=== PATIENT | male | born 1975 | race Caucasian/White ===

== ENCOUNTER 2018-09-07 19:57 | Emergency (ER) | payer OTHER, MEDICAID, SELFPAY ==
[2018-09-07 20:01] VITALS: BP 159/89; PULSE 111; RESP 21; TEMP 37.3; O2SAT 95
--- NOTE | 2018-09-07 20:27 | PC.NURSE ---
Patient in room with mother at bedside. Sitter in use. Pt here for pain control, but he is level 2 due to suicide risk assessment. provider notified.
--- NOTE | 2018-09-07 20:41 | PC.NURSE ---
Patient placed next to nursing station for continuous observation. Patient's family feels comfortable staying with patient and will initiate staff one on one if family leaves. Provider aware.
[2018-09-07 21:19] VITALS: BP 153/91; PULSE 91; RESP 22; TEMP 37.1; O2SAT 93
[2018-09-07] MEDS: OXYCODONE/APAP 5/325 PREPACK 1 BOTTLE MISC (21:57)
--- NOTE | 2018-09-08 04:13 | ED_ITS ---
HPI - Recheck/Abnormal Lab/Rx General Chief Complaint: Recheck/Abnormal Lab/Rx Stated Complaint: pain issues Time Seen by Provider: 09/07/18 20:10 Source: patient and family Mode of arrival: ambulatory Limitations: no limitations History of Present Illness HPI narrative: 43-year-old male smoker with extensive known opioid abuse history presents with a chief complaint of left shoulder pain. the patient just had ar throscopic surgery on his left shoulder and was discharged from an outside facility yesterday. The patient had recently been prescribed 120 oxycodone which he is out of and upon discharge was given another small prescription. When he went to the local pharmacy to have it filled they did not based on the fact that he had recently had a large prescription filled. He contacted his doctor's and was told the only option he has presents to the emergency department if he has ongoing pain. He denies any injury. He has had no fever or chills. He denies any numbness, tingling or weakness. MD complaint: medication refill request Initial visit (ago): hour(s) Initial visit for: other Returns today for: request for prescription Symptoms since prior visit: worsening pain Context: ran out of medication Related Data Home Medications Medication Instructions Recorded Confirmed benztropine 2 mg PO DAILY 09/07/18 09/07/18 buspirone 15 mg PO BID 09/07/18 09/07/18 clonazepam 2 mg PO DAILY 09/07/18 09/07/18 diazepam 5 mg PO QID 09/07/18 09/07/18 diltiazem HCl [Cartia XT] 120 mg PO DAILY 09/07/18 09/07/18 hydrochlorothiazide 25 mg PO DAILY 09/07/18 09/07/18 lansoprazole 30 mg PO DAILY 09/07/18 09/07/18 losartan 25 mg PO DAILY 09/07/18 09/07/18 mirtazapine 15 mg PO DAILY 09/07/18 09/07/18 pantoprazole 40 mg PO BID 09/07/18 09/07/18 prazosin 5 mg PO BID 09/07/18 09/07/18 prednisone 10 mg PO DAILY 09/07/18 09/07/18 risperidone 4 mg PO DAILY 09/07/18 09/07/18 simvastatin 20 mg PO QPM 04/03/19 04/03/19 Previous Rx's Medication Instructions Recorded gabapentin [Neurontin] 300 mg PO QID #8 cap 11/17/16 Allergies Allergy/AdvReac Type Severity Reaction Status Date / Time hydromorphone [HYDROMORPHONE] Allergy Mild severe Verified 09/07/18 20:11 itching WITH PILL FORM morphine Allergy Mild skin Verified 09/07/18 20:11 crawl/itchy Penicillins Allergy Mild hives Verified 09/07/18 20:11 Review of Systems Constitutional Denies chills, Denies fever(s), Denies lethargy and Denies weakness Eyes Denies change in vision, Denies eye discharge, Denies irritation and Denies loss of vision ENT Ears, Nose, Mouth, and Throat: Denies change in voice, Denies neck pain and Denies sore throat Cardiovascular Denies chest pain, Denies irregular heart rhythm, Denies lightheadedness, Denies palpitations, Denies dyspnea, Denies dyspnea on exertion and Denies orthopnea Respiratory Denies cough, Denies dyspnea, Denies dyspnea on exertion and Denies wheezing Gastrointestinal Gastrointestinal: Denies abdominal pain, Denies change in bowel habits, Denies diarrhea, Denies nausea and Denies vomiting Genitourinary Denies hematuria, Denies flank pain, Denies urinary incontinence and Denies urinary urgency Musculoskeletal Reports limited range of motion and Denies neck pain Integumentary/Breasts Denies pruritus, Denies erythema, Denies rash and Denies wounds Neurologic Denies confusion, Denies loss of vision and Denies weakness Psychiatric Denies anxiety, Denies confusion, Denies depression, Denies homicidal ideation and Denies suicidal ideation Endocrine Denies palpitations Hematologic/Lymphatic Denies easy bruising Allergic/Immunologic Denies wheezing PFSH Social History Smoking Status: Current every day smoker Social History Smoking Status: Current every day smoker Exam Narrative Exam Narrative: GEN: 43-year-old male, appears stated age, obviously uncomfortable AOx3 and in mild distress EYES: Pupils are equal, round, and reactive to light and accommodation. Extraoccular muscles are intact bilaterally. There is no subconjunctival hemorrhage or exudate. CHEST: Lungs are clear to auscultation bilaterally and free of wheezes, rales, or rhonchi. Heart rate is regular rhythm, there are no murmurs, clicks, rubs, or gallops. There is no chest wall tenderness. ABD: Abdomen is soft and nontender. There is no guarding or rebound. Bowel sounds are normal in all 4 quadrants. There is no mass or organomegaly. EXT: Left upper extremity in sling. Full painless ROM of all extremities with no loss of sensation or strength. SKIN: Warm, pink, and dry. No erythema or rash Initial Vital Signs Initial Vital Signs: Vital Signs Temperature 99.1 F 09/07/18 20:01 Pulse Rate 111 H 09/07/18 20:01 Respiratory Rate 21 09/07/18 20:01 Blood Pressure 159/89 H 09/07/18 20:01 Pulse Oximetry 95 09/07/18 20:01 Course Orders Ordered: Discontinued Medications Oxycodone/Acetaminophen (Endocet 5/325 Prepack) 1 bottle MISC SEEINSTR ONE Stop: 09/07/18 21:46 Last Admin: 09/07/18 21:57 Dose: 1 bottle Vital Signs - 8 hr 09/07/18 21:19 Temperature 98.7 F Pulse Rate 91 H Respiratory Rate 22 Blood Pressure [Right Arm] 153/91 H Pulse Oximetry 93 MDM - Recheck/Abnormal Lab/Rx MDM Narrative Medical decision making narrative: I had extensive discussion with the patient regarding pain medications and our ability to refill them. I told him I could not refill his medications but would be happy to give a small prepack to get him through the night. The patient states that he wants to be done with opioids and intends to see his primary care provider tomorrow to get help with a Suboxone or methadone program Discharge Plan Departure Patient Disposition: Home Clinical Impression: Acute postoperative pain of extremity Discharge Date/Time: 09/07/18 22:03 Interventions: ED Discharge Assessment Last Done: 09/07/18 22:01 Instructions: DI for Shoulder Pain Activity Restrictions/Additional Instructions: *You have been diagnosed with [ post operative pain, opioid dependence ] *What to do: *Take medications as directed *Follow up with your primary care provider in 2-3 days, call for an appointment. Let them know you were seen in the Emergency Department and that we ask that you be seen in follow up *Return to ER if you should have any new, worsening or concerning symptoms Prescriptions: No Action gabapentin [Neurontin] 300 MG capsule 300 mg PO QID Qty: 8 RF: 0 prednisone 10 mg Tablet 10 mg PO DAILY RF: 0 risperidone 4 mg Tablet 4 mg PO DAILY RF: 0 pantoprazole 20 mg Tablet,Delayed Release (Dr/Ec) 40 mg PO BID RF: 0 prazosin 5 mg Capsule 5 mg PO BID RF: 0 simvastatin 20 mg Tablet 20 mg PO QPM RF: 0 lansoprazole 30 mg Capsule,Delayed Release(Dr/Ec) 30 mg PO DAILY RF: 0 clonazepam 2 mg Tablet 2 mg PO DAILY RF: 0 losartan 25 mg Tablet 25 mg PO DAILY RF: 0 benztropine 2 mg Tablet 2 mg PO DAILY RF: 0 diltiazem HCl [Cartia XT] 120 mg Capsule,Extended Release 24hr 120 mg PO DAILY RF: 0 hydrochlorothiazide 25 mg Tablet 25 mg PO DAILY RF: 0 mirtazapine 15 mg Tablet 15 mg PO DAILY RF: 0 diazepam 5 mg Tablet 5 mg PO QID RF: 0 buspirone 15 mg Tablet 15 mg PO BID RF: 0 Referrals: Sherri Lowe MD [Primary Care Provider] -
== END 2018-09-07 22:03 | disposition home or self-care (01) ==
PROVIDERS: Emergency Provider Emergency Medicine; Family Provider Family Medicine; PCP Family Medicine
DX: G89.18 Other acute postprocedural pain (principal)
CPT/HCPCS: 99282; 99283

== ENCOUNTER 2018-12-17 19:54 | Emergency (ER) | payer OTHER, MEDICAID, SELFPAY ==
[2018-12-17 20:02] VITALS: BP 158/94; PULSE 103; RESP 22; TEMP 36.9; O2SAT 96; BMI 32.8
--- NOTE | 2018-12-17 20:06 | ED_ITS ---
HPI - Male Genitourinary General Chief complaint: Urogenital-Male Stated complaint: states left kidney stone Time Seen by Provider: 12/17/18 20:05 Source: patient Mode of arrival: ambulatory History of Present Illness HPI Narrative: Patient is a 43-year-old male presenting with left flank pain says constant ongoing for the last 2 weeks. He denies any gross blood in his urine he says it is not radiating into his groin. He has never had a history of kidney stones. He is allergic to most pain medications except Tylenol. He has had vomiting numerous times unable to take his PTSD medication, both benzodiazepines. He states he has had seizures about 6 of them over the past few days he had 1 yesterday. He has history of seizures which is controlled with benzodiazepines. He says that he has been in a dark place. He has no specific plan of suicide no actual suicidal thoughts but states he does not trust himself at home. He gets quite anxious in groups of people and is worried that he might ?strong arm someone.He is requesting that he be placed at [place] for stabilization. Related Data Home Medications Medication Instructions Recorded Confirmed benztropine 2 mg PO DAILY 09/07/18 09/07/18 buspirone 15 mg PO BID 09/07/18 09/07/18 clonazepam 2 mg PO DAILY 09/07/18 09/07/18 diazepam 5 mg PO QID 09/07/18 09/07/18 diltiazem HCl [Cartia XT] 120 mg PO DAILY 09/07/18 09/07/18 hydrochlorothiazide 25 mg PO DAILY 09/07/18 09/07/18 lansoprazole 30 mg PO DAILY 09/07/18 09/07/18 losartan 25 mg PO DAILY 09/07/18 09/07/18 mirtazapine 15 mg PO DAILY 09/07/18 09/07/18 pantoprazole 40 mg PO BID 09/07/18 09/07/18 prazosin 5 mg PO BID 09/07/18 09/07/18 prednisone 10 mg PO DAILY 09/07/18 09/07/18 risperidone 4 mg PO DAILY 09/07/18 09/07/18 simvastatin 20 mg PO QPM 09/07/18 09/07/18 Previous Rx's Medication Instructions Recorded gabapentin [Neurontin] 300 mg PO QID #8 cap 11/17/16 Allergies Allergy/AdvReac Type Severity Reaction Status Date / Time hydromorphone [HYDROMORPHONE] Allergy Mild severe Verified 09/07/18 20:11 itching WITH PILL FORM morphine Allergy Mild skin Verified 09/07/18 20:11 crawl/itchy Penicillins Allergy Mild hives Verified 09/07/18 20:11 ketorolac [From Toradol] Allergy Verified 12/17/18 20:07 Review of Systems Review of Systems ROS Unobtainable: All systems reviewed & are unremarkable except as noted in HPI and below Constitutional Denies chills, Denies fever(s), Denies lethargy and Denies weakness Eyes Denies change in vision, Denies eye discharge, Denies irritation and Denies loss of vision ENT Ears, Nose, Mouth, and Throat: Denies change in voice, Denies neck pain and Denies sore throat Cardiovascular Denies chest pain, Denies irregular heart rhythm, Denies lightheadedness, Denies palpitations, Denies dyspnea, Denies dyspnea on exertion and Denies orthopnea Respiratory Denies cough, Denies dyspnea, Denies dyspnea on exertion and Denies wheezing Gastrointestinal Gastrointestinal: Reports as per HPI, Reports nausea and Reports vomiting Genitourinary Reports as per HPI and Reports flank pain Musculoskeletal Denies neck pain Integumentary/Breasts Denies pruritus, Denies erythema, Denies rash and Denies wounds Neurologic Denies loss of vision and Denies weakness Endocrine Denies palpitations Allergic/Immunologic Denies wheezing [facility] Medical History PTSD (post-traumatic stress disorder) (Acute) Seizure (Acute) Social History Smoking Status: Current every day smoker Social History Smoking Status: Current every day smoker Exam Initial Vital Signs Initial Vital Signs: Vital Signs Temperature 98.4 F 12/17/18 20:02 Pulse Rate 103 H 12/17/18 20:02 Respiratory Rate 22 12/17/18 20:02 Blood Pressure 158/94 H 12/17/18 20:02 Pulse Oximetry 96 12/17/18 20:02 GENERAL: Well-appearing, well-nourished and in no acute distress. Good eye contact HEENT: Head atraumatic,EOMI, pupils reactive, face symmetric, moist mucous membranes CARDIOVASCULAR: Regular rate and rhythm without murmurs, rubs or gallops. RESPIRATORY: Breath sounds equal bilaterally, no wheezes rales or rhonchi. ABDOMEN: Soft, nontender. Normoactive bowel sounds all 4 quadrants. No guarding or rebound. : All left flank pain tender to touch EXTREMITIES: Normal range of motion, no clubbing or edema. Neurovascularly inta ct NEUROLOGICAL: Alert and oriented x4.Normal gait and speech. Cranial nerves II through XII grossly intact. SKIN: Warm, dry, no laceration, no petechiae, no rashes or lesions. Course Orders Ordered: Discontinued Medications Sodium Chloride (Normal Saline 0.9%) 1,000 mls @ 1,000 mls/hr IV CONT [place] Last Infusion: 12/17/18 22:02 Dose: 0 mls/hr Admin: 12/17/18 20:20 Dose: 1,000 mls/hr Lorazepam (Ativan) 1 mg PO NOW ONE Stop: 12/17/18 20:18 Last Admin: 12/17/18 20:37 Dose: 1 mg Lorazepam (Ativan) 1 mg IV NOW ONE Stop: 12/18/18 01:17 Last Admin: 12/18/18 01:24 Dose: 1 mg Ondansetron HCl (Zofran) 4 mg IV NOW ONE Stop: 12/17/18 20:18 Last Admin: 12/17/18 20:20 Dose: 4 mg Ondansetron HCl (Zofran Odt) 4 mg SL NOW ONE Stop: 12/18/18 04:44 Last Admin: 12/18/18 04:48 Dose: 4 mg Ondansetron HCl (Zofran Odt) 4 mg SL NOW ONE Stop: 12/18/18 04:46 Ondansetron HCl (Zofran Odt Prepack) 1 bottle MISC SEEINSTR ONE Stop: 12/18/18 05:04 Last Admin: 12/18/18 05:17 Dose: 1 bottle Oxycodone/Acetaminophen (Percocet 5/325) 2 tab PO NOW ONE Stop: 12/17/18 22:37 Last Admin: 12/17/18 22:52 Dose: 2 tab Oxycodone/Acetaminophen (Percocet 5/325) 1 tab PO NOW ONE Stop: 12/18/18 04:44 Last Admin: 12/18/18 04:53 Dose: 1 tab Oxycodone/Acetaminophen (Endocet 5/325 Prepack) 1 bottle MISC SEEINSTR ONE Stop: 12/18/18 05:04 Last Admin: 12/18/18 05:17 Dose: 1 bottle Vital Signs - 8 hr 12/17/18 23:35 12/18/18 01:27 12/18/18 04:23 Pulse Rate 52 L 56 L 51 L Respiratory Rate 12 14 Blood Pressure [Left Arm] 115/56 L 146/89 H 116/70 Pulse Oximetry 93 97 MDM - Male Genitourinary Lab Data Attestation: I reviewed the patient's lab results. Result diagrams: 12/17/18 20:15 12/17/18 20:15 Lab Results 12/17/18 12/17/18 12/17/18 Range/Units 20:15 20:15 20:15 WBC 7.1 (4.5-11.0) X10^3/uL RBC 4.12 L (4.5-5.9) X10^6/uL Hgb 13.8 (13.5-17.5) g/dL Hct 39.5 L (41-53) % MCV 95.9 (80-100) fL MCH 33.5 (26-34) PG MCHC 35.0 (30-36) % RDW 13.3 (11.6-14.8) % Plt Count 199 (150-400) X10^3/uL Neut % (Auto) 74.7 (50-75) % Lymph % (Auto) 20.1 L (25-40) % [place] % (Auto) 4.0 (3-14) % Eos % (Auto) 0.6 L (2-4) % Baso % (Auto) 0.6 (0-2) % Neut # (Auto) 5300 (1227-1829) /uL Lymph # (Auto) 1400 (2183-5452) /uL [place] # (Auto) 300 (0-900) /uL Eos # (Auto) 0 (0-450) /uL Baso # (Auto) 0 (0-100) /uL Sodium 143 (137-145) mmol/L Potassium 3.2 L (3.4-5.1) mmol/L Chloride 108 H (98-107) mmol/L Carbon Dioxide 25 (22-32) mmol/L BUN 5 L (9-20) mg/dL Creatinine 0.90 (0.66-1.25) mg/dL Estimated GFR > 60.0 (>60) mL/min BUN/Creatinine Ratio 5.6 L (6-22) Glucose 123 H (70-100) mg/dL Calcium 9.8 (8.4-10.2) mg/dL Total Bilirubin 0.6 (0.2-1.3) mg/dL AST 15 L (17-59) IU/L ALT 28 (21-72) IU/L Alkaline Phosphatase 90 (38-126) U/L Total Protein 7.0 (6.3-8.2) g/dL Albumin 4.4 (3.5-5.0) g/dL Globulin 2.6 (1.7-4.1) g/dL Albumin/Globulin Ratio 1.7 (1.0-2.8) Lipase 65 (23-300) U/L TSH 0.70 (0.47-4.68) uIU/mL Urine Opiates Screen (Negative) Ur Oxycodone Screen (Negative) Urine Methadone Screen (Negative) Ur Barbiturates Screen (Negative) U Tricyclic Antidepress (Negative) Ur Phencyclidine Scrn (Negative) Ur Amphetamines Screen (Negative) U Methamphetamines Scrn (Negative) Ur MDMA Scrn (Ecstasy) (Negative) U Benzodiazepines Scrn (Negative) Urine Cocaine Screen (Negative) U Marijuana (THC) Screen (Negative) Ethyl Alcohol mg/dL 12/17/18 12/17/18 Range/Units 20:15 21:30 WBC (4.5-11.0) X10^3/uL RBC (4.5-5.9) X10^6/uL Hgb (13.5-17.5) g/dL Hct (41-53) % MCV (80-100) fL MCH (26-34) PG MCHC (30-36) % RDW (11.6-14.8) % Plt Count (150-400) X10^3/uL Neut % (Auto) (50-75) % Lymph % (Auto) (25-40) % [place] % (Auto) (3-14) % Eos % (Auto) (2-4) % Baso % (Auto) (0-2) % Neut # (Auto) (2322-5700) /uL Lymph # (Auto) (8163-7940) /uL [place] # (Auto) (0-900) /uL Eos # (Auto) (0-450) /uL Baso # (Auto) (0-100) /uL Sodium (137-145) mmol/L Potassium (3.4-5.1) mmol/L Chloride (98-107) mmol/L Carbon Dioxide (22-32) mmol/L BUN (9-20) mg/dL Creatinine (0.66-1.25) mg/dL Estimated GFR (>60) mL/min BUN/Creatinine Ratio (6-22) Glucose (70-100) mg/dL Calcium (8.4-10.2) mg/dL Total Bilirubin (0.2-1.3) mg/dL AST (17-59) IU/L ALT (21-72) IU/L Alkaline Phosphatase (38-126) U/L Total Protein (6.3-8.2) g/dL Albumin (3.5-5.0) g/dL Globulin (1.7-4.1) g/dL Albumin/Globulin Ratio (1.0-2.8) Lipase (23-300) U/L TSH (0.47-4.68) uIU/mL Urine Opiates Screen Negative (Negative) Ur Oxycodone Screen Positive H (Negative) Urine Methadone Screen Negative (Negative) Ur Barbiturates Screen Negative (Negative) U Tricyclic Antidepress Negative (Negative) Ur Phencyclidine Scrn Negative (Negative) Ur Amphetamines Screen Negative (Negative) U Methamphetamines Scrn Negative (Negative) Ur MDMA Scrn (Ecstasy) Negative (Negative) U Benzodiazepines Scrn Negative (Negative) Urine Cocaine Screen Negative (Negative) U Marijuana (THC) Screen Negative (Negative) Ethyl Alcohol < 10 mg/dL Urine Dip Bedside Urine Glucose Negative Bedside Urine Bilirubin - Negative Bedside Urine Ketone - Negative Urine Specific Williams 1.015 Bedside Urine Occult Blood - Negative Bedside Urine pH 7 Bedside Urine Protein - Negative Bedside Urine Urobilinogen - Negative Bedside Urine Nitrite - Negative Bedside Urine Leukocytes - Negative Esterase Imaging Data CT scan - abdomen: Radiologist's impression: PROCEDURE: CT KIDNEY URETER BLADDER (KUB) INDICATIONS: left flank pain x 2 weeks TECHNIQUE: Noncontrast 5 mm thick sections acquired from the diaphragms to the symphysis. 5 mm thick coronal and sagittal reformats were then performed. For radiation dose reduction, the following was used: automated exposure control, adjustment of mA and/or kV according to patient size. COMPARISON: Outside Film, CT, CT ABDOMEN PELVIS WITH CONTRAST, 12/05/2018, 19:55. FINDINGS: Image quality: Excellent. Lung bases: There is mild scarring and atelectasis in the lung bases. Heart size is normal. Urinary system: There is a small nonobstructing left renal stone are demonstrated measuring approximately 3 mm. No hydronephrosis. There is mild nonspecific chronic stranding redemonstrated bilaterally. Left renal cyst seen on the prior contrast enhanced CT is less discrete on the current study. Both ureters appear non- dilated throughout their expected courses. Bladder wall thickness is normal; no calcified bladder stones. Other solid organs: Liver is normal in size. Gallbladder appears within normal limits without calcified gallstones. Pancreas is normal in contours. Spleen is normal in size. No adrenal nodules. Peritoneum and bowel: Unenhanced bowel loops demonstrate normal wall thickness and caliber. The appendix is normal in appearance. There is colonic diverticulosis without acute diverticulitis. No free fluid or air. Nodes and vessels: No retroperitoneal or mesenteric adenopathy by size criteria. Aorta and inferior vena cava are normal in caliber. Abdominal wall: No ventral hernias. Pelvis: No free pelvic fluid. No inguinal hernias or adenopathy. Bones: No suspicious bony lesions. No vertebral body compression fractures. IMPRESSION: 1. Small nonobstructing left renal stone redemonstrated. No evidence of obstructive uropathy. 2. Colonic diverticulosis without acute diverticulitis. 3. Mild nonspecific perinephric stranding redemonstrated bilaterally. No perinephric fluid collections. Recommend correlation with urinalysis for possible urinary tract infection. Dictated by: Alfonso Esquivel M.D. on 12/17/2018 at 20:41 MDM Narrative Medical decision making narrative: Patient is not actually had any vomiting in the ED. His pain seems to be controlled. He does not have a moving kidney stone at this time. Urine is negative. Unfortunately no beds available. Patient states he still does not feel quite right going home but can't give me a specific plan. We have made arrangements for [facility] to call him Wednesday afternoon and for him to have follow-up on Wednesday. At this time patient will sleep in the ED and be safely discharged in the morning. Patient really does not be any sort of involuntary criteria. He is agreeable to outpatient follow-up. He still has some intermittent left-sided pain. He is given a prepack only for of narcotics for pain. Discharge Plan Departure Patient Disposition: Home Clinical Impression: Kidney stone on left side, PTSD (post-traumatic stress disorder) Discharge Date/Time: 12/18/18 05:15 Interventions: ED Discharge Assessment Last Done: 12/18/18 05:15 Instructions: DI for Kidney Stones Activity Restrictions/Additional Instructions: *You have been diagnosed with kidney stone and PTSD *What to do: Your kidney stone is not actually moving at this time but it can move at any time in might be causing you your pain. If you are feeling suicidal or having suicidal thoughts: Call: Suicide Hotline: Visit: www.[employer] Text: 724470 *Continue to take medications as directed Zofran 4 mg every 6-8 hours if needed for nausea vomiting Percocet 1 tablet every 6 hours only if needed for severe pain *Follow up with your primary care provider in 2-3 days [facility] will call you this afternoon today to check on you, at which point they will schedule an appointment for you to be seen tomorrow. *Return to ER if you should have worsening pain suicidal thoughts or any new, worsening or concerning symptoms CONTROLLED SUBSTANCE DISCHARGE (Narcotoic/benzodiazepine/Flexeril/Phenergan) 1. You have been prescribed narcotic medications, it does have acetaminophen/Tylenol/paracetamol in it so do not take extra Tylenol or Tylenol containing products 2. Please understand that we cannot provide further refills of narcotics, benzodiazepines or controlled substances through the ED and her pain management will need to be through your provider. 3. While on these medications you cannot drive or operate heavy machinery. 4. You cannot sign legal documents or perform any duties such as this. 5. As long as you're taking opiate pain medications he should also be taking a stool softener such as Colace, Dulcolax, MiraLAX or prune juice, to help avoid constipation. Prescriptions: No Action gabapentin [Neurontin] 300 MG capsule 300 mg PO QID Qty: 8 RF: 0 prednisone 10 mg Tablet 10 mg PO DAILY RF: 0 risperidone 4 mg Tablet 4 mg PO DAILY RF: 0 pantoprazole 20 mg Tablet,Delayed Release (Dr/Ec) 40 mg PO BID RF: 0 prazosin 5 mg Capsule 5 mg PO BID RF: 0 simvastatin 20 mg Tablet 20 mg PO QPM RF: 0 lansoprazole 30 mg Capsule,Delayed Release(Dr/Ec) 30 mg PO DAILY RF: 0 clonazepam 2 mg Tablet 2 mg PO DAILY RF: 0 losartan 25 mg Tablet 25 mg PO DAILY RF: 0 benztropine 2 mg Tablet 2 mg PO DAILY RF: 0 diltiazem HCl [Cartia XT] 120 mg Capsule,Extended Release 24hr 120 mg PO DAILY RF: 0 hydrochlorothiazide 25 mg Tablet 25 mg PO DAILY RF: 0 mirtazapine 15 mg Tablet 15 mg PO DAILY RF: 0 diazepam 5 mg Tablet 5 mg PO QID RF: 0 buspirone 15 mg Tablet 15 mg PO BID RF: 0 Referrals: [facility] [Outside] Sherri Lowe MD [Primary Care Provider] -
--- NOTE | 2018-12-17 20:12 | DI.CT.S_ITS ---
PROCEDURE: CT KIDNEY URETER BLADDER (KUB) INDICATIONS: left flank pain x 2 weeks TECHNIQUE: Noncontrast 5 mm thick sections acquired from the diaphragms to the symphysis. 5 mm thick coronal and sagittal reformats were then performed. For radiation dose reduction, the following was used: automated exposure control, adjustment of mA and/or kV according to patient size. COMPARISON: Outside Film, CT, CT ABDOMEN PELVIS WITH CONTRAST, 12/05/2018, 19:55. FINDINGS: Image quality: Excellent. Lung bases: There is mild scarring and atelectasis in the lung bases. Heart size is normal. Urinary system: There is a small nonobstructing left renal stone are demonstrated measuring approximately 3 mm. No hydronephrosis. There is mild nonspecific chronic stranding redemonstrated bilaterally. Left renal cyst seen on the prior contrast enhanced CT is less discrete on the current study. Both ureters appear non-dilated throughout their expected courses. Bladder wall thickness is normal; no calcified bladder stones. Other solid organs: Liver is normal in size. Gallbladder appears within normal limits without calcified gallstones. Pancreas is normal in contours. Spleen is normal in size. No adrenal nodules. Peritoneum and bowel: Unenhanced bowel loops demonstrate normal wall thickness and caliber. The appendix is normal in appearance. There is colonic diverticulosis without acute diverticulitis. No free fluid or air. Nodes and vessels: No retroperitoneal or mesenteric adenopathy by size criteria. Aorta and inferior vena cava are normal in caliber. Abdominal wall: No ventral hernias. Pelvis: No free pelvic fluid. No inguinal hernias or adenopathy. Bones: No suspicious bony lesions. No vertebral body compression fractures. IMPRESSION: 1. Small nonobstructing left renal stone redemonstrated. No evidence of obstructive uropathy. 2. Colonic diverticulosis without acute diverticulitis. 3. Mild nonspecific perinephric stranding redemonstrated bilaterally. No perinephric fluid collections. Recommend correlation with urinalysis for possible urinary tract infection. Dictated by: Alfonso Esquivel M.D. on 12/17/2018 at 20:41 Approved by: Alfonso Esquivel M.D. on 12/17/2018 at 20:49
[2018-12-17] MEDS: SODIUM CHLORIDE 0.9% 1,000 ML 1000 ML IV (20:20)
[2018-12-17] MEDS: ONDANSETRON 4 MG/2 ML INJ IV (20:20)
[2018-12-17 20:21] LABS: Add Manual Diff / Slide Review NO; Basophils Absolute Auto 0 /uL (0-100); Basophils Percent Auto 0.6 % (0-2); Eosinophils Absolute Auto 0 /uL (0-450); Eosinophils Percent Auto 0.6 % (2-4); Hematocrit 39.5 % (41-53); Hemoglobin 13.8 g/dL (13.5-17.5); Lymphocytes Absolute Auto 1400 /uL (1100-4500); Lymphocytes Percent Auto 20.1 % (25-40); Mean Corpuscular Hemoglobin 33.5 PG (26-34); Mean Corpuscular Volume 95.9 fL (80-100); Monocytes Absolute Auto 300 /uL (0-900); Neutrophils Absolute Auto 5300 /uL (1500-7000); Neutrophils Percent Auto 74.7 % (50-75); Platelet Count 199 X10^3/uL (150-400); Red Blood Cell Count 4.12 X10^6/uL (4.5-5.9); Red Cell Distribution Width 13.3 % (11.6-14.8); White Blood Cell Count 7.1 X10^3/uL (4.5-11.0)
[2018-12-17 20:33] LABS: Alanine Aminotransferase 28 IU/L (21-72); Albumin 4.4 g/dL (3.5-5.0); Albumin Globulin Ratio 1.7 (1.0-2.8); Alkaline Phosphatase 90 U/L (38-126); Aspartate Aminotransferase 15 IU/L (17-59); BUN Creatinine Ratio 5.6 (6-22); Bilirubin Total 0.6 mg/dL (0.2-1.3); Blood Urea Nitrogen 5 mg/dL (9-20); Calcium 9.8 mg/dL (8.4-10.2); Carbon Dioxide 25 mmol/L (22-32); Chloride 108 mmol/L (98-107); Estimated Glomerular Filt Rate > 60.0 mL/min (>60); Globulin 2.6 g/dL (1.7-4.1); Glucose 123 mg/dL (70-100); HEMOLYSIS < 15 (0-50); Lipase 65 U/L (23-300); Potassium 3.2 mmol/L (3.4-5.1); Sodium 143 mmol/L (137-145)
[2018-12-17] MEDS: LORazepam 0.5 MG TABLET 1 MG PO (20:37)
--- NOTE | 2018-12-17 20:42 | PC.NURSE ---
pt reorts feeling less nousous. Pt took PO ativan and drank full glass of water.
[2018-12-17 21:34] VITALS: BP 155/93; PULSE 55; RESP 15; TEMP 36.8; O2SAT 97
[2018-12-17 22:00] VITALS: BP 155/92; PULSE 63; O2SAT 98
--- NOTE | 2018-12-17 22:19 | PC.NURSE ---
Pt remains comfortable in stretcher, denies needs at this time.
[2018-12-17 22:47] LABS: Ethanol (ETOH) < 10 mg/dL
[2018-12-17] MEDS: OXYCODONE/ACETAMINOPHEN 5/325 TABLET 2 TAB PO (22:52)
[2018-12-17 22:55] LABS: Urine Amphetamines Negative (Negative); Urine Barbiturates Negative (Negative); Urine Benzodiazepines Negative (Negative); Urine Cocaine Negative (Negative); Urine MDMA Negative (Negative); Urine Methadone Negative (Negative); Urine Methamphetamines Negative (Negative); Urine Morphine/Opi cutoff 2000 Negative (Negative); Urine Oxycodone Positive (Negative); Urine Phencyclidine Negative (Negative); Urine Tetrahydrocannabinol Negative (Negative); Urine Tricyclic Antidepressant Negative (Negative)
[2018-12-17 23:35] VITALS: BP 115/56; PULSE 52; RESP 12; O2SAT 93
--- NOTE | 2018-12-18 00:28 | PC.NURSE ---
Attempted to call [facility] (can't take him due to the acuity already on their floor) also called [facility] and crisis center;none of which are able to take him at this time for a voluntary bed
--- NOTE | 2018-12-18 00:43 | PC.NURSE ---
Crisis center will call pt at approx 0930 in the AM to set up a next day appointment with pt. Pt agreeable to plan. Pt will stay here in ED until approx 0700 or until he feels more safe to go radha
[2018-12-18] MEDS: LORazepam 2 MG/ML INJ 1 MG IV (01:24)
[2018-12-18 01:27] VITALS: BP 146/89; PULSE 56; RESP 14; O2SAT 97
[2018-12-18 04:23] VITALS: BP 116/70; PULSE 51
[2018-12-18] MEDS: ONDANSETRON 4 MG ODT SL (04:48)
[2018-12-18] MEDS: OXYCODONE/ACETAMINOPHEN 5/325 TABLET 1 TAB PO (04:53)
[2018-12-18] MEDS: OXYCODONE/APAP 5/325 PREPACK 1 BOTTLE MISC (05:17)
[2018-12-18] MEDS: ONDANSETRON 4 MG ODT PREPACK 1 BOTTLE MISC (05:17)
--- NOTE | 2018-12-19 19:43 | CM.SWNOTE ---
ED REFINERY OPERATOR [employer]ISBREAKING Note: Bed search [employer] called [facility] to get names of places with available beds. As of 3 PM today, the only places with beds were [facility], [facility], and [facility] ( [place]) REFIN[employer] OPERATOR [employer]BREAKING called all 3. Only [facility] and [facility] had beds. Info was faxed to those and awaiting a response. [facility]: [phone] [facility] [phone] REFINERY OPERATOR VISBREAKING called before leaving for the evening. Both hospitals were still considering this patient and will call once determination is made.
== END 2018-12-18 05:15 | disposition home or self-care (01) ==
PROVIDERS: Emergency Provider Emergency Medicine; PCP Family Medicine
DX: N20.0 Calculus of kidney (principal); F43.10 Post-traumatic stress disorder, unspecified
CPT/HCPCS: 36591; 74176; 80053; 80305; 80320; 81003; 83690; 84443; 85025; 96361; 96374; 96375; 99283; 99284; J2060; J2405

== ENCOUNTER 2018-12-19 11:27 | Emergency (ER) | payer OTHER, MEDICAID, SELFPAY ==
[2018-12-19] VITALS (8 sets, daily range): BP systolic 118–148; BP diastolic 62–92; PULSE 50–72; RESP 15–20; TEMP 36.9; O2SAT 94–99
--- NOTE | 2018-12-19 11:45 | ED.MALEGU ---
HPI - Male Genitourinary <Neftali Rowland DO - Last Filed: 12/20/18 06:54> General Chief complaint: Urogenital-Male Stated complaint: Kidney stones, nausea Time Seen by Provider: 12/19/18 11:39 Source: patient Mode of arrival: ambulatory Limitations: no limitations History of Present Illness HPI Narrative: Patient is a 43-year-old male with reported history of PTSD. Was seen here in the emergency department approximately 24 hours ago for abdominal pain was diagnosed with a left-sided kidney stone however no signs of ureteral stones or blockages were found on the CT scan. Review of that note ultrasound was that the patient was having some psychiatric issues at that time. Patient was not suicidal. There was a plan in place for [facility] to contact the patient on Wednesday for follow-up. The patient states that this did happen. There is no further follow-up scheduled. He states that since he left the department he has not left his room. He states that he continues to have left-sided pain. Denies SI. Denies specific HI however states that he does not like crowds and has got in trouble in the past for pushing his way through a crowd trying to leave. Patient states that he feels like he needs admitted to the hospital for psychiatric evaluation. Related Data Home Medications Medication Instructions Recorded Confirmed hydrochlorothiazide 25 mg PO DAILY 09/07/18 12/19/18 losartan 25 mg PO DAILY 09/07/18 12/19/18 mirtazapine 15 mg PO BEDTIME 09/07/18 12/19/18 pantoprazole 20 mg PO DAILY 09/07/18 12/19/18 prazosin 5 mg PO BEDTIME 09/07/18 12/19/18 prednisone 20 mg PO DAILY 09/07/18 12/19/18 simvastatin 20 mg PO QPM 09/07/18 12/19/18 alprazolam 1 mg PO Q12H 12/19/18 12/19/18 buspirone 30 mg PO BID 12/19/18 12/19/18 clonazepam 1 mg PO Q8H 12/19/18 12/19/18 diclofenac sodium 75 mg PO BID 12/19/18 12/19/18 diltiazem HCl [DILT-XR] 180 mg PO DAILY 12/19/18 12/19/18 epinephrine 0.3 ml IM PRN PRN 12/19/18 12/19/18 insulin glargine [Lantus U-100 15 unit SUBCUT DAILY 12/19/18 12/19/18 Insulin] insulin lispro [Humalog U-100 1 dose SUBCUT DIRECTED 12/19/18 12/19/18 Insulin] oxycodone-acetaminophen 1 tab PO Q4-6H PRN 12/19/18 12/19/18 Allergies Allergy/AdvReac Type Severity Reaction Status Date / Time hydromorphone [HYDROMORPHONE] Allergy Mild severe Verified 09/07/18 20:11 itching WITH PILL FORM morphine Allergy Mild skin Verified 09/07/18 20:11 crawl/itchy Penicillins Allergy Mild hives Verified 09/07/18 20:11 ketorolac [From Toradol] Allergy Verified 12/17/18 20:07 Review of Systems <Neftali Rowland DO - Last Filed: 12/20/18 06:54> Constitutional Denies fatigue, Denies fever(s) and Denies headache(s) ENT Ears, Nose, Mouth, and Throat: Denies headache(s) and Denies disequilibrium Cardiovascular Denies chest pain and Denies dyspnea Respiratory Denies dyspnea Gastrointestinal Gastrointestinal: Denies change in bowel habits Comments: Left-sided flank pain Genitourinary Reports flank pain Integumentary/Breasts Denies rash Neurologic Denies behavioral changes, Denies headache(s), Denies memory loss and Denies disequilibrium Psychiatric Reports anxiety, Denies behavioral changes, Reports depression and Denies memory loss Endocrine Denies fatigue Hematologic/Lymphatic Denies easy bleeding and Denies easy bruising Allergic/Immunologic Denies urticaria PFSH <Neftali Rowland DO - Last Filed: 12/20/18 06:54> Medical History PTSD (post-traumatic stress disorder) (Acute) Seizure (Acute) Social History Smoking Status: Current every day smoker Exam <Neftali Rowland DO - Last Filed: 12/20/18 06:54> Initial Vital Signs Initial Vital Signs: Vital Signs Temperature 98.4 F 12/19/18 11:30 Pulse Rate 72 12/19/18 11:30 Respiratory Rate 15 12/19/18 11:30 Blood Pressure 147/88 H 12/19/18 11:30 Pulse Oximetry 99 12/19/18 11:30 Const General: cooperative, comfortable, well developed, well groomed and No acute distress Orientation: alert, awake and oriented x3 HENMT Head: normal to inspection and normocephalic Resp Effort & Inspection: normal respiratory effort Auscultation: clear to auscultation bilaterally Cardio Rate: regular rate Rhythm: regular rhythm Pulses: radial pulses present GI Inspection: non-distended Palpation: soft, No firm and No tender General: No CVA tenderness Skin Lesions: no lesions Rashes: no rashes Neuro General: alert, awake and oriented x3 Cognition: normal cognition Speech: speech normal Extrem General: normal to inspection and capillary refill normal Psych Appearance: grossly normal and well kempt Speech and Movement: not agitated, speech clear and slowed movement Mood: dysthymic mood Affect: sad Attitude: cooperative Thought Content: no homicidality and suicidality <Christina Chapin DO - Last Filed: 12/19/18 23:23> Initial Vital Signs Initial Vital Signs: Vital Signs Temperature 98.4 F 12/19/18 11:30 Pulse Rate 72 12/19/18 11:30 Respiratory Rate 15 12/19/18 11:30 Blood Pressure 147/88 H 12/19/18 11:30 Pulse Oximetry 99 12/19/18 11:30 Scores <Neftali Rowland DO - Last Filed: 12/20/18 06:54> GCS [place] coma scale eye opening: Spontaneous [place] coma scale verbal response: Orientated [place] coma scale motor response: Obey commands [place] coma scale total score: 15 Course <DO Gardenia Palmer Last Filed: 12/20/18 06:54> Orders Ordered: Discontinued Medications Lidocaine HCl 8.4 ml/ Sodium (Chloride) 58.4 mls @ 350.4 mls/hr IV NOW ONE Stop: 12/19/18 19:45 Ibuprofen (Advil) 800 mg PO NOW ONE Stop: 12/19/18 11:46 Last Admin: 12/19/18 12:18 Dose: 800 mg Ibuprofen (Advil) 800 mg PO NOW ONE Stop: 12/19/18 18:36 Last Admin: 12/19/18 18:59 Dose: 800 mg Lorazepam (Ativan) 1 mg PO NOW ONE Stop: 12/19/18 11:48 Last Admin: 12/19/18 12:20 Dose: 1 mg Oxycodone/Acetaminophen (Percocet 5/325) 2 tab PO NOW ONE Stop: 12/19/18 13:06 Last Admin: 12/19/18 13:14 Dose: 2 tab Vital Signs - 8 hr 12/19/18 15:40 12/19/18 16:50 12/19/18 20:14 Pulse Rate 66 65 51 L Respiratory Rate 16 16 20 Blood Pressure [Left Arm] 125/76 125/88 148/88 H Pulse Oximetry 98 97 97 12/19/18 21:00 12/19/18 21:37 12/19/18 22:00 Pulse Rate 53 L 54 L 50 L Respiratory Rate 17 16 Blood Pressure [Left Arm] 126/80 126/80 118/62 Pulse Oximetry 94 97 97 <Christina Chapin DO - Last Filed: 12/19/18 23:23> Orders Ordered: Discontinued Medications Lidocaine HCl 8.4 ml/ Sodium (Chloride) 58.4 mls @ 350.4 mls/hr IV NOW ONE Stop: 12/19/18 19:45 Ibuprofen (Advil) 800 mg PO NOW ONE Stop: 12/19/18 11:46 Last Admin: 12/19/18 12:18 Dose: 800 mg Ibuprofen (Advil) 800 mg PO NOW ONE Stop: 12/19/18 18:36 Last Admin: 12/19/18 18:59 Dose: 800 mg Lorazepam (Ativan) 1 mg PO NOW ONE Stop: 12/19/18 11:48 Last Admin: 12/19/18 12:20 Dose: 1 mg Oxycodone/Acetaminophen (Percocet 5/325) 2 tab PO NOW ONE Stop: 12/19/18 13:06 Last Admin: 12/19/18 13:14 Dose: 2 tab Vital Signs - 8 hr 12/19/18 15:40 12/19/18 16:50 12/19/18 20:14 Pulse Rate 66 65 51 L Respiratory Rate 16 16 20 Blood Pressure [Left Arm] 125/76 125/88 148/88 H Pulse Oximetry 98 97 97 12/19/18 21:00 12/19/18 21:37 12/19/18 22:00 Pulse Rate 53 L 54 L 50 L Respiratory Rate 17 16 Blood Pressure [Left Arm] 126/80 126/80 118/62 Pulse Oximetry 94 97 97 MDM - Male Genitourinary <Neftali RowlandDO - Last Filed: 12/20/18 06:54> Medical Records Attestation: I reviewed the patient's medical records. Lab Data Attestation: I reviewed the patient's lab results. Result diagrams: 12/19/18 12:34 12/19/18 12:34 Lab Results 12/19/18 12/19/18 12/19/18 Range/Units 12:21 12:34 12:34 WBC 8.4 (4.5-11.0) X10^3/uL RBC 4.07 L (4.5-5.9) X10^6/uL Hgb 13.7 (13.5-17.5) g/dL Hct 39.2 L (41-53) % MCV 96.3 (80-100) fL MCH 33.7 (26-34) PG MCHC 35.0 (30-36) % RDW 13.4 (11.6-14.8) % Plt Count 188 (150-400) X10^3/uL Neut % (Auto) 75.4 H (50-75) % Lymph % (Auto) 18.4 L (25-40) % [place] % (Auto) 4.4 (3-14) % Eos % (Auto) 1.0 L (2-4) % Baso % (Auto) 0.8 (0-2) % Neut # (Auto) 6300 (0181-6970) /uL Lymph # (Auto) 1500 (1057-9896) /uL [place] # (Auto) 400 (0-900) /uL Eos # (Auto) 100 (0-450) /uL Baso # (Auto) 100 (0-100) /uL Sodium 141 (137-145) mmol/L Potassium 3.7 (3.4-5.1) mmol/L Chloride 107 (98-107) mmol/L Carbon Dioxide 24 (22-32) mmol/L BUN 7 L (9-20) mg/dL Creatinine 0.90 (0.66-1.25) mg/dL Estimated GFR > 60.0 (>60) mL/min BUN/Creatinine Ratio 7.8 (6-22) Glucose 96 (70-100) mg/dL Calcium 9.4 (8.4-10.2) mg/dL Total Bilirubin 0.5 (0.2-1.3) mg/dL AST 12 L (17-59) IU/L ALT 22 (21-72) IU/L Alkaline Phosphatase 86 (38-126) U/L Total Protein 6.6 (6.3-8.2) g/dL Albumin 4.2 (3.5-5.0) g/dL Globulin 2.4 (1.7-4.1) g/dL Albumin/Globulin Ratio 1.8 (1.0-2.8) Lipase 384 H D (23-300) U/L TSH (0.47-4.68) uIU/mL Salicylates < 1.0 (<20) mg/dL Urine Opiates Screen Negative (Negative) Ur Oxycodone Screen Positive H (Negative) Urine Methadone Screen Negative (Negative) Acetaminophen < 10 L (10-30) ug/mL Ur Barbiturates Screen Negative (Negative) U Tricyclic Antidepress Negative (Negative) Ur Phencyclidine Scrn Negative (Negative) Ur Amphetamines Screen Negative (Negative) U Methamphetamines Scrn Negative (Negative) Ur MDMA Scrn (Ecstasy) Negative (Negative) U Benzodiazepines Scrn Negative (Negative) Urine Cocaine Screen Negative (Negative) U Marijuana (THC) Screen Negative (Negative) Ethyl Alcohol < 10 mg/dL 12/19/18 Range/Units 12:34 WBC (4.5-11.0) X10^3/uL RBC (4.5-5.9) X10^6/uL Hgb (13.5-17.5) g/dL Hct (41-53) % MCV (80-100) fL MCH (26-34) PG MCHC (30-36) % RDW (11.6-14.8) % Plt Count (150-400) X10^3/uL Neut % (Auto) (50-75) % Lymph % (Auto) (25-40) % [place] % (Auto) (3-14) % Eos % (Auto) (2-4) % Baso % (Auto) (0-2) % Neut # (Auto) (6868-2101) /uL Lymph # (Auto) (3949-1262) /uL [place] # (Auto) (0-900) /uL Eos # (Auto) (0-450) /uL Baso # (Auto) (0-100) /uL Sodium (137-145) mmol/L Potassium (3.4-5.1) mmol/L Chloride (98-107) mmol/L Carbon Dioxide (22-32) mmol/L BUN (9-20) mg/dL Creatinine (0.66-1.25) mg/dL Estimated GFR (>60) mL/min BUN/Creatinine Ratio (6-22) Glucose (70-100) mg/dL Calcium (8.4-10.2) mg/dL Total Bilirubin (0.2-1.3) mg/dL AST (17-59) IU/L ALT (21-72) IU/L Alkaline Phosphatase (38-126) U/L Total Protein (6.3-8.2) g/dL Albumin (3.5-5.0) g/dL Globulin (1.7-4.1) g/dL Albumin/Globulin Ratio (1.0-2.8) Lipase (23-300) U/L TSH 1.51 D (0.47-4.68) uIU/mL Salicylates (<20) mg/dL Urine Opiates Screen (Negative) Ur Oxycodone Screen (Negative) Urine Methadone Screen (Negative) Acetaminophen (10-30) ug/mL Ur Barbiturates Screen (Negative) U Tricyclic Antidepress (Negative) Ur Phencyclidine Scrn (Negative) Ur Amphetamines Screen (Negative) U Methamphetamines Scrn (Negative) Ur MDMA Scrn (Ecstasy) (Negative) U Benzodiazepines Scrn (Negative) Urine Cocaine Screen (Negative) U Marijuana (THC) Screen (Negative) Ethyl Alcohol mg/dL [facility] Narrative Medical decision making narrative: Patient's labs today are unremarkable. He is medically cleared. The kidney stone that was found on the CT scan yesterday is unlikely the cause of his left-sided flank pain. There is no other emergent condition found on the workup yesterday. Patient stated that he felt like he needed admitted to the hospital for his PTSD. Denied any suicidality. Denies any specific homicidal ideations however states that he could potentially hurt someone if he was in a situation where there was quite a bit of people around. Review of his prior ER visit shows that he has received multiple doses of pain medication over the past couple days. He was given 1 dose of pain medication here in the emergency department and then informed that no further opioids would be prescribed. He was evaluated by social work. He is medically cleared. Care turned over to Dr. Chapin for further evaluation and treatment. <Christina Chapin, DO - Last Filed: 12/19/18 23:23> Lab Data Lab Results 12/19/18 12/19/18 12/19/18 Range/Units 12:21 12:34 12:34 WBC 8.4 (4.5-11.0) X10^3/uL RBC 4.07 L (4.5-5.9) X10^6/uL Hgb 13.7 (13.5-17.5) g/dL Hct 39.2 L (41-53) % MCV 96.3 (80-100) fL MCH 33.7 (26-34) PG MCHC 35.0 (30-36) % RDW 13.4 (11.6-14.8) % Plt Count 188 (150-400) X10^3/uL Neut % (Auto) 75.4 H (50-75) % Lymph % (Auto) 18.4 L (25-40) % [place] % (Auto) 4.4 (3-14) % Eos % (Auto) 1.0 L (2-4) % Baso % (Auto) 0.8 (0-2) % Neut # (Auto) 6300 (3643-7114) /uL Lymph # (Auto) 1500 (9009-8181) /uL [place] # (Auto) 400 (0-900) /uL Eos # (Auto) 100 (0-450) /uL Baso # (Auto) 100 (0-100) /uL Sodium 141 (137-145) mmol/L Potassium 3.7 (3.4-5.1) mmol/L Chloride 107 (98-107) mmol/L Carbon Dioxide 24 (22-32) mmol/L BUN 7 L (9-20) mg/dL Creatinine 0.90 (0.66-1.25) mg/dL Estimated GFR > 60.0 (>60) mL/min BUN/Creatinine Ratio 7.8 (6-22) Glucose 96 (70-100) mg/dL Calcium 9.4 (8.4-10.2) mg/dL Total Bilirubin 0.5 (0.2-1.3) mg/dL AST 12 L (17-59) IU/L ALT 22 (21-72) IU/L Alkaline Phosphatase 86 (38-126) U/L Total Protein 6.6 (6.3-8.2) g/dL Albumin 4.2 (3.5-5.0) g/dL Globulin 2.4 (1.7-4.1) g/dL Albumin/Globulin Ratio 1.8 (1.0-2.8) Lipase 384 H D (23-300) U/L TSH (0.47-4.68) uIU/mL Salicylates < 1.0 (<20) mg/dL Urine Opiates Screen Negative (Negative) Ur Oxycodone Screen Positive H (Negative) Urine Methadone Screen Negative (Negative) Acetaminophen < 10 L (10-30) ug/mL Ur Barbiturates Screen Negative (Negative) U Tricyclic Antidepress Negative (Negative) Ur Phencyclidine Scrn Negative (Negative) Ur Amphetamines Screen Negative (Negative) U Methamphetamines Scrn Negative (Negative) Ur MDMA Scrn (Ecstasy) Negative (Negative) U Benzodiazepines Scrn Negative (Negative) Urine Cocaine Screen Negative (Negative) U Marijuana (THC) Screen Negative (Negative) Ethyl Alcohol < 10 mg/dL 12/19/18 Range/Units 12:34 WBC (4.5-11.0) X10^3/uL RBC (4.5-5.9) X10^6/uL Hgb (13.5-17.5) g/dL Hct (41-53) % MCV (80-100) fL MCH (26-34) PG MCHC (30-36) % RDW (11.6-14.8) % Plt Count (150-400) X10^3/uL Neut % (Auto) (50-75) % Lymph % (Auto) (25-40) % [place] % (Auto) (3-14) % Eos % (Auto) (2-4) % Baso % (Auto) (0-2) % Neut # (Auto) (1148-1889) /uL Lymph # (Auto) (3424-8705) /uL [place] # (Auto) (0-900) /uL Eos # (Auto) (0-450) /uL Baso # (Auto) (0-100) /uL Sodium (137-145) mmol/L Potassium (3.4-5.1) mmol/L Chloride (98-107) mmol/L Carbon Dioxide (22-32) mmol/L BUN (9-20) mg/dL Creatinine (0.66-1.25) mg/dL Estimated GFR (>60) mL/min BUN/Creatinine Ratio (6-22) Glucose (70-100) mg/dL Calcium (8.4-10.2) mg/dL Total Bilirubin (0.2-1.3) mg/dL AST (17-59) IU/L ALT (21-72) IU/L Alkaline Phosphatase (38-126) U/L Total Protein (6.3-8.2) g/dL Albumin (3.5-5.0) g/dL Globulin (1.7-4.1) g/dL Albumin/Globulin Ratio (1.0-2.8) Lipase (23-300) U/L TSH 1.51 D (0.47-4.68) uIU/mL Salicylates (<20) mg/dL Urine Opiates Screen (Negative) Ur Oxycodone Screen (Negative) Urine Methadone Screen (Negative) Acetaminophen (10-30) ug/mL Ur Barbiturates Screen (Negative) U Tricyclic Antidepress (Negative) Ur Phencyclidine Scrn (Negative) Ur Amphetamines Screen (Negative) U Methamphetamines Scrn (Negative) Ur MDMA Scrn (Ecstasy) (Negative) U Benzodiazepines Scrn (Negative) Urine Cocaine Screen (Negative) U Marijuana (THC) Screen (Negative) Ethyl Alcohol mg/dL MDM Narrative Medical decision making narrative: I received sign-out from [facility] shift provider. I have done independent evaluation. Unfortunately multiple hospitals have been called he does not meet inpatient criteria area. He has been cooperative and calm in the emergency department. I have called and spoken with his mother. We have called [facility] again. They state that they tried calling but he refused help. They will call again tomorrow. He denies SI and HI. I called and spoke with his mother and told her no hospitaliztion, and that patient would be discharged. She also states that [facility] did not call. Discharge Plan Departure Patient Disposition: Home Clinical Impression: PTSD (post-traumatic stress disorder) Discharge Date/Time: 12/19/18 22:50 Interventions: ED Discharge Assessment Last Done: 12/19/18 22:49 Instructions: Post-traumatic Stress Disorder Activity Restrictions/Additional Instructions: *You have been diagnosed with PTSD *What to do: [facility] will call you again tomorrow to help schedule an appointment. If you do not like [facility] like strongly recommend getting a different psychiatrist If you are feeling suicidal or having suicidal thoughts: Call: Suicide Hotline: Visit: www.[employer] Text: 422274 *Continue to take medications as directed *Follow up with your primary care provider in 2-3 days *Return to ER if you should have suicidal thoughts, thoughts of harming others, or any new, worsening or concerning symptoms Prescriptions: No Action Lantus U-100 Insulin 100 unit/mL solution 15 unit subcut DAILY RF: 0 alprazolam 1 mg tablet 1 mg PO Q12H RF: 0 clonazepam 1 mg tablet 1 mg PO Q8H RF: 0 oxycodone-acetaminophen 10-325 mg tablet 1 tab PO Q4-6H PRN (Reason: pain) RF: 0 buspirone 30 mg tablet 30 mg PO BID RF: 0 diclofenac sodium 75 mg tablet,delayed release (DR/EC) 75 mg PO BID RF: 0 insulin lispro [Humalog U-100 Insulin] 100 unit/mL solution 1 dose subcut DIRECTED RF: 0 epinephrine 0.3 mg/0.3 mL auto-injector 0.3 ml IM PRN PRN (Reason: bee sting) RF: 0 diltiazem HCl [DILT-XR] 180 mg capsule,ext.rel 24h degradable 180 mg PO DAILY RF: 0 prednisone 10 mg Tablet 20 mg PO DAILY RF: 0 pantoprazole 20 mg Tablet,Delayed Release (Dr/Ec) 20 mg PO DAILY RF: 0 prazosin 5 mg Capsule 5 mg PO BEDTIME RF: 0 simvastatin 20 mg Tablet 20 mg PO QPM RF: 0 losartan 25 mg Tablet 25 mg PO DAILY RF: 0 hydrochlorothiazide 25 mg Tablet 25 mg PO DAILY RF: 0 mirtazapine 15 mg Tablet 15 mg PO BEDTIME RF: 0 Referrals: Darci Hoang MD [Physician] - Sherri Lowe MD [Primary Care Provider] - Anel Ontiveros DO [Physician] -
[2018-12-19] MEDS: IBUPROFEN 400 MG TABLET 800 MG PO ×2 (12:18→18:59)
[2018-12-19] MEDS: LORazepam 1 MG TABLET PO (12:20)
[2018-12-19 12:45] LABS: Add Manual Diff / Slide Review NO; Basophils Absolute Auto 100 /uL (0-100); Basophils Percent Auto 0.8 % (0-2); Eosinophils Absolute Auto 100 /uL (0-450); Hematocrit 39.2 % (41-53); Hemoglobin 13.7 g/dL (13.5-17.5); Lymphocytes Absolute Auto 1500 /uL (1100-4500); Lymphocytes Percent Auto 18.4 % (25-40); Mean Corpuscular Hemoglobin 33.7 PG (26-34); Mean Corpuscular Volume 96.3 fL (80-100); Monocytes Absolute Auto 400 /uL (0-900); Monocytes Percent Auto 4.4 % (3-14); Neutrophils Absolute Auto 6300 /uL (1500-7000); Neutrophils Percent Auto 75.4 % (50-75); Platelet Count 188 X10^3/uL (150-400); Red Blood Cell Count 4.07 X10^6/uL (4.5-5.9); Red Cell Distribution Width 13.4 % (11.6-14.8); White Blood Cell Count 8.4 X10^3/uL (4.5-11.0)
[2018-12-19 12:45] LABS: Urine Tetrahydrocannabinol Negative (Negative)
[2018-12-19 12:46] LABS: Urine Amphetamines Negative (Negative); Urine Barbiturates Negative (Negative); Urine Benzodiazepines Negative (Negative); Urine Cocaine Negative (Negative); Urine MDMA Negative (Negative); Urine Methadone Negative (Negative); Urine Methamphetamines Negative (Negative); Urine Morphine/Opi cutoff 2000 Negative (Negative); Urine Oxycodone Positive (Negative); Urine Phencyclidine Negative (Negative); Urine Tricyclic Antidepressant Negative (Negative)
[2018-12-19 13:01] LABS: Acetaminophen < 10 ug/mL (10-30); Alanine Aminotransferase 22 IU/L (21-72); Albumin 4.2 g/dL (3.5-5.0); Albumin Globulin Ratio 1.8 (1.0-2.8); Alkaline Phosphatase 86 U/L (38-126); Aspartate Aminotransferase 12 IU/L (17-59); BUN Creatinine Ratio 7.8 (6-22); Bilirubin Total 0.5 mg/dL (0.2-1.3); Blood Urea Nitrogen 7 mg/dL (9-20); Calcium 9.4 mg/dL (8.4-10.2); Carbon Dioxide 24 mmol/L (22-32); Chloride 107 mmol/L (98-107); Estimated Glomerular Filt Rate > 60.0 mL/min (>60); Ethanol (ETOH) < 10 mg/dL; Globulin 2.4 g/dL (1.7-4.1); Glucose 96 mg/dL (70-100); HEMOLYSIS < 15 (0-50); Lipase 384 U/L (23-300); Potassium 3.7 mmol/L (3.4-5.1); Salicylate < 1.0 mg/dL (<20); Sodium 141 mmol/L (137-145); Total Protein 6.6 g/dL (6.3-8.2)
--- NOTE | 2018-12-19 13:05 | PC.NURSE ---
1305 pt requesting pain medication notified
[2018-12-19] MEDS: OXYCODONE/ACETAMINOPHEN 5/325 TABLET 2 TAB PO (13:14)
--- NOTE | 2018-12-19 13:28 | PC.NURSE ---
Sounds like pt is here with continued kidney stone pain but also because he has some psych issues he wants to be transferred for. pt alert, oriented and ambulated in to the ED. Has been asking for pain control since his arrival.
[2018-12-19 14:07] LABS: Thyroid Stimulating Hormone 1.51 uIU/mL (0.47-4.68)
--- NOTE | 2018-12-19 18:17 | PC.NURSE ---
Dr. Rowland aware pt is asking for more medication. Care management, Cherie, has already spoken to patient and just updated Dr. Rowland. Cherie is now talking to his mother to get a more complete picture.
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
--- NOTE | 2018-12-19 20:15 | PC.NURSE ---
attempted IV x 1, cabrera blood, unable to flush, d/c'd, pt declines IV access at this time
--- NOTE | 2018-12-19 20:28 | PC.NURSE ---
answered call light for patient, pt stated im not gonna let you put another IV in me, can you give me medications from my home med list. Pt asked which medications and he states something for pain I take percocet at home. Explained to patient that we have exhausted all medication options for pain relief except the lidocaine drip. He stated I don't want that. Pt then stated I will just stay here and sleep until I go to another hospital. Informed patient that he may use his call light if he has any needs. Pt agreed to use call light.
--- NOTE | 2018-12-19 20:52 | PC.NURSE ---
[facility]. Michelle saab our inpatient psychiatrist says he does not meet inpatient criteria for admission. [facility] inpatient psyciatrist is Dr Rakan Hernadez. Michelle reccomends encouraging pt to participate in out patient services. [facility] denies accepting patient.
--- NOTE | 2018-12-19 20:59 | PC.NURSE ---
recieved call from [facility] mental health. Maria A churchill in patient provider says he does not meet inpatient criteria Located within [facility] refuses admission.
== END 2018-12-19 22:50 | disposition home or self-care (01) ==
PROVIDERS: Emergency Medicine; Emergency Provider Emergency Medicine; PCP Family Medicine
DX: F43.10 Post-traumatic stress disorder, unspecified (principal)
CPT/HCPCS: 36415; 80053; 80305; 80320; 80329; 83690; 84443; 85025; 99283; 99284; G0480

== ENCOUNTER 2020-03-20 18:15 | Emergency (ER) | payer OTHER, MEDICAID, SELFPAY ==
[2020-03-20 18:20] VITALS: BP 156/89; PULSE 90; RESP 22; TEMP 36.2; O2SAT 98
--- NOTE | 2020-03-20 18:26 | ED.BACK ---
HPI - Back Pain/Injury General Chief Complaint: Back Pain/Injury Stated Complaint: upper back and neck pain, left arm numb Time Seen by Provider: 03/20/20 18:19 Source: patient Mode of arrival: Ambulatory Limitations: no limitations History of Present Illness HPI Narrative: 44-year-old male with multiple mental health issues here for evaluation of left upper back/neck discomfort and also radiation down to his left hand. 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 He does not remember any specific injury that caused his pain today. Has been doing Tylenol and ibuprofen at home without any improvement. Related Data Home Medications Medication Instructions Recorded Confirmed hydrochlorothiazide 25 mg PO DAILY 09/07/18 12/19/18 losartan 25 mg PO DAILY 09/07/18 12/19/18 mirtazapine 15 mg PO BEDTIME 09/07/18 12/19/18 pantoprazole 20 mg PO DAILY 09/07/18 12/19/18 prazosin 5 mg PO BEDTIME 09/07/18 12/19/18 prednisone 20 mg PO DAILY 09/07/18 12/19/18 simvastatin 20 mg PO QPM 09/07/18 12/19/18 alprazolam 1 mg PO Q12H 12/19/18 12/19/18 buspirone 30 mg PO BID 12/19/18 12/19/18 clonazepam 1 mg PO Q8H 12/19/18 12/19/18 diclofenac sodium 75 mg PO BID 12/19/18 12/19/18 diltiazem HCl [DILT-XR] 180 mg PO DAILY 12/19/18 12/19/18 epinephrine 0.3 ml IM PRN PRN 12/19/18 12/19/18 insulin glargine [Lantus U-100 15 unit SUBCUT DAILY 12/19/18 12/19/18 Insulin] insulin lispro [Humalog U-100 1 dose SUBCUT DIRECTED 12/19/18 12/19/18 Insulin] oxycodone-acetaminophen 1 tab PO Q4-6H PRN 12/19/18 12/19/18 Previous Rx's Medication Instructions Recorded lidocaine 1 patch TOP DAILY #15 each 03/20/20 tramadol [Ultram] 50 mg PO Q6H PRN #7 tab 03/20/20 Allergies Allergy/AdvReac Type Severity Reaction Status Date / Time hydromorphone [HYDROMORPHONE] Allergy Mild severe Verified 09/07/18 20:11 itching WITH PILL FORM morphine Allergy Mild skin Verified 09/07/18 20:11 crawl/itchy Penicillins Allergy Mild hives Verified 09/07/18 20:11 ketorolac [From Toradol] Allergy Verified 12/17/18 20:07 Review of Systems Constitutional Constitutional: Denies headache(s) ENT Ears, Nose, Mouth, and Throat: Denies headache(s) and Reports neck pain Cardiovascular Cardiovascular: Denies chest pain and Denies dyspnea Respiratory Respiratory: Denies dyspnea Musculoskeletal Musculoskeletal: Reports back pain (Upper back), Reports neck pain and Reports tingling (Left hand) Integumentary/Breasts Skin/Breast: Denies lesions and Denies rash Neurologic Neurologic: Denies behavioral changes, Denies headache(s) and Reports tingling (Left hand) Psychiatric Psychiatric: Denies behavioral changes Hematologic/Lymphatic Hematologic/Lymphatic: Denies easy bleeding and Denies easy bruising Patient History Medical History PTSD (post-traumatic stress disorder) (Acute) Seizure (Acute) Social History Smoking Status: Current every day smoker Smoking Status: Current every day smoker alcohol intake frequency: holidays/special occasions only Substance Use Type: marijuana Exam Initial Vital Signs Initial Vital Signs: Vital Signs Temperature 97.2 F L 03/20/20 18:20 Pulse Rate 90 03/20/20 18:20 Respiratory Rate 22 03/20/20 18:20 Blood Pressure 156/89 H 03/20/20 18:20 Pulse Oximetry 98 03/20/20 18:20 Const General: cooperative, comfortable and well developed Limitations: mental status not altered HENSC Head: normal to inspection and normocephalic Neck Other: Left-sided posterior neck pain Resp Effort & Inspection: normal respiratory effort Back/Spine/Pelvis Thoracic/Lumbar Spine: paraspinal tenderness (Left-sided paraspinal thoracic area) and No thoracic spinal tenderness Skin Lesions: no lesions Rashes: no rashes Extrem General: normal to inspection and capillary refill normal Psych Appearance: grossly normal and well kempt Course Orders Ordered: Discontinued Medications Lidocaine HCl (Xylocaine 1% (Pf)) 2 ml INJ NOW ONE Stop: 03/20/20 18:26 Last Admin: 03/20/20 18:28 Dose: 2 ml Documented by: FRANCISCO Vital Signs Vital signs: Vital Signs - 8 hr 03/20/20 18:20 Temperature 97.2 F L Pulse Rate 90 Respiratory Rate 22 Blood Pressure 156/89 H Pulse Oximetry 98 MDM - Back Pain/Injury MDM Narrative Medical decision making narrative: Patient was able to pinpoint a relatively local area of maximum tenderness in the midthoracic left-sided paraspinal region. A trigger point injection was done with 2 mL of 2% lidocaine. I suspect this is musculoskeletal in etiology. I suspect that his tingling in his hand this related to his muscle spasm his back. Will send home with symptom treatment. We did discuss conservative treatments as well. He was given return precautions. He expressed understanding and agreement. Discharge Plan Departure Patient Disposition: Home Clinical Impression: Muscle spasm of back Discharge Date/Time: 03/20/20 18:52 Instructions: DI for Back Spasm Activity Restrictions/Additional Instructions: Recommend that you continue all of your medications as directed. Also recommend that use heat and ice and massage. Stay as active as possible. Contact your primary provider for follow-up. Return to the emergency department for any new or worsening symptoms Prescriptions: New lidocaine 5 % adhesive patch,medicated 1 patch TOP DAILY Qty: 15 RF: 0 tramadol [Ultram] 50 mg tablet 50 mg PO Q6H PRN (Reason: pain) Qty: 7 RF: 0 No Action Lantus U-100 Insulin 100 unit/mL solution 15 unit subcut DAILY RF: 0 alprazolam 1 mg tablet 1 mg PO Q12H RF: 0 clonazepam 1 mg tablet 1 mg PO Q8H RF: 0 oxycodone-acetaminophen 10-325 mg tablet 1 tab PO Q4-6H PRN (Reason: pain) RF: 0 buspirone 30 mg tablet 30 mg PO BID RF: 0 diclofenac sodium 75 mg tablet,delayed release (DR/EC) 75 mg PO BID RF: 0 insulin lispro [Humalog U-100 Insulin] 100 unit/mL solution 1 dose subcut DIRECTED RF: 0 epinephrine 0.3 mg/0.3 mL auto-injector 0.3 ml IM PRN PRN (Reason: bee sting) RF: 0 diltiazem HCl [DILT-XR] 180 mg capsule,ext.rel 24h degradable 180 mg PO DAILY RF: 0 prednisone 10 mg Tablet 20 mg PO DAILY RF: 0 pantoprazole 20 mg Tablet,Delayed Release (Dr/Ec) 20 mg PO DAILY RF: 0 prazosin 5 mg Capsule 5 mg PO BEDTIME RF: 0 simvastatin 20 mg Tablet 20 mg PO QPM RF: 0 losartan 25 mg Tablet 25 mg PO DAILY RF: 0 hydrochlorothiazide 25 mg Tablet 25 mg PO DAILY RF: 0 mirtazapine 15 mg Tablet 15 mg PO BEDTIME RF: 0 Referrals: Sherri Lowe MD [Primary Care Provider] -
[2020-03-20] MEDS: LIDOCAINE 1% (PF) 2 ML INJ (18:28)
== END 2020-03-20 18:52 | disposition home or self-care (01) ==
PROVIDERS: Emergency Provider Emergency Medicine; PCP Family Medicine
DX: M62.830 Muscle spasm of back (principal)
CPT/HCPCS: 99282; 99283

== ENCOUNTER 2020-11-16 21:13 | Emergency (ER) | payer OTHER, MEDICAID, SELFPAY ==
[2020-11-16 21:15] VITALS: BP 136/81; PULSE 84; RESP 15; TEMP 37; O2SAT 96; BMI 26.2
[2020-11-16 22:04] LABS: Add Manual Diff / Slide Review NO; Basophils Absolute Auto 0 /uL (0-100); Basophils Percent Auto 0.9 % (0-2); Eosinophils Absolute Auto 100 /uL (0-450); Hematocrit 32.3 % (41-53); Hemoglobin 11.4 g/dL (13.5-17.5); Lymphocytes Absolute Auto 1600 /uL (1100-4500); Lymphocytes Percent Auto 32.5 % (25-40); Mean Corpuscular HGB Conc 35.3 % (30-36); Mean Corpuscular Hemoglobin 34.6 PG (26-34); Mean Corpuscular Volume 98.1 fL (80-100); Monocytes Absolute Auto 300 /uL (0-900); Monocytes Percent Auto 5.7 % (3-14); Neutrophils Absolute Auto 2800 /uL (1500-7000); Neutrophils Percent Auto 57.9 % (50-75); Platelet Count 185 X10^3/uL (150-400); Red Blood Cell Count 3.29 X10^6/uL (4.5-5.9); Red Cell Distribution Width 14.2 % (11.6-14.8); White Blood Cell Count 4.8 X10^3/uL (4.5-11.0)
[2020-11-16 22:13] LABS: Acetaminophen < 10 ug/mL (10-30)
[2020-11-16 22:15] LABS: Alanine Aminotransferase 17 IU/L (<50); Albumin 3.7 g/dL (3.5-5.0); Albumin Globulin Ratio 1.7 (1.0-2.8); Alkaline Phosphatase 81 U/L (38-126); Aspartate Aminotransferase 20 IU/L (17-59); BUN Creatinine Ratio 18.9 (6-22); Bilirubin Total 0.2 mg/dL (0.2-1.3); Blood Urea Nitrogen 10 mg/dL (9-20); Carbon Dioxide 27 mmol/L (22-32); Chloride 98 mmol/L (98-107); Estimated Glomerular Filt Rate > 60.0 mL/min (>60); Ethanol (ETOH) < 10 mg/dL; Globulin 2.2 g/dL (1.7-4.1); Glucose 109 mg/dL (70-100); HEMOLYSIS < 15 (0-50); Potassium 3.2 mmol/L (3.4-5.1); Salicylate < 1.0 mg/dL (<20); Sodium 129 mmol/L (137-145); Total Protein 5.9 g/dL (6.3-8.2)
[2020-11-16 22:33] LABS: UR Morphine/Opiate cutoff 300 Negative (Negative); Ur Creatinine Normal (Normal); Ur Specific Gravity Normal (Normal); Urine Amphetamines Negative (Negative); Urine Barbiturates Positive (Negative); Urine Benzodiazepines Negative (Negative); Urine Cocaine Negative (Negative); Urine MDMA Negative (Negative); Urine Methadone Negative (Negative); Urine Methamphetamines Negative (Negative); Urine Oxycodone Negative (Negative); Urine Phencyclidine Negative (Negative); Urine Tetrahydrocannabinol Negative (Negative); Urine Tricyclic Antidepressant Negative (Negative); Urine pH Normal (Normal)
[2020-11-16 22:42] LABS: COVID19 -Nasal RAPID Negative (Negative)
--- NOTE | 2020-11-16 22:44 | PC.NURSE ---
Pt came with multiple belongings and a suitcase. Belongings were bagged and suitcase and bags locked in cabinet.
--- NOTE | 2020-11-16 23:24 | ED_ITS ---
HPI - Psych <Neftali Rowland, DO - Last Filed: 11/18/20 05:37> General Chief Complaint: Psychiatric Symptoms Stated Complaint: Gen pain from head to toes Time Seen by Provider: 11/16/20 21:35 Source: patient Mode of arrival: EMS Limitations: no limitations History of Present Illness HPI Narrative: Patient is a 45-year-old male who is brought in by EMS initially with chief complaint of generalized pain from his head to his toes. He contacted EMS because he stated that he just cannot take the pain any longer. His life is recently been complicated by the of his mother back on 10/21. Per prior notes she of lung cancer and this was not completely unexpected but since that time he has had episodes of depression and anxiety and worsening of his chronic pain. He was last seen at [facility] on 11/01/2020 and spent a period of time intubated in the ICU after drinking. He was brought to the emergency department and was reported be encephalopathic and mumbling. His tox screen at the time was positive for barbiturates and benzodiazepines and cannabinoids. Per prior notes he was apneic and so was intubated to protect his airway and spent the next couple days intubated. After a successful extubation he was transition to a swing bed so that he could be evaluated by Physical Rehab. He was subsequently discharged home. He does have a prescription for Suboxone. He does have a reported history of ?a few ?visits to an inpatient mental health treatment. He has been treated in the past by [facility] but is not currently under the psychiatrist treatment. Does have a history of anxiety depression and PTSD. When the patient presented today I am unsure as to whether not he has been taking his Suboxone. He states he is feeling very anxious and has pain all over without any specific complaint. In route to the emergency department he did express some indication of suicidal ideation to the EMS crew him when he arrived here he also endorsed suicidal ideation. He states this is stemming from his depression from the loss of his mother and also his chronic pain and anxiety. Patient does have a plan and he stated that he would go to his garage and get a rope and ?string myself up ?. Patient told nursing staff that he did not feel safe at home. Upon my evaluation he stated that he had had pain all over. Again expressed the desire to kill himself because of this. He asks for anxiety medicine and also pain medication. Related Data Home Medications Medication Instructions Recorded Confirmed hydrochlorothiazide 25 mg PO DAILY 09/07/18 11/17/20 losartan 25 mg PO DAILY 09/07/18 11/17/20 oxycodone-acetaminophen 1 tab PO Q4-6H PRN 12/19/18 11/17/20 clonazepam 1 mg PO QID 11/17/20 11/17/20 diltiazem HCl [DILT-XR] 180 mg PO DAILY 11/17/20 11/17/20 meloxicam 15 mg PO TID 11/17/20 11/17/20 metformin 500 mg PO DAILY 11/17/20 11/17/20 omeprazole 20 mg PO DAILY 11/17/20 11/17/20 phenytoin sodium extended 300 mg PO BEDTIME 11/17/20 11/17/20 pregabalin 100 mg PO TID 11/17/20 11/17/20 trazodone 100 mg PO BEDTIME 11/17/20 11/17/20 Allergies Allergy/AdvReac Type Severity Reaction Status Date / Time hydromorphone [HYDROMORPHONE] Allergy Mild severe Verified 11/16/20 21:19 itching WITH PILL FORM morphine Allergy Mild skin Verified 11/16/20 21:19 crawl/itchy Penicillins Allergy Mild hives Verified 11/16/20 21:19 ketorolac [From Toradol] Allergy Verified 11/16/20 21:19 Review of Systems <Neftali Rowland DO - Last Filed: 11/18/20 05:37> Constitutional Constitutional: Reports system reviewed and no additional complaints, except as documented Comments: Generalized body pain Cardiovascular Cardiovascular: Reports system reviewed and no additional complaints, except as documented Respiratory Respiratory: Reports system reviewed and no additional complaints, except as documented Gastrointestinal Gastrointestinal: Reports system reviewed and no additional complaints, except as documented Musculoskeletal Comments: ?pain all over ? Integumentary/Breasts Skin/Breast: Reports system reviewed and no additional complaints, except as doc umented Neurologic Neurologic: Reports system reviewed and no additional complaints, except as documented Psychiatric Psychiatric: Reports anxiety, Reports depression and Reports suicidal ideation Hematologic/Lymphatic On Anticoagulants: No Allergic/Immunologic Allergic/Immunologic: Reports system reviewed and no additional complaints, except as documented Patient History <DO Gardenia Palmer Last Filed: 11/18/20 05:37> Medical History Alcohol abuse Anxiety Chronic pain syndrome Depression Kidney stone on left side PTSD (post-traumatic stress disorder) Seizure Social History Smoking Status: Current every day smoker Smoking Status: Current every day smoker alcohol intake frequency: holidays/special occasions only Substance Use Type: marijuana Exam <DO Gardenia Palmer Last Filed: 11/18/20 05:37> Initial Vital Signs Initial Vital Signs: Vital Signs Temperature 98.6 F 11/16/20 21:15 Pulse Rate 84 11/16/20 21:15 Respiratory Rate 15 11/16/20 21:15 Blood Pressure 136/81 11/16/20 21:15 Pulse Oximetry 96 11/16/20 21:15 Const General: cooperative and comfortable Limitations: mental status not altered HENMT Head: normal to inspection and normocephalic Resp Effort & Inspection: normal respiratory effort Auscultation: clear to auscultation bilaterally Cardio Rate: regular rate Rhythm: regular rhythm GI Inspection: normal to inspection Skin Lesions: no lesions Rashes: no rashes Neuro General: patient alert, patient awake and patient oriented x3 Cognition: normal cognition Speech: speech normal Extrem General: normal to inspection Psych Appearance: grossly normal and well kempt Speech and Movement: agitated and restless Mood: anxious mood Attitude: cooperative Thought Content: suicidality <Gil Valderrama DO - Last Filed: 11/18/20 14:46> Initial Vital Signs Initial Vital Signs: Vital Signs Temperature 98.6 F 11/16/20 21:15 Pulse Rate 84 11/16/20 21:15 Respiratory Rate 15 11/16/20 21:15 Blood Pressure 136/81 11/16/20 21:15 Pulse Oximetry 96 11/16/20 21:15 Course <DO Gardenia Palmer Last Filed: 11/18/20 05:37> Orders Ordered: Baclofen (Baclofen 10 Mg Tablet) 20 mg PO TID [facility] Admin: 11/18/20 08:18 Dose: 20 mg Documented by: [email or web address] Admin: 11/17/20 22:05 Dose: 20 mg Documented by: Admin: 11/17/20 15:23 Dose: 20 mg Documented by: Admin: 11/17/20 11:56 Dose: 20 mg Documented by: ROSALEE Buprenorphine/Naloxone (Buprenorphine/Naloxone 8mg/2mg 1 Tab) 1 tab SL DAILY [facility] Last Admin: 11/18/20 11:18 Dose: 1 tab Documented by: EAIDRIS Clonazepam (Clonazepam 0.5 Mg Tablet) 1 mg PO Q6H [facility] Last Admin: 11/18/20 09:46 Dose: 1 mg Documented by: Admin: 11/18/20 03:58 Dose: 1 mg Documented by: Admin: 11/17/20 22:04 Dose: 1 mg Documented by: Admin: 11/17/20 15:36 Dose: 1 mg Documented by: ROSALEE Meloxicam (Meloxicam 7.5 Mg Tablet) 15 mg PO 0800 [facility] Last Admin: 11/18/20 08:21 Dose: 15 mg Documented by: Admin: 11/17/20 11:57 Dose: 15 mg Documented by: ROSALEE Metformin HCl (Metformin Hcl 500 Mg Tablet) 500 mg PO 0800 [facility] Last Admin: 11/18/20 08:17 Dose: 500 mg Documented by: Admin: 11/17/20 11:57 Dose: 500 mg Documented by: ROSALEE Phenytoin Sodium (Phenytoin Er 100 Mg Capsule) 300 mg PO DAILY [facility] Last Admin: 11/18/20 09:46 Dose: 300 mg Documented by: JULITA Pregabalin (Pregabalin 25 Mg Capsule) 100 mg PO TID [facility] Last Admin: 11/18/20 08:15 Dose: 100 mg Documented by: Admin: 11/17/20 22:04 Dose: 100 mg Documented by: TYLER Discontinued Medications Clonazepam (Clonazepam 0.5 Mg Tablet) 1 mg PO BID [facility] Last Admin: 11/17/20 11:59 Dose: 1 mg Documented by: ROSALEE Diltiazem HCl (Diltiazem Cd 180 Mg Cap) 180 mg PO NOW ONE Stop: 11/17/20 08:28 Last Admin: 11/17/20 09:00 Dose: 180 mg Documented by: ROSALEE Diltiazem HCl (Diltiazem Cd 180 Mg Cap) 180 mg PO NOW ONE Stop: 11/18/20 07:14 Last Admin: 11/18/20 08:16 Dose: 180 mg Documented by: JULITA Famotidine (Famotidine 20 Mg Tablet) 20 mg PO BID [facility] Last Admin: 11/17/20 09:00 Dose: 20 mg Documented by: ROSALEE Hydrochlorothiazide (Hydrochlorothiazide 25 Mg Tablet) 25 mg PO NOW ONE Stop: 11/17/20 07:24 Last Admin: 11/17/20 07:45 Dose: 25 mg Documented by: ROBINSON Levetiracetam (Levetiracetam 250 Mg Tablet) 1,500 mg PO NOW ONE Stop: 11/17/20 07:24 Last Admin: 11/17/20 09:00 Dose: Not Given Documented by: ROSALEE Lorazepam (Lorazepam 0.5 Mg Tablet) 1 mg PO NOW ONE Stop: 11/16/20 23:25 Last Admin: 11/16/20 23:39 Dose: 1 mg Documented by: TYLER Lorazepam (Lorazepam 0.5 Mg Tablet) 1 mg PO NOW ONE Stop: 11/17/20 02:59 Last Admin: 11/17/20 03:02 Dose: 1 mg Documented by: TYLER Lorazepam (Lorazepam 0.5 Mg Tablet) 1 mg PO NOW ONE Stop: 11/18/20 02:17 Last Admin: 11/18/20 02:24 Dose: 1 mg Documented by: TYLER Losartan Potassium (Losartan 25 Mg Tablet) 25 mg PO NOW ONE Stop: 11/17/20 11:33 Last Admin: 11/17/20 11:59 Dose: 25 mg Documented by: ROSALEE Losartan Potassium (Losartan 25 Mg Tablet) 25 mg PO NOW [place] Stop: 11/18/20 07:16 Meloxicam (Meloxicam 7.5 Mg Tablet) 25 mg PO 0800 [facility] Nicotine (Nicotine 21 Mg Patch) 21 mg TOP NOW ONE Stop: 11/17/20 00:23 Last Admin: 11/17/20 00:43 Dose: 21 mg Documented by: PAPA Nicotine (Nicotine 21 Mg Patch) 21 mg TOP NOW ONE Stop: 11/18/20 01:31 Last Admin: 11/18/20 02:24 Dose: 21 mg Documented by: TYLER Nicotine (Nicotine 21 Mg Patch) 21 mg TOP NOW ONE Stop: 11/18/20 07:14 Last Admin: 11/18/20 08:22 Dose: 21 mg Documented by: JULITA Phenytoin Sodium (Phenytoin Er 100 Mg Capsule) 300 mg PO NOW ONE Stop: 11/17/20 08:28 Last Admin: 11/17/20 09:00 Dose: 300 mg Documented by: ROSALEE Potassium Chloride (Potassium Chloride 20 Meq/15 Ml Udc) 40 meq PO NOW ONE Stop: 11/17/20 07:34 Last Admin: 11/17/20 07:44 Dose: 40 meq Documented by: ROBINSON Potassium Chloride (Potassium Chloride 20 Meq Tab) 40 meq PO NOW ONE Stop: 11/17/20 07:34 Last Admin: 11/17/20 07:44 Dose: 40 meq Documented by: ROBINSON Pregabalin (Pregabalin 50 Mg Capsule) 100 mg PO TID [facility] Last Admin: 11/17/20 15:23 Dose: 100 mg Documented by: Admin: 11/17/20 11:55 Dose: 100 mg Documented by: ROSALEE Vital Signs Vital signs: Vital Signs - 8 hr 11/18/20 13:09 Temperature 98.3 F Pulse Rate 81 Respiratory Rate 16 Blood Pressure 115/72 Pulse Oximetry 95 <Gil Valderrama DO - Last Filed: 11/18/20 14:46> Orders Ordered: Baclofen (Baclofen 10 Mg Tablet) 20 mg PO TID [facility] Last Admin: 11/18/20 08:18 Dose: 20 mg Documented by: Admin: 11/17/20 22:05 Dose: 20 mg Documented by: Admin: 11/17/20 15:23 Dose: 20 mg Documented by: Admin: 11/17/20 11:56 Dose: 20 mg Documented by: ROSALEE Buprenorphine/Naloxone (Buprenorphine/Naloxone 8mg/2mg 1 Tab) 1 tab SL DAILY [facility] Last Admin: 11/18/20 11:18 Dose: 1 tab Documented by: HENNA Clonazepam (Clonazepam 0.5 Mg Tablet) 1 mg PO Q6H [facility] Last Admin: 11/18/20 09:46 Dose: 1 mg Documented by: Admin: 11/18/20 03:58 Dose: 1 mg Documented by: Admin: 11/17/20 22:04 Dose: 1 mg Documented by: Admin: 11/17/20 15:36 Dose: 1 mg Documented by: ROSALEE Meloxicam (Meloxicam 7.5 Mg Tablet) 15 mg PO 0800 [facility] Last Admin: 11/18/20 08:21 Dose: 15 mg Documented by: Admin: 11/17/20 11:57 Dose: 15 mg Documented by: ROSALEE Metformin HCl (Metformin Hcl 500 Mg Tablet) 500 mg PO 0800 [facility] Last Admin: 11/18/20 08:17 Dose: 500 mg Documented by: Admin: 11/17/20 11:57 Dose: 500 mg Documented by: ROSALEE Phenytoin Sodium (Phenytoin Er 100 Mg Capsule) 300 mg PO DAILY [facility] Last Admin: 11/18/20 09:46 Dose: 300 mg Documented by: JULITA Pregabalin (Pregabalin 25 Mg Capsule) 100 mg PO TID [facility] Last Admin: 11/18/20 08:15 Dose: 100 mg Documented by: Admin: 11/17/20 22:04 Dose: 100 mg Documented by: TYLER Discontinued Medications Clonazepam (Clonazepam 0.5 Mg Tablet) 1 mg PO BID [facility] Last Admin: 11/17/20 11:59 Dose: 1 mg Documented by: ROSALEE Diltiazem HCl (Diltiazem Cd 180 Mg Cap) 180 mg PO NOW ONE Stop: 11/17/20 08:28 Last Admin: 11/17/20 09:00 Dose: 180 mg Documented by: ROSALEE Diltiazem HCl (Diltiazem Cd 180 Mg Cap) 180 mg PO NOW ONE Stop: 11/18/20 07:14 Last Admin: 11/18/20 08:16 Dose: 180 mg Documented by: JULITA Famotidine (Famotidine 20 Mg Tablet) 20 mg PO BID [facility] Last Admin: 11/17/20 09:00 Dose: 20 mg Documented by: ROSALEE Hydrochlorothiazide (Hydrochlorothiazide 25 Mg Tablet) 25 mg PO NOW ONE Stop: 11/17/20 07:24 Last Admin: 11/17/20 07:45 Dose: 25 mg Documented by: ROBINSON Levetiracetam (Levetiracetam 250 Mg Tablet) 1,500 mg PO NOW ONE Stop: 11/17/20 07:24 Last Admin: 11/17/20 09:00 Dose: Not Given Documented by: ROSALEE Lorazepam (Lorazepam 0.5 Mg Tablet) 1 mg PO NOW ONE Stop: 11/16/20 23:25 Last Admin: 11/16/20 23:39 Dose: 1 mg Documented by: TYLER Lorazepam (Lorazepam 0.5 Mg Tablet) 1 mg PO NOW ONE Stop: 11/17/20 02:59 Last Admin: 11/17/20 03:02 Dose: 1 mg Documented by: TYLER Lorazepam (Lorazepam 0.5 Mg Tablet) 1 mg PO NOW ONE Stop: 11/18/20 02:17 Last Admin: 11/18/20 02:24 Dose: 1 mg Documented by: TYLER Losartan Potassium (Losartan 25 Mg Tablet) 25 mg PO NOW ONE Stop: 11/17/20 11:33 Last Admin: 11/17/20 11:59 Dose: 25 mg Documented by: ROSALEE Losartan Potassium (Losartan 25 Mg Tablet) 25 mg PO NOW [place] Stop: 11/18/20 07:16 Meloxicam (Meloxicam 7.5 Mg Tablet) 25 mg PO 0800 [facility] Nicotine (Nicotine 21 Mg Patch) 21 mg TOP NOW ONE Stop: 11/17/20 00:23 Last Admin: 11/17/20 00:43 Dose: 21 mg Documented by: PAPA Nicotine (Nicotine 21 Mg Patch) 21 mg TOP NOW ONE Stop: 11/18/20 01:31 Last Admin: 11/18/20 02:24 Dose: 21 mg Documented by: TYLER Nicotine (Nicotine 21 Mg Patch) 21 mg TOP NOW ONE Stop: 11/18/20 07:14 Last Admin: 11/18/20 08:22 Dose: 21 mg Documented by: CTR.JSHAFF Phenytoin Sodium (Phenytoin Er 100 Mg Capsule) 300 mg PO NOW ONE Stop: 11/17/20 08:28 Last Admin: 11/17/20 09:00 Dose: 300 mg Documented by: ROSALEE Potassium Chloride (Potassium Chloride 20 Meq/15 Ml Udc) 40 meq PO NOW ONE Stop: 11/17/20 07:34 Last Admin: 11/17/20 07:44 Dose: 40 meq Documented by: BTONER Potassium Chloride (Potassium Chloride 20 Meq Tab) 40 meq PO NOW ONE Stop: 11/17/20 07:34 Last Admin: 11/17/20 07:44 Dose: 40 meq Documented by: ROBINSON Pregabalin (Pregabalin 50 Mg Capsule) 100 mg PO TID [place] Last Admin: 11/17/20 15:23 Dose: 100 mg Documented by: Admin: 11/17/20 11:55 Dose: 100 mg Documented by: ROSALEE Vital Signs Vital signs: Vital Signs - 8 hr 11/18/20 13:09 Temperature 98.3 F Pulse Rate 81 Respiratory Rate 16 Blood Pressure 115/72 Pulse Oximetry 95 MDM - Psych <Neftali Rowland DO - Last Filed: 11/18/20 05:37> Medical Records Attestation: I reviewed the patient's medical records. Lab Data Attestation: I reviewed the patient's lab results. Result diagrams: 11/16/20 21:51 11/16/20 21:51 Labs: Lab Results 11/16/20 11/16/20 11/16/20 Range/Units 21:51 21:51 21:51 WBC 4.8 (4.5-11.0) X10^3/uL RBC 3.29 L (4.5-5.9) X10^6/uL Hgb 11.4 L (13.5-17.5) g/dL Hct 32.3 L (41-53) % MCV 98.1 (80-100) fL MCH 34.6 H (26-34) PG MCHC 35.3 (30-36) % RDW 14.2 (11.6-14.8) % Plt Count 185 (150-400) X10^3/uL Neut % (Auto) 57.9 (50-75) % Lymph % (Auto) 32.5 (25-40) % Starr % (Auto) 5.7 (3-14) % Eos % (Auto) 3.0 (2-4) % Baso % (Auto) 0.9 (0-2) % Neut # (Auto) 2800 (7757-5661) /uL Lymph # (Auto) 1600 (0900-8121) /uL Starr # (Auto) 300 (0-900) /uL Eos # (Auto) 100 (0-450) /uL Baso # (Auto) 0 (0-100) /uL Sodium 129 L (137-145) mmol/L Potassium 3.2 L (3.4-5.1) mmol/L Chloride 98 (98-107) mmol/L Carbon Dioxide 27 (22-32) mmol/L BUN 10 (9-20) mg/dL Creatinine 0.53 L (0.66-1.25) mg/dL Estimated GFR > 60.0 (>60) mL/min BUN/Creatinine Ratio 18.9 (6-22) Glucose 109 H (70-100) mg/dL Calcium 9.0 (8.4-10.2) mg/dL Magnesium (1.6-2.3) mg/dL Total Bilirubin 0.2 (0.2-1.3) mg/dL AST 20 (17-59) IU/L ALT 17 (<50) IU/L Alkaline Phosphatase 81 (38-126) U/L Total Creatine Kinase (55-170) U/L Total Protein 5.9 L (6.3-8.2) g/dL Albumin 3.7 (3.5-5.0) g/dL Globulin 2.2 (1.7-4.1) g/dL Albumin/Globulin Ratio 1.7 (1.0-2.8) TSH (0.47-4.68) uIU/mL Salicylates < 1.0 (<20) mg/dL U Opiates 300ng/mL cut (Negative) Ur Oxycodone Screen (Negative) Urine Methadone Screen (Negative) Acetaminophen < 10 L (10-30) ug/mL Ur Barbiturates Screen (Negative) U Tricyclic Antidepress (Negative) Ur Phencyclidine Scrn (Negative) Ur Amphetamines Screen (Negative) U Methamphetamines Scrn (Negative) Ur MDMA Scrn (Ecstasy) (Negative) U Benzodiazepines Scrn (Negative) Urine Cocaine Screen (Negative) U Marijuana (THC) Screen (Negative) Ethyl Alcohol < 10 ( - 10) mg/dL SARS-CoV-2 (PCR) (Negative) 11/16/20 11/16/20 11/16/20 Range/Units 21:51 22:25 22:26 WBC (4.5-11.0) X10^3/uL RBC (4.5-5.9) X10^6/uL Hgb (13.5-17.5) g/dL Hct (41-53) % MCV (80-100) fL MCH (26-34) PG MCHC (30-36) % RDW (11.6-14.8) % Plt Count (150-400) X10^3/uL Neut % (Auto) (50-75) % Lymph % (Auto) (25-40) % Starr % (Auto) (3-14) % Eos % (Auto) (2-4) % Baso % (Auto) (0-2) % Neut # (Auto) (4717-7268) /uL Lymph # (Auto) (9806-3689) /uL Starr # (Auto) (0-900) /uL Eos # (Auto) (0-450) /uL Baso # (Auto) (0-100) /uL Sodium (137-145) mmol/L Potassium (3.4-5.1) mmol/L Chloride (98-107) mmol/L Carbon Dioxide (22-32) mmol/L BUN (9-20) mg/dL Creatinine (0.66-1.25) mg/dL Estimated GFR (>60) mL/min BUN/Creatinine Ratio (6-22) Glucose (70-100) mg/dL Calcium (8.4-10.2) mg/dL Magnesium (1.6-2.3) mg/dL Total Bilirubin (0.2-1.3) mg/dL AST (17-59) IU/L ALT (<50) IU/L Alkaline Phosphatase (38-126) U/L Total Creatine Kinase (55-170) U/L Total Protein (6.3-8.2) g/dL Albumin (3.5-5.0) g/dL Globulin (1.7-4.1) g/dL Albumin/Globulin Ratio (1.0-2.8) TSH 1.50 (0.47-4.68) uIU/mL Salicylates (<20) mg/dL U Opiates 300ng/mL cut Negative (Negative) Ur Oxycodone Screen Negative (Negative) Urine Methadone Screen Negative (Negative) Acetaminophen (10-30) ug/mL Ur Barbiturates Screen Positive H (Negative) U Tricyclic Antidepress Negative (Negative) Ur Phencyclidine Scrn Negative (Negative) Ur Amphetamines Screen Negative (Negative) U Methamphetamines Scrn Negative (Negative) Ur MDMA Scrn (Ecstasy) Negative (Negative) U Benzodiazepines Scrn Negative (Negative) Urine Cocaine Screen Negative (Negative) U Marijuana (THC) Screen Negative (Negative) Ethyl Alcohol ( - 10) mg/dL SARS-CoV-2 (PCR) Negative (Negative) 11/17/20 Range/Units 07:05 WBC (4.5-11.0) X10^3/uL RBC (4.5-5.9) X10^6/uL Hgb (13.5-17.5) g/dL Hct (41-53) % MCV (80-100) fL MCH (26-34) PG MCHC (30-36) % RDW (11.6-14.8) % Plt Count (150-400) X10^3/uL Neut % (Auto) (50-75) % Lymph % (Auto) (25-40) % Starr % (Auto) (3-14) % Eos % (Auto) (2-4) % Baso % (Auto) (0-2) % Neut # (Auto) (4632-1129) /uL Lymph # (Auto) (0818-9584) /uL Starr # (Auto) (0-900) /uL Eos # (Auto) (0-450) /uL Baso # (Auto) (0-100) /uL Sodium (137-145) mmol/L Potassium (3.4-5.1) mmol/L Chloride (98-107) mmol/L Carbon Dioxide (22-32) mmol/L BUN (9-20) mg/dL Creatinine (0.66-1.25) mg/dL Estimated GFR (>60) mL/min BUN/Creatinine Ratio (6-22) Glucose (70-100) mg/dL Calcium (8.4-10.2) mg/dL Magnesium 1.8 (1.6-2.3) mg/dL Total Bilirubin (0.2-1.3) mg/dL AST (17-59) IU/L ALT (<50) IU/L Alkaline Phosphatase (38-126) U/L Total Creatine Kinase 69 (55-170) U/L Total Protein (6.3-8.2) g/dL Albumin (3.5-5.0) g/dL Globulin (1.7-4.1) g/dL Albumin/Globulin Ratio (1.0-2.8) TSH (0.47-4.68) uIU/mL Salicylates (<20) mg/dL U Opiates 300ng/mL cut (Negative) Ur Oxycodone Screen (Negative) Urine Methadone Screen (Negative) Acetaminophen (10-30) ug/mL Ur Barbiturates Screen (Negative) U Tricyclic Antidepress (Negative) Ur Phencyclidine Scrn (Negative) Ur Amphetamines Screen (Negative) U Methamphetamines Scrn (Negative) Ur MDMA Scrn (Ecstasy) (Negative) U Benzodiazepines Scrn (Negative) Urine Cocaine Screen (Negative) U Marijuana (THC) Screen (Negative) Ethyl Alcohol ( - 10) mg/dL SARS-CoV-2 (PCR) (Negative) Point of Care Testing Glucose POC 154 MDM Narrative Medical decision making narrative: I was able to review discharge summary from patient's stay it would be [facility] from 11/01/20-11/08/20. Upon my initial evaluation patient asked for anxiety medicine and also pain medication. He states ?that will take care very thing ?I did inform him that unfortunately I would not be prescribing him any opioid pain medication. I informed him that we could do Tylenol/ibuprofen. He states that he is allergic to Toradol so he cannot take ibuprofen. He also states that Tylenol does not work for him. I informed him that we do not treat chronic pain in the emergency department. I did offer him Ativan to help calm him down. He accepted this. He stated that he wanted to leave because we are not going to treat his pain. I told him that unfortunately because he had expressed desire to kill himself that he would need to be evaluated prior to our discharge. He became somewhat upset about this. At 1 point he did use his walker and try to leave the department. He was directed by staff back to his room. A restraint order was than placed. Patient is medically cleared. pt seen by DCR and he is not voluntary. Will attempt to find placement. Care turned over to day provider change shift. Dr rowland overnight 11/17-11/18: Reviewed the patient's 24 hour progress. There were no issues overnight. He was given 1 dose of Ativan. Care turned over to day provider to continue with social work and disposition. <Gilmaria luz Valderrama, DO - Last Filed: 11/18/20 14:46> Lab Data Labs: Lab Results 11/16/20 11/16/20 11/16/20 Range/Units 21:51 21:51 21:51 WBC 4.8 (4.5-11.0) X10^3/uL RBC 3.29 L (4.5-5.9) X10^6/uL Hgb 11.4 L (13.5-17.5) g/dL Hct 32.3 L (41-53) % MCV 98.1 (80-100) fL MCH 34.6 H (26-34) PG MCHC 35.3 (30-36) % RDW 14.2 (11.6-14.8) % Plt Count 185 (150-400) X10^3/uL Neut % (Auto) 57.9 (50-75) % Lymph % (Auto) 32.5 (25-40) % Starr % (Auto) 5.7 (3-14) % Eos % (Auto) 3.0 (2-4) % Baso % (Auto) 0.9 (0-2) % Neut # (Auto) 2800 (0092-3375) /uL Lymph # (Auto) 1600 (9897-9048) /uL Starr # (Auto) 300 (0-900) /uL Eos # (Auto) 100 (0-450) /uL Baso # (Auto) 0 (0-100) /uL Sodium 129 L (137-145) mmol/L Potassium 3.2 L (3.4-5.1) mmol/L Chloride 98 (98-107) mmol/L Carbon Dioxide 27 (22-32) mmol/L BUN 10 (9-20) mg/dL Creatinine 0.53 L (0.66-1.25) mg/dL Estimated GFR > 60.0 (>60) mL/min BUN/Creatinine Ratio 18.9 (6-22) Glucose 109 H (70-100) mg/dL Calcium 9.0 (8.4-10.2) mg/dL Magnesium (1.6-2.3) mg/dL Total Bilirubin 0.2 (0.2-1.3) mg/dL AST 20 (17-59) IU/L ALT 17 (<50) IU/L Alkaline Phosphatase 81 (38-126) U/L Total Creatine Kinase (55-170) U/L Total Protein 5.9 L (6.3-8.2) g/dL Albumin 3.7 (3.5-5.0) g/dL Globulin 2.2 (1.7-4.1) g/dL Albumin/Globulin Ratio 1.7 (1.0-2.8) TSH (0.47-4.68) uIU/mL Salicylates < 1.0 (<20) mg/dL U Opiates 300ng/mL cut (Negative) Ur Oxycodone Screen (Negative) Urine Methadone Screen (Negative) Acetaminophen < 10 L (10-30) ug/mL Ur Barbiturates Screen (Negative) U Tricyclic Antidepress (Negative) Ur Phencyclidine Scrn (Negative) Ur Amphetamines Screen (Negative) U Methamphetamines Scrn (Negative) Ur MDMA Scrn (Ecstasy) (Negative) U Benzodiazepines Scrn (Negative) Urine Cocaine Screen (Negative) U Marijuana (THC) Screen (Negative) Ethyl Alcohol < 10 ( - 10) mg/dL SARS-CoV-2 (PCR) (Negative) 11/16/20 11/16/20 11/16/20 Range/Units 21:51 22:25 22:26 WBC (4.5-11.0) X10^3/uL RBC (4.5-5.9) X10^6/uL Hgb (13.5-17.5) g/dL Hct (41-53) % MCV (80-100) fL MCH (26-34) PG MCHC (30-36) % RDW (11.6-14.8) % Plt Count (150-400) X10^3/uL Neut % (Auto) (50-75) % Lymph % (Auto) (25-40) % Starr % (Auto) (3-14) % Eos % (Auto) (2-4) % Baso % (Auto) (0-2) % Neut # (Auto) (2331-4603) /uL Lymph # (Auto) (6486-0865) /uL Starr # (Auto) (0-900) /uL Eos # (Auto) (0-450) /uL Baso # (Auto) (0-100) /uL Sodium (137-145) mmol/L Potassium (3.4-5.1) mmol/L Chloride (98-107) mmol/L Carbon Dioxide (22-32) mmol/L BUN (9-20) mg/dL Creatinine (0.66-1.25) mg/dL Estimated GFR (>60) mL/min BUN/Creatinine Ratio (6-22) Glucose (70-100) mg/dL Calcium (8.4-10.2) mg/dL Magnesium (1.6-2.3) mg/dL Total Bilirubin (0.2-1.3) mg/dL AST (17-59) IU/L ALT (<50) IU/L Alkaline Phosphatase (38-126) U/L Total Creatine Kinase (55-170) U/L Total Protein (6.3-8.2) g/dL Albumin (3.5-5.0) g/dL Globulin (1.7-4.1) g/dL Albumin/Globulin Ratio (1.0-2.8) TSH 1.50 (0.47-4.68) uIU/mL Salicylates (<20) mg/dL U Opiates 300ng/mL cut Negative (Negative) Ur Oxycodone Screen Negative (Negative) Urine Methadone Screen Negative (Negative) Acetaminophen (10-30) ug/mL Ur Barbiturates Screen Positive H (Negative) U Tricyclic Antidepress Negative (Negative) Ur Phencyclidine Scrn Negative (Negative) Ur Amphetamines Screen Negative (Negative) U Methamphetamines Scrn Negative (Negative) Ur MDMA Scrn (Ecstasy) Negative (Negative) U Benzodiazepines Scrn Negative (Negative) Urine Cocaine Screen Negative (Negative) U Marijuana (THC) Screen Negative (Negative) Ethyl Alcohol ( - 10) mg/dL SARS-CoV-2 (PCR) Negative (Negative) 11/17/20 Range/Units 07:05 WBC (4.5-11.0) X10^3/uL RBC (4.5-5.9) X10^6/uL Hgb (13.5-17.5) g/dL Hct (41-53) % MCV (80-100) fL MCH (26-34) PG MCHC (30-36) % RDW (11.6-14.8) % Plt Count (150-400) X10^3/uL Neut % (Auto) (50-75) % Lymph % (Auto) (25-40) % Starr % (Auto) (3-14) % Eos % (Auto) (2-4) % Baso % (Auto) (0-2) % Neut # (Auto) (4388-2015) /uL Lymph # (Auto) (3405-8375) /uL Starr # (Auto) (0-900) /uL Eos # (Auto) (0-450) /uL Baso # (Auto) (0-100) /uL Sodium (137-145) mmol/L Potassium (3.4-5.1) mmol/L Chloride (98-107) mmol/L Carbon Dioxide (22-32) mmol/L BUN (9-20) mg/dL Creatinine (0.66-1.25) mg/dL Estimated GFR (>60) mL/min BUN/Creatinine Ratio (6-22) Glucose (70-100) mg/dL Calcium (8.4-10.2) mg/dL Magnesium 1.8 (1.6-2.3) mg/dL Total Bilirubin (0.2-1.3) mg/dL AST (17-59) IU/L ALT (<50) IU/L Alkaline Phosphatase (38-126) U/L Total Creatine Kinase 69 (55-170) U/L Total Protein (6.3-8.2) g/dL Albumin (3.5-5.0) g/dL Globulin (1.7-4.1) g/dL Albumin/Globulin Ratio (1.0-2.8) TSH (0.47-4.68) uIU/mL Salicylates (<20) mg/dL U Opiates 300ng/mL cut (Negative) Ur Oxycodone Screen (Negative) Urine Methadone Screen (Negative) Acetaminophen (10-30) ug/mL Ur Barbiturates Screen (Negative) U Tricyclic Antidepress (Negative) Ur Phencyclidine Scrn (Negative) Ur Amphetamines Screen (Negative) U Methamphetamines Scrn (Negative) Ur MDMA Scrn (Ecstasy) (Negative) U Benzodiazepines Scrn (Negative) Urine Cocaine Screen (Negative) U Marijuana (THC) Screen (Negative) Ethyl Alcohol ( - 10) mg/dL SARS-CoV-2 (PCR) (Negative) Point of Care Testing Glucose POC 154 Restraint Qgnb-vr-Snti <Neftali Rowland, DO - Last Filed: 11/18/20 05:37> Restraint Gbmc-cn-Msja Evaluation Iluo-gu-Bofn #1: Date: 11/17/20 Time: 00:06 Patient Appearance: Disheveled Level of Consciousness: Alert, Awake and Restless Speech Pattern: Clear Mood Description: Angry, Anxious and Depressed Ability to Follow Directions: Good Hallucination Type: None Respirations: Normal respiratory rate Cardiac: Regular Rate Circulation: Moves all extremities Behavior necessitating restraint: Agitated and Suicidal Restraint risks explained to patient: Yes (I did inform him because of his statements of suicidal ideation with a plan) Restraint risks explained to family: No Restraint Needs: Continue Restraints Discharge Plan Departure Patient Disposition: Xfer Psychiatric Hosp Clinical Impression: Suicidal ideation, Chronic pain Referrals: Sherri Lowe MD [Primary Care Provider] -
[2020-11-16] MEDS: LORazepam 0.5 MG TABLET 1 MG PO (23:39)
[2020-11-17] MEDS: NICOTINE 21 MG PATCH TOP (00:43)
[2020-11-17] MEDS: LORazepam 0.5 MG TABLET 1 MG PO (03:02)
--- NOTE | 2020-11-17 04:44 | PC.NURSE ---
Had called dcr to evaluate pt. Pt had meeting with pt over zoom. DCR deemed pt to be voluntary. He states he sent his packet to [facility] for screening. States [facility] will start screening about 0700 in the morning.
--- NOTE | 2020-11-17 06:21 | PC.NURSE ---
Called [facility] to ensure facility had patient's record. Talked with Lenora. states would have some one in at 0700 to be able to review record and should have an answer of acceptance about 0900.
[2020-11-17 06:46] VITALS: BP 129/75; PULSE 70; RESP 16; TEMP 36.6; O2SAT 93
[2020-11-17 07:14] LABS: Creatine Kinase 69 U/L (55-170); Magnesium 1.8 mg/dL (1.6-2.3)
[2020-11-17] MEDS: POTASSIUM CHLORIDE 20 MEQ/15 ML UDC 40 MEQ PO (07:44)
[2020-11-17] MEDS: POTASSIUM CHLORIDE 20 MEQ TAB 40 MEQ PO (07:44)
[2020-11-17] MEDS: hydroCHLOROthiazide 25 MG TABLET PO (07:45)
--- NOTE | 2020-11-17 07:46 | PC.NURSE ---
Nurse gave meds at 0746. Offered water to drink, as well.
--- NOTE | 2020-11-17 08:26 | PC.NURSE ---
Pt declined his breakfast tray. Drinking coffee.
[2020-11-17 08:59] VITALS: BP 125/88; PULSE 65; O2SAT 99
[2020-11-17] MEDS: FAMOTIDINE 20 MG TABLET PO (09:00)
[2020-11-17] MEDS: PHENYTOIN ER 100 MG CAPSULE 300 MG PO (09:00)
[2020-11-17] MEDS: dilTIAZem CD 180 MG CAP PO (09:00)
--- NOTE | 2020-11-17 09:58 | PC.NURSE ---
late entry while giving patient his morning medications he explained he had requested to review his meds and he hasn't been given some that he wants. also that he has recently changed kedexter to colten, reported that to dr. webster and orders rec'd.
--- NOTE | 2020-11-17 10:37 | PC.NURSE ---
Assisted patient with elimination and he asked if he was to get all of his morning meds. I went to the nurse and expressed patient's concerns. She then went in and spoke with the patient about his medications.
[2020-11-17] MEDS: PREGABALIN 50 MG CAPSULE 100 MG PO ×2 (11:55→15:23)
[2020-11-17] MEDS: BACLOFEN 10 MG TABLET 20 MG PO ×3 (11:56→22:05)
[2020-11-17] MEDS: METFORMIN HCL 500 MG TABLET PO (11:57)
[2020-11-17] MEDS: MELOXICAM 7.5 MG TABLET 15 MG PO (11:57)
[2020-11-17 11:59] VITALS: BP 141/90; PULSE 62
[2020-11-17] MEDS: clonazePAM 0.5 MG TABLET 1 MG PO ×3 (11:59→22:04)
[2020-11-17] MEDS: LOSARTAN 25 MG TABLET PO (11:59)
[2020-11-17 12:01] VITALS: BP 141/75; PULSE 62; RESP 17; O2SAT 99
--- NOTE | 2020-11-17 12:42 | PC.NURSE ---
Nell with DIRECTOR OF PEDIATRIC REHABILITATION in speaking with pt. Will attempt to find placement
--- NOTE | 2020-11-17 13:16 | PC.NURSE ---
Pt Declined lunch or any other snacks and fluids
--- NOTE | 2020-11-17 15:10 | PC.NURSE ---
Patient motioned me into his room and said that he would like to talk for a moment. He told me that he was feeling upset about what the MUSEUM ATTENDANT lady told him. I listened to him say that he felt like he was never going to get to go home. I sat down in the chair next to him and told him that I understand it may feel that way but the goal is to find him a treatment facility that will help him cope with life's hardships then get him safely home. Patient said that by the time he is being sent home, it would be gone because his brother and sister would be selling his house and everything in it. He proceeded to tell me about his family members- sister is very evil, brother takes advantage of him (patient) and knows it, his nieces are a product of their raising and do drugs yet he loves everyone and tries to take care of them. 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 He feels that his family has abandoned him but will follow him around the hospitals that he visits to keep tabs on why he is in the hospital. I told the patient that it sounds like he is doing his best to take care of everyone else in his life, it was good to come to our ER because here he is protected and it is his turn to be cared for. Patient was grateful for the encouragement. He asked for some medicine that he states he turned down earlier. I reported it to the nurse that patient would like that medicine.
--- NOTE | 2020-11-17 15:15 | CM.SWNOTE ---
Discharge Planning/Care Management ED Psychiatric Symptoms Assessment Start: 11/16/20 21:26 Freq: Status: Active Protocol: Document 11/16/20 22:22 NORAH (Rec: 11/16/20 22:44 ML [id number]) Psychiatric Symptoms Assessment Symptoms/Complaint Suicidal Ideation History Of Same Yes Context Recent Alcohol Abuse,Recent Drug Abuse,Significant Life Stressor Improves With Nothing Worsens With Nothing Associated Psychiatric Symptoms Auditory Hallucinations, Depression,Visual Hallucinations Associated Symptoms Denies Other Symptoms If Self Harm Admits Thoughts of Self Harm, Has Plans Details of Plan Pt states I have a bit of rope and states he was going to find a limb to stretch myself out. Is hearing voices and seeing people who arent there. Recent of mother and states his family hates him. Level of Consciousness Alert,Appropriate,Awake Patient Orientation Name,Age,Birthday,Month,Date, Year,Day of Week,Place, Situation Patient Behavior/Mood Cooperative,Flat Ability to Follow Directions Excellent Patient Cognition Impaired Yes Affect Description Calm Patient Appearance Well Groomed Hallucination Type Auditory Thought Process: Normal Depressive Symptoms Loss of Energy,Loss of Interest in Activities, Sleeping More Than Usual, Recurrent Thoughts of or Suicide,Unhappiness Feelings of Hopelessness Yes Suicidal Ideation Constant Suicide Plan Clear,Specific,Feasible Homicidal Ideation None Nausea/Vomiting None Document 11/17/20 00:30 KG (Rec: 11/17/20 01:41 KG [id number]) Psychiatric Symptoms Assessment Symptoms/Complaint Suicidal Ideation Duration Getting Worse History Of Same Yes Context Recent Alcohol Abuse,Recent Drug Abuse,Significant Life Stressor Improves With Nothing Worsens With Nothing Associated Psychiatric Symptoms Auditory Hallucinations, Depression,Racing Thoughts, Suicidal Ideation,Visual Hallucinations Associated Symptoms Denies Other Symptoms If Self Harm Admits Thoughts of Self Harm, Has Plans Level of Consciousness Inappropriate,Restless Patient Orientation Name,Age,Birthday,Month,Date, Year,Day of Week,Place, Situation Patient Behavior/Mood Anxious,Impulsive,Labile, Uncooperative,Wandering Ability to Follow Directions Excellent Patient Cognition Impaired No Affect Description Angry,Anxious,Depressed, Hostile,Labile Patient Appearance Well Groomed Hallucination Type Auditory,Visual Thought Process: Normal Depressive Symptoms Loss of Energy,Loss of Interest in Activities, Recurrent Thoughts of or Suicide,Unhappiness Feelings of Hopelessness Yes Suicidal Ideation Constant Suicide Plan Clear,Specific,Feasible,High Lethality Homicidal Ideation None Nausea/Vomiting None Document 11/17/20 02:30 KG (Rec: 11/17/20 03:03 KG [id number]) Psychiatric Symptoms Assessment Patient Behavior/Mood Asleep Document 11/17/20 04:30 KG (Rec: 11/17/20 04:30 KG [id number]) Psychiatric Symptoms Assessment Patient Behavior/Mood Asleep Document 11/17/20 06:30 KG (Rec: 11/17/20 06:54 KG [id number]) Psychiatric Symptoms Assessment Patient Behavior/Mood Asleep Document 11/17/20 08:00 BJT (Rec: 11/17/20 09:58 BJT [id number]) Psychiatric Symptoms Assessment Symptoms/Complaint Suicidal Ideation Onset over a week History Of Same Yes Context Significant Life Stressor Improves With Nothing Associated Psychiatric Symptoms Suicidal Ideation Details of Plan pt has history of OD with ETOH within last few weeks, pt expressed thoughts of wanting to Hang himself. Level of Consciousness Alert,Awake Patient Orientation Name,Age,Birthday,Month,Date, Year,Day of Week,Place, Situation Patient Behavior/Mood Cooperative Ability to Follow Directions Excellent Patient Cognition Impaired No Affect Description Depressed Patient Appearance Well Groomed Hallucination Type None Delusion Description Not Present Feelings of Hopelessness Yes Suicidal Ideation Frequent Suicide Plan High Lethality Homicidal Ideation None Nausea/Vomiting None Document 11/17/20 10:06 KB (Rec: 11/17/20 10:14 KB [id number]) Psychiatric Symptoms Assessment Symptoms/Complaint Suicidal Ideation Duration Constant History Of Same Yes Context Significant Life Stressor Improves With Nothing Associated Psychiatric Symptoms Suicidal Ideation If Self Harm Admits Thoughts of Self Harm, Has Plans Details of Plan pt has history of OD with ETOH within last few weeks, pt expressed thoughts of wanting to Hang himself. Level of Consciousness Alert Patient Orientation Name,Age,Year,Day of Week, Place,Situation Patient Behavior/Mood Impulsive,Talkative Ability to Follow Directions Good Patient Cognition Impaired No Affect Description Labile Depressive Symptoms Hopelessness,Recurrent Thoughts of or Suicide, Unhappiness Major Depressive Episode Yes Feelings of Hopelessness Yes Suicidal Ideation Frequent Suicide Plan Feasible,High Lethality Homicidal Ideation None Nausea/Vomiting None Document 11/17/20 12:02 KB (Rec: 11/17/20 12:03 KB [id number]) Psychiatric Symptoms Assessment Symptoms/Complaint Suicidal Ideation Duration Constant History Of Same Yes Context Significant Life Stressor Associated Psychiatric Symptoms Suicidal Ideation Associated Symptoms Denies Other Symptoms If Self Harm Admits Thoughts of Self Harm, Has Plans Details of Plan pt has history of OD with ETOH within last few weeks, pt expressed thoughts of wanting to Hang himself. Level of Consciousness Alert,Appropriate Patient Orientation Name,Age,Year,Day of Week, Place Ability to Follow Directions Excellent Patient Cognition Impaired No Affect Description Labile Depressive Symptoms Feelings of Worthlessness, Increased Irritability, Unhappiness Major Depressive Episode Yes Feelings of Hopelessness Yes Suicidal Ideation Frequent Suicide Plan No Plan,Specific Homicidal Ideation None Nausea/Vomiting None CHEMICAL TREATMENT OPERATOR - Geophysics Professor Assessment Start: 11/17/20 13:43 Freq: Status: Active Protocol: Document 11/17/20 13:43 KJS (Rec: 11/17/20 14:30 KJS [id number]) CHEMICAL TREATMENT OPERATOR/Geophysics Professor Assessment Start date 11/17/20 Presenting Problem Patient is a 45yr old male brought in to ED via EMS. Chief complaint was pain from head to toe with suicidal ideation. Precipitating Event(s) Patient reports that he has nobody since his Mother recently on 10-21-20. Patient with history of chronic pain syndrome. Patient recently at [facility] after ingesting medication and alcohol. Patient Strengths [facility]. Current Behavioral Health Provider(s) No mental health provider Include Facility, Provider, Ph. # listed however, does see Dr. Lowe at [facility] in [facility] for medical care. No recent mental health care and or visits identified. Patient does report he has gone to [facility] in the past. Psych. Hx Mental Health and Chemical Chemical dependency and Mental Dependency health issues present but appear to be untreated at this time. Psychiatric Hospitalizations (date(s)/ Unclear at this time. location) Psychosocial information & Support Patient denies any current Systems support. Legal Matters - Outstanding Issues Unknown Orientation (Person/Place/Time) Patient appears alert and oriented at time of CHEMICAL TREATMENT OPERATOR visit. Patient cooperative with flat affect. Stated Mood Patient reports low energy, pain, and continues to feel suicidal. Affect (Congruent with Mood?) Flat and overwhelmed secondary to loss of mother? Thought Content - Specify/Describe Patient reports that he has Obsessions, Delusions, Hallucinations PTSD and on occasion hears and sees things? Obessive behavior includes patient's expressed need for pain relief . Thought Processes (Sirrqbm-Nbfuqxvj-Erxe Current thought process is Kxgrkpqa-Oixxpzga-Wnpgxzaejj- detailed in that if he were to Twfoubhaihgfba-Kitpgzl-Cmaukgokwzvw- d/c home he will attempt Thought Blocking) suicide. Patient with very vague answers. Unclear on whether or not it's due to loss of Mother or possible drug seeking behavior? Speech (Cuttuy-Uzep-Shseozo-Rapid-Soft- Slow and very soft spoken. Loud-Pressured) Motor (Tkhsjc-Phziwjtuw-Iwuu-Other) Anticipate slow did not evaluate a lot of movement during interview. Insight (Zyco-Pnsx-Vbnh/Limited) Poor Judgement (Tpwj-Xxxt-Lupv/Limited) Poor Impulse Control (Adequate-Impaired) Impaired Memory (Zsfmlkmop-Iagosd-Diltlh, Intact Impaired-Intact) Concentration (Intact-Impaired) Intact Attention (Intact-Impaired) Intact Behavior (Appropriate-Inappropriate) Appropriate Suicidal Ideation (Plan) Yes: Reports that he continues to want to hang himself in garage. Homicidal Ideation (Plan) No Intervention Recieved referral and call from ED staff re: inpatient psychiatric placement. CHEMICAL TREATMENT OPERATOR reviewed records which indicate that [facility] was dispatched last night for potential non-voluntary placement. Interview occured by [facility]/ [facility] which indicates that patient is a voluntary placement. CHEMICAL TREATMENT OPERATOR met with patient this afternoon and confirmed with patient that yes he is willing to go to inpatient psychiatric placement for continued suicidal ideation. CHEMICAL TREATMENT OPERATOR placed calls to the following facilities: [facility], [facility], [place], [facility], [facility], [facility], [facility], , and [facility]. All facilites report no available voluntary bed. [facility] are reviewing for potential bed tomorrow 11-18-20 . Also [place] given number to ED and will call if they get some availibilty this evening. Otherwise all other facilities report that we need to call back on 11-18-20. ED staff and Dr. Valderrama updated. Unable to safety plan with patient today because he reports that if he goes home I will kill myself. Therefore, safety planning inappropriate today. Suggest that pateint be evaluated again tomorrow for 1 ) Inpatient pyschiatric placment 2) Safety plan at home 3) Pyschiatric evaluation if patient remains suicidal.
--- NOTE | 2020-11-17 15:15 | CM.SWNOTE ---
Addendum entered by Nell Adkins 11/17/20 15:31: CHECK CLERK note continued: Addendum See Below KJS Original Note: CHECK CLERK - Roundsman Assessment CHECK CLERK - Roundsman Assessment Start: 11/17/20 13:43 Freq: Status: Active Protocol: Document 11/17/20 13:43 [email or web address] (Rec: 11/17/20 14:30 NEREIDA [id number]) CHECK CLERK/Roundsman Assessment Time Spent with Patient Start date 11/17/20 Mental Health Screening Include Onset, Duration, Intensity Presenting Problem Patient is a 45yr old male brought in to ED via EMS. Chief complaint was pain from head to toe with suicidal ideation. Precipitating Event(s) Patient reports that he has nobody since his Mother recently on 10-21-20. Patient with history of chronic pain syndrome. Patient recently at [facility] after ingesting medication and alcohol. Patient Strengths Patient aware and agreeable to inpateint voluntary pyschiatric placement if bed can be found. Current Behavioral Health Provider(s) No mental health provider Include Facility, Provider, Ph. # listed however, does see Dr. Lowe at [facility] in [facility] for medical care. No recent mental health care and or visits identified. Patient does report he has gone to [facility] in the past. Psych. Hx Mental Health and Chemical Chemical dependency and Mental Dependency health issues present but appear to be untreated at this time. Psychiatric Hospitalizations (date(s)/ Unclear at this time. location) Psychosocial information & Support Patient denies any current Systems support. Legal Concerns Legal Matters - Outstanding Issues Unknown Mental Status Orientation (Person/Place/Time) Patient appears alert and oriented at time of CHECK CLERK visit. Patient cooperative with flat affect. Stated Mood Patient reports low energy, pain, and continues to feel suicidal. Affect (Congruent with Mood?) Flat and overwhelmed secondary to loss of mother? Thought Content - Specify/Describe Patient reports that he has Obsessions, Delusions, Hallucinations PTSD and on occasion hears and sees things? Obessive behavior includes patient's expressed need for pain relief . Thought Processes (Ljlrjne-Zothllih-Zwei Current thought process is Ueiqtdjf-Rlnznrln-Wojzqlloux- detailed in that if he were to Sbbexkdsiidujs-Jabnsre-Fpffkudkpiec- d/c home he will attempt Thought Blocking) suicide. Patient with very vague answers. Unclear on whether or not it's due to loss of Mother or possible drug seeking behavior? Speech (Etwycd-Tmpn-Qegcqqg-Rapid-Soft- Slow and very soft spoken. Loud-Pressured) Motor (Tbabwo-Npsczzfsf-Pkkl-Other) Anticipate slow did not evaluate a lot of movement during interview. Insight (Xhcj-Vjne-Dvnw/Limited) Poor Judgement (Ovmh-Bbdf-Sblw/Limited) Poor Impulse Control (Adequate-Impaired) Impaired Memory (Ljrszynxv-Zytner-Elzpxa, Intact Impaired-Intact) Concentration (Intact-Impaired) Intact Attention (Intact-Impaired) Intact Behavior (Appropriate-Inappropriate) Appropriate Risk Assessment Suicidal Ideation (Plan) Yes: Reports that he continues to want to hang himself in garage. Homicidal Ideation (Plan) No Intervention Intervention Recieved referral and call from ED staff re: inpatient psychiatric placement. CHECK CLERK reviewed records which indicate that [facility] was dispatched last night for potential non-voluntary placement. Interview occured by [facility]/ [facility] which indicates that patient is a voluntary placement. CHECK CLERK met with patient this afternoon and confirmed with patient that yes he is willing to go to inpatient psychiatric placement for continued suicidal ideation. CHECK CLERK placed calls to the following facilities: [facility], [facility], [place], [facility], [place], [facility], [place], [facility], , and [facility]. All facilites report no available voluntary bed. [facility] are reviewing for potential bed tomorrow 11-18-20 . Also [place] given number to ED and will call if they get some availibilty this evening. Otherwise all other facilities report that we need to call back on 11-18-20. ED staff and Dr. Valderrama updated. Unable to safety plan with patient today because he reports that if he goes home I will kill myself. Therefore, safety planning inappropriate today. Suggest that pateint be evaluated again tomorrow for 1 ) Inpatient pyschiatric placment 2) Safety plan at home 3) Pyschiatric evaluation if patient remains suicidal. Additional Information: Met again with patient this afternoon re: plan. Patient made aware that no inpatient voluntary psychiatric placement has been found. Patient reports that he continues to have SI. Patient clarified with CHECK CLERK that his PCP currently is Buddy Negron ph# [phone]. Patient also reports that he does not like her that much. Patient also reports that he does get some care giving hours in his residence through [facility]. Patient reports that he received about 2hrs per week? Patient's CM at home and community is Christina Joseph? unsure of number but retrieved [place] office number for [facility] which is # [phone]. Patient appears to be providing more information related to his outside supports and history. Patient made aware that safety planning will be next step if no inpatient beds found. CHECK CLERK unclear on whether or not patient's current SI is related to both grieving and drug seeking behavior? Patient appears to know more about community resources than he initially led on to. Patient mentioned he would be interested in [facility] placement? Notified patient that he will need to be mentally cleared prior to making senior care residential plans. P: Pending. NEREIDA
--- NOTE | 2020-11-17 16:00 | PC.NURSE ---
Patient asked for a hot face cloth to wash his face and wipe his head and arms.
--- NOTE | 2020-11-17 17:50 | PC.NURSE ---
pt eating meal, fsbs 80 will cont to monitor, fsbs checks ordered as achs
[2020-11-17 20:00] VITALS: BP 106/52; PULSE 72; RESP 16; TEMP 36.7; O2SAT 94
[2020-11-17] MEDS: PREGABALIN 25 MG CAPSULE 100 MG PO (22:04)
--- NOTE | 2020-11-18 00:10 | PC.NURSE ---
Addendum entered by Tyron Reed CNA 11/18/20 05:38: pt remains calm and please, went on walk with fww and washed face. Addendum entered by Tyron Reed CNA 11/18/20 01:47: Walked around ED again at this time. Pt requesting another cup of coffee and medication to help him calm down so he can sleep, recommending Ativan or Trazadone. Informed RN of request. Addendum entered by Tyron Reed CNA 11/18/20 00:38: Walked around ED x2 w/ pt using his personal FWW. 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 Pt continues to have difficulty sleeping and finding a comfortable position. Addendum entered by Tyron Reed CNA 11/18/20 00:14: falling asleep for a few minutes before awaking to reposition self* Original Note: pt requested sandwich, offered egg salad sandwich which he consumed quickly before falling asleep.
[2020-11-18] MEDS: LORazepam 0.5 MG TABLET 1 MG PO (02:24)
[2020-11-18] MEDS: NICOTINE 21 MG PATCH TOP ×2 (02:24→08:22)
[2020-11-18] MEDS: clonazePAM 0.5 MG TABLET 1 MG PO ×4 (03:58→22:07)
[2020-11-18] MEDS: PREGABALIN 25 MG CAPSULE 100 MG PO ×2 (08:15→16:41)
[2020-11-18] MEDS: dilTIAZem CD 180 MG CAP PO (08:16)
[2020-11-18] MEDS: METFORMIN HCL 500 MG TABLET PO (08:17)
[2020-11-18] MEDS: BACLOFEN 10 MG TABLET 20 MG PO ×3 (08:18→21:07)
[2020-11-18] MEDS: MELOXICAM 7.5 MG TABLET 15 MG PO (08:21)
[2020-11-18] MEDS: PHENYTOIN ER 100 MG CAPSULE 300 MG PO (09:46)
[2020-11-18] MEDS: BUPRENORPHINE/NALOXONE 8MG/2MG 1 TAB SL (11:18)
--- NOTE | 2020-11-18 12:44 | CM.SWNOTE ---
Addendum entered by Roz Nino 11/18/20 16:15: [facility] (Ph. #[phone]) calls and reports that they are full and will have pending acceptance for late tonight or tomorrow morning for patient. Yulisa Ziegler (Ph. # [phone]) calls and reports they are full today and may be able to accept admission tomorrow morning. PHYSICAL TESTING SUPERVISOR to review the above with ED provider Dr. Jean Baptiste. CAMDEN Soriano Addendum entered by Roz Nino 11/18/20 15:01: PHYSICAL TESTING SUPERVISOR leaves message with [facility] for inquiring with intake regarding inpatient voluntary beds, PHYSICAL TESTING SUPERVISOR requests return call. PHYSICAL TESTING SUPERVISOR calls [facility] intake, it is reported they have no beds available. PHYSICAL TESTING SUPERVISOR calls [facility] intake, it is reported they have no beds available. PHYSICAL TESTING SUPERVISOR leaves message with [facility] for inquiring with intake regarding inpatient voluntary beds, PHYSICAL TESTING SUPERVISOR requests return call. CAMDEN Soriano Addendum entered by Roz Nino 11/18/20 14:41: PHYSICAL TESTING SUPERVISOR receives call from [facility], it is reported that the provider declined patient due to course voluntary and due to his need for pain management and anxiety medication. Plan: continue to seek voluntary inpatient bed for patient. CAMDEN Courtney Addendum entered by Roz Nino 11/18/20 13:21: [facility] reviews clinicals and reports they cannot accept patient due to the use of his walker. Patients states he needs his walker for balance. PHYSICAL TESTING SUPERVISOR calls [facility] intake, is is reported that there are no beds available PHYSICAL TESTING SUPERVISOR calls [facility] intake, is is reported that there are no beds available PHYSICAL TESTING SUPERVISOR calls [facility] intake, PHYSICAL TESTING SUPERVISOR screens with charge nurse and it is reported that they will review clinicals. Plan: PHYSICAL TESTING SUPERVISOR to seek voluntary inpatient bed for patient. CAMDEN Soriano Original Note: PHYSICAL TESTING SUPERVISOR Note PHYSICAL TESTING SUPERVISOR meets with patient in room. Patient endorses continued SI stating it's gonna happen, being here is keeping me from harming myself. Patient endorses issues with family, recent of his mother and poor relationship with his sister. Patient states he does not want anyone to know he is here in regards to friends and family. Patient states he met with a DCR and DCR deemed him involuntary. PHYSICAL TESTING SUPERVISOR reviews with ED provider and RNs and it is reported that patient is voluntary. PHYSICAL TESTING SUPERVISOR reviews DCR assessment and patient is deemed voluntary. PHYSICAL TESTING SUPERVISOR calls [facility], it is reported that patient is not accepted due to his use of his walker. PHYSICAL TESTING SUPERVISOR calls [facility], it is reported that there are open beds, PHYSICAL TESTING SUPERVISOR faxes clinicals for review. PHYSICAL TESTING SUPERVISOR reviews the above with ED provider Dr. Jean Baptiste and she indicates agreement and understanding. PHYSICAL TESTING SUPERVISOR reviews the above with patient and patient states that he voluntary wants inpatient behavioral health inpatient bed. Patient reports previous inpatient hospitalizations at [place] and [facility] and reports concerns that he continues to receive his current prescribed medications. PHYSICAL TESTING SUPERVISOR calls [facility], it is reported that there are no current open beds but there may be availability this evening. PHYSICAL TESTING SUPERVISOR calls [facility] and it is reported that there are no beds available. PHYSICAL TESTING SUPERVISOR calls [facility] it is reported that there are no beds available. PHYSICAL TESTING SUPERVISOR calls [facility], it is reported that there are beds available and charge nurse is to return call to PHYSICAL TESTING SUPERVISOR. Plan: PHYSICAL TESTING SUPERVISOR to seek voluntary inpatient bed for patient. CAMDEN Soriano
[2020-11-18 13:09] VITALS: BP 115/72; PULSE 81; RESP 16; TEMP 36.8; O2SAT 95
--- NOTE | 2020-11-18 17:00 | PC.NURSE ---
Patient was brought dinner, which he refused. I put it off to the side and let him know that I had it in case he changed his mind. The director of social services stopped by and informed patient that he would be spending another night in the E.R. and that his facility placement would most likely be tomorrow. Patient seemed OK with this news.
--- NOTE | 2020-11-18 17:36 | PC.NURSE ---
Patient is getting increasingly agitated. I asked if he was in pain, which he confirmed, stating his pain level was about a 9 and I am about ready to start cryin. I informed the RN of this and she went into the room to update the patient.
--- NOTE | 2020-11-18 17:45 | CM.SWNOTE ---
DAY CARE AIDE Note DAY CARE AIDE meets with patient and provides information about pending acceptance at [facility] for tomorrow. Patient indicates agreement and understanding and is agreeable to plan and wanting to proceed with voluntary inpatient treatment. DAY CARE AIDE also discusses plan b of safety planning, patient states he does not want to return home alone, he reports he hears voices and sees hallucinations. Patient states he feels unsafe at home and wants to continue seeking treatment and find an [facility] to live in. Patient requests suboxone, he reports he is prescribed suboxone from Dr. Kaya Hendrickson at [facility] and usually sees her every two to three weeks for 3 strips of suboxone a day. DAY CARE AIDE calls [facility] (Ph. # [phone]). It is reported that [facility] is needed for coordination of care consent regarding patient's prescription of suboxone. Patient signs MINA and states he will do anything he can to get his Suboxone. DAY CARE AIDE faxes MINA to [facility] ( ) to request records. Plan: continue to seek voluntary inpatient bed, pending accepatance at [facility] for tomorrow 11/19/20 CAMDEN Soriano
--- NOTE | 2020-11-18 18:13 | PC.NURSE ---
Multiple unsuccessful attempts to contact [facility] pharmacy to confirm pt's suboxone prescription, will continue to try and obtain
[2020-11-18] MEDS: ONDANSETRON 4 MG ODT PO (18:59)
[2020-11-18 19:00] VITALS: BP 113/83; PULSE 78; RESP 16; TEMP 36.8; O2SAT 94
--- NOTE | 2020-11-18 22:17 | PC.NURSE ---
Lyrica requested from patient care nursing assistant. No lyrica available in hospital. Dr. Rowland aware, VORB ok to skip dose
[2020-11-18] MEDS: BISACODYL 5 MG TABLET 10 MG PO (22:26)
[2020-11-19] MEDS: METFORMIN HCL 500 MG TABLET PO (07:40)
[2020-11-19] MEDS: MELOXICAM 7.5 MG TABLET 15 MG PO (07:41)
--- NOTE | 2020-11-19 07:50 | PC.NURSE ---
pt talking to self and someone which isn't there. Hx of auditory / visual hallucination. 1:1 Lonny loyd, didn't observe this behavior yesterday 11/18/2020. Patient seems agitated about not receiving more suboxone.
[2020-11-19 07:53] VITALS: BP 128/85; PULSE 72; RESP 18; TEMP 36.7; O2SAT 100
[2020-11-19] MEDS: BACLOFEN 10 MG TABLET 20 MG PO (08:15)
[2020-11-19] MEDS: clonazePAM 0.5 MG TABLET 1 MG PO (08:15)
[2020-11-19] MEDS: PHENYTOIN ER 100 MG CAPSULE 300 MG PO (08:16)
[2020-11-19] MEDS: BUPRENORPHINE/NALOXONE 8MG/2MG 1 TAB SL (08:16)
[2020-11-19] MEDS: PREGABALIN 25 MG CAPSULE 100 MG PO (08:16)
[2020-11-19] MEDS: NICOTINE 21 MG PATCH TOP (09:27)
--- NOTE | 2020-11-19 10:16 | PC.NURSE ---
spoke with fernando guevara with [facility]. pt also spoke with director of event sales via portable phone. pt is accepted voluntary admission with provider Lucio FAJARDO [facility] [place] [address] [address] number for nurse to nurse report at [facility] [phone]
--- NOTE | 2020-11-19 10:43 | PC.NURSE ---
report called to [facility] spoke to kaitlynn rn # [phone]
--- NOTE | 2020-11-19 10:51 | PC.NURSE ---
Pt wanted to shave and wash face. sitter checked with nurse if pt allowed to use personal electric gray, nurse approved. 1:1 stayed with pt while pt shaved to ensure safe use of electric gray.
[2020-11-19 11:13] VITALS: BP 131/82; PULSE 82; RESP 16; O2SAT 97
== END 2020-11-19 11:21 ==
PROVIDERS: Emergency Medicine; Emergency Provider Emergency Medicine; PCP Family Medicine
DX: R45.851 Suicidal ideations (principal); F32.9 Major depressive disorder, single episode, unspecified; G89.29 Other chronic pain; Z20.822 Contact with and (suspected) exposure to COVID-19
CPT/HCPCS: 36415; 80053; 80305; 80320; 80329; 82550; 82962; 83735; 84443; 85025; 87635; 93005; 93010; 99285; C9803; A9270; G0480

== ENCOUNTER 2022-06-28 18:14 | Emergency (ER) | payer OTHER, MEDICAID, SELFPAY ==
[2022-06-28] VITALS (14 sets, daily range): BP systolic 114–122; BP diastolic 75–89; PULSE 75–96; RESP 15–23; TEMP 36.3; O2SAT 95–100; BMI 27.0
[2022-06-28 18:35] LABS: Add Manual Diff / Slide Review NO; Basophils Absolute Auto 100 /uL (0-100); Basophils Percent Auto 0.8 % (0-2); Eosinophils Absolute Auto 200 /uL (0-450); Eosinophils Percent Auto 3.2 % (2-4); Hematocrit 40.7 % (41-53); Hemoglobin 14.3 g/dL (13.5-17.5); Lymphocytes Absolute Auto 2100 /uL (1100-4500); Lymphocytes Percent Auto 32.6 % (25-40); Mean Corpuscular HGB Conc 35.1 % (30-36); Mean Corpuscular Hemoglobin 34.3 PG (26-34); Mean Corpuscular Volume 97.6 fL (80-100); Monocytes Absolute Auto 300 /uL (0-900); Monocytes Percent Auto 4.5 % (3-14); Neutrophils Absolute Auto 3800 /uL (1500-7000); Neutrophils Percent Auto 58.9 % (50-75); Platelet Count 216 X10^3/uL (150-400); Red Blood Cell Count 4.17 X10^6/uL (4.5-5.9); Red Cell Distribution Width 12.9 % (11.6-14.8); White Blood Cell Count 6.5 X10^3/uL (4.5-11.0)
[2022-06-28 18:42] LABS: Alanine Aminotransferase 21 IU/L (<50); Albumin 4.1 g/dL (3.5-5.0); Albumin Globulin Ratio 1.4 (1.0-2.8); Alkaline Phosphatase 110 U/L (38-126); Aspartate Aminotransferase 20 IU/L (17-59); BUN Creatinine Ratio 15.8 (6-22); Bilirubin Total 0.4 mg/dL (0.2-1.3); Blood Urea Nitrogen 16 mg/dL (9-20); Calcium 9.1 mg/dL (8.4-10.2); Carbon Dioxide 29 mmol/L (22-32); Chloride 101 mmol/L (98-107); Estimated Glomerular Filt Rate > 60 mL/min (>60); Ethanol (ETOH) < 10 mg/dL; Globulin 2.9 g/dL (1.7-4.1); Glucose 107 mg/dL (70-100); HEMOLYSIS 18 (0-50); Potassium 3.9 mmol/L (3.4-5.1); Sodium 137 mmol/L (137-145)
[2022-06-28 18:43] LABS: Acetaminophen < 10 ug/mL (10-30); Lipase 588 U/L (23-300); Salicylate < 1.0 mg/dL (<20)
[2022-06-28 18:50] LABS: COVID19 -Nasal RAPID Negative (Negative)
--- NOTE | 2022-06-28 19:08 | ED.NEUROSD ---
HPI - Neuro Symptoms/Deficit <Neftali Rowland, DO - Last Filed: 07/02/22 18:11> General Chief Complaint: Neuro Symptoms/Deficit Stated Complaint: possible seizure Time Seen by Provider: 06/28/22 18:26 Source: patient and EMS Mode of arrival: EMS Limitations: no limitations History of Present Illness HPI Narrative: Patient is a 46-year-old male. Has a history of anxiety and depression and also a TBI. Has chronic cervical issues as well. Is scheduled to see a neurosurgeon at the end of this month to discuss potential surgical intervention of his problems. He also has history of seizures. He does see a neurologist. He is on Dilantin and Klonopin for his seizures. He takes his Dilantin 2 times a day and his Klonopin 3 times a day. He states he has been taking his medications as directed. He still has breakthrough seizures. His neurologist knows about this and they have been working to adjust his medications. He states he feels like he had a seizure this afternoon. He states that he woke up in bed feeling sore and somewhat confused. He states this is consistent with his prior seizures. It was unwitnessed. He contacted the nurse advice line on his insurance card who contacted EMS. He also has a history of drug abuse. He states that he did snort methamphetamine this morning. He has been sober for many years but had a relapse this morning. He denied any alcohol. He states that he is also feeling very anxious and depressed. Is having suicidal ideations. Does have a plan about taking pills and also hanging himself. He feels unsafe at home. He has tried to hurt himself in the past. He has been admitted to a mental health facility in the past. He does not see a mental health provider on a regular basis. He also states he does not have a primary doctor. He has had an escalation in his anxiety and depression and suicidal ideation recently secondary to his concern about what potentially going to happen with seeing the neurosurgeon in his cervical spine and potential surgery. On Anticoagulants: No Related Data Home Medications Medication Instructions Recorded Confirmed hydrochlorothiazide 25 mg tablet 25 mg PO DAILY 09/07/18 11/17/20 losartan 25 mg tablet 25 mg PO DAILY 09/07/18 11/17/20 oxycodone-acetaminophen 10 mg-325 1 tab PO Q4-6H PRN pain 12/19/18 11/17/20 mg tablet clonazepam 1 mg tablet 1 mg PO QID 11/17/20 06/29/22 diltiazem HCl 180 mg 180 mg PO DAILY 11/17/20 11/17/20 capsule,extended release 24 hr, controlled (DILT-XR) meloxicam 15 mg tablet 15 mg PO TID 11/17/20 11/17/20 metformin 500 mg tablet 500 mg PO DAILY 11/17/20 11/17/20 omeprazole 20 mg capsule,delayed 20 mg PO DAILY 11/17/20 11/17/20 release phenytoin sodium extended 100 mg 300 mg PO BEDTIME 11/17/20 06/29/22 capsule pregabalin 100 mg capsule 100 mg PO TID 11/17/20 11/17/20 trazodone 100 mg tablet 100 mg PO BEDTIME 11/17/20 11/17/20 benztropine 2 mg tablet 2 mg PO BID 06/29/22 06/29/22 clonidine HCl 0.1 mg tablet 0.1 mg PO PRN PRN TID 06/29/22 06/29/22 haloperidol 5 mg tablet 5 mg PO PRN PRN not known 06/29/22 06/29/22 hydrocodone 5 mg-acetaminophen 325 1 tab PO Q4-6H PRN pain 06/29/22 06/29/22 mg tablet methocarbamol 500 mg tablet 500 mg PO QID 06/29/22 06/29/22 quetiapine 150 mg tablet 150 mg PO DAILY 06/29/22 06/29/22 ziprasidone HCl 60 mg capsule 60 mg PO BID 06/29/22 06/29/22 (Geodon) Previous Rx's Medication Instructions Recorded benztropine 2 mg tablet 2 mg PO BID #30 tabs 06/30/22 clonazepam 1 mg tablet 1 mg PO QID PRN anxiety #28 tabs 06/30/22 clonidine HCl 0.1 mg tablet 0.1 mg PO TID PRN anxiety #27 tabs 06/30/22 hydrocodone 5 mg-acetaminophen 325 1 tab PO Q4-6H PRN pain #20 tabs 06/30/22 mg tablet methocarbamol 500 mg tablet 500 mg PO QID PRN pain (scale 06/30/22 score 4-6) #28 tabs phenytoin sodium extended 300 mg 300 mg PO BEDTIME #30 caps 06/30/22 capsule quetiapine 150 mg tablet 150 mg PO DAILY #30 tabs 06/30/22 ziprasidone HCl 60 mg capsule 60 mg PO BID #30 caps 06/30/22 Allergies Allergy/AdvReac Type Severity Reaction Status Date / Time hydromorphone [HYDROMORPHONE] Allergy Mild severe Verified 11/16/20 21:19 itching WITH PILL FORM morphine Allergy Mild skin Verified 11/16/20 21:19 crawl/itchy Penicillins Allergy Mild hives Verified 11/16/20 21:19 ketorolac [From Toradol] Allergy Verified 11/16/20 21:19 Review of Systems <Neftali Rowland DO - Last Filed: 07/02/22 18:11> Review of Systems ROS Unobtainable: All systems reviewed & are unremarkable except as noted in HPI and below Hematologic/Lymphatic On Anticoagulants: No Patient History <Neftali Rowland DO - Last Filed: 07/02/22 18:11> Medical History Alcohol abuse Anxiety Chronic pain syndrome Depression Kidney stone on left side PTSD (post-traumatic stress disorder) Seizure Social History Smoking Status: Current every day smoker Smoking Status: Current every day smoker alcohol intake frequency: holidays/special occasions only Substance Use Type: marijuana Exam <DO Gardenia Palmer Last Filed: 07/02/22 18:11> Initial Vital Signs Initial Vital Signs: Vital Signs Pulse Rate 96 H 06/28/22 18:16 Pulse Oximetry 99 06/28/22 18:16 Const General: cooperative, No acute distress and No ill appearing [facility] Head: normal to inspection and normocephalic Face and sinus: normal facial exam Mouth: moist mucous membranes Resp Effort & Inspection: normal respiratory effort Auscultation: clear to auscultation bilaterally Cardio Rate: regular rate Rhythm: regular rhythm GI Inspection: non-distended Palpation: soft and No firm Skin General: no rashes or lesions noted Neuro General: patient alert, patient awake, patient oriented x3 and moves all extremities Cognition: normal cognition Speech: speech normal Extrem General: normal to inspection and capillary refill normal Psych Appearance: grossly normal and well kempt Mental Status: mental status grossly normal Speech and Movement: speech and movement normal Mood: No angry Affect: sad Attitude: cooperative <Christina Chapin DO - Last Filed: 07/02/22 01:59> Initial Vital Signs Initial Vital Signs: Vital Signs Pulse Rate 96 H 06/28/22 18:16 Pulse Oximetry 99 06/28/22 18:16 <Sheri Bernard MD - Last Filed: 06/30/22 18:07> Initial Vital Signs Initial Vital Signs: Vital Signs Pulse Rate 96 H 06/28/22 18:16 Pulse Oximetry 99 06/28/22 18:16 <Dylan Vasquez MD - Last Filed: 06/30/22 18:59> Initial Vital Signs Initial Vital Signs: Vital Signs Pulse Rate 96 H 06/28/22 18:16 Pulse Oximetry 99 06/28/22 18:16 Scores <Neftali Rowland DO - Last Filed: 07/02/22 18:11> [facility] [place] coma scale eye opening: Spontaneous [place] coma scale verbal response: Orientated [place] coma scale motor response: Obey commands [place] coma scale total score: 15 <Christina Chapin DO - Last Filed: 07/02/22 01:59> G[facility] [place] coma scale total score: 15 <Sheri Bernard MD - Last Filed: 06/30/22 18:07> [facility] [place] coma scale total score: 15 <Dylan Vasquez MD - Last Filed: 06/30/22 18:59> GCS [place] coma scale total score: 15 Course <Neftali Rowland DO - Last Filed: 07/02/22 18:11> Orders Ordered: Discontinued Medications Hydrocodone Bitart/Acetaminophen (Hydrocodone/Acet 5/325 Tablet) 1 tab PO NOW ONE Stop: 06/28/22 19:10 Last Admin: 06/28/22 19:30 Dose: 1 tab Documented By: HO Hydrocodone Bitart/Acetaminophen (Hydrocodone/Acet 5/325 Tablet) 1 tab PO NOW ONE Stop: 06/29/22 08:15 Last Admin: 06/29/22 08:22 Dose: 1 tab Documented By: RACHEAL Hydrocodone Bitart/Acetaminophen (Hydrocodone/Acet 5/325 Tablet) 1 tab PO NOW ONE Stop: 06/29/22 14:43 Last Admin: 06/29/22 14:58 Dose: Not Given Documented By: CHIARA Hydrocodone Bitart/Acetaminophen (Hydrocodone/Acet 5/325 Tablet) 1 tab PO Q6H [facility] Last Admin: 06/30/22 14:35 Dose: 1 tab Documented By: Admin: 06/30/22 09:23 Dose: 1 tab Documented By: Admin: 06/30/22 02:44 Dose: 1 tab Documented By: Admin: 06/29/22 21:50 Dose: 1 tab Documented By: Admin: 06/29/22 14:58 Dose: 1 tab Documented By: CHIARA Clonazepam (Clonazepam 0.5 Mg Tablet) 1 mg PO NOW ONE Stop: 06/28/22 21:01 Last Admin: 06/28/22 22:06 Dose: 1 mg Documented By: HO Clonazepam (Clonazepam 0.5 Mg Tablet) 1 mg PO TID [facility] Last Admin: 06/30/22 14:35 Dose: 1 mg Documented By: Admin: 06/30/22 09:22 Dose: 1 mg Documented By: Admin: 06/29/22 22:05 Dose: 1 mg Documented By: Admin: 06/29/22 14:59 Dose: 1 mg Documented By: Admin: 06/29/22 08:06 Dose: 1 mg Documented By: RACHEAL Haloperidol (Haloperidol 5 Mg Tablet) 10 mg PO NOW ONE Stop: 06/30/22 04:56 Last Admin: 06/30/22 08:24 Dose: Not Given Documented By: JOLEEN Haloperidol (Haloperidol 5 Mg Tablet) 10 mg PO BID [facility] Last Admin: 06/30/22 09:22 Dose: 10 mg Documented By: JOLEEN Nicotine (Nicotine 21 Mg Patch) 21 mg TOP NOW ONE Stop: 06/29/22 18:55 Last Admin: 06/29/22 19:20 Dose: 21 mg Documented By: CHIARA Olanzapine (Olanzapine Odt 10 Mg Tab) 10 mg PO NOW ONE Stop: 06/29/22 08:30 Last Admin: 06/29/22 08:44 Dose: 10 mg Documented By: RACHEAL Ondansetron HCl (Ondansetron 4 Mg/2 Ml Inj) 4 mg IV NOW ONE Stop: 06/29/22 22:12 Last Admin: 06/29/22 22:13 Dose: 4 mg Documented By: CHIARA Ondansetron HCl (Ondansetron 4 Mg/2 Ml Inj) 4 mg IV PRN PRN PRN Reason: Nausea And Vomiting Last Admin: 06/30/22 14:36 Dose: 4 mg Documented By: Admin: 06/30/22 09:03 Dose: 4 mg Documented By: JOLEEN Phenytoin (Phenytoin 50 Mg Chew Tab) 300 mg PO BEDTIME [facility] Last Admin: 06/28/22 22:10 Dose: Not Given Documented By: HO Phenytoin Sodium (Phenytoin Er 100 Mg Capsule) 300 mg PO NOW ONE Stop: 06/28/22 22:08 Last Admin: 06/28/22 22:14 Dose: 300 mg Documented By: HO Phenytoin Sodium (Phenytoin Er 100 Mg Capsule) 300 mg PO BID [facility] Last Admin: 06/29/22 08:06 Dose: Not Given Documented By: RACHEAL Phenytoin Sodium (Phenytoin Er 100 Mg Capsule) 300 mg PO BEDTIME [facility] Last Admin: 06/29/22 22:06 Dose: 300 mg Documented By: CHIARA Vital Signs Vital signs: Vital Signs - 8 hr 06/30/22 11:04 06/30/22 14:44 Temperature 97.1 F L Pulse Rate 81 91 H Respiratory Rate 16 Blood Pressure 117/71 Pulse Oximetry 94 94 Oxygen Delivery Method Room Air Room Air <Christina Chapin, DO - Last Filed: 07/02/22 01:59> Orders Ordered: Discontinued Medications Hydrocodone Bitart/Acetaminophen (Hydrocodone/Acet 5/325 Tablet) 1 tab PO NOW ONE Stop: 06/28/22 19:10 Last Admin: 06/28/22 19:30 Dose: 1 tab Documented By: HO Hydrocodone Bitart/Acetaminophen (Hydrocodone/Acet 5/325 Tablet) 1 tab PO NOW ONE Stop: 06/29/22 08:15 Last Admin: 06/29/22 08:22 Dose: 1 tab Documented By: RACHEAL Hydrocodone Bitart/Acetaminophen (Hydrocodone/Acet 5/325 Tablet) 1 tab PO NOW ONE Stop: 06/29/22 14:43 Last Admin: 06/29/22 14:58 Dose: Not Given Documented By: CHIARA Hydrocodone Bitart/Acetaminophen (Hydrocodone/Acet 5/325 Tablet) 1 tab PO Q6H [facility] Last Admin: 06/30/22 14:35 Dose: 1 tab Documented By: Admin: 06/30/22 09:23 Dose: 1 tab Documented By: Admin: 06/30/22 02:44 Dose: 1 tab Documented By: Admin: 06/29/22 21:50 Dose: 1 tab Documented By: Admin: 06/29/22 14:58 Dose: 1 tab Documented By: CHIARA Clonazepam (Clonazepam 0.5 Mg Tablet) 1 mg PO NOW ONE Stop: 06/28/22 21:01 Last Admin: 06/28/22 22:06 Dose: 1 mg Documented By: HO Clonazepam (Clonazepam 0.5 Mg Tablet) 1 mg PO TID [facility] Last Admin: 06/30/22 14:35 Dose: 1 mg Documented By: Admin: 06/30/22 09:22 Dose: 1 mg Documented By: Admin: 06/29/22 22:05 Dose: 1 mg Documented By: Admin: 06/29/22 14:59 Dose: 1 mg Documented By: Admin: 06/29/22 08:06 Dose: 1 mg Documented By: RACHEAL Haloperidol (Haloperidol 5 Mg Tablet) 10 mg PO NOW ONE Stop: 06/30/22 04:56 Last Admin: 06/30/22 08:24 Dose: Not Given Documented By: JOLEEN Haloperidol (Haloperidol 5 Mg Tablet) 10 mg PO BID [facility] Last Admin: 06/30/22 09:22 Dose: 10 mg Documented By: JOLEEN Nicotine (Nicotine 21 Mg Patch) 21 mg TOP NOW ONE Stop: 06/29/22 18:55 Last Admin: 06/29/22 19:20 Dose: 21 mg Documented By: CHIARA Olanzapine (Olanzapine Odt 10 Mg Tab) 10 mg PO NOW ONE Stop: 06/29/22 08:30 Last Admin: 06/29/22 08:44 Dose: 10 mg Documented By: RACHEAL Ondansetron HCl (Ondansetron 4 Mg/2 Ml Inj) 4 mg IV NOW ONE Stop: 06/29/22 22:12 Last Admin: 06/29/22 22:13 Dose: 4 mg Documented By: CHIARA Ondansetron HCl (Ondansetron 4 Mg/2 Ml Inj) 4 mg IV PRN PRN PRN Reason: Nausea And Vomiting Last Admin: 06/30/22 14:36 Dose: 4 mg Documented By: Admin: 06/30/22 09:03 Dose: 4 mg Documented By: JOLEEN Phenytoin (Phenytoin 50 Mg Chew Tab) 300 mg PO BEDTIME [facility] Last Admin: 06/28/22 22:10 Dose: Not Given Documented By: HO Phenytoin Sodium (Phenytoin Er 100 Mg Capsule) 300 mg PO NOW ONE Stop: 06/28/22 22:08 Last Admin: 06/28/22 22:14 Dose: 300 mg Documented By: HO Phenytoin Sodium (Phenytoin Er 100 Mg Capsule) 300 mg PO BID [facility] Last Admin: 06/29/22 08:06 Dose: Not Given Documented By: RACHEAL Phenytoin Sodium (Phenytoin Er 100 Mg Capsule) 300 mg PO BEDTIME [facility] Last Admin: 06/29/22 22:06 Dose: 300 mg Documented By: CHIARA Vital Signs Vital signs: Vital Signs - 8 hr 06/30/22 11:04 06/30/22 14:44 Temperature 97.1 F L Pulse Rate 81 91 H Respiratory Rate 16 Blood Pressure 117/71 Pulse Oximetry 94 94 Oxygen Delivery Method Room Air Room Air <Sheri Bernard MD - Last Filed: 06/30/22 18:07> Orders Ordered: Discontinued Medications Hydrocodone Bitart/Acetaminophen (Hydrocodone/Acet 5/325 Tablet) 1 tab PO NOW ONE Stop: 06/28/22 19:10 Last Admin: 06/28/22 19:30 Dose: 1 tab Documented By: HO Hydrocodone Bitart/Acetaminophen (Hydrocodone/Acet 5/325 Tablet) 1 tab PO NOW ONE Stop: 06/29/22 08:15 Last Admin: 06/29/22 08:22 Dose: 1 tab Documented By: RACHEAL Hydrocodone Bitart/Acetaminophen (Hydrocodone/Acet 5/325 Tablet) 1 tab PO NOW ONE Stop: 06/29/22 14:43 Last Admin: 06/29/22 14:58 Dose: Not Given Documented By: CHIARA Hydrocodone Bitart/Acetaminophen (Hydrocodone/Acet 5/325 Tablet) 1 tab PO Q6H [facility] Last Admin: 06/30/22 14:35 Dose: 1 tab Documented By: Admin: 06/30/22 09:23 Dose: 1 tab Documented By: Admin: 06/30/22 02:44 Dose: 1 tab Documented By: Admin: 06/29/22 21:50 Dose: 1 tab Documented By: Admin: 06/29/22 14:58 Dose: 1 tab Documented By: CHIARA Clonazepam (Clonazepam 0.5 Mg Tablet) 1 mg PO NOW ONE Stop: 06/28/22 21:01 Last Admin: 06/28/22 22:06 Dose: 1 mg Documented By: HO Clonazepam (Clonazepam 0.5 Mg Tablet) 1 mg PO TID [facility] Last Admin: 06/30/22 14:35 Dose: 1 mg Documented By: Admin: 06/30/22 09:22 Dose: 1 mg Documented By: Admin: 06/29/22 22:05 Dose: 1 mg Documented By: Admin: 06/29/22 14:59 Dose: 1 mg Documented By: Admin: 06/29/22 08:06 Dose: 1 mg Documented By: RACHEAL Haloperidol (Haloperidol 5 Mg Tablet) 10 mg PO NOW ONE Stop: 06/30/22 04:56 Last Admin: 06/30/22 08:24 Dose: Not Given Documented By: JOLEEN Haloperidol (Haloperidol 5 Mg Tablet) 10 mg PO BID [facility] Last Admin: 06/30/22 09:22 Dose: 10 mg Documented By: JOLEEN Nicotine (Nicotine 21 Mg Patch) 21 mg TOP NOW ONE Stop: 06/29/22 18:55 Last Admin: 06/29/22 19:20 Dose: 21 mg Documented By: CHIARA Olanzapine (Olanzapine Odt 10 Mg Tab) 10 mg PO NOW ONE Stop: 06/29/22 08:30 Last Admin: 06/29/22 08:44 Dose: 10 mg Documented By: RACHEAL Ondansetron HCl (Ondansetron 4 Mg/2 Ml Inj) 4 mg IV NOW ONE Stop: 06/29/22 22:12 Last Admin: 06/29/22 22:13 Dose: 4 mg Documented By: CHIARA Ondansetron HCl (Ondansetron 4 Mg/2 Ml Inj) 4 mg IV PRN PRN PRN Reason: Nausea And Vomiting Last Admin: 06/30/22 14:36 Dose: 4 mg Documented By: Admin: 06/30/22 09:03 Dose: 4 mg Documented By: JOLEEN Phenytoin (Phenytoin 50 Mg Chew Tab) 300 mg PO BEDTIME [facility] Last Admin: 06/28/22 22:10 Dose: Not Given Documented By: HO Phenytoin Sodium (Phenytoin Er 100 Mg Capsule) 300 mg PO NOW ONE Stop: 06/28/22 22:08 Last Admin: 06/28/22 22:14 Dose: 300 mg Documented By: HO Phenytoin Sodium (Phenytoin Er 100 Mg Capsule) 300 mg PO BID [facility] Last Admin: 06/29/22 08:06 Dose: Not Given Documented By: RACHEAL Phenytoin Sodium (Phenytoin Er 100 Mg Capsule) 300 mg PO BEDTIME [facility] Last Admin: 06/29/22 22:06 Dose: 300 mg Documented By: CHIARA Vital Signs Vital signs: Vital Signs - 8 hr 06/30/22 11:04 06/30/22 14:44 Temperature 97.1 F L Pulse Rate 81 91 H Respiratory Rate 16 Blood Pressure 117/71 Pulse Oximetry 94 94 Oxygen Delivery Method Room Air Room Air <Dylan Vasquez MD - Last Filed: 06/30/22 18:59> Course Course Narrative: June 30, 2022 at 7:00 a.m.. Sign out from Dr. Solorzano, patient awaiting for placement. Has been difficult for placement due to patient's history of seizures. Home medications have been ordered. Patient has been cooperative. Orders Ordered: Discontinued Medications Hydrocodone Bitart/Acetaminophen (Hydrocodone/Acet 5/325 Tablet) 1 tab PO NOW ONE Stop: 06/28/22 19:10 Last Admin: 06/28/22 19:30 Dose: 1 tab Documented By: HO Hydrocodone Bitart/Acetaminophen (Hydrocodone/Acet 5/325 Tablet) 1 tab PO NOW ONE Stop: 06/29/22 08:15 Last Admin: 06/29/22 08:22 Dose: 1 tab Documented By: RACHEAL Hydrocodone Bitart/Acetaminophen (Hydrocodone/Acet 5/325 Tablet) 1 tab PO NOW ONE Stop: 06/29/22 14:43 Last Admin: 06/29/22 14:58 Dose: Not Given Documented By: CHIARA Hydrocodone Bitart/Acetaminophen (Hydrocodone/Acet 5/325 Tablet) 1 tab PO Q6H [facility] Last Admin: 06/30/22 14:35 Dose: 1 tab Documented By: Admin: 06/30/22 09:23 Dose: 1 tab Documented By: Admin: 06/30/22 02:44 Dose: 1 tab Documented By: Admin: 06/29/22 21:50 Dose: 1 tab Documented By: Admin: 06/29/22 14:58 Dose: 1 tab Documented By: CHIARA Clonazepam (Clonazepam 0.5 Mg Tablet) 1 mg PO NOW ONE Stop: 06/28/22 21:01 Last Admin: 06/28/22 22:06 Dose: 1 mg Documented By: HO Clonazepam (Clonazepam 0.5 Mg Tablet) 1 mg PO TID [facility] Last Admin: 06/30/22 14:35 Dose: 1 mg Documented By: Admin: 06/30/22 09:22 Dose: 1 mg Documented By: Admin: 06/29/22 22:05 Dose: 1 mg Documented By: Admin: 06/29/22 14:59 Dose: 1 mg Documented By: Admin: 06/29/22 08:06 Dose: 1 mg Documented By: RACHEAL Haloperidol (Haloperidol 5 Mg Tablet) 10 mg PO NOW ONE Stop: 06/30/22 04:56 Last Admin: 06/30/22 08:24 Dose: Not Given Documented By: JOLEEN Haloperidol (Haloperidol 5 Mg Tablet) 10 mg PO BID [facility] Last Admin: 06/30/22 09:22 Dose: 10 mg Documented By: JOLEEN Nicotine (Nicotine 21 Mg Patch) 21 mg TOP NOW ONE Stop: 06/29/22 18:55 Last Admin: 06/29/22 19:20 Dose: 21 mg Documented By: CHIARA Olanzapine (Olanzapine Odt 10 Mg Tab) 10 mg PO NOW ONE Stop: 06/29/22 08:30 Last Admin: 06/29/22 08:44 Dose: 10 mg Documented By: RACHEAL Ondansetron HCl (Ondansetron 4 Mg/2 Ml Inj) 4 mg IV NOW ONE Stop: 06/29/22 22:12 Last Admin: 06/29/22 22:13 Dose: 4 mg Documented By: CHIARA Ondansetron HCl (Ondansetron 4 Mg/2 Ml Inj) 4 mg IV PRN PRN PRN Reason: Nausea And Vomiting Last Admin: 06/30/22 14:36 Dose: 4 mg Documented By: Admin: 06/30/22 09:03 Dose: 4 mg Documented By: JOLEEN Phenytoin (Phenytoin 50 Mg Chew Tab) 300 mg PO BEDTIME [facility] Last Admin: 06/28/22 22:10 Dose: Not Given Documented By: HO Phenytoin Sodium (Phenytoin Er 100 Mg Capsule) 300 mg PO NOW ONE Stop: 06/28/22 22:08 Last Admin: 06/28/22 22:14 Dose: 300 mg Documented By: HO Phenytoin Sodium (Phenytoin Er 100 Mg Capsule) 300 mg PO BID [facility] Last Admin: 06/29/22 08:06 Dose: Not Given Documented By: RACHEAL Phenytoin Sodium (Phenytoin Er 100 Mg Capsule) 300 mg PO BEDTIME [facility] Last Admin: 06/29/22 22:06 Dose: 300 mg Documented By: SB Vital Signs Vital signs: Vital Signs - 8 hr 06/30/22 11:04 06/30/22 14:44 Temperature 97.1 F L Pulse Rate 81 91 H Respiratory Rate 16 Blood Pressure 117/71 Pulse Oximetry 94 94 Oxygen Delivery Method Room Air Room Air MDM - Neuro Symptoms/Deficit <Neftali Rowland DO - Last Filed: 07/02/22 18:11> Differential Diagnosis Differential diagnosis: Likely other (Seizure, suicidal ideation, intoxication, overdose, anxiety, depression, and others) Condition is:: Well Controlled Chronic Condition is having:: Moderate exacerbation Condition is at treatment goal?: No Medical Records Attestation: I reviewed the patient's medical records. Lab Data Attestation: I reviewed the patient's lab results. 06/28/22 18:25 06/28/22 18:25 Labs: Lab Results 06/28/22 06/28/22 06/28/22 Range/Units 18:25 18:25 18:25 WBC 6.5 (4.5-11.0) X10^3/uL RBC 4.17 L (4.5-5.9) X10^6/uL Hgb 14.3 (13.5-17.5) g/dL Hct 40.7 L (41-53) % MCV 97.6 (80-100) fL MCH 34.3 H (26-34) PG MCHC 35.1 (30-36) % RDW 12.9 (11.6-14.8) % Plt Count 216 (150-400) X10^3/uL Neut % (Auto) 58.9 (50-75) % Lymph % (Auto) 32.6 (25-40) % Dyer % (Auto) 4.5 (3-14) % Eos % (Auto) 3.2 (2-4) % Baso % (Auto) 0.8 (0-2) % Neut # (Auto) 3800 (2910-3260) /uL Lymph # (Auto) 2100 (0929-0679) /uL Dyer # (Auto) 300 (0-900) /uL Eos # (Auto) 200 (0-450) /uL Baso # (Auto) 100 (0-100) /uL Sodium 137 (137-145) mmol/L Potassium 3.9 (3.4-5.1) mmol/L Chloride 101 (98-107) mmol/L Carbon Dioxide 29 (22-32) mmol/L BUN 16 (9-20) mg/dL Creatinine 1.01 (0.66-1.25) mg/dL Estimated GFR > 60 (>60) mL/min BUN/Creatinine Ratio 15.8 (6-22) Glucose 107 H (70-100) mg/dL Calcium 9.1 (8.4-10.2) mg/dL Total Bilirubin 0.4 (0.2-1.3) mg/dL AST 20 (17-59) IU/L ALT 21 (<50) IU/L Alkaline Phosphatase 110 (38-126) U/L Total Protein 7.0 (6.3-8.2) g/dL Albumin 4.1 (3.5-5.0) g/dL Globulin 2.9 (1.7-4.1) g/dL Albumin/Globulin Ratio 1.4 (1.0-2.8) Lipase 588 H (23-300) U/L TSH (0.47-4.68) uIU/mL Salicylates < 1.0 (<20) mg/dL U Opiates 300ng/mL cut (Negative) Ur Oxycodone Screen (Negative) Urine Methadone Screen (Negative) Acetaminophen < 10 (10-30) ug/mL Ur Barbiturates Screen (Negative) U Tricyclic Antidepress (Negative) Ur Phencyclidine Scrn (Negative) Ur Amphetamines Screen (Negative) U Methamphetamines Scrn (Negative) Ur MDMA Scrn (Ecstasy) (Negative) U Benzodiazepines Scrn (Negative) Urine Cocaine Screen (Negative) U Marijuana (THC) Screen (Negative) Ethyl Alcohol < 10 ( - 10) mg/dL SARS-CoV-2 (PCR) (Negative) 06/28/22 06/28/22 06/28/22 Range/Units 18:25 18:33 19:35 WBC (4.5-11.0) X10^3/uL RBC (4.5-5.9) X10^6/uL Hgb (13.5-17.5) g/dL Hct (41-53) % MCV (80-100) fL MCH (26-34) PG MCHC (30-36) % RDW (11.6-14.8) % Plt Count (150-400) X10^3/uL Neut % (Auto) (50-75) % Lymph % (Auto) (25-40) % Dyer % (Auto) (3-14) % Eos % (Auto) (2-4) % Baso % (Auto) (0-2) % Neut # (Auto) (7213-3859) /uL Lymph # (Auto) (5011-4005) /uL Dyer # (Auto) (0-900) /uL Eos # (Auto) (0-450) /uL Baso # (Auto) (0-100) /uL Sodium (137-145) mmol/L Potassium (3.4-5.1) mmol/L Chloride (98-107) mmol/L Carbon Dioxide (22-32) mmol/L BUN (9-20) mg/dL Creatinine (0.66-1.25) mg/dL Estimated GFR (>60) mL/min BUN/Creatinine Ratio (6-22) Glucose (70-100) mg/dL Calcium (8.4-10.2) mg/dL Total Bilirubin (0.2-1.3) mg/dL AST (17-59) IU/L ALT (<50) IU/L Alkaline Phosphatase (38-126) U/L Total Protein (6.3-8.2) g/dL Albumin (3.5-5.0) g/dL Globulin (1.7-4.1) g/dL Albumin/Globulin Ratio (1.0-2.8) Lipase (23-300) U/L TSH 1.38 (0.47-4.68) uIU/mL Salicylates (<20) mg/dL U Opiates 300ng/mL cut Negative (Negative) Ur Oxycodone Screen Negative (Negative) Urine Methadone Screen Negative (Negative) Acetaminophen (10-30) ug/mL Ur Barbiturates Screen Positive H (Negative) U Tricyclic Antidepress Negative (Negative) Ur Phencyclidine Scrn Negative (Negative) Ur Amphetamines Screen Positive H (Negative) U Methamphetamines Scrn Positive H (Negative) Ur MDMA Scrn (Ecstasy) Negative (Negative) U Benzodiazepines Scrn Negative (Negative) Urine Cocaine Screen Negative (Negative) U Marijuana (THC) Screen Negative (Negative) Ethyl Alcohol ( - 10) mg/dL SARS-CoV-2 (PCR) Negative (Negative) ECG Data Attestation: I personally reviewed and interpreted this ECG as follows: Interpretation: Sinus rhythm Ventricular rate 90 Normal axis Normal QRS Normal QTC No ST T wave changes MDM Narrative Medical decision making narrative: Patient was alert oriented x3. No signs of trauma. His ?seizure? activity earlier today was not witnessed. He potentially could have a seizure but it could not on 100% confirm this. Patient is suicidal. He is also depressed. He is seeking assistance to speak with a social service director. He states he feels unsafe at home. Patient is medically cleared. He does have methamphetamine in his urine but did admit to snorting methamphetamine this morning. He was given his evening dose of Dilantin and Klonopin. Will keep patient in the emergency department overnight with plans on evaluation by social work tomorrow. Care turned over to day provider change of shift until disposition can be made. <Christina Chapin, DO - Last Filed: 07/02/22 01:59> Lab Data Labs: Lab Results 06/28/22 06/28/22 06/28/22 Range/Units 18:25 18:25 18:25 WBC 6.5 (4.5-11.0) X10^3/uL RBC 4.17 L (4.5-5.9) X10^6/uL Hgb 14.3 (13.5-17.5) g/dL Hct 40.7 L (41-53) % MCV 97.6 (80-100) fL MCH 34.3 H (26-34) PG MCHC 35.1 (30-36) % RDW 12.9 (11.6-14.8) % Plt Count 216 (150-400) X10^3/uL Neut % (Auto) 58.9 (50-75) % Lymph % (Auto) 32.6 (25-40) % Dyer % (Auto) 4.5 (3-14) % Eos % (Auto) 3.2 (2-4) % Baso % (Auto) 0.8 (0-2) % Neut # (Auto) 3800 (1078-0439) /uL Lymph # (Auto) 2100 (6974-9719) /uL Dyer # (Auto) 300 (0-900) /uL Eos # (Auto) 200 (0-450) /uL Baso # (Auto) 100 (0-100) /uL Sodium 137 (137-145) mmol/L Potassium 3.9 (3.4-5.1) mmol/L Chloride 101 (98-107) mmol/L Carbon Dioxide 29 (22-32) mmol/L BUN 16 (9-20) mg/dL Creatinine 1.01 (0.66-1.25) mg/dL Estimated GFR > 60 (>60) mL/min BUN/Creatinine Ratio 15.8 (6-22) Glucose 107 H (70-100) mg/dL Calcium 9.1 (8.4-10.2) mg/dL Total Bilirubin 0.4 (0.2-1.3) mg/dL AST 20 (17-59) IU/L ALT 21 (<50) IU/L Alkaline Phosphatase 110 (38-126) U/L Total Protein 7.0 (6.3-8.2) g/dL Albumin 4.1 (3.5-5.0) g/dL Globulin 2.9 (1.7-4.1) g/dL Albumin/Globulin Ratio 1.4 (1.0-2.8) Lipase 588 H (23-300) U/L TSH (0.47-4.68) uIU/mL Salicylates < 1.0 (<20) mg/dL U Opiates 300ng/mL cut (Negative) Ur Oxycodone Screen (Negative) Urine Methadone Screen (Negative) Acetaminophen < 10 (10-30) ug/mL Ur Barbiturates Screen (Negative) U Tricyclic Antidepress (Negative) Ur Phencyclidine Scrn (Negative) Ur Amphetamines Screen (Negative) U Methamphetamines Scrn (Negative) Ur MDMA Scrn (Ecstasy) (Negative) U Benzodiazepines Scrn (Negative) Urine Cocaine Screen (Negative) U Marijuana (THC) Screen (Negative) Ethyl Alcohol < 10 ( - 10) mg/dL SARS-CoV-2 (PCR) (Negative) 06/28/22 06/28/22 06/28/22 Range/Units 18:25 18:33 19:35 WBC (4.5-11.0) X10^3/uL RBC (4.5-5.9) X10^6/uL Hgb (13.5-17.5) g/dL Hct (41-53) % MCV (80-100) fL MCH (26-34) PG MCHC (30-36) % RDW (11.6-14.8) % Plt Count (150-400) X10^3/uL Neut % (Auto) (50-75) % Lymph % (Auto) (25-40) % Dyer % (Auto) (3-14) % Eos % (Auto) (2-4) % Baso % (Auto) (0-2) % Neut # (Auto) (8220-6857) /uL Lymph # (Auto) (6752-2588) /uL Dyer # (Auto) (0-900) /uL Eos # (Auto) (0-450) /uL Baso # (Auto) (0-100) /uL Sodium (137-145) mmol/L Potassium (3.4-5.1) mmol/L Chloride (98-107) mmol/L Carbon Dioxide (22-32) mmol/L BUN (9-20) mg/dL Creatinine (0.66-1.25) mg/dL Estimated GFR (>60) mL/min BUN/Creatinine Ratio (6-22) Glucose (70-100) mg/dL Calcium (8.4-10.2) mg/dL Total Bilirubin (0.2-1.3) mg/dL AST (17-59) IU/L ALT (<50) IU/L Alkaline Phosphatase (38-126) U/L Total Protein (6.3-8.2) g/dL Albumin (3.5-5.0) g/dL Globulin (1.7-4.1) g/dL Albumin/Globulin Ratio (1.0-2.8) Lipase (23-300) U/L TSH 1.38 (0.47-4.68) uIU/mL Salicylates (<20) mg/dL U Opiates 300ng/mL cut Negative (Negative) Ur Oxycodone Screen Negative (Negative) Urine Methadone Screen Negative (Negative) Acetaminophen (10-30) ug/mL Ur Barbiturates Screen Positive H (Negative) U Tricyclic Antidepress Negative (Negative) Ur Phencyclidine Scrn Negative (Negative) Ur Amphetamines Screen Positive H (Negative) U Methamphetamines Scrn Positive H (Negative) Ur MDMA Scrn (Ecstasy) Negative (Negative) U Benzodiazepines Scrn Negative (Negative) Urine Cocaine Screen Negative (Negative) U Marijuana (THC) Screen Negative (Negative) Ethyl Alcohol ( - 10) mg/dL SARS-CoV-2 (PCR) Negative (Negative) MDM Narrative Medical decision making narrative: Patient was alert oriented x3. No signs of trauma. His ?seizure? activity earlier today was not witnessed. He potentially could have a seizure but it could not on 100% confirm this. Patient is suicidal. He is also depressed. He is seeking assistance to speak with a social service director. He states he feels unsafe at home. Patient is medically cleared. He does have methamphetamine in his urine but did admit to snorting methamphetamine this morning. He was given his evening dose of Dilantin and Klonopin. Will keep patient in the emergency department overnight with plans on evaluation by social work tomorrow. Care turned over to day provider change of shift until disposition can be made. 06/29/2022 Tavares Patient 46-year-old male seen and evaluated by myself this morning. He supposedly has a seizure history that seizures or uncontrolled. He does drink alcohol but is alcohol level was negative. He did receive his Dilantin last night and Klonopin. No seizure activity for over 12 hours. He reports that he is also paranoid schizophrenic and is hearing voices this morning. He still has thoughts of suicide reports that he does not feel safe at home even though he lives by himself. He says that the voices are not telling him to harm himself but they are generally [place]. He would like placement. He also would like something for the voices. He states he gets Geodon and Haldol in the morning I offered him a small dose of Zyprexa which he is happy to take. Waiting for social work consult. Social work evaluated patient awaiting placement appears promising.. Patient signed out to Dr. Solorzano for further management. <Sheri Bernrad MD - Last Filed: 06/30/22 18:07> Lab Data Labs: Lab Results 01/22/23 01/22/23 01/22/23 Range/Units 18:25 18:25 18:25 WBC 6.5 (4.5-11.0) X10^3/uL RBC 4.17 L (4.5-5.9) X10^6/uL Hgb 14.3 (13.5-17.5) g/dL Hct 40.7 L (41-53) % MCV 97.6 (80-100) fL MCH 34.3 H (26-34) PG MCHC 35.1 (30-36) % RDW 12.9 (11.6-14.8) % Plt Count 216 (150-400) X10^3/uL Neut % (Auto) 58.9 (50-75) % Lymph % (Auto) 32.6 (25-40) % Dyer % (Auto) 4.5 (3-14) % Eos % (Auto) 3.2 (2-4) % Baso % (Auto) 0.8 (0-2) % Neut # (Auto) 3800 (1894-9274) /uL Lymph # (Auto) 2100 (7496-8854) /uL Dyer # (Auto) 300 (0-900) /uL Eos # (Auto) 200 (0-450) /uL Baso # (Auto) 100 (0-100) /uL Sodium 137 (137-145) mmol/L Potassium 3.9 (3.4-5.1) mmol/L Chloride 101 (98-107) mmol/L Carbon Dioxide 29 (22-32) mmol/L BUN 16 (9-20) mg/dL Creatinine 1.01 (0.66-1.25) mg/dL Estimated GFR > 60 (>60) mL/min BUN/Creatinine Ratio 15.8 (6-22) Glucose 107 H (70-100) mg/dL Calcium 9.1 (8.4-10.2) mg/dL Total Bilirubin 0.4 (0.2-1.3) mg/dL AST 20 (17-59) IU/L ALT 21 (<50) IU/L Alkaline Phosphatase 110 (38-126) U/L Total Protein 7.0 (6.3-8.2) g/dL Albumin 4.1 (3.5-5.0) g/dL Globulin 2.9 (1.7-4.1) g/dL Albumin/Globulin Ratio 1.4 (1.0-2.8) Lipase 588 H (23-300) U/L TSH (0.47-4.68) uIU/mL Salicylates < 1.0 (<20) mg/dL U Opiates 300ng/mL cut (Negative) Ur Oxycodone Screen (Negative) Urine Methadone Screen (Negative) Acetaminophen < 10 (10-30) ug/mL Ur Barbiturates Screen (Negative) U Tricyclic Antidepress (Negative) Ur Phencyclidine Scrn (Negative) Ur Amphetamines Screen (Negative) U Methamphetamines Scrn (Negative) Ur MDMA Scrn (Ecstasy) (Negative) U Benzodiazepines Scrn (Negative) Urine Cocaine Screen (Negative) U Marijuana (THC) Screen (Negative) Ethyl Alcohol < 10 ( - 10) mg/dL SARS-CoV-2 (PCR) (Negative) 06/28/22 06/28/22 06/28/22 Range/Units 18:25 18:33 19:35 WBC (4.5-11.0) X10^3/uL RBC (4.5-5.9) X10^6/uL Hgb (13.5-17.5) g/dL Hct (41-53) % MCV (80-100) fL MCH (26-34) PG MCHC (30-36) % RDW (11.6-14.8) % Plt Count (150-400) X10^3/uL Neut % (Auto) (50-75) % Lymph % (Auto) (25-40) % Dyer % (Auto) (3-14) % Eos % (Auto) (2-4) % Baso % (Auto) (0-2) % Neut # (Auto) (7455-6491) /uL Lymph # (Auto) (7020-7290) /uL Dyer # (Auto) (0-900) /uL Eos # (Auto) (0-450) /uL Baso # (Auto) (0-100) /uL Sodium (137-145) mmol/L Potassium (3.4-5.1) mmol/L Chloride (98-107) mmol/L Carbon Dioxide (22-32) mmol/L BUN (9-20) mg/dL Creatinine (0.66-1.25) mg/dL Estimated GFR (>60) mL/min BUN/Creatinine Ratio (6-22) Glucose (70-100) mg/dL Calcium (8.4-10.2) mg/dL Total Bilirubin (0.2-1.3) mg/dL AST (17-59) IU/L ALT (<50) IU/L Alkaline Phosphatase (38-126) U/L Total Protein (6.3-8.2) g/dL Albumin (3.5-5.0) g/dL Globulin (1.7-4.1) g/dL Albumin/Globulin Ratio (1.0-2.8) Lipase (23-300) U/L TSH 1.38 (0.47-4.68) uIU/mL Salicylates (<20) mg/dL U Opiates 300ng/mL cut Negative (Negative) Ur Oxycodone Screen Negative (Negative) Urine Methadone Screen Negative (Negative) Acetaminophen (10-30) ug/mL Ur Barbiturates Screen Positive H (Negative) U Tricyclic Antidepress Negative (Negative) Ur Phencyclidine Scrn Negative (Negative) Ur Amphetamines Screen Positive H (Negative) U Methamphetamines Scrn Positive H (Negative) Ur MDMA Scrn (Ecstasy) Negative (Negative) U Benzodiazepines Scrn Negative (Negative) Urine Cocaine Screen Negative (Negative) U Marijuana (THC) Screen Negative (Negative) Ethyl Alcohol ( - 10) mg/dL SARS-CoV-2 (PCR) Negative (Negative) MDM Narrative Medical decision making narrative: Patient was alert oriented x3. No signs of trauma. His ?seizure? activity earlier today was not witnessed. He potentially could have a seizure but it could not on 100% confirm this. Patient is suicidal. He is also depressed. He is seeking assistance to speak with a social service director. He states he feels unsafe at home. Patient is medically cleared. He does have methamphetamine in his urine but did admit to snorting methamphetamine this morning. He was given his evening dose of Dilantin and Klonopin. Will keep patient in the emergency department overnight with plans on evaluation by social work tomorrow. Care turned over to day provider change of shift until disposition can be made. 06/29/2022 Tavares Patient 46-year-old male seen and evaluated by myself this morning. He supposedly has a seizure history that seizures or uncontrolled. He does drink alcohol but is alcohol level was negative. He did receive his Dilantin last night and Klonopin. No seizure activity for over 12 hours. He reports that he is also paranoid schizophrenic and is hearing voices this morning. He still has thoughts of suicide reports that he does not feel safe at home even though he lives by himself. He says that the voices are not telling him to harm himself but they are generally [place]. He would like placement. He also would like something for the voices. He states he gets Geodon and Haldol in the morning I offered him a small dose of Zyprexa which he is happy to take. Waiting for social work consult. Social work evaluated patient awaiting placement appears promising.. Patient signed out to Dr. Bernard for further management. 06/30 Joana Quite evening. Routine meds have all been ordered Plan is for voluntary admit for continued psychiatric care for his paranoid schizophrenia with acute exacerbation in current auditory hallucinations as well as worsening depression with anxiety with suicidal ideation INVESTIGATION CLERK notes indicated [facility], [place] [facility] and [facility] have declined volunary placement due to seizure concerns Facilities that are full today buy may have capacity tomorrow include: [facility], Facilities that are just full: Patrick Padron has not yet returned calls <Dylan Vasquez MD - Last Filed: 06/30/22 18:59> Lab Data Labs: Lab Results 06/28/22 06/28/22 06/28/22 Range/Units 18:25 18:25 18:25 WBC 6.5 (4.5-11.0) X10^3/uL RBC 4.17 L (4.5-5.9) X10^6/uL Hgb 14.3 (13.5-17.5) g/dL Hct 40.7 L (41-53) % MCV 97.6 (80-100) fL MCH 34.3 H (26-34) PG MCHC 35.1 (30-36) % RDW 12.9 (11.6-14.8) % Plt Count 216 (150-400) X10^3/uL Neut % (Auto) 58.9 (50-75) % Lymph % (Auto) 32.6 (25-40) % Dyer % (Auto) 4.5 (3-14) % Eos % (Auto) 3.2 (2-4) % Baso % (Auto) 0.8 (0-2) % Neut # (Auto) 3800 (7822-0601) /uL Lymph # (Auto) 2100 (3029-1376) /uL Dyer # (Auto) 300 (0-900) /uL Eos # (Auto) 200 (0-450) /uL Baso # (Auto) 100 (0-100) /uL Sodium 137 (137-145) mmol/L Potassium 3.9 (3.4-5.1) mmol/L Chloride 101 (98-107) mmol/L Carbon Dioxide 29 (22-32) mmol/L BUN 16 (9-20) mg/dL Creatinine 1.01 (0.66-1.25) mg/dL Estimated GFR > 60 (>60) mL/min BUN/Creatinine Ratio 15.8 (6-22) Glucose 107 H (70-100) mg/dL Calcium 9.1 (8.4-10.2) mg/dL Total Bilirubin 0.4 (0.2-1.3) mg/dL AST 20 (17-59) IU/L ALT 21 (<50) IU/L Alkaline Phosphatase 110 (38-126) U/L Total Protein 7.0 (6.3-8.2) g/dL Albumin 4.1 (3.5-5.0) g/dL Globulin 2.9 (1.7-4.1) g/dL Albumin/Globulin Ratio 1.4 (1.0-2.8) Lipase 588 H (23-300) U/L TSH (0.47-4.68) uIU/mL Salicylates < 1.0 (<20) mg/dL U Opiates 300ng/mL cut (Negative) Ur Oxycodone Screen (Negative) Urine Methadone Screen (Negative) Acetaminophen < 10 (10-30) ug/mL Ur Barbiturates Screen (Negative) U Tricyclic Antidepress (Negative) Ur Phencyclidine Scrn (Negative) Ur Amphetamines Screen (Negative) U Methamphetamines Scrn (Negative) Ur MDMA Scrn (Ecstasy) (Negative) U Benzodiazepines Scrn (Negative) Urine Cocaine Screen (Negative) U Marijuana (THC) Screen (Negative) Ethyl Alcohol < 10 ( - 10) mg/dL SARS-CoV-2 (PCR) (Negative) 06/28/22 06/28/22 06/28/22 Range/Units 18:25 18:33 19:35 WBC (4.5-11.0) X10^3/uL RBC (4.5-5.9) X10^6/uL Hgb (13.5-17.5) g/dL Hct (41-53) % MCV (80-100) fL MCH (26-34) PG MCHC (30-36) % RDW (11.6-14.8) % Plt Count (150-400) X10^3/uL Neut % (Auto) (50-75) % Lymph % (Auto) (25-40) % Dyer % (Auto) (3-14) % Eos % (Auto) (2-4) % Baso % (Auto) (0-2) % Neut # (Auto) (8720-2838) /uL Lymph # (Auto) (7309-8780) /uL Dyer # (Auto) (0-900) /uL Eos # (Auto) (0-450) /uL Baso # (Auto) (0-100) /uL Sodium (137-145) mmol/L Potassium (3.4-5.1) mmol/L Chloride (98-107) mmol/L Carbon Dioxide (22-32) mmol/L BUN (9-20) mg/dL Creatinine (0.66-1.25) mg/dL Estimated GFR (>60) mL/min BUN/Creatinine Ratio (6-22) Glucose (70-100) mg/dL Calcium (8.4-10.2) mg/dL Total Bilirubin (0.2-1.3) mg/dL AST (17-59) IU/L ALT (<50) IU/L Alkaline Phosphatase (38-126) U/L Total Protein (6.3-8.2) g/dL Albumin (3.5-5.0) g/dL Globulin (1.7-4.1) g/dL Albumin/Globulin Ratio (1.0-2.8) Lipase (23-300) U/L TSH 1.38 (0.47-4.68) uIU/mL Salicylates (<20) mg/dL U Opiates 300ng/mL cut Negative (Negative) Ur Oxycodone Screen Negative (Negative) Urine Methadone Screen Negative (Negative) Acetaminophen (10-30) ug/mL Ur Barbiturates Screen Positive H (Negative) U Tricyclic Antidepress Negative (Negative) Ur Phencyclidine Scrn Negative (Negative) Ur Amphetamines Screen Positive H (Negative) U Methamphetamines Scrn Positive H (Negative) Ur MDMA Scrn (Ecstasy) Negative (Negative) U Benzodiazepines Scrn Negative (Negative) Urine Cocaine Screen Negative (Negative) U Marijuana (THC) Screen Negative (Negative) Ethyl Alcohol ( - 10) mg/dL SARS-CoV-2 (PCR) Negative (Negative) MDM Narrative Medical decision making narrative: Patient was alert oriented x3. No signs of trauma. His ?seizure? activity earlier today was not witnessed. He potentially could have a seizure but it could not on 100% confirm this. Patient is suicidal. He is also depressed. He is seeking assistance to speak with a social service director. He states he feels unsafe at home. Patient is medically cleared. He does have methamphetamine in his urine but did admit to snorting methamphetamine this morning. He was given his evening dose of Dilantin and Klonopin. Will keep patient in the emergency department overnight with plans on evaluation by social work tomorrow. Care turned over to day provider change of shift until disposition can be made. 06/29/2022 Tavares Patient 46-year-old male seen and evaluated by myself this morning. He supposedly has a seizure history that seizures or uncontrolled. He does drink alcohol but is alcohol level was negative. He did receive his Dilantin last night and Klonopin. No seizure activity for over 12 hours. He reports that he is also paranoid schizophrenic and is hearing voices this morning. He still has thoughts of suicide reports that he does not feel safe at home even though he lives by himself. He says that the voices are not telling him to harm himself but they are generally [place]. He would like placement. He also would like something for the voices. He states he gets Geodon and Haldol in the morning I offered him a small dose of Zyprexa which he is happy to take. Waiting for social work consult. Social work evaluated patient awaiting placement appears promising.. Patient signed out to Dr. Bernard for further management. 06/30 Joana Quite evening. Routine meds have all been ordered Plan is for voluntary admit for continued psychiatric care for his paranoid schizophrenia with acute exacerbation in current auditory hallucinations as well as worsening depression with anxiety with suicidal ideation INVESTIGATION CLERK notes indicated [facility], [place] [facility] and [facility] have declined volunary placement due to seizure concerns Facilities that are full today buy may have capacity tomorrow include: [facility], [facility] just [facility] not yet returned calls June 30, 2022 at 2:15 p.m.. Spoke with social work, Roz, she did find placement for patient, going to walk [facility]. Patient agrees for plan and transfer. Papers prescriptions written now for patient's home meds to send with patient to the facility. Appropriate for transfer for further behavioral health services. Patient is voluntary. Prescriptions provided for him. He agrees for transfer. Discharge Plan Departure Patient Disposition: Xfer Psychiatric Hosp Clinical Impression: Chronic paranoid schizophrenia, Suicidal ideation, Methamphetamine use, Anxiety and depression, Auditory hallucination Prescriptions: New benztropine 2 mg tablet 2 mg PO BID Qty: 30 0RF clonazepam 1 mg tablet 1 mg PO QID PRN (Reason: anxiety) Qty: 28 0RF clonidine HCl 0.1 mg tablet 0.1 mg PO TID PRN (Reason: anxiety) Qty: 27 0RF hydrocodone-acetaminophen 5-325 mg tablet 1 tab PO Q4-6H PRN (Reason: pain) Qty: 20 0RF methocarbamol 500 mg tablet 500 mg PO QID PRN (Reason: pain (scale score 4-6)) Qty: 28 0RF phenytoin sodium extended 300 mg capsule 300 mg PO BEDTIME Qty: 30 0RF quetiapine 150 mg tablet 150 mg PO DAILY Qty: 30 0RF ziprasidone HCl 60 mg capsule 60 mg PO BID Qty: 30 0RF Rx Instructions: give with food (meal/snack) No Action oxycodone-acetaminophen 10-325 mg tablet 1 tab PO Q4-6H PRN (Reason: pain) Label Comments: take 1 tablet by mouth every 6 hours if needed for pain metformin 500 mg tablet 500 mg PO DAILY Label Comments: TAKE 1 TABLET BY MOUTH ONCE DAILY FOR DIABETES phenytoin sodium extended 100 mg capsule 300 mg PO BEDTIME diltiazem HCl [DILT-XR] 180 mg capsule,ext.rel 24h degradable 180 mg PO DAILY meloxicam 15 mg tablet 15 mg PO TID clonazepam 1 mg tablet 1 mg PO QID trazodone 100 mg Tablet 100 mg PO BEDTIME omeprazole 20 mg capsule,delayed release(DR/EC) 20 mg PO DAILY Label Comments: TAKE 1 CAPSULE BY MOUTH ONCE DAILY FOR INDIGESTION pregabalin 100 mg capsule 100 mg PO TID haloperidol 5 mg Tablet 5 mg PO PRN MDD BID PRN (Reason: not known) benztropine 2 mg Tablet 2 mg PO BID ziprasidone HCl [Geodon] 60 mg Capsule 60 mg PO BID Rx Instructions: give with food (meal/snack) methocarbamol [Robaxin] 500 mg Tablet 500 mg PO QID hydrocodone-acetaminophen [[place]] 5-325 mg Tablet 1 tab PO Q4-6H PRN (Reason: pain) quetiapine 150 mg Tablet 150 mg PO DAILY clonidine HCl 0.1 mg Tablet 0.1 mg PO PRN PRN (Reason: TID) losartan 25 mg Tablet 25 mg PO DAILY hydrochlorothiazide 25 mg Tablet 25 mg PO DAILY Referrals: Sherri Lowe MD [Primary Care Provider] -
[2022-06-28 19:25] LABS: Thyroid Stimulating Hormone 1.38 uIU/mL (0.47-4.68)
[2022-06-28] MEDS: HYDROCODONE/ACET 5/325 TABLET 1 TAB PO (19:30)
--- NOTE | 2022-06-28 19:40 | PC.NURSE ---
in room with PT
[2022-06-28 20:08] LABS: UR Morphine/Opiate cutoff 300 Negative (Negative); Ur Creatinine Normal (Normal); Ur Specific Gravity Normal (Normal); Urine Amphetamines Positive (Negative); Urine Barbiturates Positive (Negative); Urine Benzodiazepines Negative (Negative); Urine Cocaine Negative (Negative); Urine MDMA Negative (Negative); Urine Methadone Negative (Negative); Urine Methamphetamines Positive (Negative); Urine Oxycodone Negative (Negative); Urine Phencyclidine Negative (Negative); Urine Tetrahydrocannabinol Negative (Negative); Urine Tricyclic Antidepressant Negative (Negative); Urine pH Normal (Normal)
[2022-06-28] MEDS: clonazePAM 0.5 MG TABLET 1 MG PO (22:06)
[2022-06-28] MEDS: PHENYTOIN ER 100 MG CAPSULE 300 MG PO (22:14)
[2022-06-29] VITALS (30 sets, daily range): BP systolic 102–113; BP diastolic 56–75; PULSE 72–97; RESP 10–22; TEMP 36.3–36.4; O2SAT 88–98
--- NOTE | 2022-06-29 07:41 | PC.NURSE ---
Patient resting in bed, updated patient that we are moving him to another room. He was moved into room 13 and made comfortable in bed. Patient requests morning medications now as he usually takes them at 0700. RN was made aware. Patient also states he is having neck pain that radiates to his left arm and rates it an 8/10. Patient states this is normal for him and he has an appointment to see a neuro surgeon to consult at the end of this month. He states Larned helps relieve his neck pain.
[2022-06-29] MEDS: clonazePAM 0.5 MG TABLET 1 MG PO ×3 (08:06→22:05)
[2022-06-29] MEDS: HYDROCODONE/ACET 5/325 TABLET 1 TAB PO ×3 (08:22→21:50)
[2022-06-29] MEDS: OLANZapine ODT 10 MG TAB PO (08:44)
--- NOTE | 2022-06-29 08:49 | PC.NURSE ---
Had to go in and talk to patient reminding him to take deep breaths. O2 increased from 90% to 95% room air
--- NOTE | 2022-06-29 10:14 | PC.NURSE ---
patient states he is a big coffee drinker, Patient is calm and cooperative now on his 4th cup of coffee.
--- NOTE | 2022-06-29 12:10 | PC.NURSE ---
0800: Patient informed me that he only takes dilantin ER once per day at night, Dr. Chapin informed and order changed. 0815: Patient requests 1 vicodin to treat neck pain. He states this is his normal dose. Dr. Chapin aware and medication ordered. 0825: Patient requests zyprexa to treat auditory hallucinations, Dr. Chapin aware and medication ordered.
--- NOTE | 2022-06-29 13:11 | CM.SWNOTE ---
AUTOMOTIVE WORKER Assessment AUTOMOTIVE WORKER - Pattern Hanger Assessment AUTOMOTIVE WORKER/Pattern Hanger Assessment Time Spent with Patient Start date 06/29/22 Visit Start Time 12:05 End date 06/29/22 Visit End Time 12:20 Total time Care Management spent on 20 minutes patient visit-in minutes Mental Health Screening Include Onset, Duration, Intensity Presenting Problem Patient presents to ED via EMS due to concern for SI, depression, and patient states I didn't feel good. Patient endorses SI with plan, and patient endorses he doesn't feel safe at home. Patient denies any current supports. Precipitating Event(s) Patient endorses he has upcoming consult appt for neurosurgery that he is stressed out about. Patient endorses neighbors and neighbors' friends have been disrespectful to him and have stressed him out as well. Patient endorses hopelessness and states I'd rather not be here. In triage patient reports I do not feel safe at home, it was reported that patient recently d/c'd from [facility] detox. Patient Strengths Patient called 911 seeking help, patient is voluntary for tx and patient has KRISTY clinical case manager and caregiver. Current Behavioral Health Provider(s) No current provider. Include Facility, Provider, Ph. # Psych. Hx Mental Health and Chemical Patient has hx of Dependency Schizoaffective Disorder, TBI, Anxiety and Depression. Patient has hx of SI and suicide attempt. 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 Patient denies any other substances. Family Hx of Behavioral Abuse Per EMR, patient's mother in 2020. Psychiatric Hospitalizations (date(s)/ Patient was voluntary in November location) 2020 and went to [facility] Psychosocial information & Support Patient is 46 y/o male who Systems resides alone in [place], patient denies any supports at all. Patient later states he has a KRISTY onsite case manager and provides consent for AUTOMOTIVE WORKER to call. Patient's clinical case manager is Miguel Garcia (Ph. # [phone]), it is reported that patient has a caregiver as well. School/Work unemployed Legal Concerns Legal Matters - Outstanding Issues None Mental Status Orientation (Person/Place/Time) A/Ox4 Stated Mood really tired Affect (Congruent with Mood?) euthymic, flat, congruent with mood, stable Thought Content - Specify/Describe Patient endorses auditory Obsessions, Delusions, Hallucinations hallucinations they say hateful stuff. Patient endorses auditory hallucinations almost daily. Patient endorses visual hallucinations and states he sees people. Patient endorses a lot of paranoia as well. Thought Processes (Nmjtuxj-Lnmqfyhs-Gyue coherent Mcoxkyet-Rfrzsxbv-Cbywmvsuel- Tomhwzpgugsuxy-Cgqsxcd-Xzkazbqkkaje- Thought Blocking) Speech (Gzwutj-Uoqw-Lbmnwrc-Rapid-Soft- slow/soft Loud-Pressured) Motor (Bofoex-Xurpnfnlb-Qpvx-Other) normal Insight (Zvrl-Snut-Dfvc/Limited) fair Judgement (Qtbi-Wnre-Qslk/Limited) fair Impulse Control (Adequate-Impaired) adequate Memory (Vvfwhkmeg-Ktwbzk-Frxrjo, intact, not formally assessed Impaired-Intact) Concentration (Intact-Impaired) intact Attention (Intact-Impaired) intact Behavior (Appropriate-Inappropriate) appropriat Additional Comment Patient presents as calm, communicative and cooperative Risk Assessment Suicidal Ideation (Plan) Yes Homicidal Ideation (Plan) No Comment Patient denies HI. Patient endorses SI with plans to overdose on pills, patient endorses current SI with current plan. Patient has hx of suicide overdose about 1.5 years ago. In H&P ED report, patient endorsed plan to hang self. Patient denied other plans to AUTOMOTIVE WORKER. Intervention Intervention AUTOMOTIVE WORKER enters room to meet with patient. Patient endorses increase in depression and SI last night and endorses he called 911 seeking help. Patient endorses he relapsed on Meth yesterday morning as well. Patient endorses frustration for relapsing due to his long period of previous sobriety. In triage, patient reports he recently d/c'd from [facility] detox. Patient presents with hopelessness and endorses concern for being unsafe at home as he lives alone and continues to make statements I'd rather not be here I don't want to wake up and continues to endorse current SI plan to overdose on pills. Patient endorses he is voluntary and seeking inpatient hospitalization. It is the opinion of this AUTOMOTIVE WORKER that patient is appropriate for and will benefit from voluntary inpatient hospitalization for crisis stabilization, safety and medication management. AUTOMOTIVE WORKER reviews the above with ED provider Dr. Chapin who indicates agreement and understanding. Plan RA Plan AUTOMOTIVE WORKER to seek voluntary inpatient bed for patient upon medical clearance. CARLIN SorianoSW
--- NOTE | 2022-06-29 14:15 | PC.NURSE ---
eyes closed. respirations are even and non labored.
[2022-06-29] MEDS: NICOTINE 21 MG PATCH TOP (19:20)
--- NOTE | 2022-06-29 19:28 | CM.SWNOTE ---
Addendum entered by Roz Nino 06/29/22 20:22: FISH FARM MANAGER Note FISH FARM MANAGER receives VM from [facility], it is reported that patient is declined due to concern for breakthrough seizures. JENNYFER Soriano Original Note: FISH FARM MANAGER Note FISH FARM MANAGER calls [facility] for bed census. FISH FARM MANAGER calls [facility], it is reported that they are full but to call back later in the day if placement is still needed. FISH FARM MANAGER calls back at 1933, it is reported that they are full for today and there may be discharges tomorrow. FISH FARM MANAGER calls [facility], it is reported that they are full and to call back tomorrow if placement is still needed. FISH FARM MANAGER calls [facility], it is reported that they have beds, FISH FARM MANAGER faxes clinicals for review. [facility] reports that they cannot accept patient due to concern for seizure activity. FISH FARM MANAGER calls [facility], it is reported that they are full. FISH FARM MANAGER calls [facility] and leaves requesting retun call. FISH FARM MANAGER calls [facility], it is reported they have beds and can review patient. FISH FARM MANAGER faxes clinicals for review, provider declines patient due to concern for breakthrough seizures and no neurologist on site. FISH FARM MANAGER calls [facility], it is reported they have beds and can review patient, FISH FARM MANAGER faxes clinicals for review. FISH FARM MANAGER calls and asks for update at 1930, it is reported they continue to review patient. FISH FARM MANAGER calls [facility], it is reported that they are full. Plan: continue to seek voluntary inpatient bed for patient, f/u with [facility] this evening. FISH FARM MANAGER to request ED team to call [facility] and [facility] tomorrow morning. JENNYFER Soriano
[2022-06-29] MEDS: PHENYTOIN ER 100 MG CAPSULE 300 MG PO (22:06)
[2022-06-29] MEDS: ONDANSETRON 4 MG/2 ML INJ IV (22:13)
--- NOTE | 2022-06-29 22:14 | PC.NURSE ---
2207: Pt sits up and begins to report nausea. Provider aware and new verbal order for 4 mg of Zofran stated.
[2022-06-30] MEDS: HYDROCODONE/ACET 5/325 TABLET 1 TAB PO ×3 (02:44→14:35)
--- NOTE | 2022-06-30 02:46 | PC.NURSE ---
nurse antonella gave pt his hydrocodone
[2022-06-30 04:09] VITALS: BP 131/69; PULSE 72; RESP 18; O2SAT 100
--- NOTE | 2022-06-30 04:59 | PC.NURSE ---
He asked me to ask the doctor to order his haldol,he said he usually takes it with his AM meds and that he takes it BID.
--- NOTE | 2022-06-30 07:35 | PC.NURSE ---
I ambulated with the patient around the department to allow him to stretch his legs. Patient used the bathroom, put on deodorant, denies brushing his dentures. Patient calm and cooperative.
[2022-06-30 07:39] VITALS: BP 105/74; PULSE 89; RESP 18; O2SAT 100
--- NOTE | 2022-06-30 07:53 | PC.NURSE ---
I called [facility], they state they might have a bed available soon and state that the patient's history of seizures should not be a huge barrier to placement at their facility. I provided them with the ED's phone number to which the [facility] staff member states he will call back to see about screening the patient.
--- NOTE | 2022-06-30 08:05 | PC.NURSE ---
I talked to Elvira at [facility] who states they are full. I was transferred to [facility] [place] and talked to Mikey. She states they may have availability and asks us to fax over his records to [phone] and they would have a clinician call us back. Faxing his records now.
[2022-06-30] MEDS: ONDANSETRON 4 MG/2 ML INJ IV ×2 (09:03→14:36)
--- NOTE | 2022-06-30 09:05 | PC.NURSE ---
Pt nauseated and heeving into emesis bag. PRN order for zofran obtained and given. Morning meds held until pt can tolerate. Noted QTc 448
--- NOTE | 2022-06-30 09:06 | PC.NURSE ---
patient states he has never been in bed so much of his life. He is sitting at the bedside and occasionally stands to stretch.
--- NOTE | 2022-06-30 09:13 | PC.NURSE ---
0900: Spoke with therese and pt is pending chart review with [facility] for placement
[2022-06-30] MEDS: haloperidoL 5 MG TABLET 10 MG PO (09:22)
[2022-06-30] MEDS: clonazePAM 0.5 MG TABLET 1 MG PO ×2 (09:22→14:35)
--- NOTE | 2022-06-30 10:42 | PC.NURSE ---
Transfer update: [facility], [facility], [facility], and [facility] declined pt for seizure history. Waiting on [facility] to call back after there noon bed meeting per Mookie, Nursing fermenting cellars supervisor.
[2022-06-30 11:04] VITALS: PULSE 81; RESP 16; O2SAT 94
--- NOTE | 2022-06-30 12:30 | PC.NURSE ---
I called [facility] to follow up on pending bed placement. I am told that it is now unlikely there will be a bed available today and am told that they have our phone # and will call us if anything changes.
[2022-06-30 14:44] VITALS: BP 117/71; PULSE 91; TEMP 36.2; O2SAT 94
--- NOTE | 2022-06-30 14:51 | CM.SWNOTE ---
WEATHERSTRIP MACHINE OPERATOR Note Per EMR, patient was declined by [facility] due to concern for seizures and [facility] does not have beds today. WEATHERSTRIP MACHINE OPERATOR calls [facility], it is reported that patient is not welcome back at their facility and suggests calling [facility]. WEATHERSTRIP MACHINE OPERATOR calls [facility] and sets up intake screen call for patient, intake later states that patient does not qualify due to two days of detoxing in ED. WEATHERSTRIP MACHINE OPERATOR calls [facility] through [facility], WEATHERSTRIP MACHINE OPERATOR reviews patient and faxes clinicals. It is reported by MAHOGANY Garcia that patient is accepted, facility requests paper scripts for patient's home medication, ED provider signs paper scripts. Plan: Patient to transfer to [facility] via BLS this afternoon via EMS. CARLIN SorianoSW
== END 2022-06-30 15:15 ==
PROVIDERS: Emergency Medicine; Emergency Provider Emergency Medicine; PCP Family Medicine
DX: F20.0 Paranoid schizophrenia (principal); R45.851 Suicidal ideations; F15.90 Other stimulant use, unspecified, uncomplicated; F41.9 Anxiety disorder, unspecified; F32.A Depression, unspecified; Z20.822 Contact with and (suspected) exposure to COVID-19
CPT/HCPCS: 80053; 80305; 80320; 80329; 83690; 84443; 85025; 87635; 93005; 96374; 96375; 99284; 99285; C9803; G0480; J2405

== ENCOUNTER 2022-07-15 11:59 | Emergency (ER) | payer OTHER, MEDICAID, SELFPAY ==
[2022-07-15 12:03] VITALS: BP 120/91; PULSE 91; RESP 14; TEMP 36.2; O2SAT 99
[2022-07-15 12:32] LABS: COVID19 -Nasal RAPID Negative (Negative)
[2022-07-15 12:34] LABS: Add Manual Diff / Slide Review NO; Basophils Absolute Auto 100 /uL (0-100); Basophils Percent Auto 1.2 % (0-2); Eosinophils Absolute Auto 300 /uL (0-450); Eosinophils Percent Auto 4.6 % (2-4); Hematocrit 40.7 % (41-53); Hemoglobin 13.9 g/dL (13.5-17.5); Lymphocytes Absolute Auto 1700 /uL (1100-4500); Lymphocytes Percent Auto 31.2 % (25-40); Mean Corpuscular HGB Conc 34.2 % (30-36); Mean Corpuscular Hemoglobin 33.3 PG (26-34); Mean Corpuscular Volume 97.6 fL (80-100); Monocytes Absolute Auto 300 /uL (0-900); Monocytes Percent Auto 5.5 % (3-14); Neutrophils Absolute Auto 3200 /uL (1500-7000); Neutrophils Percent Auto 57.5 % (50-75); Platelet Count 252 X10^3/uL (150-400); Red Blood Cell Count 4.17 X10^6/uL (4.5-5.9); Red Cell Distribution Width 12.6 % (11.6-14.8); White Blood Cell Count 5.6 X10^3/uL (4.5-11.0)
[2022-07-15 12:47] LABS: Acetaminophen < 10 ug/mL (10-30); Alanine Aminotransferase 19 IU/L (<50); Albumin 4.2 g/dL (3.5-5.0); Albumin Globulin Ratio 1.6 (1.0-2.8); Alkaline Phosphatase 120 U/L (38-126); Aspartate Aminotransferase 18 IU/L (17-59); Bilirubin Total 0.4 mg/dL (0.2-1.3); Blood Urea Nitrogen 15 mg/dL (9-20); Calcium 9.2 mg/dL (8.4-10.2); Carbon Dioxide 28 mmol/L (22-32); Chloride 100 mmol/L (98-107); Estimated Glomerular Filt Rate > 60 mL/min (>60); Ethanol (ETOH) < 10 mg/dL; Globulin 2.6 g/dL (1.7-4.1); Glucose 97 mg/dL (70-100); HEMOLYSIS < 15 (0-50); Potassium 4.3 mmol/L (3.4-5.1); Salicylate < 1.0 mg/dL (<20); Sodium 137 mmol/L (137-145); Total Protein 6.8 g/dL (6.3-8.2)
[2022-07-15 13:03] LABS: Free T4, Direct Thyroxine 1.14 ng/dL (0.78-2.19)
[2022-07-15 13:17] LABS: Thyroid Stimulating Hormone 1.53 uIU/mL (0.47-4.68)
[2022-07-15 14:18] LABS: Ur Creatinine Normal (Normal); Ur Specific Gravity Normal (Normal); Urine pH Normal (Normal)
[2022-07-15 14:19] LABS: UR Morphine/Opiate cutoff 300 Negative (Negative); Urine Amphetamines Positive (Negative); Urine Barbiturates Negative (Negative); Urine Benzodiazepines Positive (Negative); Urine Cocaine Negative (Negative); Urine MDMA Negative (Negative); Urine Methadone Negative (Negative); Urine Methamphetamines Positive (Negative); Urine Oxycodone Negative (Negative); Urine Phencyclidine Negative (Negative); Urine Tetrahydrocannabinol Negative (Negative); Urine Tricyclic Antidepressant Negative (Negative)
--- NOTE | 2022-07-15 15:41 | CM.SWNOTE ---
MANAGEMENT AIDE Assessment MANAGEMENT AIDE - Boiler Room Operator Assessment MANAGEMENT AIDE/Boiler Room Operator Assessment Time Spent with Patient Start date 07/15/22 Visit Start Time 14:45 End date 07/15/22 Visit End Time 14:55 Total time Care Management spent on 10 minutes patient visit-in minutes Mental Health Screening Include Onset, Duration, Intensity Presenting Problem Patient presents to ED via EMS due to concern for hallucinations, feeling unsafe at home and reporting SI with plan to overdose on medication. It was reported that patient called his previous [facility] Provider Jerome Mayes reporting his SI with plan and frustration with feeling unsafe in his living situation. Jerome proceeded to call 911 which led to patient 's EMS presentation to ED. Kami Servin [facility] (Ph. # [phone]) who is a co-responder with [facility] met with patient with LE and endorses concerns of patient's SI with plan as well. Precipitating Event(s) Patient reports seeing and hearing neighbors knocking on his windows, rattling things which has impacted patient's ability to sleep for the last 7 days. Per EMS, patient has been experiencing hallucinations, seeing shadows and hearing voices. Patient reports he used meth recently as well. Patient Strengths Patient is connected with [facility] services and housing authority. Patient is seeking voluntary inpatient hospitalization Current Behavioral Health Provider(s) No current providers. Patient Include Facility, Provider, Ph. # sees Neurologist Dr. Braden Hazel and per [facility] records patient has upcoming appt on 08/13/22 Psych. Hx Mental Health and Chemical Patient has hx of Depression, Dependency Substance use, SI and hx of suicide attempts. Per [facility] records patient has hx of Cluster B Personality Traits. Per EMR, patient has hx of TBI. Patient endorses recent Methamphetamine use. Patient is positive for Methamphetamine, Amphetamines and Benzodiazepines. Family Hx of Behavioral Abuse Patient's mother in 2020 Psychiatric Hospitalizations (date(s)/ Patient has hx of several location) voluntary hospitalizations. Most recently at [facility] on . Psychosocial information & Support Patient is 46 y/o male who Systems resides in [place]. Patient denies any supports. Patient has KRISTY [facility] family service caseworker Miguel Garcia (Ph. # [phone]) School/Work disabled Legal Concerns Legal Matters - Outstanding Issues None reported Mental Status Orientation (Person/Place/Time) A/Ox3 Stated Mood tired Affect (Congruent with Mood?) flat, congruent with mood Thought Content - Specify/Describe EMS reports patient's 7 day hx Obsessions, Delusions, Hallucinations of seeing people trying to get into his home, rattling windows and hearing voices. Patient denies current AH or VH. Patient endorses he feels unsafe at home does not want to return if his neighbors are there as he believes his neighbors are rattling on his windows and keeping him up at night. Thought Processes (Vrodiwq-Ccjljeoo-Ziha goal directed Vmekbcew-Ozejqywa-Mnnnlyyahh- Icrenbklfmiofn-Qhhleze-Gvedooegzpnq- Thought Blocking) Speech (Jbcmkl-Uuya-Wpvjreb-Rapid-Soft- soft/mumbled Loud-Pressured) Motor (Frmazo-Fiivphejx-Qxxf-Other) normal/slow, patient endorses he is tired and patient is laying down Insight (Pgbq-Bram-Lnvi/Limited) fair/limited Judgement (Ddqf-Ggqv-Ucyu/Limited) fair/limited Impulse Control (Adequate-Impaired) adequate during assessment Memory (Qzilzctcd-Oievee-Qprbfj, intact, not formally assessed Impaired-Intact) Concentration (Intact-Impaired) intact Attention (Intact-Impaired) intact Behavior (Appropriate-Inappropriate) appropriate Additional Comment patient presents as calm, communicative and cooperative Risk Assessment Suicidal Ideation (Plan) Yes Homicidal Ideation (Plan) No Comment Patient denies HI but states thoughts of harming his neighbors, no plan reported. Patient denies current SI. Patient endorses plan earlier today to overdose on medication go to sleep and not wake up. Patient denies current plan because he feels safe in ED. Patient has hx of overdose 1.5 years ago. EMS reports they were informed that patient had plan to jump out of car and had thoughts of hurting people with knives previously. Patient does not report this and it is not confirmed when patient had these thoughts. Intervention Intervention MANAGEMENT AIDE enters room to meet with patient. Patient endorses that he presents to ED due to his SI with plan to overdose on medication. Patient endorses he did not feel safe at home and reports that his neighbors are knocking and rattling his windows and keeping him awake over the last 7 days. Patient endorses he has not been able to sleep. Per [facility] records, Patient was d/c'd from voluntary stay at [facility] on 07/03/22, patient wanted to d/c because he reported he had an appt on 07/06/22 with caregiver. Patient denies current caregivers at home. Patient endorses he is seeking voluntary hospitalization and does not feel safe returning home. It is the opinion of this MANAGEMENT AIDE that patient would benefit from voluntary inpatient hospitalization for safety, medication management and crisis stabilization. MANAGEMENT AIDE reveiws the above with ED provider Dr. Cash who indicates agreement and understanding. Plan RA Plan MANAGEMENT AIDE to seek voluntary inpatient hospitalization for patient upon medical clearance . MANAGEMENT AIDE to f/u with patient's outpatient providers. JENNYFER Soriano
--- NOTE | 2022-07-15 16:09 | ED_ITS ---
HPI - Psych General Chief Complaint: Psychiatric Symptoms Stated Complaint: hallucinations, schizophrenia Time Seen by Provider: 07/15/22 12:06 Source: patient Mode of arrival: Ambulatory History of Present Illness HPI Narrative: 46-year-old male presenting with worsening delusions and hallucinations in the setting of known schizophrenia on multiple medications. Patient reports that over the last week he is had multiple hallucinations with people knocking at his windows and attempting to get into his home. Patient did report suicidal ideation in the setting of initial development of these hallucinations, however, patient reports that these feelings have improved. Patient reports good compliance with his medications. Also reports that he takes pain medications as directed. Patient denies active SI or HI currently. Related Data Home Medications Medication Instructions Recorded Confirmed phenytoin sodium extended 100 mg 300 mg PO BEDTIME 11/17/20 07/15/22 capsule benztropine 2 mg tablet 2 mg PO BID 06/29/22 07/15/22 haloperidol 5 mg tablet 5 mg PO BID 06/29/22 07/15/22 hydrocodone 5 mg-acetaminophen 325 1 tab PO Q4-6H PRN pain 06/29/22 07/15/22 mg tablet methocarbamol 500 mg tablet 500 mg PO BID PRN Spasms 06/29/22 07/15/22 ziprasidone HCl 60 mg capsule 60 mg PO BID 06/29/22 07/15/22 (Rylie) Previous Rx's Medication Instructions Recorded clonazepam 1 mg tablet 1 mg PO QID PRN anxiety #28 tabs 06/30/22 clonidine HCl 0.1 mg tablet 0.1 mg PO TID PRN anxiety #27 tabs 06/30/22 quetiapine 150 mg tablet 150 mg PO DAILY #30 tabs 06/30/22 Allergies Allergy/AdvReac Type Severity Reaction Status Date / Time hydromorphone [HYDROMORPHONE] Allergy Mild severe Verified 07/15/22 12:12 itching WITH PILL FORM morphine Allergy Mild skin Verified 07/15/22 12:12 crawl/itchy Penicillins Allergy Mild hives Verified 07/15/22 12:12 ketorolac [From Toradol] Allergy Verified 07/15/22 12:12 Patient History Medical History Alcohol abuse Anxiety Chronic pain syndrome Depression Kidney stone on left side PTSD (post-traumatic stress disorder) Seizure Social History Smoking Status: Current every day smoker Smoking Status: Current every day smoker alcohol intake frequency: holidays/special occasions only Substance Use Type: marijuana and methamphetamine Exam Narrative Exam Narrative: Vitals reviewed. Nursing note reviewed Constitutional: interactive HENT: Moist mucous membranes EYES: No scleral icterus NECK: no masses CV: Well perfused peripherally, no cyanosis present PULM: Unlabored respirations, symmetric chest rise ABD: Non-distended MS: No gross deformities, no asymmetric edema noted SKIN: Warm and dry. PSYCH: Appropriate affect, passive SI, patient reports persistent delusions and hallucinations NEURO: Follows simple commands, moves extremities, interactive with exam Initial Vital Signs Initial Vital Signs: Vital Signs Temperature 97.1 F L 07/15/22 12:03 Pulse Rate 91 H 07/15/22 12:03 Respiratory Rate 14 07/15/22 12:03 Blood Pressure 120/91 H 07/15/22 12:03 Pulse Oximetry 99 07/15/22 12:03 Oxygen Delivery Method 07/15/22 12:03 Course Orders Ordered: Discontinued Medications Methocarbamol (Methocarbamol 500 Mg Tablet) 500 mg PO NOW ONE Stop: 07/15/22 17:28 Last Admin: 07/15/22 17:36 Dose: 500 mg Documented By: REGINA Olanzapine (Olanzapine Odt 10 Mg Tab) 10 mg PO NOW ONE Stop: 07/15/22 17:57 Last Admin: 07/15/22 18:16 Dose: 10 mg Documented By: REGINA Oxycodone/Acetaminophen (Oxycodone/Acetaminophen 5/325 Tablet) 1 tab PO NOW ONE Stop: 07/15/22 17:27 Last Admin: 07/15/22 17:35 Dose: 1 tab Documented By: REGINA Phenytoin Sodium (Phenytoin Er 100 Mg Capsule) 300 mg PO NOW ONE Stop: 07/15/22 18:06 Last Admin: 07/15/22 18:16 Dose: 300 mg Documented By: REGINA Vital Signs Vital signs: Vital Signs - 8 hr 07/15/22 12:03 Temperature 97.1 F L Pulse Rate 91 H Respiratory Rate 14 Blood Pressure 120/91 H Pulse Oximetry 99 Oxygen Delivery Method Room Air MDM - Psych Lab Data 07/15/22 12:25 07/15/22 12:25 Labs: Lab Results 07/15/22 07/15/22 07/15/22 Range/Units 12:14 12:25 12:25 WBC 5.6 (4.5-11.0) X10^3/uL RBC 4.17 L (4.5-5.9) X10^6/uL Hgb 13.9 (13.5-17.5) g/dL Hct 40.7 L (41-53) % MCV 97.6 (80-100) fL MCH 33.3 (26-34) PG MCHC 34.2 (30-36) % RDW 12.6 (11.6-14.8) % Plt Count 252 (150-400) X10^3/uL Neut % (Auto) 57.5 (50-75) % Lymph % (Auto) 31.2 (25-40) % Payette % (Auto) 5.5 (3-14) % Eos % (Auto) 4.6 H (2-4) % Baso % (Auto) 1.2 (0-2) % Neut # (Auto) 3200 (2278-0022) /uL Lymph # (Auto) 1700 (3372-0094) /uL [place]ette # (Auto) 300 (0-900) /uL Eos # (Auto) 300 (0-450) /uL Baso # (Auto) 100 (0-100) /uL Sodium 137 (137-145) mmol/L Potassium 4.3 (3.4-5.1) mmol/L Chloride 100 (98-107) mmol/L Carbon Dioxide 28 (22-32) mmol/L BUN 15 (9-20) mg/dL Creatinine 1.00 (0.66-1.25) mg/dL Estimated GFR > 60 (>60) mL/min BUN/Creatinine Ratio 15.0 (6-22) Glucose 97 (70-100) mg/dL Calcium 9.2 (8.4-10.2) mg/dL Total Bilirubin 0.4 (0.2-1.3) mg/dL AST 18 (17-59) IU/L ALT 19 (<50) IU/L Alkaline Phosphatase 120 (38-126) U/L Total Protein 6.8 (6.3-8.2) g/dL Albumin 4.2 (3.5-5.0) g/dL Globulin 2.6 (1.7-4.1) g/dL Albumin/Globulin Ratio 1.6 (1.0-2.8) TSH (0.47-4.68) uIU/mL Free T4 (0.78-2.19) ng/dL Salicylates < 1.0 (<20) mg/dL U Opiates 300ng/mL cut (Negative) Ur Oxycodone Screen (Negative) Urine Methadone Screen (Negative) Acetaminophen < 10 (10-30) ug/mL Ur Barbiturates Screen (Negative) Phenytoin (10-20) ug/mL U Tricyclic Antidepress (Negative) Ur Phencyclidine Scrn (Negative) Ur Amphetamines Screen (Negative) U Methamphetamines Scrn (Negative) Ur MDMA Scrn (Ecstasy) (Negative) U Benzodiazepines Scrn (Negative) Urine Cocaine Screen (Negative) U Marijuana (THC) Screen (Negative) Ethyl Alcohol < 10 ( - 10) mg/dL SARS-CoV-2 (PCR) Negative (Negative) 07/15/22 07/15/22 07/15/22 Range/Units 12:25 12:25 13:43 WBC (4.5-11.0) X10^3/uL RBC (4.5-5.9) X10^6/uL Hgb (13.5-17.5) g/dL Hct (41-53) % MCV (80-100) fL MCH (26-34) PG MCHC (30-36) % RDW (11.6-14.8) % Plt Count (150-400) X10^3/uL Neut % (Auto) (50-75) % Lymph % (Auto) (25-40) % Payette % (Auto) (3-14) % Eos % (Auto) (2-4) % Baso % (Auto) (0-2) % Neut # (Auto) (3991-2418) /uL Lymph # (Auto) (7397-7780) /uL Payette # (Auto) (0-900) /uL Eos # (Auto) (0-450) /uL Baso # (Auto) (0-100) /uL Sodium (137-145) mmol/L Potassium (3.4-5.1) mmol/L Chloride (98-107) mmol/L Carbon Dioxide (22-32) mmol/L BUN (9-20) mg/dL Creatinine (0.66-1.25) mg/dL Estimated GFR (>60) mL/min BUN/Creatinine Ratio (6-22) Glucose (70-100) mg/dL Calcium (8.4-10.2) mg/dL Total Bilirubin (0.2-1.3) mg/dL AST (17-59) IU/L ALT (<50) IU/L Alkaline Phosphatase (38-126) U/L Total Protein (6.3-8.2) g/dL Albumin (3.5-5.0) g/dL Globulin (1.7-4.1) g/dL Albumin/Globulin Ratio (1.0-2.8) TSH 1.53 (0.47-4.68) uIU/mL Free T4 1.14 (0.78-2.19) ng/dL Salicylates (<20) mg/dL U Opiates 300ng/mL cut Negative (Negative) Ur Oxycodone Screen Negative (Negative) Urine Methadone Screen Negative (Negative) Acetaminophen (10-30) ug/mL Ur Barbiturates Screen Negative (Negative) Phenytoin 13.0 (10-20) ug/mL U Tricyclic Antidepress Negative (Negative) Ur Phencyclidine Scrn Negative (Negative) Ur Amphetamines Screen Positive H (Negative) U Methamphetamines Scrn Positive H (Negative) Ur MDMA Scrn (Ecstasy) Negative (Negative) U Benzodiazepines Scrn Positive H (Negative) Urine Cocaine Screen Negative (Negative) U Marijuana (THC) Screen Negative (Negative) Ethyl Alcohol ( - 10) mg/dL SARS-CoV-2 (PCR) (Negative) Urine Dip Bedside Urine Glucose Negative Bedside Urine Bilirubin - Negative Bedside Urine Ketone - Negative Urine Specific Dix[place] 1.015 Bedside Urine Occult Blood - Negative Bedside Urine pH 6.0 Bedside Urine Protein - Negative Bedside Urine Urobilinogen - Negative Bedside Urine Nitrite - Negative Bedside Urine Leukocytes - Negative Esterase MDM Narrative Medical decision making narrative: 46-year-old male presenting with hallucinations in the setting of known schizophrenia. On presentation, vital signs notable for no significant abnormalities. Physical exam notable for reassuring cardiopulmonary exam, benign abdomen, psychiatric exam with fixed delusions and hallucinations. Initial concern for exacerbation of patient's underlying psychiatric condition including schizophrenia, medication effect, medication noncompliance, occult medical etiology to complain patient's symptoms. Screening labs obtained and reassuring as above. EKG with normal sinus rhythm, no significant arrhythmia or prolonged QTC. Patient appears medically clear for psychiatric evaluation. Plan for director of social media marketing evaluation and disposition with voluntary placement. Patient accepted at area psychiatric facility and subsequently transferred in stable condition. Discharge Plan Departure Patient Disposition: Xf Psychiatric Hosp Clinical Impression: Psychosis Prescriptions: No Action phenytoin sodium extended 100 mg capsule 300 mg PO BEDTIME haloperidol 5 mg Tablet 5 mg PO BID MDD BID benztropine 2 mg Tablet 2 mg PO BID ziprasidone HCl [Geodon] 60 mg Capsule 60 mg PO BID Rx Instructions: give with food (meal/snack) methocarbamol [Robaxin] 500 mg Tablet 500 mg PO BID PRN (Reason: Spasms) hydrocodone-acetaminophen [[place]ayuna] 5-325 mg Tablet 1 tab PO Q4-6H PRN (Reason: pain) clonazepam 1 mg tablet 1 mg PO QID PRN (Reason: anxiety) Qty: 28 0RF clonidine HCl 0.1 mg tablet 0.1 mg PO TID PRN (Reason: anxiety) Qty: 27 0RF quetiapine 150 mg tablet 150 mg PO DAILY Qty: 30 0RF Referrals: Sherri Lowe MD [Primary Care Provider] -
[2022-07-15 17:21] VITALS: BP 114/75; PULSE 81; RESP 16; O2SAT 97
[2022-07-15] MEDS: OXYCODONE/ACETAMINOPHEN 5/325 TABLET 1 TAB PO (17:35)
[2022-07-15] MEDS: methocarbamoL 500 MG TABLET PO (17:36)
--- NOTE | 2022-07-15 18:03 | CM.SWNOTE ---
SOCIAL PROBLEMS SPECIALIST Note SOCIAL PROBLEMS SPECIALIST calls patient's KRISTY factory manager (Ph. # [phone]) she reports that there is no current plans to change patient's housing but she will work with his care manager and housing authority to support patient with this. SOCIAL PROBLEMS SPECIALIST provides update about patient's presentation to ED and plans of transfer with patient consent. [facility], SOCIAL PROBLEMS SPECIALIST provides update about patient's transfer. SOCIAL PROBLEMS SPECIALIST [facility] reports that patient is accepted by Dr. Mares and patient can arrive this evening at 2100. [facility] [place] sets up transportation. SOCIAL PROBLEMS SPECIALIST reviews this patient who indicates agreement and understanding. Plan: Patient to transfer to [facility] via EMS this evening. JENNYFER Soriano
[2022-07-15] MEDS: PHENYTOIN ER 100 MG CAPSULE 300 MG PO (18:16)
[2022-07-15] MEDS: OLANZapine ODT 10 MG TAB PO (18:16)
== END 2022-07-15 18:47 ==
PROVIDERS: Emergency Provider Emergency Medicine; PCP Family Medicine
DX: F29 Unspecified psychosis not due to a substance or known physiological condition (principal); Z20.822 Contact with and (suspected) exposure to COVID-19
CPT/HCPCS: 36415; 80053; 80185; 80305; 80320; 80329; 81003; 84439; 84443; 85025; 87635; 93005; 93010; 99284; C9803; G0480

== ENCOUNTER 2022-07-27 19:34 | Emergency (ER) | payer OTHER, MEDICAID, SELFPAY ==
[2022-07-27 19:39] VITALS: BP 138/84; PULSE 88; RESP 20; TEMP 36.6; O2SAT 98; BMI 24.4
[2022-07-27 20:44] LABS: Acetaminophen < 10 ug/mL (10-30); Alanine Aminotransferase 23 IU/L (<50); Albumin 4.3 g/dL (3.5-5.0); Albumin Globulin Ratio 1.7 (1.0-2.8); Alkaline Phosphatase 110 U/L (38-126); Aspartate Aminotransferase 19 IU/L (17-59); BUN Creatinine Ratio 15.3 (6-22); Bilirubin Total 0.3 mg/dL (0.2-1.3); Blood Urea Nitrogen 18 mg/dL (9-20); Calcium 8.9 mg/dL (8.4-10.2); Carbon Dioxide 31 mmol/L (22-32); Chloride 96 mmol/L (98-107); Estimated Glomerular Filt Rate > 60 mL/min (>60); Ethanol (ETOH) < 10 mg/dL; Globulin 2.5 g/dL (1.7-4.1); Glucose 95 mg/dL (70-100); HEMOLYSIS < 15 (0-50); Potassium 4.2 mmol/L (3.4-5.1); Salicylate < 1.0 mg/dL (<20); Sodium 136 mmol/L (137-145); Total Protein 6.8 g/dL (6.3-8.2)
[2022-07-27 20:51] LABS: Add Manual Diff / Slide Review NO; Basophils Absolute Auto 0 /uL (0-100); Basophils Percent Auto 0.2 % (0-2); Eosinophils Absolute Auto 200 /uL (0-450); Eosinophils Percent Auto 4.3 % (2-4); Hematocrit 39.3 % (41-53); Hemoglobin 13.7 g/dL (13.5-17.5); Lymphocytes Absolute Auto 1900 /uL (1100-4500); Lymphocytes Percent Auto 34.1 % (25-40); Mean Corpuscular HGB Conc 34.8 % (30-36); Mean Corpuscular Hemoglobin 33.5 PG (26-34); Mean Corpuscular Volume 96.2 fL (80-100); Monocytes Absolute Auto 300 /uL (0-900); Neutrophils Absolute Auto 3200 /uL (1500-7000); Neutrophils Percent Auto 56.4 % (50-75); Platelet Count 235 X10^3/uL (150-400); Red Blood Cell Count 4.08 X10^6/uL (4.5-5.9); White Blood Cell Count 5.7 X10^3/uL (4.5-11.0)
--- NOTE | 2022-07-27 21:25 | ED.PSYCH ---
HPI - Psych <Dylan Vasquez MD - Last Filed: 07/31/22 06:58> General Chief Complaint: Psychiatric Symptoms Stated Complaint: Anxiety Time Seen by Provider: 07/27/22 21:19 Source: patient Mode of arrival: EMS History of Present Illness HPI Narrative: Patient here for exacerbation of auditory hallucinations. Patient has history of bipolar and schizophrenia. Patient seen here earlier this month and transferred to [facility] and stayed for 3 days, no new changes in his medications. Patient is on Geodon and clonazepam and Dilantin. Is on Haldol p.o. 5 mg twice a day as well. He states hearing voices has been worse. He hears voices outside his home and he has locked himself inside his home. He is fearful of the voices. Denies any SI or HI. No falls or injuries. No seizures. No recent illness. Related Data Home Medications Medication Instructions Recorded Confirmed phenytoin sodium extended 100 mg 300 mg PO BEDTIME 11/17/20 07/28/22 capsule benztropine 2 mg tablet 2 mg PO BID 06/29/22 07/28/22 haloperidol 5 mg tablet 5 mg PO BID 06/29/22 07/28/22 hydrocodone 5 mg-acetaminophen 325 1 tab PO Q4-6H PRN pain 06/29/22 07/28/22 mg tablet methocarbamol 500 mg tablet 500 mg PO BID PRN Spasms 06/29/22 07/28/22 ziprasidone HCl 60 mg capsule 60 mg PO BID 06/29/22 07/28/22 (Geodon) Previous Rx's Medication Instructions Recorded clonazepam 1 mg tablet 1 mg PO QID PRN anxiety #28 tabs 06/30/22 clonidine HCl 0.1 mg tablet 0.1 mg PO TID PRN anxiety #27 tabs 06/30/22 quetiapine 150 mg tablet 150 mg PO DAILY #30 tabs 06/30/22 Allergies Allergy/AdvReac Type Severity Reaction Status Date / Time hydromorphone [HYDROMORPHONE] Allergy Mild severe Verified 07/15/22 12:12 itching WITH PILL FORM morphine Allergy Mild skin Verified 07/15/22 12:12 crawl/itchy Penicillins Allergy Mild hives Verified 07/15/22 12:12 ketorolac [From Toradol] Allergy Verified 07/15/22 12:12 Review of Systems <Dylan Vasquez MD - Last Filed: 07/31/22 06:58> Review of Systems Narrative: GENERAL: negative chills, fatigue, malaise, fever, sweats. HEENT: negative sinus pain, ear pain, sore throat RESPIRATORY: negative dyspnea, cough CARDIOVASCULAR: negative chest pain, palpitations GASTROINTESTINAL: negative nausea, vomiting, abdominal pain : negative dysuria, frequency, hematuria MUSCULOSKELETAL: negative muscle or bony pain SKIN: negative rash, skin lesions NEUROLOGIC: negative weakness, numbness PSYCH: Positive auditory hallucinations positive anxiety negative SI negative HI ROS Unobtainable: All systems reviewed & are unremarkable except as noted in HPI and below Patient History <Dylan Vasquez MD - Last Filed: 07/31/22 06:58> Medical History Alcohol abuse Anxiety Chronic pain syndrome Depression Kidney stone on left side PTSD (post-traumatic stress disorder) Seizure Social History Smoking Status: Current every day smoker Smoking Status: Current every day smoker alcohol intake frequency: holidays/special occasions only Substance Use Type: marijuana and methamphetamine Exam <Dylan Vasquez MD - Last Filed: 07/31/22 06:58> Narrative Exam Narrative: GENERAL: in no distress, not toxic not dyspneic HEAD: Normocephalic. EYES: Pupils equal round ENT: Mucous membranes moist. NECK: Trachea midline. CARDIOVASCULAR: Regular rate and rhythm without murmurs RESPIRATORY: Clear to auscultation. Breath sounds equal bilaterally. No wheezes, rales, or rhonchi. GASTROINTESTINAL: Abdomen soft, non-tender EXTREMITIES: No gross deformities. BACK: No flank tenderness. NEURO: AOx4. SKIN: Warm and dry PSYCH: Slightly anxious, is cooperative, not combative is cooperative, positive auditory hallucinations negative visual hallucinations, negative SI negative HI Initial Vital Signs Initial Vital Signs: Vital Signs Temperature 98 F 07/27/22 19:39 Pulse Rate 88 07/27/22 19:39 Respiratory Rate 20 07/27/22 19:39 Blood Pressure 138/84 07/27/22 19:39 Pulse Oximetry 98 07/27/22 19:39 Oxygen Delivery Method 07/27/22 19:39 <Gil Valderrama DO - Last Filed: 07/29/22 07:22> Initial Vital Signs Initial Vital Signs: Vital Signs Temperature 98 F 07/27/22 19:39 Pulse Rate 88 07/27/22 19:39 Respiratory Rate 20 07/27/22 19:39 Blood Pressure 138/84 07/27/22 19:39 Pulse Oximetry 98 07/27/22 19:39 Oxygen Delivery Method 07/27/22 19:39 <Neftali Rowland DO - Last Filed: 07/29/22 02:31> Initial Vital Signs Initial Vital Signs: Vital Signs Temperature 98 F 07/27/22 19:39 Pulse Rate 88 07/27/22 19:39 Respiratory Rate 20 07/27/22 19:39 Blood Pressure 138/84 07/27/22 19:39 Pulse Oximetry 98 07/27/22 19:39 Oxygen Delivery Method 07/27/22 19:39 Course <Dylan Vasquez MD - Last Filed: 07/31/22 06:58> Course Course Narrative: July 28, 2022 at 7:00 a.m., Sign out Dr Valderrama, awaiting for social work evaluation. Patient has been cooperative all through the night. Patient is voluntary Orders Ordered: Discontinued Medications Hydrocodone Bitart/Acetaminophen (Hydrocodone/Acet 5/325 Tablet) 1 tab PO NOW ONE Stop: 07/28/22 11:00 Last Admin: 07/28/22 11:10 Dose: 1 tab Documented By: JOLEEN Hydrocodone Bitart/Acetaminophen (Hydrocodone/Acet 5/325 Tablet) 1 tab PO NOW ONE Stop: 07/28/22 18:12 Last Admin: 07/28/22 18:29 Dose: 1 tab Documented By: KENNEY Hydrocodone Bitart/Acetaminophen (Hydrocodone/Acet 5/325 Tablet) 1 tab PO NOW ONE Stop: 07/29/22 05:00 Last Admin: 07/29/22 05:03 Dose: 1 tab Documented By: ANAHI Benztropine Mesylate (Benztropine 1 Mg Tablet) 2 mg PO BID [place] Last Admin: 07/29/22 05:03 Dose: 2 mg Documented By: Admin: 07/28/22 22:27 Dose: 2 mg Documented By: Admin: 07/28/22 11:19 Dose: 2 mg Documented By: JOLEEN Clonazepam (Clonazepam 0.5 Mg Tablet) 1 mg PO NOW ONE Stop: 07/28/22 11:02 Last Admin: 07/28/22 11:10 Dose: 1 mg Documented By: JOLEEN Clonazepam (Clonazepam 0.5 Mg Tablet) 1 mg PO NOW ONE Stop: 07/29/22 05:09 Last Admin: 07/29/22 05:10 Dose: 1 mg Documented By: ANAHI Haloperidol (Haloperidol 5 Mg Tablet) 5 mg PO NOW ONE Stop: 07/28/22 11:00 Last Admin: 07/28/22 11:19 Dose: 5 mg Documented By: JOLEEN Methocarbamol (Methocarbamol 500 Mg Tablet) 500 mg PO NOW ONE Stop: 07/28/22 11:00 Last Admin: 07/28/22 11:10 Dose: 500 mg Documented By: JOLEEN Olanzapine (Olanzapine Odt 10 Mg Tab) 20 mg PO NOW ONE Stop: 07/28/22 15:53 Last Admin: 07/28/22 15:54 Dose: 20 mg Documented By: JOLEEN Phenytoin Sodium (Phenytoin Er 100 Mg Capsule) 300 mg PO DAILY [facility] Last Admin: 07/29/22 05:03 Dose: 300 mg Documented By: Admin: 07/28/22 11:20 Dose: 300 mg Documented By: JOLEEN Quetiapine Fumarate (Quetiapine 25 Mg Tablet) 150 mg PO NOW [facility] Stop: 07/31/22 08:59 Last Admin: 07/28/22 11:10 Dose: 150 mg Documented By: JOLEEN Quetiapine Fumarate (Quetiapine 100 Mg Tablet) 150 mg PO DAILY [facility] Stop: 07/31/22 08:59 Last Admin: 07/29/22 05:04 Dose: 150 mg Documented By: ANAHI Vital Signs Vital signs: Vital Signs - 8 hr 07/29/22 02:48 Pulse Rate 67 Respiratory Rate 18 Blood Pressure 120/62 Pulse Oximetry 98 Oxygen Delivery Method Room Air <Gil Valderrama DO - Last Filed: 07/29/22 07:22> Orders Ordered: Discontinued Medications Hydrocodone Bitart/Acetaminophen (Hydrocodone/Acet 5/325 Tablet) 1 tab PO NOW ONE Stop: 07/28/22 11:00 Last Admin: 07/28/22 11:10 Dose: 1 tab Documented By: JOLEEN Hydrocodone Bitart/Acetaminophen (Hydrocodone/Acet 5/325 Tablet) 1 tab PO NOW ONE Stop: 07/28/22 18:12 Last Admin: 07/28/22 18:29 Dose: 1 tab Documented By: RB Hydrocodone Bitart/Acetaminophen (Hydrocodone/Acet 5/325 Tablet) 1 tab PO NOW ONE Stop: 07/29/22 05:00 Last Admin: 07/29/22 05:03 Dose: 1 tab Documented By: ANAHI Benztropine Mesylate (Benztropine 1 Mg Tablet) 2 mg PO BID [facility] Last Admin: 07/29/22 05:03 Dose: 2 mg Documented By: Admin: 07/28/22 22:27 Dose: 2 mg Documented By: Admin: 07/28/22 11:19 Dose: 2 mg Documented By: JOLEEN Clonazepam (Clonazepam 0.5 Mg Tablet) 1 mg PO NOW ONE Stop: 07/28/22 11:02 Last Admin: 07/28/22 11:10 Dose: 1 mg Documented By: JOLEEN Clonazepam (Clonazepam 0.5 Mg Tablet) 1 mg PO NOW ONE Stop: 07/29/22 05:09 Last Admin: 07/29/22 05:10 Dose: 1 mg Documented By: ANAHI Haloperidol (Haloperidol 5 Mg Tablet) 5 mg PO NOW ONE Stop: 07/28/22 11:00 Last Admin: 07/28/22 11:19 Dose: 5 mg Documented By: JOLEEN Methocarbamol (Methocarbamol 500 Mg Tablet) 500 mg PO NOW ONE Stop: 07/28/22 11:00 Last Admin: 07/28/22 11:10 Dose: 500 mg Documented By: JOLEEN Olanzapine (Olanzapine Odt 10 Mg Tab) 20 mg PO NOW ONE Stop: 07/28/22 15:53 Last Admin: 07/28/22 15:54 Dose: 20 mg Documented By: JOLEEN Phenytoin Sodium (Phenytoin Er 100 Mg Capsule) 300 mg PO DAILY [facility] Last Admin: 07/29/22 05:03 Dose: 300 mg Documented By: Admin: 07/28/22 11:20 Dose: 300 mg Documented By: JOLEEN Quetiapine Fumarate (Quetiapine 25 Mg Tablet) 150 mg PO NOW [facility] Stop: 07/31/22 08:59 Last Admin: 07/28/22 11:10 Dose: 150 mg Documented By: JOLEEN Quetiapine Fumarate (Quetiapine 100 Mg Tablet) 150 mg PO DAILY [facility] Stop: 07/31/22 08:59 Last Admin: 07/29/22 05:04 Dose: 150 mg Documented By: ANAHI Vital Signs Vital signs: Vital Signs - 8 hr 07/29/22 02:48 Pulse Rate 67 Respiratory Rate 18 Blood Pressure 120/62 Pulse Oximetry 98 Oxygen Delivery Method Room Air <Neftali Rowland DO - Last Filed: 07/29/22 02:31> Orders Ordered: Discontinued Medications Hydrocodone Bitart/Acetaminophen (Hydrocodone/Acet 5/325 Tablet) 1 tab PO NOW ONE Stop: 07/28/22 11:00 Last Admin: 07/28/22 11:10 Dose: 1 tab Documented By: JOLEEN Hydrocodone Bitart/Acetaminophen (Hydrocodone/Acet 5/325 Tablet) 1 tab PO NOW ONE Stop: 07/28/22 18:12 Last Admin: 07/28/22 18:29 Dose: 1 tab Documented By: KENNEY Hydrocodone Bitart/Acetaminophen (Hydrocodone/Acet 5/325 Tablet) 1 tab PO NOW ONE Stop: 07/29/22 05:00 Last Admin: 07/29/22 05:03 Dose: 1 tab Documented By: ANAHI Benztropine Mesylate (Benztropine 1 Mg Tablet) 2 mg PO BID [facility] Last Admin: 07/29/22 05:03 Dose: 2 mg Documented By: Admin: 07/28/22 22:27 Dose: 2 mg Documented By: Admin: 07/28/22 11:19 Dose: 2 mg Documented By: JOLEEN Clonazepam (Clonazepam 0.5 Mg Tablet) 1 mg PO NOW ONE Stop: 07/28/22 11:02 Last Admin: 07/28/22 11:10 Dose: 1 mg Documented By: JOLEEN Clonazepam (Clonazepam 0.5 Mg Tablet) 1 mg PO NOW ONE Stop: 07/29/22 05:09 Last Admin: 07/29/22 05:10 Dose: 1 mg Documented By: ANAHI Haloperidol (Haloperidol 5 Mg Tablet) 5 mg PO NOW ONE Stop: 07/28/22 11:00 Last Admin: 07/28/22 11:19 Dose: 5 mg Documented By: JOLEEN Methocarbamol (Methocarbamol 500 Mg Tablet) 500 mg PO NOW ONE Stop: 07/28/22 11:00 Last Admin: 07/28/22 11:10 Dose: 500 mg Documented By: JOLEEN Olanzapine (Olanzapine Odt 10 Mg Tab) 20 mg PO NOW ONE Stop: 07/28/22 15:53 Last Admin: 07/28/22 15:54 Dose: 20 mg Documented By: JOLEEN Phenytoin Sodium (Phenytoin Er 100 Mg Capsule) 300 mg PO DAILY [facility] Last Admin: 07/29/22 05:03 Dose: 300 mg Documented By: Admin: 07/28/22 11:20 Dose: 300 mg Documented By: JOLEEN Quetiapine Fumarate (Quetiapine 25 Mg Tablet) 150 mg PO NOW [facility] Stop: 07/31/22 08:59 Last Admin: 07/28/22 11:10 Dose: 150 mg Documented By: JOLEEN Quetiapine Fumarate (Quetiapine 100 Mg Tablet) 150 mg PO DAILY [facility] Stop: 07/31/22 08:59 Last Admin: 07/29/22 05:04 Dose: 150 mg Documented By: ANAHI Vital Signs Vital signs: Vital Signs - 8 hr 07/29/22 02:48 Pulse Rate 67 Respiratory Rate 18 Blood Pressure 120/62 Pulse Oximetry 98 Oxygen Delivery Method Room Air MDM - Psych <Dylan Vasquez MD - Last Filed: 07/31/22 06:58> Lab Data 07/27/22 20:20 07/27/22 20:20 Labs: Lab Results 07/27/22 07/27/22 07/27/22 Range/Units 20:20 20:20 20:20 WBC 5.7 (4.5-11.0) X10^3/uL RBC 4.08 L (4.5-5.9) X10^6/uL Hgb 13.7 (13.5-17.5) g/dL Hct 39.3 L (41-53) % MCV 96.2 (80-100) fL MCH 33.5 (26-34) PG MCHC 34.8 (30-36) % RDW 13.0 (11.6-14.8) % Plt Count 235 (150-400) X10^3/uL Neut % (Auto) 56.4 (50-75) % Lymph % (Auto) 34.1 (25-40) % [place] % (Auto) 5.0 (3-14) % Eos % (Auto) 4.3 H (2-4) % Baso % (Auto) 0.2 (0-2) % Neut # (Auto) 3200 (6896-7325) /uL Lymph # (Auto) 1900 (9013-3730) /uL [place] # (Auto) 300 (0-900) /uL Eos # (Auto) 200 (0-450) /uL Baso # (Auto) 0 (0-100) /uL Sodium 136 L (137-145) mmol/L Potassium 4.2 (3.4-5.1) mmol/L Chloride 96 L (98-107) mmol/L Carbon Dioxide 31 (22-32) mmol/L BUN 18 (9-20) mg/dL Creatinine 1.18 (0.66-1.25) mg/dL Estimated GFR > 60 (>60) mL/min BUN/Creatinine Ratio 15.3 (6-22) Glucose 95 (70-100) mg/dL Calcium 8.9 (8.4-10.2) mg/dL Total Bilirubin 0.3 (0.2-1.3) mg/dL AST 19 (17-59) IU/L ALT 23 (<50) IU/L Alkaline Phosphatase 110 (38-126) U/L Total Protein 6.8 (6.3-8.2) g/dL Albumin 4.3 (3.5-5.0) g/dL Globulin 2.5 (1.7-4.1) g/dL Albumin/Globulin Ratio 1.7 (1.0-2.8) TSH 1.07 D (0.47-4.68) uIU/mL Free T4 1.01 (0.78-2.19) ng/dL Salicylates < 1.0 (<20) mg/dL U Opiates 300ng/mL cut (Negative) Ur Oxycodone Screen (Negative) Urine Methadone Screen (Negative) Acetaminophen < 10 (10-30) ug/mL Ur Barbiturates Screen (Negative) Phenytoin (10-20) ug/mL U Tricyclic Antidepress (Negative) Ur Phencyclidine Scrn (Negative) Ur Amphetamines Screen (Negative) U Methamphetamines Scrn (Negative) Ur MDMA Scrn (Ecstasy) (Negative) U Benzodiazepines Scrn (Negative) Urine Cocaine Screen (Negative) U Marijuana (THC) Screen (Negative) Ethyl Alcohol < 10 ( - 10) mg/dL SARS-CoV-2 (PCR) (Negative) 07/27/22 07/27/22 07/28/22 Range/Units 20:20 21:20 06:00 WBC (4.5-11.0) X10^3/uL RBC (4.5-5.9) X10^6/uL Hgb (13.5-17.5) g/dL Hct (41-53) % MCV (80-100) fL MCH (26-34) PG MCHC (30-36) % RDW (11.6-14.8) % Plt Count (150-400) X10^3/uL Neut % (Auto) (50-75) % Lymph % (Auto) (25-40) % [place] % (Auto) (3-14) % Eos % (Auto) (2-4) % Baso % (Auto) (0-2) % Neut # (Auto) (1269-0296) /uL Lymph # (Auto) (8540-5649) /uL [place] # (Auto) (0-900) /uL Eos # (Auto) (0-450) /uL Baso # (Auto) (0-100) /uL Sodium (137-145) mmol/L Potassium (3.4-5.1) mmol/L Chloride (98-107) mmol/L Carbon Dioxide (22-32) mmol/L BUN (9-20) mg/dL Creatinine (0.66-1.25) mg/dL Estimated GFR (>60) mL/min BUN/Creatinine Ratio (6-22) Glucose (70-100) mg/dL Calcium (8.4-10.2) mg/dL Total Bilirubin (0.2-1.3) mg/dL AST (17-59) IU/L ALT (<50) IU/L Alkaline Phosphatase (38-126) U/L Total Protein (6.3-8.2) g/dL Albumin (3.5-5.0) g/dL Globulin (1.7-4.1) g/dL Albumin/Globulin Ratio (1.0-2.8) TSH (0.47-4.68) uIU/mL Free T4 (0.78-2.19) ng/dL Salicylates (<20) mg/dL U Opiates 300ng/mL cut Negative (Negative) Ur Oxycodone Screen Negative (Negative) Urine Methadone Screen Negative (Negative) Acetaminophen (10-30) ug/mL Ur Barbiturates Screen Positive H (Negative) Phenytoin 9.9 L (10-20) ug/mL U Tricyclic Antidepress Negative (Negative) Ur Phencyclidine Scrn Negative (Negative) Ur Amphetamines Screen Positive H (Negative) U Methamphetamines Scrn Positive H (Negative) Ur MDMA Scrn (Ecstasy) Negative (Negative) U Benzodiazepines Scrn Negative (Negative) Urine Cocaine Screen Negative (Negative) U Marijuana (THC) Screen Negative (Negative) Ethyl Alcohol ( - 10) mg/dL SARS-CoV-2 (PCR) Negative (Negative) Urine Dip Bedside Urine Glucose Negative Bedside Urine Bilirubin - Negative Bedside Urine Ketone - Negative Urine Specific [place] 1.010 Bedside Urine Occult Blood - Negative Bedside Urine pH 6.5 Bedside Urine Protein - Negative Bedside Urine Urobilinogen - Negative Bedside Urine Nitrite - Negative Bedside Urine Leukocytes - Negative Esterase MDM Narrative Medical decision making narrative: Patient here for exacerbation of auditory hallucinations. Patient has history of bipolar and schizophrenia. Patient seen here earlier this month and transferred to [facility] and stayed for 3 days, no new changes in his medications. Patient is on Geodon and clonazepam and Dilantin. Is on Haldol p.o. 5 mg twice a day as well. He states hearing voices has been worse. He hears voices outside his home and he has locked himself inside his home. He is fearful of the voices. Denies any SI or HI. No falls or injuries. No seizures. No recent illness. After history and exam CBC CMP TSH drug screen alcohol social consult ordered, EKG [facility] CC: Auditory hallucinations Complicating co-morbidities: History of bipolar and schizophrenia and seizures Data collected from: Patient Medical records reviewed: ER visit here earlier this month and transferred Differential considered: Includes but not limited to bipolar/schizophrenia/paranoid schizophrenia/drug-induced psychosis Exam documented above, pertinent findings include: Auditory hallucinations Lab Test results independently reviewed as above. Pertinent findings: Hemoglobin 13 hematocrit 39, sodium 136 AST 19 ALT 23, Tylenol less than 10 aspirin less than 10, alcohol negative Drug screen positive barbiturates positive amphetamines positive methamphetamines, urinalysis normal TSH 1.07 Independently reviewed EKG as above normal sinus rhythm normal EKG rate 74 Consultations: Treatments: Re-evaluations: Discussion: Diagnosis: <Gil Valderrama DO - Last Filed: 07/29/22 07:22> Lab Data Labs: Lab Results 07/27/22 07/27/22 07/27/22 Range/Units 20:20 20:20 20:20 WBC 5.7 (4.5-11.0) X10^3/uL RBC 4.08 L (4.5-5.9) X10^6/uL Hgb 13.7 (13.5-17.5) g/dL Hct 39.3 L (41-53) % MCV 96.2 (80-100) fL MCH 33.5 (26-34) PG MCHC 34.8 (30-36) % RDW 13.0 (11.6-14.8) % Plt Count 235 (150-400) X10^3/uL Neut % (Auto) 56.4 (50-75) % Lymph % (Auto) 34.1 (25-40) % [place] % (Auto) 5.0 (3-14) % Eos % (Auto) 4.3 H (2-4) % Baso % (Auto) 0.2 (0-2) % Neut # (Auto) 3200 (2621-3719) /uL Lymph # (Auto) 1900 (9194-2194) /uL [place] # (Auto) 300 (0-900) /uL Eos # (Auto) 200 (0-450) /uL Baso # (Auto) 0 (0-100) /uL Sodium 136 L (137-145) mmol/L Potassium 4.2 (3.4-5.1) mmol/L Chloride 96 L (98-107) mmol/L Carbon Dioxide 31 (22-32) mmol/L BUN 18 (9-20) mg/dL Creatinine 1.18 (0.66-1.25) mg/dL Estimated GFR > 60 (>60) mL/min BUN/Creatinine Ratio 15.3 (6-22) Glucose 95 (70-100) mg/dL Calcium 8.9 (8.4-10.2) mg/dL Total Bilirubin 0.3 (0.2-1.3) mg/dL AST 19 (17-59) IU/L ALT 23 (<50) IU/L Alkaline Phosphatase 110 (38-126) U/L Total Protein 6.8 (6.3-8.2) g/dL Albumin 4.3 (3.5-5.0) g/dL Globulin 2.5 (1.7-4.1) g/dL Albumin/Globulin Ratio 1.7 (1.0-2.8) TSH 1.07 D (0.47-4.68) uIU/mL Free T4 1.01 (0.78-2.19) ng/dL Salicylates < 1.0 (<20) mg/dL U Opiates 300ng/mL cut (Negative) Ur Oxycodone Screen (Negative) Urine Methadone Screen (Negative) Acetaminophen < 10 (10-30) ug/mL Ur Barbiturates Screen (Negative) Phenytoin (10-20) ug/mL U Tricyclic Antidepress (Negative) Ur Phencyclidine Scrn (Negative) Ur Amphetamines Screen (Negative) U Methamphetamines Scrn (Negative) Ur MDMA Scrn (Ecstasy) (Negative) U Benzodiazepines Scrn (Negative) Urine Cocaine Screen (Negative) U Marijuana (THC) Screen (Negative) Ethyl Alcohol < 10 ( - 10) mg/dL SARS-CoV-2 (PCR) (Negative) 07/27/22 07/27/22 07/28/22 Range/Units 20:20 21:20 06:00 WBC (4.5-11.0) X10^3/uL RBC (4.5-5.9) X10^6/uL Hgb (13.5-17.5) g/dL Hct (41-53) % MCV (80-100) fL MCH (26-34) PG MCHC (30-36) % RDW (11.6-14.8) % Plt Count (150-400) X10^3/uL Neut % (Auto) (50-75) % Lymph % (Auto) (25-40) % [place] % (Auto) (3-14) % Eos % (Auto) (2-4) % Baso % (Auto) (0-2) % Neut # (Auto) (3864-4276) /uL Lymph # (Auto) (1964-8160) /uL [place] # (Auto) (0-900) /uL Eos # (Auto) (0-450) /uL Baso # (Auto) (0-100) /uL Sodium (137-145) mmol/L Potassium (3.4-5.1) mmol/L Chloride (98-107) mmol/L Carbon Dioxide (22-32) mmol/L BUN (9-20) mg/dL Creatinine (0.66-1.25) mg/dL Estimated GFR (>60) mL/min BUN/Creatinine Ratio (6-22) Glucose (70-100) mg/dL Calcium (8.4-10.2) mg/dL Total Bilirubin (0.2-1.3) mg/dL AST (17-59) IU/L ALT (<50) IU/L Alkaline Phosphatase (38-126) U/L Total Protein (6.3-8.2) g/dL Albumin (3.5-5.0) g/dL Globulin (1.7-4.1) g/dL Albumin/Globulin Ratio (1.0-2.8) TSH (0.47-4.68) uIU/mL Free T4 (0.78-2.19) ng/dL Salicylates (<20) mg/dL U Opiates 300ng/mL cut Negative (Negative) Ur Oxycodone Screen Negative (Negative) Urine Methadone Screen Negative (Negative) Acetaminophen (10-30) ug/mL Ur Barbiturates Screen Positive H (Negative) Phenytoin 9.9 L (10-20) ug/mL U Tricyclic Antidepress Negative (Negative) Ur Phencyclidine Scrn Negative (Negative) Ur Amphetamines Screen Positive H (Negative) U Methamphetamines Scrn Positive H (Negative) Ur MDMA Scrn (Ecstasy) Negative (Negative) U Benzodiazepines Scrn Negative (Negative) Urine Cocaine Screen Negative (Negative) U Marijuana (THC) Screen Negative (Negative) Ethyl Alcohol ( - 10) mg/dL SARS-CoV-2 (PCR) Negative (Negative) Urine Dip Bedside Urine Glucose Negative Bedside Urine Bilirubin - Negative Bedside Urine Ketone - Negative Urine Specific [place] 1.010 Bedside Urine Occult Blood - Negative Bedside Urine pH 6.5 Bedside Urine Protein - Negative Bedside Urine Urobilinogen - Negative Bedside Urine Nitrite - Negative Bedside Urine Leukocytes - Negative Esterase MDM Narrative Medical decision making narrative: Patient here for exacerbation of auditory hallucinations. Patient has history of bipolar and schizophrenia. Patient seen here earlier this month and transferred to [facility] and stayed for 3 days, no new changes in his medications. Patient is on Geodon and clonazepam and Dilantin. Is on Haldol p.o. 5 mg twice a day as well. He states hearing voices has been worse. He hears voices outside his home and he has locked himself inside his home. He is fearful of the voices. Denies any SI or HI. No falls or injuries. No seizures. No recent illness. After history and exam CBC CMP TSH drug screen alcohol social consult ordered, EKG CC: Auditory hallucinations Complicating co-morbidities: History of bipolar and schizophrenia and seizures Data collected from: Patient Medical records reviewed: ER visit here earlier this month and transferred Differential considered: Includes but not limited to bipolar/schizophrenia/paranoid schizophrenia/drug-induced psychosis Exam documented above, pertinent findings include: Auditory hallucinations Lab Test results independently reviewed as above. Pertinent findings: Hemoglobin 13 hematocrit 39, sodium 136 AST 19 ALT 23, Tylenol less than 10 aspirin less than 10, alcohol negative Drug screen positive barbiturates positive amphetamines positive methamphetamines, urinalysis normal TSH 1.07 Independently reviewed EKG as above normal sinus rhythm normal EKG rate 74 Dr rowland: Received turned over. Reviewed patient's history and physical exam. Patient is medically cleared. Patient has been accepted at [facility]. Patient is stable for transport. Transport has been arranged. <Neftali Rowland, DO - Last Filed: 07/29/22 02:31> Lab Data Labs: Lab Results 07/27/22 07/27/22 07/27/22 Range/Units 20:20 20:20 20:20 WBC 5.7 (4.5-11.0) X10^3/uL RBC 4.08 L (4.5-5.9) X10^6/uL Hgb 13.7 (13.5-17.5) g/dL Hct 39.3 L (41-53) % MCV 96.2 (80-100) fL MCH 33.5 (26-34) PG MCHC 34.8 (30-36) % RDW 13.0 (11.6-14.8) % Plt Count 235 (150-400) X10^3/uL Neut % (Auto) 56.4 (50-75) % Lymph % (Auto) 34.1 (25-40) % [place] % (Auto) 5.0 (3-14) % Eos % (Auto) 4.3 H (2-4) % Baso % (Auto) 0.2 (0-2) % Neut # (Auto) 3200 (5384-0429) /uL Lymph # (Auto) 1900 (4823-4662) /uL [place] # (Auto) 300 (0-900) /uL Eos # (Auto) 200 (0-450) /uL Baso # (Auto) 0 (0-100) /uL Sodium 136 L (137-145) mmol/L Potassium 4.2 (3.4-5.1) mmol/L Chloride 96 L (98-107) mmol/L Carbon Dioxide 31 (22-32) mmol/L BUN 18 (9-20) mg/dL Creatinine 1.18 (0.66-1.25) mg/dL Estimated GFR > 60 (>60) mL/min BUN/Creatinine Ratio 15.3 (6-22) Glucose 95 (70-100) mg/dL Calcium 8.9 (8.4-10.2) mg/dL Total Bilirubin 0.3 (0.2-1.3) mg/dL AST 19 (17-59) IU/L ALT 23 (<50) IU/L Alkaline Phosphatase 110 (38-126) U/L Total Protein 6.8 (6.3-8.2) g/dL Albumin 4.3 (3.5-5.0) g/dL Globulin 2.5 (1.7-4.1) g/dL Albumin/Globulin Ratio 1.7 (1.0-2.8) TSH 1.07 D (0.47-4.68) uIU/mL Free T4 1.01 (0.78-2.19) ng/dL Salicylates < 1.0 (<20) mg/dL U Opiates 300ng/mL cut (Negative) Ur Oxycodone Screen (Negative) Urine Methadone Screen (Negative) Acetaminophen < 10 (10-30) ug/mL Ur Barbiturates Screen (Negative) Phenytoin (10-20) ug/mL U Tricyclic Antidepress (Negative) Ur Phencyclidine Scrn (Negative) Ur Amphetamines Screen (Negative) U Methamphetamines Scrn (Negative) Ur MDMA Scrn (Ecstasy) (Negative) U Benzodiazepines Scrn (Negative) Urine Cocaine Screen (Negative) U Marijuana (THC) Screen (Negative) Ethyl Alcohol < 10 ( - 10) mg/dL SARS-CoV-2 (PCR) (Negative) 07/27/22 07/27/22 07/28/22 Range/Units 20:20 21:20 06:00 WBC (4.5-11.0) X10^3/uL RBC (4.5-5.9) X10^6/uL Hgb (13.5-17.5) g/dL Hct (41-53) % MCV (80-100) fL MCH (26-34) PG MCHC (30-36) % RDW (11.6-14.8) % Plt Count (150-400) X10^3/uL Neut % (Auto) (50-75) % Lymph % (Auto) (25-40) % [place] % (Auto) (3-14) % Eos % (Auto) (2-4) % Baso % (Auto) (0-2) % Neut # (Auto) (3836-3994) /uL Lymph # (Auto) (6075-9964) /uL [place] # (Auto) (0-900) /uL Eos # (Auto) (0-450) /uL Baso # (Auto) (0-100) /uL Sodium (137-145) mmol/L Potassium (3.4-5.1) mmol/L Chloride (98-107) mmol/L Carbon Dioxide (22-32) mmol/L BUN (9-20) mg/dL Creatinine (0.66-1.25) mg/dL Estimated GFR (>60) mL/min BUN/Creatinine Ratio (6-22) Glucose (70-100) mg/dL Calcium (8.4-10.2) mg/dL Total Bilirubin (0.2-1.3) mg/dL AST (17-59) IU/L ALT (<50) IU/L Alkaline Phosphatase (38-126) U/L Total Protein (6.3-8.2) g/dL Albumin (3.5-5.0) g/dL Globulin (1.7-4.1) g/dL Albumin/Globulin Ratio (1.0-2.8) TSH (0.47-4.68) uIU/mL Free T4 (0.78-2.19) ng/dL Salicylates (<20) mg/dL U Opiates 300ng/mL cut Negative (Negative) Ur Oxycodone Screen Negative (Negative) Urine Methadone Screen Negative (Negative) Acetaminophen (10-30) ug/mL Ur Barbiturates Screen Positive H (Negative) Phenytoin 9.9 L (10-20) ug/mL U Tricyclic Antidepress Negative (Negative) Ur Phencyclidine Scrn Negative (Negative) Ur Amphetamines Screen Positive H (Negative) U Methamphetamines Scrn Positive H (Negative) Ur MDMA Scrn (Ecstasy) Negative (Negative) U Benzodiazepines Scrn Negative (Negative) Urine Cocaine Screen Negative (Negative) U Marijuana (THC) Screen Negative (Negative) Ethyl Alcohol ( - 10) mg/dL SARS-CoV-2 (PCR) Negative (Negative) Urine Dip Bedside Urine Glucose Negative Bedside Urine Bilirubin - Negative Bedside Urine Ketone - Negative Urine Specific [place] 1.010 Bedside Urine Occult Blood - Negative Bedside Urine pH 6.5 Bedside Urine Protein - Negative Bedside Urine Urobilinogen - Negative Bedside Urine Nitrite - Negative Bedside Urine Leukocytes - Negative Esterase MDM Narrative Medical decision making narrative: Patient here for exacerbation of auditory hallucinations. Patient has history of bipolar and schizophrenia. Patient seen here earlier this month and transferred to [facility] and stayed for 3 days, no new changes in his medications. Patient is on Geodon and clonazepam and Dilantin. Is on Haldol p.o. 5 mg twice a day as well. He states hearing voices has been worse. He hears voices outside his home and he has locked himself inside his home. He is fearful of the voices. Denies any SI or HI. No falls or injuries. No seizures. No recent illness. After history and exam CBC CMP TSH drug screen alcohol social consult ordered, EKG [facility] CC: Auditory hallucinations Complicating co-morbidities: History of bipolar and schizophrenia and seizures Data collected from: Patient Medical records reviewed: ER visit here earlier this month and transferred Differential considered: Includes but not limited to bipolar/schizophrenia/paranoid schizophrenia/drug-induced psychosis Exam documented above, pertinent findings include: Auditory hallucinations Lab Test results independently reviewed as above. Pertinent findings: Hemoglobin 13 hematocrit 39, sodium 136 AST 19 ALT 23, Tylenol less than 10 aspirin less than 10, alcohol negative Drug screen positive barbiturates positive amphetamines positive methamphetamines, urinalysis normal TSH 1.07 Independently reviewed EKG as above normal sinus rhythm normal EKG rate 74 Consultations: Treatments: Re-evaluations: Discussion: Diagnosis: Dr rowland: Received turned over. Reviewed patient's history and physical exam. Patient is medically cleared. Patient has been accepted at [facility]. Patient is stable for transport. Transport has been arranged. <Gil Rodriguezan, - Last Filed: 07/29/22 07:22> Critical Care Time Critical Care Time: Yes Total Critical Care Time: 30 Attestation: The high probability of a clinically significant, sudden or life threatening deterioration of the [] system(s) required my full and direct attention, intervention and personal management. The aggregate critical care time was [30] minutes. This time is in addition to time spent performing reported procedures but includes the following: [x] Data Review and interpretation [x] Patient assessment and monitoring of vital signs [x] Documentation [x] Medication orders and management Discharge Plan Departure Patient Disposition: Xfer Psychiatric Hosp Clinical Impression: Chronic schizophrenia, Drug-induced psychotic disorder Prescriptions: No Action phenytoin sodium extended 100 mg capsule 300 mg PO BEDTIME haloperidol 5 mg Tablet 5 mg PO BID MDD BID benztropine 2 mg Tablet 2 mg PO BID ziprasidone HCl [Geodon] 60 mg Capsule 60 mg PO BID Rx Instructions: give with food (meal/snack) methocarbamol [Robaxin] 500 mg Tablet 500 mg PO BID PRN (Reason: Spasms) hydrocodone-acetaminophen [[place]] 5-325 mg Tablet 1 tab PO Q4-6H PRN (Reason: pain) clonazepam 1 mg tablet 1 mg PO QID PRN (Reason: anxiety) Qty: 28 0RF clonidine HCl 0.1 mg tablet 0.1 mg PO TID PRN (Reason: anxiety) Qty: 27 0RF quetiapine 150 mg tablet 150 mg PO DAILY Qty: 30 0RF Referrals: Sherri Lowe MD [Primary Care Provider] -
[2022-07-27 21:37] LABS: Thyroid Stimulating Hormone 1.07 uIU/mL (0.47-4.68)
[2022-07-27 22:00] LABS: Phenytoin / Dilantin 9.9 ug/mL (10-20)
[2022-07-27 22:14] LABS: Free T4, Direct Thyroxine 1.01 ng/dL (0.78-2.19)
[2022-07-27 22:22] LABS: Ur Creatinine Normal (Normal); Ur Specific Gravity Normal (Normal); Urine pH Normal (Normal)
[2022-07-27 22:23] LABS: UR Morphine/Opiate cutoff 300 Negative (Negative); Urine Amphetamines Positive (Negative); Urine Barbiturates Positive (Negative); Urine Benzodiazepines Negative (Negative); Urine Cocaine Negative (Negative); Urine MDMA Negative (Negative); Urine Methadone Negative (Negative); Urine Methamphetamines Positive (Negative); Urine Oxycodone Negative (Negative); Urine Phencyclidine Negative (Negative); Urine Tetrahydrocannabinol Negative (Negative); Urine Tricyclic Antidepressant Negative (Negative)
[2022-07-28 06:22] LABS: COVID19 -Nasal RAPID Negative (Negative)
[2022-07-28] MEDS: QUETIAPINE 25 MG TABLET 150 MG PO (11:10)
[2022-07-28] MEDS: methocarbamoL 500 MG TABLET PO (11:10)
[2022-07-28] MEDS: clonazePAM 0.5 MG TABLET 1 MG PO (11:10)
[2022-07-28] MEDS: HYDROCODONE/ACET 5/325 TABLET 1 TAB PO ×2 (11:10→18:29)
[2022-07-28] MEDS: BENZTROPINE 1 MG TABLET 2 MG PO ×2 (11:19→22:27)
[2022-07-28] MEDS: haloperidoL 5 MG TABLET PO (11:19)
[2022-07-28] MEDS: PHENYTOIN ER 100 MG CAPSULE 300 MG PO (11:20)
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
[2022-07-28 13:38] VITALS: BP 111/62; PULSE 99; O2SAT 97
[2022-07-28 14:24] VITALS: TEMP 36.6
[2022-07-28] MEDS: OLANZapine ODT 10 MG TAB 20 MG PO (15:54)
[2022-07-29 02:48] VITALS: BP 120/62; PULSE 67; RESP 18; O2SAT 98
[2022-07-29] MEDS: HYDROCODONE/ACET 5/325 TABLET 1 TAB PO (05:03)
[2022-07-29] MEDS: BENZTROPINE 1 MG TABLET 2 MG PO (05:03)
[2022-07-29] MEDS: PHENYTOIN ER 100 MG CAPSULE 300 MG PO (05:03)
[2022-07-29] MEDS: QUETIAPINE 100 MG TABLET 150 MG PO (05:04)
[2022-07-29] MEDS: clonazePAM 0.5 MG TABLET 1 MG PO (05:10)
== END 2022-07-29 06:30 ==
PROVIDERS: Emergency Medicine; Emergency Provider Emergency Medicine; PCP Family Medicine
DX: F20.9 Schizophrenia, unspecified (principal); F19.959 Other psychoactive substance use, unspecified with psychoactive substance-induced psychotic disorder, unspecified; R07.9 Chest pain, unspecified; Z20.822 Contact with and (suspected) exposure to COVID-19
CPT/HCPCS: 36415; 80053; 80185; 80305; 80320; 80329; 81003; 84439; 84443; 85025; 87635; 93005; 99284; 99285; C9803; G0480

== ENCOUNTER 2022-08-09 16:20 | Emergency (ER) | payer OTHER, MEDICAID, SELFPAY ==
[2022-08-09 17:15] VITALS: BP 147/82; PULSE 80; RESP 20; TEMP 36.5; O2SAT 98; BMI 25.7
[2022-08-09 21:41] LABS: COVID19 -Nasal RAPID Negative (Negative)
[2022-08-09 22:00] LABS: Add Manual Diff / Slide Review NO; Basophils Absolute Auto 0 /uL (0-100); Basophils Percent Auto 0.8 % (0-2); Eosinophils Absolute Auto 300 /uL (0-450); Eosinophils Percent Auto 6.5 % (2-4); Hematocrit 35.5 % (41-53); Hemoglobin 12.2 g/dL (13.5-17.5); Lymphocytes Absolute Auto 1300 /uL (1100-4500); Mean Corpuscular HGB Conc 34.5 % (30-36); Mean Corpuscular Hemoglobin 33.4 PG (26-34); Mean Corpuscular Volume 96.8 fL (80-100); Monocytes Absolute Auto 300 /uL (0-900); Monocytes Percent Auto 6.4 % (3-14); Neutrophils Absolute Auto 3300 /uL (1500-7000); Neutrophils Percent Auto 62.3 % (50-75); Platelet Count 199 X10^3/uL (150-400); Red Blood Cell Count 3.67 X10^6/uL (4.5-5.9); Red Cell Distribution Width 12.9 % (11.6-14.8); White Blood Cell Count 5.2 X10^3/uL (4.5-11.0)
[2022-08-09 22:14] LABS: Acetaminophen < 10 ug/mL (10-30); Alanine Aminotransferase 24 IU/L (<50); Albumin 4.1 g/dL (3.5-5.0); Albumin Globulin Ratio 1.8 (1.0-2.8); Alkaline Phosphatase 123 U/L (38-126); Aspartate Aminotransferase 21 IU/L (17-59); BUN Creatinine Ratio 14.6 (6-22); Bilirubin Total 0.3 mg/dL (0.2-1.3); Blood Urea Nitrogen 12 mg/dL (9-20); Calcium 8.4 mg/dL (8.4-10.2); Carbon Dioxide 28 mmol/L (22-32); Chloride 102 mmol/L (98-107); Estimated Glomerular Filt Rate > 60 mL/min (>60); Ethanol (ETOH) < 10 mg/dL; Globulin 2.3 g/dL (1.7-4.1); Glucose 92 mg/dL (70-100); HEMOLYSIS < 15 (0-50); Lipase 46 U/L (23-300); Potassium 3.7 mmol/L (3.4-5.1); Salicylate < 1.0 mg/dL (<20); Sodium 135 mmol/L (137-145); Total Protein 6.4 g/dL (6.3-8.2)
[2022-08-09 22:44] LABS: Thyroid Stimulating Hormone 1.06 uIU/mL (0.47-4.68)
[2022-08-09 23:00] VITALS: BP 142/93; PULSE 79; O2SAT 97
[2022-08-09 23:25] LABS: UR Morphine/Opiate cutoff 300 Negative (Negative); Ur Creatinine Normal (Normal); Ur Specific Gravity Normal (Normal); Urine Amphetamines Positive (Negative); Urine Barbiturates Positive (Negative); Urine Benzodiazepines Negative (Negative); Urine Cocaine Negative (Negative); Urine MDMA Positive (Negative); Urine Methadone Negative (Negative); Urine Methamphetamines Positive (Negative); Urine Oxycodone Negative (Negative); Urine Phencyclidine Negative (Negative); Urine Tetrahydrocannabinol Negative (Negative); Urine Tricyclic Antidepressant Negative (Negative); Urine pH Normal (Normal)
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
--- NOTE | 2022-08-09 23:27 | DI.RAD.S_ITS ---
PROCEDURE: XR HAND RT MIN 3V INDICATIONS: R 4th and 5th MC pain after punching an object TECHNIQUE: Three views of the right hand acquired. COMPARISON: None. FINDINGS: Bones: No fractures or dislocations. Carpal bones are normally aligned. No suspicious bony lesions. Soft tissues: No suspicious soft tissue calcifications. IMPRESSION: 1. No fracture or dislocation. Dictated by: Alfonso Esquivel M.D. on 08/10/2022 at 0:30 Approved by: Alfonso Esquivel M.D. on 08/10/2022 at 0:31
[2022-08-09] MEDS: OLANZapine 2.5 MG TABLET 5 MG PO (23:44)
[2022-08-09] MEDS: LIDOCAINE 2% INJ SDV 5ML 5 ML INJ (23:44)
--- NOTE | 2022-08-10 07:52 | PC.NURSE ---
Pt laying on stretcher with eyes closed, breathing even and unlabored. Repositioning self.
--- NOTE | 2022-08-10 08:35 | PC.NURSE ---
Pt placed phone with breakfast trash, RN attempted to return phone to pt, pt stated Throw it away, it has one of those tracker apps on it. Phone in off mode, pt sticker applied and placed in pt belongings drawer.
[2022-08-10] MEDS: clonazePAM 0.5 MG TABLET 1 MG PO ×2 (09:09→13:22)
[2022-08-10] MEDS: PHENYTOIN ER 100 MG CAPSULE 300 MG PO (09:10)
[2022-08-10] MEDS: OLANZapine ODT 10 MG TAB 5 MG PO (09:11)
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
[2022-08-10 10:58] VITALS: BP 130/99; PULSE 78; RESP 18; TEMP 37; O2SAT 99
[2022-08-10] MEDS: NICOTINE 21 MG PATCH TOP (13:24)
--- NOTE | 2022-08-10 13:26 | CM.SWNOTE ---
Addendum entered by Jay Munoz 08/10/22 16:13: Pt screened and accepted for admission to [facility]. to fax scripts to [facility]. MARIO to arrange medicaid taxi transport. Jay Munzo, MACHINE CHOCOLATE MOLDER, [facility] Original Note: MACHINE CHOCOLATE MOLDER Mental Health Assessment 08/10/22 MACHINE CHOCOLATE MOLDER - Field Return Repairer Assessment MACHINE CHOCOLATE MOLDER - Field Return Repairer Assessment Start: 08/10/22 12:54 Freq: Status: Active Protocol: Document 08/10/22 12:55 VR (Rec: 08/10/22 13:25 VR [id number]) MACHINE CHOCOLATE MOLDER/Field Return Repairer Assessment Time Spent with Patient Start date 08/10/22 Visit Start Time 12:10 End date 08/10/22 Visit End Time 12:30 Total time Care Management spent on 20 patient visit-in minutes Mental Health Screening Include Onset, Duration, Intensity Presenting Problem Pt is brought in by EMS from hot in [place] after requesting to come to [facility] rather than [facility] ED. Pt reports that he is hearing voices and [place] is trying to kill him. Pt with no SI or HI. Pt indicates that [place] and others threatening me with my life. torture for me. days and days. i can hear them now telling me they will find me and kill me. they follow me everywhere. egg my door and throw things at it all night so i cant sleep. Precipitating Event(s) Pt with minimal social supports. does report he is taking his medications as prescribed. Has not followed up with OP MH services i don't have wheels only my feet so i cant make it anywhere. Patient Strengths pt continues to seek out support services independently and ask for help. Current Behavioral Health Provider(s) Pt denies. Include Facility, Provider, Ph. # Psych. Hx Mental Health and Chemical pt with hx of Schizophrenia. Dependency Pt denies that he has OP MH providers and has not followed up with any OP MH services following multiple recent IP psychiatric admissions. Pt has a significant WYATT hx. he notes escape their torture by using drugs. he reports using methamphetamine regularly. his UTOX was also positive for ecstacy on this visit. BAL was negative. No current [facility] providers. Family Hx of Behavioral Abuse Unknown Psychiatric Hospitalizations (date(s)/ Pt with multiple recent IP location) admissions. He was seen in this ED by this news writer on 2/21 /23 and transferred for voluntary IP admission to [facility]. He was seen in this ED by DARIAN HOLLAND on 07/15/22 and transferred for voluntary IP admission to [facility] in [place]. He was seen in this ED 06/27/22-06/28/22 and ultimately transferred to [facility] crisis triage from which he was sent to [facility] for a higher level of care and admitted for voluntary IP admission to [facility]. Psychosocial information & Support Patient resides in [facility] in a hotel. Patient has [facility] pillowcase cleaner Miguel Garcia (Ph. # [phone]). no current caregiver. School/Work None Legal Concerns Legal Matters - Outstanding Issues Denies pending legal issues. no significant assaultive hx. no access to firearms. Mental Status Orientation (Person/Place/Time) A&Ox4. Stated Mood tired of it all. Affect (Congruent with Mood?) largely calm and cooperative, congruent. Thought Content - Specify/Describe Positive for delusions and AH. Obsessions, Delusions, Hallucinations Pt reports being stalked by unseen others. he states constant AH of others saying they're going to kill me. Thought Processes (Jlxlkkk-Wukkdixt-Spdw tangential and perseverative Gwoqqaqx-Zzmgnkmi-Kdlaxcsajc- on unseen others that he Wrzdpndbutizgz-Cfmlhmj-Glodzhspslax- reports are stalking him. Thought Blocking) Speech (Wachlx-Toev-Yifvrcb-Rapid-Soft- WNL Loud-Pressured) Motor (Nqahis-Qrgwyvwua-Eroi-Other) WNL Insight (Trbt-Jyie-Svos/Limited) Lacking Judgement (Sjqk-Ribi-Loyc/Limited) Fair Impulse Control (Adequate-Impaired) Fair Memory (Kpsgjwnnw-Vzursl-Gyyuzb, Fair Impaired-Intact) Concentration (Intact-Impaired) Easily distracted, but easily redirected. Attention (Intact-Impaired) impaired Behavior (Appropriate-Inappropriate) appropriate Risk Assessment Suicidal Ideation (Plan) No Homicidal Ideation (Plan) No Intervention Intervention DARIAN met with pt at bedside after he had been in the ED for over 19 hours. Pt is sitting on the floor in the corner of the room. He recalls this news writer from previous visit. pt calm, cooperative, and easily engaged in assessment. Pt focuses on concern of being stalked and threatened by unseen others. he does appear to be responding to internal stimuli . Pt presentation is consistent with recent previous ED visits. Pt denies all SI and HI. pt identifies goal of ED visit to be safe. he reports that last weekend he moved to other hotels but they still followed me. he acknowledges ongoing regular methamphetamine use. Does not believe, however, that his symptoms may be related, at least in part, to drug use. Pt reports he is taking medications as prescribed. Pt has three recent voluntary IP admissions for similar concerns in the past 6 weeks. he presents as paranoid and delusional, but there is no evidence that his mood or bx are impacting his ability to meet his basic needs of health and safety. Pt with no SI or HI. Pt is not at imminent risk of harm to himself or others and is not gravely disabled. Pt is not assessed to meet criteria for IP admission at this time. He is assessed to be a good candidate for less restrictive alternative of crisis triage placement. He is agreeable to all expectations of same and requests referral to [facility]. Plan RA Plan Discussed with ED MD Jean Baptiste who is in agreement with dispo as above. Plan to refer to [facility] in [place].
[2022-08-10] MEDS: HYDROCODONE/ACET 5/325 TABLET 1 TAB PO (15:11)
[2022-08-10 18:09] VITALS: BP 122/88; PULSE 98; RESP 18; O2SAT 99
== END 2022-08-10 18:10 | disposition home or self-care (01) ==
PROVIDERS: Emergency Medicine; Emergency Provider Emergency Medicine; PCP Family Medicine
DX: R44.0 Auditory hallucinations (principal); S69.91XA Unspecified injury of right wrist, hand and finger(s), initial encounter; W22.8XXA Striking against or struck by other objects, initial encounter
CPT/HCPCS: 36415; 73130; 80053; 80305; 80320; 80329; 83690; 84443; 85025; 87635; 99284; C9803; G0480

== ENCOUNTER 2022-10-27 17:54 | Emergency (ER) | payer OTHER, MEDICAID, SELFPAY ==
[2022-10-27 17:49] VITALS: BP 143/92; PULSE 84; RESP 16; TEMP 36.6; O2SAT 98; BMI 26.1
--- NOTE | 2022-10-27 19:35 | ED.PSYCH ---
HPI - Psych <Neftali Rowland DO - Last Filed: 10/28/22 23:34> General Chief Complaint: Psychiatric Symptoms Stated Complaint: Hallucinations Time Seen by Provider: 10/27/22 19:24 Source: patient Mode of arrival: EMS Limitations: no limitations History of Present Illness HPI Narrative: Patient is a 47-year-old male with a history of schizoaffective disorder who was brought into the emergency department for hallucinations. Patient was recently at a outside facility for hallucinations and suicidal ideation. He stated that they were able to set up placement for the patient at [facility] 0.4 tomorrow however he states that he left the other emergency department because they were not giving him any of his medications and were not listening to any of his concerns. Patient states he went home from that visit and once again started to hear and see things. He is not currently suicidal. He is here in the emergency department for continued treatment. He is not currently suicidal. Related Data Home Medications Medication Instructions Recorded Confirmed phenytoin sodium extended 100 mg 300 mg PO BEDTIME 11/17/20 10/27/22 capsule haloperidol 5 mg tablet 5 mg PO BID 06/29/22 10/27/22 methocarbamol 500 mg tablet 500 mg PO Q6HR 06/29/22 10/27/22 clonidine HCl 0.1 mg tablet 0.1 mg PO BID 10/27/22 10/27/22 quetiapine 150 mg tablet 150 mg PO BEDTIME 10/27/22 10/27/22 quetiapine 50 mg tablet 50 mg PO QAM 10/27/22 10/27/22 sertraline 50 mg tablet 50 mg PO QAM 10/27/22 10/27/22 trazodone 50 mg tablet 50 mg PO DAILY 10/27/22 10/27/22 Previous Rx's Medication Instructions Recorded clonazepam 1 mg tablet 1 mg PO TID #30 tabs 08/10/22 Allergies Allergy/AdvReac Type Severity Reaction Status Date / Time hydromorphone [HYDROMORPHONE] Allergy Mild severe Verified 07/15/22 12:12 itching WITH PILL FORM morphine Allergy Mild skin Verified 07/15/22 12:12 crawl/itchy Penicillins Allergy Mild hives Verified 07/15/22 12:12 ketorolac [From Toradol] Allergy Verified 07/15/22 12:12 Review of Systems <DO Gardenia Palmer Last Filed: 10/28/22 23:34> Review of Systems ROS Unobtainable: All systems reviewed & are unremarkable except as noted in HPI and below Patient History <DO Gardenia Palmer Last Filed: 10/28/22 23:34> Medical History Alcohol abuse Anxiety Chronic pain syndrome Depression Kidney stone on left side PTSD (post-traumatic stress disorder) Seizure Social History Smoking Status: Current every day smoker Smoking Status: Current every day smoker alcohol intake frequency: holidays/special occasions only Substance Use Type: does not use, former substance user and methamphetamine Exam <DO Gardenia Palmer Last Filed: 10/28/22 23:34> Initial Vital Signs Initial Vital Signs: Vital Signs Temperature 97.8 F 10/27/22 17:49 Pulse Rate 84 10/27/22 17:49 Respiratory Rate 16 10/27/22 17:49 Blood Pressure 143/92 H 10/27/22 17:49 Pulse Oximetry 98 10/27/22 17:49 Oxygen Delivery Method Room Air 10/27/22 17:49 Const General: comfortable and No ill appearing HENMT Head: normal to inspection and normocephalic Resp Effort & Inspection: normal respiratory effort Auscultation: clear to auscultation bilaterally Cardio Rate: regular rate Rhythm: regular rhythm Skin General: no rashes or lesions noted Neuro Gait: normal gait Motor: muscle tone normal throughout Other: Patient is alert oriented. Extrem General: capillary refill normal Psych Other: Patient denies suicidal ideation. He does endorse both visual and auditory hallucinations. He states that his hallucinations are cars under driving by. <Sammi Jean Baptiste DO - Last Filed: 10/28/22 19:18> Initial Vital Signs Initial Vital Signs: Vital Signs Temperature 97.8 F 10/27/22 17:49 Pulse Rate 84 10/27/22 17:49 Respiratory Rate 16 10/27/22 17:49 Blood Pressure 143/92 H 10/27/22 17:49 Pulse Oximetry 98 10/27/22 17:49 Oxygen Delivery Method Room Air 10/27/22 17:49 Course <DO Gardenia Palmer Last Filed: 05/24/23 23:34> Orders Ordered: ED Orders 10/28/22 20:10 Phenytoin / Dilantin Stat Acetaminophen (Acetaminophen 325 Mg Tablet) 975 mg PO Q8H PRN PRN Reason: Pain, Mild (1-3) Last Admin: 10/28/22 09:44 Dose: 975 mg Documented By: NR Benztropine Mesylate (Benztropine 1 Mg Tablet) 2 mg PO DAILY [facility] Last Admin: 10/28/22 08:38 Dose: 2 mg Documented By: NR Clonazepam (Clonazepam 0.5 Mg Tablet) 1 mg PO TID [facility] Last Admin: 10/28/22 21:36 Dose: 1 mg Documented By: Admin: 10/28/22 14:36 Dose: 1 mg Documented By: Admin: 10/28/22 08:38 Dose: 1 mg Documented By: Admin: 10/27/22 20:51 Dose: 1 mg Documented By: BS Haloperidol (Haloperidol 5 Mg Tablet) 5 mg PO BID [facility] Last Admin: 10/28/22 21:47 Dose: 5 mg Documented By: Admin: 10/28/22 08:38 Dose: 5 mg Documented By: Admin: 10/27/22 21:35 Dose: 5 mg Documented By: SPF Ibuprofen (Ibuprofen 400 Mg Tablet) 800 mg PO Q8HR PRN PRN Reason: neck pain Last Admin: 10/28/22 09:44 Dose: 800 mg Documented By: NR Methocarbamol (Methocarbamol 500 Mg Tablet) 500 mg PO QID PRN PRN Reason: Muscle Spasm Last Admin: 10/28/22 14:36 Dose: 500 mg Documented By: SUKUMAR Phenytoin Sodium (Phenytoin Er 100 Mg Capsule) 300 mg PO BEDTIME [facility] Last Admin: 10/28/22 21:46 Dose: 300 mg Documented By: Admin: 10/27/22 20:51 Dose: 300 mg Documented By: BS Quetiapine Fumarate (Quetiapine 100 Mg Tablet) 150 mg PO BEDTIME [facility] Last Admin: 10/28/22 21:46 Dose: 150 mg Documented By: Admin: 10/27/22 20:52 Dose: 150 mg Documented By: BS Quetiapine Fumarate (Quetiapine 25 Mg Tablet) 50 mg PO DAILY [facility] Last Admin: 10/28/22 09:01 Dose: 50 mg Documented By: NR Sertraline HCl (Sertraline 50 Mg Tablet) 50 mg PO DAILY [facility] Last Admin: 10/28/22 08:38 Dose: 50 mg Documented By: NR Discontinued Medications Acetaminophen (Acetaminophen 325 Mg Tablet) 650 mg PO NOW ONE Stop: 10/28/22 03:24 Last Admin: 10/28/22 03:26 Dose: 650 mg Documented By: Clonazepam (Clonazepam 0.5 Mg Tablet) 1 mg PO NOW ONE Stop: 10/28/22 17:17 Last Admin: 10/28/22 18:06 Dose: 1 mg Documented By: NR Haloperidol (Haloperidol 5 Mg Tablet) 5 mg PO NOW ONE Stop: 10/28/22 12:21 Last Admin: 10/28/22 12:28 Dose: 5 mg Documented By: ALVERTO Naproxen (Naproxen 250 Mg Tablet) 500 mg PO NOW ONE Stop: 10/28/22 04:48 Last Admin: 10/28/22 06:20 Dose: 500 mg Documented By: SB Nicotine (Nicotine 21 Mg Patch) 21 mg TOP NOW ONE Stop: 10/28/22 18:26 Last Admin: 10/28/22 18:52 Dose: 21 mg Documented By: NR Vital Signs Vital signs: Vital Signs - 8 hr 10/28/22 21:50 10/28/22 21:50 Temperature 98.4 F Pulse Rate 59 L Blood Pressure 131/87 Pulse Oximetry 97 Oxygen Delivery Method Room Air <Sammi Jean Baptiste, - Last Filed: 10/28/22 19:18> Orders Ordered: ED Orders 10/28/22 20:10 Phenytoin / Dilantin Stat Acetaminophen (Acetaminophen 325 Mg Tablet) 975 mg PO Q8H PRN PRN Reason: Pain, Mild (1-3) Last Admin: 10/28/22 09:44 Dose: 975 mg Documented By: NR Benztropine Mesylate (Benztropine 1 Mg Tablet) 2 mg PO DAILY [facility] Last Admin: 10/28/22 08:38 Dose: 2 mg Documented By: NR Clonazepam (Clonazepam 0.5 Mg Tablet) 1 mg PO TID [facility] Last Admin: 10/28/22 21:36 Dose: 1 mg Documented By: Admin: 10/28/22 14:36 Dose: 1 mg Documented By: Admin: 10/28/22 08:38 Dose: 1 mg Documented By: Admin: 10/27/22 20:51 Dose: 1 mg Documented By: HO Haloperidol (Haloperidol 5 Mg Tablet) 5 mg PO BID [facility] Last Admin: 10/28/22 21:47 Dose: 5 mg Documented By: Admin: 10/28/22 08:38 Dose: 5 mg Documented By: Admin: 10/27/22 21:35 Dose: 5 mg Documented By: VIR[place]IA Ibuprofen (Ibuprofen 400 Mg Tablet) 800 mg PO Q8HR PRN PRN Reason: neck pain Last Admin: 10/28/22 09:44 Dose: 800 mg Documented By: NR Methocarbamol (Methocarbamol 500 Mg Tablet) 500 mg PO QID PRN PRN Reason: Muscle Spasm Last Admin: 10/28/22 14:36 Dose: 500 mg Documented By: SUKUMAR Phenytoin Sodium (Phenytoin Er 100 Mg Capsule) 300 mg PO BEDTIME [facility] Last Admin: 10/28/22 21:46 Dose: 300 mg Documented By: Admin: 10/27/22 20:51 Dose: 300 mg Documented By: HO Quetiapine Fumarate (Quetiapine 100 Mg Tablet) 150 mg PO BEDTIME [facility] Last Admin: 10/28/22 21:46 Dose: 150 mg Documented By: Admin: 10/27/22 20:52 Dose: 150 mg Documented By: HO Quetiapine Fumarate (Quetiapine 25 Mg Tablet) 50 mg PO DAILY [facility] Last Admin: 10/28/22 09:01 Dose: 50 mg Documented By: NR Sertraline HCl (Sertraline 50 Mg Tablet) 50 mg PO DAILY [facility] Last Admin: 10/28/22 08:38 Dose: 50 mg Documented By: NR Discontinued Medications Acetaminophen (Acetaminophen 325 Mg Tablet) 650 mg PO NOW ONE Stop: 10/28/22 03:24 Last Admin: 10/28/22 03:26 Dose: 650 mg Documented By: Clonazepam (Clonazepam 0.5 Mg Tablet) 1 mg PO NOW ONE Stop: 10/28/22 17:17 Last Admin: 10/28/22 18:06 Dose: 1 mg Documented By: NR Haloperidol (Haloperidol 5 Mg Tablet) 5 mg PO NOW ONE Stop: 10/28/22 12:21 Last Admin: 10/28/22 12:28 Dose: 5 mg Documented By: ALVERTO Naproxen (Naproxen 250 Mg Tablet) 500 mg PO NOW ONE Stop: 10/28/22 04:48 Last Admin: 10/28/22 06:20 Dose: 500 mg Documented By: SB Nicotine (Nicotine 21 Mg Patch) 21 mg TOP NOW ONE Stop: 10/28/22 18:26 Last Admin: 10/28/22 18:52 Dose: 21 mg Documented By: NR Vital Signs Vital signs: Vital Signs - 8 hr 10/28/22 21:50 10/28/22 21:50 Temperature 98.4 F Pulse Rate 59 L Blood Pressure 131/87 Pulse Oximetry 97 Oxygen Delivery Method Room Air MDM - Psych <Neftali Rowland DO - Last Filed: 10/28/22 23:34> Medical Records Attestation: I reviewed the patient's medical records. Lab Data Attestation: I reviewed the patient's lab results. 10/27/22 19:40 10/27/22 19:40 Labs: Lab Results 10/27/22 10/27/22 10/27/22 Range/Units 19:40 19:40 19:40 WBC 6.4 (4.5-11.0) X10^3/uL RBC 4.11 L (4.5-5.9) X10^6/uL Hgb 13.7 (13.5-17.5) g/dL Hct 39.7 L (41-53) % MCV 96.7 (80-100) fL MCH 33.3 (26-34) PG MCHC 34.4 (30-36) % RDW 13.7 (11.6-14.8) % Plt Count 231 (150-400) X10^3/uL Neut % (Auto) 64.9 (50-75) % Lymph % (Auto) 24.8 L (25-40) % Shannon % (Auto) 5.9 (3-14) % Eos % (Auto) 3.2 (2-4) % Baso % (Auto) 1.2 (0-2) % Neut # (Auto) 4200 (9499-6970) /uL Lymph # (Auto) 1600 (8555-4663) /uL Shannon # (Auto) 400 (0-900) /uL Eos # (Auto) 200 (0-450) /uL Baso # (Auto) 100 (0-100) /uL Sodium 135 L (137-145) mmol/L Potassium 3.9 (3.4-5.1) mmol/L Chloride 102 (98-107) mmol/L Carbon Dioxide 28 (22-32) mmol/L BUN 13 (9-20) mg/dL Creatinine 0.78 (0.66-1.25) mg/dL Estimated GFR > 60 (>60) mL/min BUN/Creatinine Ratio 16.7 (6-22) Glucose 85 (70-100) mg/dL Calcium 8.8 (8.4-10.2) mg/dL Total Bilirubin 0.2 (0.2-1.3) mg/dL AST 20 (17-59) IU/L ALT 22 (<50) IU/L Alkaline Phosphatase 109 (38-126) U/L Total Protein 6.6 (6.3-8.2) g/dL Albumin 4.1 (3.5-5.0) g/dL Globulin 2.5 (1.7-4.1) g/dL Albumin/Globulin Ratio 1.6 (1.0-2.8) Lipase 212 (23-300) U/L TSH 2.12 (0.47-4.68) uIU/mL Salicylates (<20) mg/dL U Opiates 300ng/mL cut (Negative) Ur Oxycodone Screen (Negative) Urine Methadone Screen (Negative) Acetaminophen < 10 (10-30) ug/mL Ur Barbiturates Screen (Negative) Phenytoin (10-20) ug/mL U Tricyclic Antidepress (Negative) Ur Phencyclidine Scrn (Negative) Ur Amphetamines Screen (Negative) U Methamphetamines Scrn (Negative) Ur MDMA Scrn (Ecstasy) (Negative) U Benzodiazepines Scrn (Negative) Urine Cocaine Screen (Negative) U Marijuana (THC) Screen (Negative) Ethyl Alcohol < 10 ( - 10) mg/dL SARS-CoV-2 (PCR) (Negative) 10/27/22 10/27/22 10/27/22 Range/Units 19:40 20:06 20:10 WBC (4.5-11.0) X10^3/uL RBC (4.5-5.9) X10^6/uL Hgb (13.5-17.5) g/dL Hct (41-53) % MCV (80-100) fL MCH (26-34) PG MCHC (30-36) % RDW (11.6-14.8) % Plt Count (150-400) X10^3/uL Neut % (Auto) (50-75) % Lymph % (Auto) (25-40) % Shannon % (Auto) (3-14) % Eos % (Auto) (2-4) % Baso % (Auto) (0-2) % Neut # (Auto) (9526-7114) /uL Lymph # (Auto) (1908-8486) /uL Shannon # (Auto) (0-900) /uL Eos # (Auto) (0-450) /uL Baso # (Auto) (0-100) /uL Sodium (137-145) mmol/L Potassium (3.4-5.1) mmol/L Chloride (98-107) mmol/L Carbon Dioxide (22-32) mmol/L BUN (9-20) mg/dL Creatinine (0.66-1.25) mg/dL Estimated GFR (>60) mL/min BUN/Creatinine Ratio (6-22) Glucose (70-100) mg/dL Calcium (8.4-10.2) mg/dL Total Bilirubin (0.2-1.3) mg/dL AST (17-59) IU/L ALT (<50) IU/L Alkaline Phosphatase (38-126) U/L Total Protein (6.3-8.2) g/dL Albumin (3.5-5.0) g/dL Globulin (1.7-4.1) g/dL Albumin/Globulin Ratio (1.0-2.8) Lipase (23-300) U/L TSH (0.47-4.68) uIU/mL Salicylates < 1.0 (<20) mg/dL U Opiates 300ng/mL cut Negative (Negative) Ur Oxycodone Screen Negative (Negative) Urine Methadone Screen Negative (Negative) Acetaminophen (10-30) ug/mL Ur Barbiturates Screen Positive H (Negative) Phenytoin (10-20) ug/mL U Tricyclic Antidepress Negative (Negative) Ur Phencyclidine Scrn Negative (Negative) Ur Amphetamines Screen Negative (Negative) U Methamphetamines Scrn Negative (Negative) Ur MDMA Scrn (Ecstasy) Negative (Negative) U Benzodiazepines Scrn Positive H (Negative) Urine Cocaine Screen Negative (Negative) U Marijuana (THC) Screen Negative (Negative) Ethyl Alcohol ( - 10) mg/dL SARS-CoV-2 (PCR) Negative (Negative) 10/28/22 Range/Units 20:10 WBC (4.5-11.0) X10^3/uL RBC (4.5-5.9) X10^6/uL Hgb (13.5-17.5) g/dL Hct (41-53) % MCV (80-100) fL MCH (26-34) PG MCHC (30-36) % RDW (11.6-14.8) % Plt Count (150-400) X10^3/uL Neut % (Auto) (50-75) % Lymph % (Auto) (25-40) % Shannon % (Auto) (3-14) % Eos % (Auto) (2-4) % Baso % (Auto) (0-2) % Neut # (Auto) (9781-6324) /uL Lymph # (Auto) (2073-2764) /uL Shannon # (Auto) (0-900) /uL Eos # (Auto) (0-450) /uL Baso # (Auto) (0-100) /uL Sodium (137-145) mmol/L Potassium (3.4-5.1) mmol/L Chloride (98-107) mmol/L Carbon Dioxide (22-32) mmol/L BUN (9-20) mg/dL Creatinine (0.66-1.25) mg/dL Estimated GFR (>60) mL/min BUN/Creatinine Ratio (6-22) Glucose (70-100) mg/dL Calcium (8.4-10.2) mg/dL Total Bilirubin (0.2-1.3) mg/dL AST (17-59) IU/L ALT (<50) IU/L Alkaline Phosphatase (38-126) U/L Total Protein (6.3-8.2) g/dL Albumin (3.5-5.0) g/dL Globulin (1.7-4.1) g/dL Albumin/Globulin Ratio (1.0-2.8) Lipase (23-300) U/L TSH (0.47-4.68) uIU/mL Salicylates (<20) mg/dL U Opiates 300ng/mL cut (Negative) Ur Oxycodone Screen (Negative) Urine Methadone Screen (Negative) Acetaminophen (10-30) ug/mL Ur Barbiturates Screen (Negative) Phenytoin 13.5 (10-20) ug/mL U Tricyclic Antidepress (Negative) Ur Phencyclidine Scrn (Negative) Ur Amphetamines Screen (Negative) U Methamphetamines Scrn (Negative) Ur MDMA Scrn (Ecstasy) (Negative) U Benzodiazepines Scrn (Negative) Urine Cocaine Screen (Negative) U Marijuana (THC) Screen (Negative) Ethyl Alcohol ( - 10) mg/dL SARS-CoV-2 (PCR) (Negative) MDM Narrative Medical decision making narrative: We were able to obtain and reviewed the medical records from the prior facility. He went to this facility for what was apparently hallucinations with suicidal thoughts. It appears that he stated this outside facility at least overnight. There is specific mentioned that he would like to go to [facility] however there were no beds available at the time. He was medically cleared. The next morning (which was the morning of his presentation to this emergency department) the patient was requesting to go home. It was reported that he was feeling better that he was no longer suicidal. Apparently he was seen by social work. The note specifically mentioned that he was given his home medications during his visit to that department. Here in this emergency department the patient is medically cleared. He has been calm. He tolerated his evening medications. He is not suicidal. I did talk with him about his last emergency department visit informed him that he did not specifically have any beds assigned him at [facility]. Our social studies teacher did not specifically evaluate the patient prior to the end of her shift however she did contact [facility] and apparently they would not accept the patient. They did not give a specific reason for this. I did inform the patient of this. He did request help with his hallucinations. He stated that he would like to go to a facility. Plan will be is to keep him here in the emergency department overnight. We will re-evaluate in the morning and have social work see the patient. Care turned over to day provider change shift to continue to observe and disposition. Ita 10/28/22: Patient signed out to myself by Dr. Rowland. Patient is seeking placement for hallucinations with suicidal thoughts. Reportedly was at [place] 10/26/22 overnight to 10/27/22 and did not find placement received his medications and felt better and elected to return home. After being at home for several hours began having hallucinations and then presented to our facility. There was report that [facility] may have had a bed, they were called and confirmed that they did not. Patient medically cleared, his UDS was positive for barbiturates make sense he is on phenytoin benzodiazepines. Patient's home medications were ordered including his regular Haldol, Seroquel, clonazepam and phenytoin. Records reviewed from [facility] and prior stays from the our facility. Patient states that he thinks he is having some withdrawal from opiates. He states he has been taking oxycodone some that were prescribed some home is neighbor. Noted that our drug screen for oxycodone as well as would be the day before were both negative. Patient had prescription for 7 tablets worth in September but none otherwise and has not have positive oxycodone screen on several prior visits as well. Discussed with patient will continue to seek placement at this time. He has been placed in a crisis bed before when we could not find placement but he felt that was not a positive experience. Patient is being reviewed at [facility]. [facility] does not have beds. [facility] stated they can not take him. Patient had home medications he noted that he does take Robaxin daily. This was added. He would 1 extra dose of clonazepam and 1 extra dose of Haldol today he is felt very anxious. Towards the end of the day noted that he has been drinking a lot a caffeine and he also as for nicotine patches he does smoke daily was added on by Dr. Rowland. Patient signed to Dr. Rowland for final disposition and possible placement. Dr rowland: Assumed turned over patient. Reviewed patient's daily events. Patient remains medically clear. He has been accepted to [facility]. Transportation has been arranged. He is stable for transport. <Sammi Jean Baptiste, DO - Last Filed: 10/28/22 19:18> Lab Data Labs: Lab Results 10/27/22 10/27/22 10/27/22 Range/Units 19:40 19:40 19:40 WBC 6.4 (4.5-11.0) X10^3/uL RBC 4.11 L (4.5-5.9) X10^6/uL Hgb 13.7 (13.5-17.5) g/dL Hct 39.7 L (41-53) % MCV 96.7 (80-100) fL MCH 33.3 (26-34) PG MCHC 34.4 (30-36) % RDW 13.7 (11.6-14.8) % Plt Count 231 (150-400) X10^3/uL Neut % (Auto) 64.9 (50-75) % Lymph % (Auto) 24.8 L (25-40) % Shannon % (Auto) 5.9 (3-14) % Eos % (Auto) 3.2 (2-4) % Baso % (Auto) 1.2 (0-2) % Neut # (Auto) 4200 (5794-4539) /uL Lymph # (Auto) 1600 (5983-9289) /uL Shannon # (Auto) 400 (0-900) /uL Eos # (Auto) 200 (0-450) /uL Baso # (Auto) 100 (0-100) /uL Sodium 135 L (137-145) mmol/L Potassium 3.9 (3.4-5.1) mmol/L Chloride 102 (98-107) mmol/L Carbon Dioxide 28 (22-32) mmol/L BUN 13 (9-20) mg/dL Creatinine 0.78 (0.66-1.25) mg/dL Estimated GFR > 60 (>60) mL/min BUN/Creatinine Ratio 16.7 (6-22) Glucose 85 (70-100) mg/dL Calcium 8.8 (8.4-10.2) mg/dL Total Bilirubin 0.2 (0.2-1.3) mg/dL AST 20 (17-59) IU/L ALT 22 (<50) IU/L Alkaline Phosphatase 109 (38-126) U/L Total Protein 6.6 (6.3-8.2) g/dL Albumin 4.1 (3.5-5.0) g/dL Globulin 2.5 (1.7-4.1) g/dL Albumin/Globulin Ratio 1.6 (1.0-2.8) Lipase 212 (23-300) U/L TSH 2.12 (0.47-4.68) uIU/mL Salicylates (<20) mg/dL U Opiates 300ng/mL cut (Negative) Ur Oxycodone Screen (Negative) Urine Methadone Screen (Negative) Acetaminophen < 10 (10-30) ug/mL Ur Barbiturates Screen (Negative) Phenytoin (10-20) ug/mL U Tricyclic Antidepress (Negative) Ur Phencyclidine Scrn (Negative) Ur Amphetamines Screen (Negative) U Methamphetamines Scrn (Negative) Ur MDMA Scrn (Ecstasy) (Negative) U Benzodiazepines Scrn (Negative) Urine Cocaine Screen (Negative) U Marijuana (THC) Screen (Negative) Ethyl Alcohol < 10 ( - 10) mg/dL SARS-CoV-2 (PCR) (Negative) 10/27/22 10/27/22 10/27/22 Range/Units 19:40 20:06 20:10 WBC (4.5-11.0) X10^3/uL RBC (4.5-5.9) X10^6/uL Hgb (13.5-17.5) g/dL Hct (41-53) % MCV (80-100) fL MCH (26-34) PG MCHC (30-36) % RDW (11.6-14.8) % Plt Count (150-400) X10^3/uL Neut % (Auto) (50-75) % Lymph % (Auto) (25-40) % Shannon % (Auto) (3-14) % Eos % (Auto) (2-4) % Baso % (Auto) (0-2) % Neut # (Auto) (9757-3745) /uL Lymph # (Auto) (1135-7057) /uL Shannon # (Auto) (0-900) /uL Eos # (Auto) (0-450) /uL Baso # (Auto) (0-100) /uL Sodium (137-145) mmol/L Potassium (3.4-5.1) mmol/L Chloride (98-107) mmol/L Carbon Dioxide (22-32) mmol/L BUN (9-20) mg/dL Creatinine (0.66-1.25) mg/dL Estimated GFR (>60) mL/min BUN/Creatinine Ratio (6-22) Glucose (70-100) mg/dL Calcium (8.4-10.2) mg/dL Total Bilirubin (0.2-1.3) mg/dL AST (17-59) IU/L ALT (<50) IU/L Alkaline Phosphatase (38-126) U/L Total Protein (6.3-8.2) g/dL Albumin (3.5-5.0) g/dL Globulin (1.7-4.1) g/dL Albumin/Globulin Ratio (1.0-2.8) Lipase (23-300) U/L TSH (0.47-4.68) uIU/mL Salicylates < 1.0 (<20) mg/dL U Opiates 300ng/mL cut Negative (Negative) Ur Oxycodone Screen Negative (Negative) Urine Methadone Screen Negative (Negative) Acetaminophen (10-30) ug/mL Ur Barbiturates Screen Positive H (Negative) Phenytoin (10-20) ug/mL U Tricyclic Antidepress Negative (Negative) Ur Phencyclidine Scrn Negative (Negative) Ur Amphetamines Screen Negative (Negative) U Methamphetamines Scrn Negative (Negative) Ur MDMA Scrn (Ecstasy) Negative (Negative) U Benzodiazepines Scrn Positive H (Negative) Urine Cocaine Screen Negative (Negative) U Marijuana (THC) Screen Negative (Negative) Ethyl Alcohol ( - 10) mg/dL SARS-CoV-2 (PCR) Negative (Negative) 10/28/22 Range/Units 20:10 WBC (4.5-11.0) X10^3/uL RBC (4.5-5.9) X10^6/uL Hgb (13.5-17.5) g/dL Hct (41-53) % MCV (80-100) fL MCH (26-34) PG MCHC (30-36) % RDW (11.6-14.8) % Plt Count (150-400) X10^3/uL Neut % (Auto) (50-75) % Lymph % (Auto) (25-40) % Shannon % (Auto) (3-14) % Eos % (Auto) (2-4) % Baso % (Auto) (0-2) % Neut # (Auto) (9272-1594) /uL Lymph # (Auto) (5328-5614) /uL Shannon # (Auto) (0-900) /uL Eos # (Auto) (0-450) /uL Baso # (Auto) (0-100) /uL Sodium (137-145) mmol/L Potassium (3.4-5.1) mmol/L Chloride (98-107) mmol/L Carbon Dioxide (22-32) mmol/L BUN (9-20) mg/dL Creatinine (0.66-1.25) mg/dL Estimated GFR (>60) mL/min BUN/Creatinine Ratio (6-22) Glucose (70-100) mg/dL Calcium (8.4-10.2) mg/dL Total Bilirubin (0.2-1.3) mg/dL AST (17-59) IU/L ALT (<50) IU/L Alkaline Phosphatase (38-126) U/L Total Protein (6.3-8.2) g/dL Albumin (3.5-5.0) g/dL Globulin (1.7-4.1) g/dL Albumin/Globulin Ratio (1.0-2.8) Lipase (23-300) U/L TSH (0.47-4.68) uIU/mL Salicylates (<20) mg/dL U Opiates 300ng/mL cut (Negative) Ur Oxycodone Screen (Negative) Urine Methadone Screen (Negative) Acetaminophen (10-30) ug/mL Ur Barbiturates Screen (Negative) Phenytoin 13.5 (10-20) ug/mL U Tricyclic Antidepress (Negative) Ur Phencyclidine Scrn (Negative) Ur Amphetamines Screen (Negative) U Methamphetamines Scrn (Negative) Ur MDMA Scrn (Ecstasy) (Negative) U Benzodiazepines Scrn (Negative) Urine Cocaine Screen (Negative) U Marijuana (THC) Screen (Negative) Ethyl Alcohol ( - 10) mg/dL SARS-CoV-2 (PCR) (Negative) MDM Narrative Medical decision making narrative: We were able to obtain and reviewed the medical records from the prior facility. He went to this facility for what was apparently hallucinations with suicidal thoughts. It appears that he stated this outside facility at least overnight. There is specific mentioned that he would like to go to [facility] however there were no beds available at the time. He was medically cleared. The next morning (which was the morning of his presentation to this emergency department) the patient was requesting to go home. It was reported that he was feeling better that he was no longer suicidal. Apparently he was seen by social work. The note specifically mentioned that he was given his home medications during his visit to that department. Here in this emergency department the patient is medically cleared. He has been calm. He tolerated his evening medications. He is not suicidal. I did talk with him about his last emergency department visit informed him that he did not specifically have any beds assigned him at [facility]. Our social studies teacher did not specifically evaluate the patient prior to the end of her shift however she did contact [facility] and apparently they would not accept the patient. They did not give a specific reason for this. I did inform the patient of this. He did request help with his hallucinations. He stated that he would like to go to a facility. Plan will be is to keep him here in the emergency department overnight. We will re-evaluate in the morning and have social work see the patient. Care turned over to day provider change shift to continue to observe and disposition. Ita 10/28/22: Patient signed out to myself by Dr. Rowland. Patient is seeking placement for hallucinations with suicidal thoughts. Reportedly was at [place] 10/26/22 overnight to 10/27/22 and did not find placement received his medications and felt better and elected to return home. After being at home for several hours began having hallucinations and then presented to our facility. There was report that [facility] may have had a bed, they were called and confirmed that they did not. Patient medically cleared, his UDS was positive for barbiturates make sense he is on phenytoin benzodiazepines. Patient's home medications were ordered including his regular Haldol, Seroquel, clonazepam and phenytoin. Records reviewed from [facility] and prior stays from the our facility. Patient states that he thinks he is having some withdrawal from opiates. He states he has been taking oxycodone some that were prescribed some home is neighbor. Noted that our drug screen for oxycodone as well as would be the day before were both negative. Patient had prescription for 7 tablets worth in September but none otherwise and has not have positive oxycodone screen on several prior visits as well. Discussed with patient will continue to seek placement at this time. He has been placed in a crisis bed before when we could not find placement but he felt that was not a positive experience. Patient is being reviewed at [facility]. [facility] does not have beds. [facility] stated they can not take him. Patient had home medications he noted that he does take Robaxin daily. This was added. He would 1 extra dose of clonazepam and 1 extra dose of Haldol today he is felt very anxious. Towards the end of the day noted that he has been drinking a lot a caffeine and he also as for nicotine patches he does smoke daily was added on by Dr. Rowland. Patient signed to Dr. Rowland for final disposition and possible placement. Discharge Plan Departure Patient Disposition: [facility]fer [facility] Clinical Impression: Hallucinations Prescriptions: No Action phenytoin sodium extended 100 mg capsule 300 mg PO BEDTIME haloperidol 5 mg Tablet 5 mg PO BID MDD BID methocarbamol [Robaxin] 500 mg Tablet 500 mg PO Q6HR clonazepam 1 mg tablet 1 mg PO TID Qty: 30 0RF clonidine HCl 0.1 mg tablet 0.1 mg PO BID quetiapine 150 mg tablet 150 mg PO BEDTIME trazodone 50 mg tablet 50 mg PO DAILY sertraline 50 mg tablet 50 mg PO QAM quetiapine 50 mg tablet 50 mg PO QAM Referrals: Sherri Lowe MD [Primary Care Provider] -
[2022-10-27 19:55] LABS: Add Manual Diff / Slide Review NO; Basophils Absolute Auto 100 /uL (0-100); Basophils Percent Auto 1.2 % (0-2); Eosinophils Absolute Auto 200 /uL (0-450); Eosinophils Percent Auto 3.2 % (2-4); Hematocrit 39.7 % (41-53); Hemoglobin 13.7 g/dL (13.5-17.5); Lymphocytes Absolute Auto 1600 /uL (1100-4500); Lymphocytes Percent Auto 24.8 % (25-40); Mean Corpuscular HGB Conc 34.4 % (30-36); Mean Corpuscular Hemoglobin 33.3 PG (26-34); Mean Corpuscular Volume 96.7 fL (80-100); Monocytes Absolute Auto 400 /uL (0-900); Monocytes Percent Auto 5.9 % (3-14); Neutrophils Absolute Auto 4200 /uL (1500-7000); Neutrophils Percent Auto 64.9 % (50-75); Platelet Count 231 X10^3/uL (150-400); Red Blood Cell Count 4.11 X10^6/uL (4.5-5.9); Red Cell Distribution Width 13.7 % (11.6-14.8); White Blood Cell Count 6.4 X10^3/uL (4.5-11.0)
[2022-10-27 20:10] LABS: Acetaminophen < 10 ug/mL (10-30); Alanine Aminotransferase 22 IU/L (<50); Albumin 4.1 g/dL (3.5-5.0); Albumin Globulin Ratio 1.6 (1.0-2.8); Alkaline Phosphatase 109 U/L (38-126); Aspartate Aminotransferase 20 IU/L (17-59); BUN Creatinine Ratio 16.7 (6-22); Bilirubin Total 0.2 mg/dL (0.2-1.3); Blood Urea Nitrogen 13 mg/dL (9-20); Calcium 8.8 mg/dL (8.4-10.2); Carbon Dioxide 28 mmol/L (22-32); Chloride 102 mmol/L (98-107); Estimated Glomerular Filt Rate > 60 mL/min (>60); Ethanol (ETOH) < 10 mg/dL; Globulin 2.5 g/dL (1.7-4.1); Glucose 85 mg/dL (70-100); HEMOLYSIS < 15 (0-50); Lipase 212 U/L (23-300); Potassium 3.9 mmol/L (3.4-5.1); Salicylate < 1.0 mg/dL (<20); Sodium 135 mmol/L (137-145); Total Protein 6.6 g/dL (6.3-8.2)
--- NOTE | 2022-10-27 20:31 | PC.NURSE ---
Dr. Rowland states pt is NOT high risk and can leave as he is voluntary only.
[2022-10-27 20:37] LABS: UR Morphine/Opiate cutoff 300 Negative (Negative); Ur Creatinine Normal (Normal); Ur Specific Gravity Normal (Normal); Urine Amphetamines Negative (Negative); Urine Barbiturates Positive (Negative); Urine Benzodiazepines Positive (Negative); Urine Cocaine Negative (Negative); Urine MDMA Negative (Negative); Urine Methadone Negative (Negative); Urine Methamphetamines Negative (Negative); Urine Oxycodone Negative (Negative); Urine Phencyclidine Negative (Negative); Urine Tetrahydrocannabinol Negative (Negative); Urine Tricyclic Antidepressant Negative (Negative); Urine pH Normal (Normal)
[2022-10-27 20:39] LABS: COVID19 -Nasal RAPID Negative (Negative)
[2022-10-27 20:47] LABS: Thyroid Stimulating Hormone 2.12 uIU/mL (0.47-4.68)
[2022-10-27] MEDS: clonazePAM 0.5 MG TABLET 1 MG PO (20:51)
[2022-10-27] MEDS: PHENYTOIN ER 100 MG CAPSULE 300 MG PO (20:51)
[2022-10-27] MEDS: QUETIAPINE 100 MG TABLET 150 MG PO (20:52)
[2022-10-27] MEDS: haloperidoL 5 MG TABLET PO (21:35)
[2022-10-27 22:48] VITALS: BP 131/85; PULSE 82; RESP 16; O2SAT 95
[2022-10-28 01:00] VITALS: PULSE 63; O2SAT 96
[2022-10-28 03:00] VITALS: PULSE 66; O2SAT 95
[2022-10-28] MEDS: ACETAMINOPHEN 325 MG TABLET 650 MG PO (03:26)
[2022-10-28] MEDS: NAPROXEN 250 MG TABLET 500 MG PO (06:20)
[2022-10-28] MEDS: SERTRALINE 50 MG TABLET PO (08:38)
[2022-10-28] MEDS: haloperidoL 5 MG TABLET PO ×3 (08:38→21:47)
[2022-10-28] MEDS: BENZTROPINE 1 MG TABLET 2 MG PO (08:38)
[2022-10-28] MEDS: clonazePAM 0.5 MG TABLET 1 MG PO ×4 (08:38→21:36)
[2022-10-28 08:40] VITALS: BP 136/82; PULSE 69; O2SAT 100
[2022-10-28] MEDS: QUETIAPINE 25 MG TABLET 50 MG PO (09:01)
[2022-10-28] MEDS: ACETAMINOPHEN 325 MG TABLET 975 MG PO (09:44)
[2022-10-28] MEDS: IBUPROFEN 400 MG TABLET 800 MG PO (09:44)
--- NOTE | 2022-10-28 14:31 | PC.NURSE ---
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 I need meds to help me calm down, I can't take it. I feel like I am having a mental breakdown, this is what happen to me at [facility]. I just feel like I want to run Reminded patient we are working on helping him get the help he needs. Scheduled medications coming up. Primary RN Marisa notified.
[2022-10-28] MEDS: methocarbamoL 500 MG TABLET PO (14:36)
--- NOTE | 2022-10-28 14:55 | PC.NURSE ---
pt is up to the shower. pt is feeling very restless is talking of leaving facility. spoke with patient in depth about how staying is how we will help him. we have confirmation of a bed tomorrow at [facility] but still waiting on calls from [facility].
[2022-10-28 15:01] VITALS: O2SAT 98
[2022-10-28 15:04] VITALS: BP 119/87; PULSE 83; O2SAT 97
[2022-10-28] MEDS: NICOTINE 21 MG PATCH TOP (18:52)
--- NOTE | 2022-10-28 19:37 | PC.NURSE ---
Call [facility] [phone] back when Dilantin level is back & fax [phone] w/ results and updated Doctor notes.
[2022-10-28 20:38] LABS: Phenytoin / Dilantin 13.5 ug/mL (10-20)
[2022-10-28] MEDS: PHENYTOIN ER 100 MG CAPSULE 300 MG PO (21:46)
[2022-10-28] MEDS: QUETIAPINE 100 MG TABLET 150 MG PO (21:46)
[2022-10-28 21:50] VITALS: BP 131/87; PULSE 59; TEMP 36.9; O2SAT 97
--- NOTE | 2022-10-28 23:31 | PC.NURSE ---
[facility] B[facility] crew arrived, report given to [facility]. Patient denies any immediate needs and independently positioned self of stretcher. Patient left ED at approximately 2340, with expected ETA to [facility] at 0130. [id number] report called to [facility], spoke with MAHOGANY Parks. All questions answered.
== END 2022-10-28 23:40 ==
PROVIDERS: Emergency Provider Emergency Medicine; PCP Family Medicine
DX: R44.3 Hallucinations, unspecified (principal); Z20.822 Contact with and (suspected) exposure to COVID-19
CPT/HCPCS: 36415; 80053; 80185; 80305; 80320; 80329; 83690; 84443; 85025; 87635; 99284; C9803; G0480

== ENCOUNTER 2023-01-01 11:13 | Emergency (ER) | payer OTHER, MEDICAID, SELFPAY ==
[2023-01-01 11:20] VITALS: BP 102/72; PULSE 103; RESP 18; TEMP 37; O2SAT 95; BMI 25.2
--- NOTE | 2023-01-01 11:43 | ED.PSYCH ---
HPI - Psych <SCOTTY Ashley - Last Filed: 01/03/23 11:15> General Chief Complaint: Psychiatric Symptoms Stated Complaint: SI Time Seen by Provider: 01/01/23 11:18 Source: EMS Mode of arrival: EMS History of Present Illness HPI Narrative: This is a 47-year-old male who presents to the emergency department via EMS with history of chronic schizophrenia, and presents for acute suicidal ideation which he states has gotten worse over the last few days. He has not made any attempts at harming himself. States that he has been inpatient at [facility], wishes for voluntary admission to inpatient psychiatry for suicidal ideation. He states he does not feel safe at home, he has been in contact with his team primary care physician who recommended he go to the emergency department yesterday. He states that he has tried to harm himself in the past and has not done anything to hurt himself today. States that he feels worse because he is dealing with a lot of stress, reports skin cancer and complains of pain to the right forehead where he has a scaling lesion. States that he is had oxycodone for this in the past and requests to have this. States that he was at [facility]. Patient has history of methamphetamine use. Related Data Home Medications Medication Instructions Recorded Confirmed phenytoin sodium extended 100 mg 400 mg PO BEDTIME 11/17/20 01/01/23 capsule haloperidol 5 mg tablet 5 mg PO BID 06/29/22 01/01/23 sertraline 50 mg tablet 100 mg PO QAM 10/27/22 01/01/23 chlorpromazine 50 mg tablet 50 mg PO TID 01/01/23 01/01/23 Previous Rx's Medication Instructions Recorded clonazepam 1 mg tablet 1 mg PO TID #30 tabs 08/10/22 Allergies Allergy/AdvReac Type Severity Reaction Status Date / Time hydromorphone [HYDROMORPHONE] Allergy Mild severe Verified 07/15/22 12:12 itching WITH PILL FORM morphine Allergy Mild skin Verified 07/15/22 12:12 crawl/itchy Penicillins Allergy Mild hives Verified 07/15/22 12:12 ketorolac [From Toradol] Allergy Verified 07/15/22 12:12 Review of Systems <SCOTTY Ashley - Last Filed: 01/03/23 11:15> Review of Systems ROS Unobtainable: All systems reviewed & are unremarkable except as noted in HPI and below Patient History <SCOTTY Ashley - Last Filed: 01/03/23 11:15> Medical History Alcohol abuse Anxiety Chronic pain syndrome Depression Kidney stone on left side PTSD (post-traumatic stress disorder) Seizure Social History Smoking Status: Current every day smoker Smoking Status: Current every day smoker tobacco type: cigarettes alcohol intake frequency: holidays/special occasions only Substance Use Type: does not use, former substance user and methamphetamine Exam <SCOTTY Ashley - Last Filed: 01/03/23 11:15> Narrative Exam Narrative: Reviewed vitals signs and nursing notes. General: Pleasant, sitting upright, in no acute distress, well groomed, afebrile HEENT: symmetrical facial expressions, moist mucous membranes, neck is supple, right forehead has a 3 cm x 4 cm area that is scaling, no erythema, drainage or edema, no appearance of infection, appears to be healing CV: regular rate and rhythm, warm extremities Respiratory: normal work of breathing, without tachypnea or hypoxia. GI: abdomen soft, nondistended, without CVA tenderness bilaterally. MSK: moves all extremities, no weakness, normal tone, ambulatory without deficit Skin: brisk capillary refill, without rash or wound Neuro: clear speech and normal cognition, A&O x3, GCS 15, no focal motor or sensation deficits Initial Vital Signs Initial Vital Signs: Vital Signs Temperature 98.6 F 01/01/23 11:20 Pulse Rate 103 H 01/01/23 11:20 Respiratory Rate 18 01/01/23 11:20 Blood Pressure 102/72 01/01/23 11:20 Pulse Oximetry 95 01/01/23 11:20 Oxygen Delivery Method Room Air 01/01/23 11:20 <Sammi Jean Baptiste DO - Last Filed: 01/02/23 05:49> Initial Vital Signs Initial Vital Signs: Vital Signs Temperature 98.6 F 01/01/23 11:20 Pulse Rate 103 H 01/01/23 11:20 Respiratory Rate 18 01/01/23 11:20 Blood Pressure 102/72 01/01/23 11:20 Pulse Oximetry 95 01/01/23 11:20 Oxygen Delivery Method Room Air 01/01/23 11:20 Course <SCOTTY Ashley - Last Filed: 01/03/23 11:15> Orders Ordered: Discontinued Medications Chlorpromazine HCl (Chlorpromazine 25 Mg Tablet) 50 mg PO TID [facility] Chlorpromazine HCl (Chlorpromazine 25 Mg/Ml Ampul) 12.5 mg IM TID [facility] Chlorpromazine HCl (Chlorpromazine 25 Mg/Ml Ampul) 12.5 mg IM TID [facility] Last Admin: 01/01/23 22:39 Dose: Not Given Documented By: ST Clonazepam (Clonazepam 0.5 Mg Tablet) 1 mg PO TID [facility] Last Admin: 01/01/23 22:40 Dose: 1 mg Documented By: Oxycodone/Acetaminophen (Oxycodone/Acetaminophen 5/325 Tablet) 1 tab PO NOW ONE Stop: 01/01/23 11:24 Last Admin: 01/01/23 12:14 Dose: 1 tab Documented By: ST Oxycodone/Acetaminophen (Oxycodone/Acetaminophen 5/325 Tablet) 1 tab PO NOW ONE Stop: 01/01/23 18:09 Last Admin: 01/01/23 18:12 Dose: 1 tab Documented By: ST Sertraline HCl (Sertraline 50 Mg Tablet) 100 mg PO DAILY [facility] Vital Signs Vital signs: Vital Signs - 8 hr 01/01/23 22:22 01/01/23 23:26 Pulse Rate 64 Respiratory Rate 15 Blood Pressure 97/51 L Pulse Oximetry 94 Oxygen Delivery Method Room Air Room Air <Sammi Jean Baptiste DO - Last Filed: 01/02/23 05:49> Orders Ordered: Discontinued Medications Chlorpromazine HCl (Chlorpromazine 25 Mg Tablet) 50 mg PO TID [facility] Chlorpromazine HCl (Chlorpromazine 25 Mg/Ml Ampul) 12.5 mg IM TID [facility] Chlorpromazine HCl (Chlorpromazine 25 Mg/Ml Ampul) 12.5 mg IM TID [facility] Last Admin: 01/01/23 22:39 Dose: Not Given Documented By: Clonazepam (Clonazepam 0.5 Mg Tablet) 1 mg PO TID [facility] Last Admin: 01/01/23 22:40 Dose: 1 mg Documented By: Oxycodone/Acetaminophen (Oxycodone/Acetaminophen 5/325 Tablet) 1 tab PO NOW ONE Stop: 01/01/23 11:24 Last Admin: 01/01/23 12:14 Dose: 1 tab Documented By: Oxycodone/Acetaminophen (Oxycodone/Acetaminophen 5/325 Tablet) 1 tab PO NOW ONE Stop: 01/01/23 18:09 Last Admin: 01/01/23 18:12 Dose: 1 tab Documented By: Sertraline HCl (Sertraline 50 Mg Tablet) 100 mg PO DAILY [facility] Vital Signs Vital signs: Vital Signs - 8 hr 01/01/23 22:22 01/01/23 23:26 Pulse Rate 64 Respiratory Rate 15 Blood Pressure 97/51 L Pulse Oximetry 94 Oxygen Delivery Method Room Air Room Air MDM - Psych <SCOTTY Ashley - Last Filed: 01/03/23 11:15> Lab Data 01/01/23 12:08 01/01/23 12:08 Labs: Lab Results 01/01/23 01/01/23 01/01/23 Range/Units 11:34 12:08 12:08 WBC 8.3 (4.5-11.0) X10^3/uL RBC 4.31 L (4.5-5.9) X10^6/uL Hgb 14.3 (13.5-17.5) g/dL Hct 41.3 (41-53) % MCV 96.0 (80-100) fL MCH 33.2 (26-34) PG MCHC 34.5 (30-36) % RDW 13.3 (11.6-14.8) % Plt Count 208 (150-400) X10^3/uL Neut % (Auto) 77.5 H (50-75) % Lymph % (Auto) 16.0 L (25-40) % Clark % (Auto) 4.2 (3-14) % Eos % (Auto) 1.5 L (2-4) % Baso % (Auto) 0.8 (0-2) % Neut # (Auto) 6500 (3256-3179) /uL Lymph # (Auto) 1300 (5507-8587) /uL Clark # (Auto) 300 (0-900) /uL Eos # (Auto) 100 (0-450) /uL Baso # (Auto) 100 (0-100) /uL Sodium 136 L (137-145) mmol/L Potassium 4.1 (3.4-5.1) mmol/L Chloride 102 (98-107) mmol/L Carbon Dioxide 30 (22-32) mmol/L BUN 17 (9-20) mg/dL Creatinine 0.88 (0.66-1.25) mg/dL Estimated GFR > 60 (>60) mL/min BUN/Creatinine Ratio 19.3 (6-22) Glucose 95 (70-100) mg/dL Calcium 8.9 (8.4-10.2) mg/dL Total Bilirubin 0.2 (0.2-1.3) mg/dL AST 24 (17-59) IU/L ALT 21 (<50) IU/L Alkaline Phosphatase 117 (38-126) U/L Total Protein 6.8 (6.3-8.2) g/dL Albumin 4.2 (3.5-5.0) g/dL Globulin 2.6 (1.7-4.1) g/dL Albumin/Globulin Ratio 1.6 (1.0-2.8) TSH (0.47-4.68) uIU/mL U Opiates 300ng/mL cut Negative (Negative) Ur Oxycodone Screen Negative (Negative) Urine Methadone Screen Negative (Negative) Ur Barbiturates Screen Positive H (Negative) U Tricyclic Antidepress Negative (Negative) Ur Phencyclidine Scrn Negative (Negative) Ur Amphetamines Screen Positive H (Negative) U Methamphetamines Scrn Positive H (Negative) Ur MDMA Scrn (Ecstasy) Negative (Negative) U Benzodiazepines Scrn Negative (Negative) Urine Cocaine Screen Negative (Negative) U Marijuana (THC) Screen Negative (Negative) Ethyl Alcohol < 10 ( - 10) mg/dL SARS-CoV-2 (PCR) (Negative) 01/01/23 01/01/23 Range/Units 12:08 12:08 WBC (4.5-11.0) X10^3/uL RBC (4.5-5.9) X10^6/uL Hgb (13.5-17.5) g/dL Hct (41-53) % MCV (80-100) fL MCH (26-34) PG MCHC (30-36) % RDW (11.6-14.8) % Plt Count (150-400) X10^3/uL Neut % (Auto) (50-75) % Lymph % (Auto) (25-40) % Clark % (Auto) (3-14) % Eos % (Auto) (2-4) % Baso % (Auto) (0-2) % Neut # (Auto) (6217-8551) /uL Lymph # (Auto) (6540-6321) /uL Clark # (Auto) (0-900) /uL Eos # (Auto) (0-450) /uL Baso # (Auto) (0-100) /uL Sodium (137-145) mmol/L Potassium (3.4-5.1) mmol/L Chloride (98-107) mmol/L Carbon Dioxide (22-32) mmol/L BUN (9-20) mg/dL Creatinine (0.66-1.25) mg/dL Estimated GFR (>60) mL/min BUN/Creatinine Ratio (6-22) Glucose (70-100) mg/dL Calcium (8.4-10.2) mg/dL Total Bilirubin (0.2-1.3) mg/dL AST (17-59) IU/L ALT (<50) IU/L Alkaline Phosphatase (38-126) U/L Total Protein (6.3-8.2) g/dL Albumin (3.5-5.0) g/dL Globulin (1.7-4.1) g/dL Albumin/Globulin Ratio (1.0-2.8) TSH 1.15 (0.47-4.68) uIU/mL U Opiates 300ng/mL cut (Negative) Ur Oxycodone Screen (Negative) Urine Methadone Screen (Negative) Ur Barbiturates Screen (Negative) U Tricyclic Antidepress (Negative) Ur Phencyclidine Scrn (Negative) Ur Amphetamines Screen (Negative) U Methamphetamines Scrn (Negative) Ur MDMA Scrn (Ecstasy) (Negative) U Benzodiazepines Scrn (Negative) Urine Cocaine Screen (Negative) U Marijuana (THC) Screen (Negative) Ethyl Alcohol ( - 10) mg/dL SARS-CoV-2 (PCR) Negative (Negative) Urine Dip Bedside Urine Glucose Negative Bedside Urine Bilirubin - Negative Bedside Urine Ketone - Negative Urine Specific [place] 1.010 Bedside Urine Occult Blood - Negative Bedside Urine pH 7.0 Bedside Urine Protein - Negative Bedside Urine Urobilinogen - Negative Bedside Urine Nitrite - Negative Bedside Urine Leukocytes - Negative Esterase ECG Data Interpretation: EKG independently reviewed by myself at 1206 reveals normal sinus rhythm at 88 bpm with regular axis and intervals. No STEMI, ST segment changes, arrhythmia, or acute ischemic changes. MDM Narrative Medical decision making narrative: Chief Complaint: suicidal ideation Multiple etiologies for patient's complaint considered including, but not limited to: suicidal ideation, psychosis, thyroid disorder, intoxication, depression I have independently reviewed the patient's vital signs and nursing notes as well as prior records if available. My interpretation of diagnostic tests: Urine drug screen positive for barbiturates, amphetamines, methamphetamines and negative for other tested agents, patient has a prescription benzodiazepines on his history. CBC without leukocytosis or anemia, lymphopenia and mild increase neutrophils, CMP is unremarkable. Ethanol level not detectable, COVID PCR is negative, normal TSH EKG with normal sinus rhythm without ST changes, normal intervals, rate and axis. Course of Care: Patient is medically clear as of 1300 for psychiatric evaluation. He was ordered a diet with a safety tray and has had lunch, is calm, cooperative and pleasant. [facility] accepts patient's chart and case for review [facility] is reviewing patient case currently, patient is calm, resting in room, denies any needs at this time. Social considerations that may affect disposition: none Questions are addressed and there is agreement with the plan and for follow-up. I consulted with the ED attending physician Dr. Valderrama as needed for higher level of care considerations and they were available for discussion and recommendations regarding plan of care and diagnostic testing. Patient is appropriate for admission to inpatient psych <Sammi Jean Baptiste, DO - Last Filed: 01/02/23 05:49> Lab Data Labs: Lab Results 01/01/23 01/01/23 01/01/23 Range/Units 11:34 12:08 12:08 WBC 8.3 (4.5-11.0) X10^3/uL RBC 4.31 L (4.5-5.9) X10^6/uL Hgb 14.3 (13.5-17.5) g/dL Hct 41.3 (41-53) % MCV 96.0 (80-100) fL MCH 33.2 (26-34) PG MCHC 34.5 (30-36) % RDW 13.3 (11.6-14.8) % Plt Count 208 (150-400) X10^3/uL Neut % (Auto) 77.5 H (50-75) % Lymph % (Auto) 16.0 L (25-40) % Clark % (Auto) 4.2 (3-14) % Eos % (Auto) 1.5 L (2-4) % Baso % (Auto) 0.8 (0-2) % Neut # (Auto) 6500 (8158-1070) /uL Lymph # (Auto) 1300 (5888-1145) /uL Clark # (Auto) 300 (0-900) /uL Eos # (Auto) 100 (0-450) /uL Baso # (Auto) 100 (0-100) /uL Sodium 136 L (137-145) mmol/L Potassium 4.1 (3.4-5.1) mmol/L Chloride 102 (98-107) mmol/L Carbon Dioxide 30 (22-32) mmol/L BUN 17 (9-20) mg/dL Creatinine 0.88 (0.66-1.25) mg/dL Estimated GFR > 60 (>60) mL/min BUN/Creatinine Ratio 19.3 (6-22) Glucose 95 (70-100) mg/dL Calcium 8.9 (8.4-10.2) mg/dL Total Bilirubin 0.2 (0.2-1.3) mg/dL AST 24 (17-59) IU/L ALT 21 (<50) IU/L Alkaline Phosphatase 117 (38-126) U/L Total Protein 6.8 (6.3-8.2) g/dL Albumin 4.2 (3.5-5.0) g/dL Globulin 2.6 (1.7-4.1) g/dL Albumin/Globulin Ratio 1.6 (1.0-2.8) TSH (0.47-4.68) uIU/mL U Opiates 300ng/mL cut Negative (Negative) Ur Oxycodone Screen Negative (Negative) Urine Methadone Screen Negative (Negative) Ur Barbiturates Screen Positive H (Negative) U Tricyclic Antidepress Negative (Negative) Ur Phencyclidine Scrn Negative (Negative) Ur Amphetamines Screen Positive H (Negative) U Methamphetamines Scrn Positive H (Negative) Ur MDMA Scrn (Ecstasy) Negative (Negative) U Benzodiazepines Scrn Negative (Negative) Urine Cocaine Screen Negative (Negative) U Marijuana (THC) Screen Negative (Negative) Ethyl Alcohol < 10 ( - 10) mg/dL SARS-CoV-2 (PCR) (Negative) 01/01/23 01/01/23 Range/Units 12:08 12:08 WBC (4.5-11.0) X10^3/uL RBC (4.5-5.9) X10^6/uL Hgb (13.5-17.5) g/dL Hct (41-53) % MCV (80-100) fL MCH (26-34) PG MCHC (30-36) % RDW (11.6-14.8) % Plt Count (150-400) X10^3/uL Neut % (Auto) (50-75) % Lymph % (Auto) (25-40) % Clark % (Auto) (3-14) % Eos % (Auto) (2-4) % Baso % (Auto) (0-2) % Neut # (Auto) (3694-3736) /uL Lymph # (Auto) (1474-2540) /uL Clark # (Auto) (0-900) /uL Eos # (Auto) (0-450) /uL Baso # (Auto) (0-100) /uL Sodium (137-145) mmol/L Potassium (3.4-5.1) mmol/L Chloride (98-107) mmol/L Carbon Dioxide (22-32) mmol/L BUN (9-20) mg/dL Creatinine (0.66-1.25) mg/dL Estimated GFR (>60) mL/min BUN/Creatinine Ratio (6-22) Glucose (70-100) mg/dL Calcium (8.4-10.2) mg/dL Total Bilirubin (0.2-1.3) mg/dL AST (17-59) IU/L ALT (<50) IU/L Alkaline Phosphatase (38-126) U/L Total Protein (6.3-8.2) g/dL Albumin (3.5-5.0) g/dL Globulin (1.7-4.1) g/dL Albumin/Globulin Ratio (1.0-2.8) TSH 1.15 (0.47-4.68) uIU/mL U Opiates 300ng/mL cut (Negative) Ur Oxycodone Screen (Negative) Urine Methadone Screen (Negative) Ur Barbiturates Screen (Negative) U Tricyclic Antidepress (Negative) Ur Phencyclidine Scrn (Negative) Ur Amphetamines Screen (Negative) U Methamphetamines Scrn (Negative) Ur MDMA Scrn (Ecstasy) (Negative) U Benzodiazepines Scrn (Negative) Urine Cocaine Screen (Negative) U Marijuana (THC) Screen (Negative) Ethyl Alcohol ( - 10) mg/dL SARS-CoV-2 (PCR) Negative (Negative) Urine Dip Bedside Urine Glucose Negative Bedside Urine Bilirubin - Negative Bedside Urine Ketone - Negative Urine Specific [place] 1.010 Bedside Urine Occult Blood - Negative Bedside Urine pH 7.0 Bedside Urine Protein - Negative Bedside Urine Urobilinogen - Negative Bedside Urine Nitrite - Negative Bedside Urine Leukocytes - Negative Esterase MDM Narrative Medical decision making narrative: Chief Complaint: suicidal ideation Multiple etiologies for patient's complaint considered including, but not limited to: suicidal ideation, psychosis, thyroid disorder, intoxication, depression I have independently reviewed the patient's vital signs and nursing notes as well as prior records if available. My interpretation of diagnostic tests: Urine drug screen positive for barbiturates, amphetamines, methamphetamines and negative for other tested agents, patient has a prescription benzodiazepines on his history. CBC without leukocytosis or anemia, lymphopenia and mild increase neutrophils, CMP is unremarkable. Ethanol level not detectable, COVID PCR is negative, normal TSH EKG with normal sinus rhythm without ST changes, normal intervals, rate and axis. Course of Care: Patient is medically clear as of 1300 for psychiatric evaluation. He was ordered a diet with a safety tray and has had lunch, is calm, cooperative and pleasant. [facility] accepts patient's chart and case for review [facility] is reviewing patient case currently, patient is calm, resting in room, denies any needs at this time. Social considerations that may affect disposition: none Questions are addressed and there is agreement with the plan and for follow-up. I consulted with the ED attending physician Dr. Valderrama as needed for higher level of care considerations and they were available for discussion and recommendations regarding plan of care and diagnostic testing. Patient is appropriate for admission to inpatient psych Patient signed out to myself by [facility]. patient seen and evaluated. Patient is workup was reviewed. Patient has been up to the bathroom several times he is voluntary he is medically cleared for transfer and was accepted at [facility] point. Patient's blood pressure was noted to be in the 90 systolic but has been tolerating without any issue here in the department. ambulating to and from the bathroom. He did receive a dose of IM Thorazine as we do not have oral Thorazine available dose was adjusted by pharmacy per their protocol. Discharge Plan Departure Patient Disposition: Xfer Psychiatric Hosp Clinical Impression: Suicidal ideation Activity Restrictions/Additional Instructions: *You have been diagnosed with *What to do: *Please continue to take your regular medications as directed. [ ] New medication prescriptions sent to your pharmacy: [ ] [ ] New medication written as a paper prescription [ ] No new medications given *Please call and schedule follow up with your primary care provider in 2-3 days, at least for an update. Let them know you were seen in the Emergency Department for the above problem. We will electronically transmit a record of today's note if your PCP or specialist is in our system. *If you do not have a primary care provider please contact [phone] to establish care with one of the [facility] primary care providers. *Return to the Emergency Department for worsening symptoms, inability to keep liquids down, fever greater than 101F, chills, or other concerning symptom. Prescriptions: No Action phenytoin sodium extended 100 mg capsule 400 mg PO BEDTIME haloperidol 5 mg Tablet 5 mg PO BID MDD BID clonazepam 1 mg tablet 1 mg PO TID Qty: 30 0RF sertraline 50 mg tablet 100 mg PO QAM chlorpromazine 50 mg tablet 50 mg PO TID Referrals: Sherri Lowe MD [Primary Care Provider] -
[2023-01-01 11:48] LABS: UR Morphine/Opiate cutoff 300 Negative (Negative); Ur Creatinine Normal (Normal); Ur Specific Gravity Normal (Normal); Urine Amphetamines Positive (Negative); Urine Barbiturates Positive (Negative); Urine Benzodiazepines Negative (Negative); Urine Cocaine Negative (Negative); Urine MDMA Negative (Negative); Urine Methadone Negative (Negative); Urine Methamphetamines Positive (Negative); Urine Oxycodone Negative (Negative); Urine Phencyclidine Negative (Negative); Urine Tetrahydrocannabinol Negative (Negative); Urine Tricyclic Antidepressant Negative (Negative); Urine pH Normal (Normal)
[2023-01-01] MEDS: OXYCODONE/ACETAMINOPHEN 5/325 TABLET 1 TAB PO ×2 (12:14→18:12)
[2023-01-01 12:19] LABS: Add Manual Diff / Slide Review NO; Basophils Absolute Auto 100 /uL (0-100); Basophils Percent Auto 0.8 % (0-2); Eosinophils Absolute Auto 100 /uL (0-450); Eosinophils Percent Auto 1.5 % (2-4); Hematocrit 41.3 % (41-53); Hemoglobin 14.3 g/dL (13.5-17.5); Lymphocytes Absolute Auto 1300 /uL (1100-4500); Mean Corpuscular HGB Conc 34.5 % (30-36); Mean Corpuscular Hemoglobin 33.2 PG (26-34); Monocytes Absolute Auto 300 /uL (0-900); Monocytes Percent Auto 4.2 % (3-14); Neutrophils Absolute Auto 6500 /uL (1500-7000); Neutrophils Percent Auto 77.5 % (50-75); Platelet Count 208 X10^3/uL (150-400); Red Blood Cell Count 4.31 X10^6/uL (4.5-5.9); Red Cell Distribution Width 13.3 % (11.6-14.8); White Blood Cell Count 8.3 X10^3/uL (4.5-11.0)
[2023-01-01 12:31] LABS: Alanine Aminotransferase 21 IU/L (<50); Albumin 4.2 g/dL (3.5-5.0); Albumin Globulin Ratio 1.6 (1.0-2.8); Alkaline Phosphatase 117 U/L (38-126); Aspartate Aminotransferase 24 IU/L (17-59); BUN Creatinine Ratio 19.3 (6-22); Bilirubin Total 0.2 mg/dL (0.2-1.3); Blood Urea Nitrogen 17 mg/dL (9-20); Calcium 8.9 mg/dL (8.4-10.2); Carbon Dioxide 30 mmol/L (22-32); Chloride 102 mmol/L (98-107); Estimated Glomerular Filt Rate > 60 mL/min (>60); Ethanol (ETOH) < 10 mg/dL; Globulin 2.6 g/dL (1.7-4.1); Glucose 95 mg/dL (70-100); HEMOLYSIS 16 (0-50); Potassium 4.1 mmol/L (3.4-5.1); Sodium 136 mmol/L (137-145); Total Protein 6.8 g/dL (6.3-8.2)
[2023-01-01 12:58] LABS: COVID19 -Nasal RAPID Negative (Negative)
[2023-01-01 13:06] VITALS: BP 92/50; PULSE 91; O2SAT 99
[2023-01-01 13:15] VITALS: BP 98/52; PULSE 92; O2SAT 99
[2023-01-01 13:22] LABS: TSH w/ Reflex to FT4 1.15 uIU/mL (0.47-4.68)
[2023-01-01 17:22] VITALS: BP 96/54; PULSE 84; O2SAT 94
--- NOTE | 2023-01-01 18:06 | PC.NURSE ---
KNITTER OPERATOR note: pt. got up from hospital bed and laid on floor with pillow and blanket. this horseback riding instructor offered the safety mattress to the pt. and pt. refused. notified RN. this KNITTER OPERATOR will continue to monitor.
[2023-01-01 19:09] VITALS: BP 97/56
--- NOTE | 2023-01-01 19:12 | PC.NURSE ---
Gave report to MAHOGANY Johnston at [place]
--- NOTE | 2023-01-01 19:30 | PC.NURSE ---
Provider aware of BP
[2023-01-01 22:22] VITALS: BP 97/51; PULSE 64; RESP 15; O2SAT 94
[2023-01-01] MEDS: clonazePAM 0.5 MG TABLET 1 MG PO (22:40)
--- NOTE | 2023-01-01 23:17 | PC.NURSE ---
Safe handoff report to [facility]. Pt A&Ox4, ambulates with steady gait on departure.
--- NOTE | 2023-01-01 23:25 | PC.NURSE ---
MD aware of BP 97/51 on departure, advises OK to transfer
== END 2023-01-01 23:25 ==
PROVIDERS: Nurse Practitioner Critical Care Medicine; Emergency Provider Emergency Medicine; PCP Family Medicine
DX: R45.851 Suicidal ideations (principal); R03.1 Nonspecific low blood-pressure reading
CPT/HCPCS: 80053; 80305; 80320; 81003; 84443; 85025; 87635; 93005; 99284; C9803

== ENCOUNTER 2023-01-11 13:53 | Emergency (ER) | payer OTHER, MEDICAID, SELFPAY ==
[2023-01-11 15:08] VITALS: BP 108/72; PULSE 95; RESP 16; TEMP 36.4; O2SAT 97; BMI 24.5
[2023-01-11] MEDS: ONDANSETRON 4 MG ODT PO (17:01)
[2023-01-11 17:17] LABS: Add Manual Diff / Slide Review NO; Basophils Absolute Auto 100 /uL (0-100); Basophils Percent Auto 1.1 % (0-2); Eosinophils Absolute Auto 200 /uL (0-450); Eosinophils Percent Auto 2.8 % (2-4); Hematocrit 38.6 % (41-53); Hemoglobin 13.7 g/dL (13.5-17.5); Lymphocytes Absolute Auto 1900 /uL (1100-4500); Lymphocytes Percent Auto 29.8 % (25-40); Mean Corpuscular HGB Conc 35.4 % (30-36); Mean Corpuscular Hemoglobin 33.4 PG (26-34); Mean Corpuscular Volume 94.3 fL (80-100); Monocytes Absolute Auto 300 /uL (0-900); Monocytes Percent Auto 5.1 % (3-14); Neutrophils Absolute Auto 4000 /uL (1500-7000); Neutrophils Percent Auto 61.2 % (50-75); Platelet Count 251 X10^3/uL (150-400); Red Blood Cell Count 4.09 X10^6/uL (4.5-5.9); Red Cell Distribution Width 13.3 % (11.6-14.8); White Blood Cell Count 6.5 X10^3/uL (4.5-11.0)
[2023-01-11 17:33] LABS: Alanine Aminotransferase 22 IU/L (<50); Albumin 4.1 g/dL (3.5-5.0); Albumin Globulin Ratio 1.7 (1.0-2.8); Alkaline Phosphatase 123 U/L (38-126); Aspartate Aminotransferase 18 IU/L (17-59); BUN Creatinine Ratio 11.1 (6-22); Bilirubin Total 0.5 mg/dL (0.2-1.3); Blood Urea Nitrogen 9 mg/dL (9-20); Calcium 8.4 mg/dL (8.4-10.2); Carbon Dioxide 23 mmol/L (22-32); Chloride 99 mmol/L (98-107); Estimated Glomerular Filt Rate > 60 mL/min (>60); Globulin 2.4 g/dL (1.7-4.1); Glucose 100 mg/dL (70-100); HEMOLYSIS < 15 (0-50); Lipase 753 U/L (23-300); Potassium 3.9 mmol/L (3.4-5.1); Sodium 127 mmol/L (137-145); Total Protein 6.5 g/dL (6.3-8.2)
[2023-01-11 18:00] VITALS: BP 115/07; PULSE 85; RESP 18; O2SAT 97
--- NOTE | 2023-01-11 18:07 | DI.US.S_ITS ---
PROCEDURE: US ABDOMEN LIMITED INDICATIONS: ABDOMINAL PAIN VOMITTING PANCREATITIS TECHNIQUE: Real-time scanning was performed of the abdominal and retroperitoneal organs, with image documentation. COMPARISON: None. FINDINGS: Liver: Liver is enlarged and show diffusely increased liver parenchymal echotexture. No discrete hepatic lesion is seen. Gallbladder: Gallbladder is slightly contracted with questionable gallbladder wall thickening measures 3.6 mm in thickness. No gallstones. No pericholecystic fluid or sonographic Jiménez sign. Biliary ducts: Intrahepatic bile ducts are non-dilated. Extrahepatic bile duct caliber measures 2.8 mm. Normal is 6-7 mm or less in diameter, or 10 mm or less post-cholecystectomy. Pancreas: Visualized portions of the pancreas are sonographically normal. IMPRESSION: 1. Contracted gallbladder with questionable gallbladder wall thickening. No sonographic evidence of acute cholecystitis. No biliary ductal dilatation. 2. Hepatomegaly and hepatic steatosis, no discrete hepatic lesion. 3. No gross abnormality is seen in visualized portion of pancreas. No peripancreatic fluid collection. Dictated by: Michael Boogie M.D. on 01/11/2023 at 18:56 Approved by: Michael Boogie M.D. on 01/11/2023 at 18:58
--- NOTE | 2023-01-11 18:09 | ED_ITS ---
HPI - Abdominal Pain General Chief Complaint: Abdominal Pain Stated Complaint: Vomiting Abd Pain Time Seen by Provider: 01/11/23 18:07 Source: patient Mode of arrival: Wheelchair History of Present Illness HPI narrative: 47M smoker with history of kidney stones, schizoaffective disorder presents with a chief complaint of gradually worsening abdominal pain along with nausea and vomiting over the course of the day. He states that he was in his normal state of health yesterday and started feeling bad this morning. His primary locations of pain are right upper quadrant but also left lower quadrant. His pain is worse when he moves and seems to improve with rest. Denies any obvious for radiation of the pain nor any association with eating. He does admit that he has a poor appetite. He states he has a surgically naive abdomen. He is had no fever but admits to chills. He denies dysuria, frequency or urgency. Denies any chest pain or shortness of breath. He denies any history of the same Related Data Home Medications Medication Instructions Recorded Confirmed phenytoin sodium extended 100 mg 400 mg PO BEDTIME 11/17/20 01/01/23 capsule haloperidol 5 mg tablet 5 mg PO BID 06/29/22 01/01/23 sertraline 50 mg tablet 100 mg PO QAM 10/27/22 01/01/23 chlorpromazine 50 mg tablet 50 mg PO TID 01/01/23 01/01/23 Previous Rx's Medication Instructions Recorded clonazepam 1 mg tablet 1 mg PO TID #30 tabs 08/10/22 hydrocodone 5 mg-acetaminophen 325 1 tab PO Q4-6H PRN pain #10 tabs 01/11/23 mg tablet ondansetron 4 mg disintegrating 4 mg PO TID-QID PRN nausea and 01/11/23 tablet vomiting #10 tabs Allergies Allergy/AdvReac Type Severity Reaction Status Date / Time hydromorphone [HYDROMORPHONE] Allergy Mild severe Verified 01/11/23 15:11 itching WITH PILL FORM morphine Allergy Mild skin Verified 01/11/23 15:11 crawl/itchy Penicillins Allergy Mild hives Verified 01/11/23 15:11 ketorolac [From Toradol] Allergy Verified 01/11/23 15:11 Review of Systems Review of Systems Narrative: GENERAL: See HPI HEENT: Denies sinus pain, ear pain, sore throat, difficulty swallowing, dizziness. RESPIRATORY: Denies dyspnea, cough, wheezing, hemoptysis, sputum. CARDIOVASCULAR: Denies chest pain, palpitations, orthopnea, edema, GASTROINTESTINAL: See HPI : Denies dysuria, frequency, incontinence, hematuria, urinary retention. MUSCULOSKELETAL: denies weakness, joint pain, or bony pain SKIN: Denies rash, skin lesions, or other NEUROLOGIC: Denies weakness, headache, numbness, change in speech, confusion, seizures, incoordination. PSYCHIATRIC: No concerning psychosocial issues. 12 point review of systems is negative except for those stated above Patient History Medical History Alcohol abuse Anxiety Chronic pain syndrome Depression Kidney stone on left side PTSD (post-traumatic stress disorder) Seizure Social History Smoking Status: Current every day smoker Smoking Status: Current every day smoker tobacco type: cigarettes alcohol intake frequency: holidays/special occasions only Substance Use Type: does not use, former substance user and methamphetamine Exam Narrative Exam Narrative: GENERAL: [47] year old patient appears stated age. Well-developed patient, in mild distress. HEAD: Atraumatic. Normocephalic. EYES: Pupils equal round and reactive. Extraocular motions intact. No scleral icterus. No injection or drainage. ENT: Nose without bleeding, purulent drainage. Throat without erythema, tonsi llar hypertrophy or exudate. Airway patent. NECK: Trachea midline. Non tender CARDIOVASCULAR: Regular rate and rhythm without murmurs, gallops, or rubs. RESPIRATORY: Clear to auscultation. Breath sounds equal bilaterally. No wheezes, rales, or rhonchi. GASTROINTESTINAL: Abdomen soft, tender in the right upper quadrant and also left lower quadrant with localized guarding, no rebound, nondistended. EXTREMITIES: No edema or joint tenderness. BACK: Nontender without deformity or crepitance. No flank tenderness. NEURO: AOx3. SKIN: No rash or erythema of visible areas Initial Vital Signs Initial Vital Signs: Vital Signs Temperature 97.6 F 01/11/23 15:08 Pulse Rate 95 H 01/11/23 15:08 Respiratory Rate 16 01/11/23 15:08 Blood Pressure 108/72 01/11/23 15:08 Pulse Oximetry 97 01/11/23 15:08 Oxygen Delivery Method Room Air 01/11/23 15:08 Course Orders Ordered: Discontinued Medications Hydrocodone Bitart/Acetaminophen (Hydrocodone/Acet 5/325 Prepack) 1 bottle MISC SEEINSTR ONE Stop: 01/11/23 20:13 Last Admin: 01/11/23 20:17 Dose: 1 bottle Documented By: CECILLE Hydromorphone HCl (Hydromorphone 0.5 Mg Inj) 0.5 mg IV NOW ONE Stop: 01/11/23 18:29 Last Admin: 01/11/23 18:40 Dose: 0.5 mg Documented By: SHIRA Sodium Chloride (Normal Saline 0.9%) 1,000 mls @ 1,000 mls/hr IV BOLUS ONE Stop: 01/11/23 19:06 Last Infusion: 01/11/23 19:45 Dose: 0 mls/hr Documented By: Admin: 01/11/23 18:43 Dose: 1,000 mls/hr Documented By: SHIRA Ondansetron HCl (Ondansetron 4 Mg Odt) 4 mg PO NOW PRN PRN Reason: Nausea And Vomiting Last Admin: 01/11/23 17:01 Dose: 4 mg Documented By: SHIRA Ondansetron HCl (Ondansetron 4 Mg/2 Ml Inj) 4 mg IV NOW PRN PRN Reason: Nausea And Vomiting Last Admin: 01/11/23 18:40 Dose: 4 mg Documented By: SHIRA Ondansetron HCl (Ondansetron 4 Mg Odt Prepack) 1 bottle MISC SEEINSTR ONE Stop: 01/11/23 20:13 Last Admin: 01/11/23 20:17 Dose: 1 bottle Documented By: CECILLE Pantoprazole Sodium (Pantoprazole 40 Mg Vial) 40 mg IV NOW ONE Stop: 01/11/23 18:29 Last Admin: 01/11/23 18:42 Dose: 40 mg Documented By: SHIRA Vital Signs Vital signs: Vital Signs - 8 hr 01/11/23 15:08 Temperature 97.6 F Pulse Rate 95 H Respiratory Rate 16 Blood Pressure 108/72 Pulse Oximetry 97 Oxygen Delivery Method Room Air MDM - Abdominal Pain Lab Data 01/11/23 17:05 01/11/23 17:05 Labs: Lab Results 01/11/23 01/11/23 Range/Units 17:05 17:05 WBC 6.5 (4.5-11.0) X10^3/uL RBC 4.09 L (4.5-5.9) X10^6/uL Hgb 13.7 (13.5-17.5) g/dL Hct 38.6 L (41-53) % MCV 94.3 (80-100) fL MCH 33.4 (26-34) PG MCHC 35.4 (30-36) % RDW 13.3 (11.6-14.8) % Plt Count 251 (150-400) X10^3/uL Neut % (Auto) 61.2 (50-75) % Lymph % (Auto) 29.8 (25-40) % Carlton % (Auto) 5.1 (3-14) % Eos % (Auto) 2.8 (2-4) % Baso % (Auto) 1.1 (0-2) % Neut # (Auto) 4000 (4327-8588) /uL Lymph # (Auto) 1900 (6761-4899) /uL Carlton # (Auto) 300 (0-900) /uL Eos # (Auto) 200 (0-450) /uL Baso # (Auto) 100 (0-100) /uL Sodium 127 L (137-145) mmol/L Potassium 3.9 (3.4-5.1) mmol/L Chloride 99 (98-107) mmol/L Carbon Dioxide 23 (22-32) mmol/L BUN 9 (9-20) mg/dL Creatinine 0.81 (0.66-1.25) mg/dL Estimated GFR > 60 (>60) mL/min BUN/Creatinine Ratio 11.1 (6-22) Glucose 100 (70-100) mg/dL Calcium 8.4 (8.4-10.2) mg/dL Total Bilirubin 0.5 (0.2-1.3) mg/dL AST 18 (17-59) IU/L ALT 22 (<50) IU/L Alkaline Phosphatase 123 (38-126) U/L Total Protein 6.5 (6.3-8.2) g/dL Albumin 4.1 (3.5-5.0) g/dL Globulin 2.4 (1.7-4.1) g/dL Albumin/Globulin Ratio 1.7 (1.0-2.8) Lipase 753 H (23-300) U/L Point of care testing: Urine Dip Bedside Urine Glucose Negative Bedside Urine Bilirubin - Negative Bedside Urine Ketone - Negative Urine Specific [place]arr 1.005 Bedside Urine Occult Blood - Negative Bedside Urine pH 6 Bedside Urine Protein - Negative Bedside Urine Urobilinogen - Negative Bedside Urine Nitrite - Negative Bedside Urine Leukocytes - Negative Esterase MDM Narrative Medical decision making narrative: CC: 47-year-old male with abdominal pain, nausea and vomiting Complicating co-morbidities: History of kidney stones, opiate dependence, prior alcohol dependence Data collected from: Patient Medical records reviewed: Prior notes reviewed in our EMR Differential considered, but not limited to: Pancreatitis versus gallbladder disease versus bowel obstruction versus enteritis versus diverticulitis versus other Exam documented above, pertinent findings include: Heart rate regular, lungs clear, right upper quadrant and left lower quadrant pain, bowel sounds present but slightly decreased Lab Test results independently reviewed as above. Pertinent findings: No leukocytosis or left shift, no signs of anemia, platelets 251, sodium 127 come electrolytes otherwise within normal, creatinine and normal range, bilirubin 0.5, LFTs in normal range, lipase 753 Independently reviewed EKG as above Imaging studies independently reviewed: CT of the abdomen and pelvis shows mild bladder wall thickening concerning for low-grade cystitis, no hydronephrosis or hydroureter, no bowel obstruction or bowel wall thickening. Gallbladder ultras ound demonstrates a slightly contracted gallbladder with questionable wall thickening, no sonographic evidence of acute cholecystitis Consultations: Discussed with on-call general surgeon, Dr. Talley. No surgical indications at this time. We discussed patient's history and physical as well as clinical course, lab findings and imaging. Treatments: Pain control, fluids, antiemetics Re-evaluations: Pain is controlled, tolerating orals Discussion: Patient presents with abdominal pain, nausea and vomiting, mainly in the epigastrium. No obvious relation to food, labs reassuring but does demonstrate pancreatitis. Thankfully imaging does not demonstrate any necrotizing pancreatitis or pseudocyst, no radiographic evidence whatsoever. Pain is well controlled, no signs of sepsis, tolerating orals and appropriate for discharge Disposition: see below, along with detailed discharge instructions that have been reviewed with patient as well as indications for ED re-evaluation and additional outpatient follow up Discharge Plan Departure Patient Disposition: Home Clinical Impression: Acute pancreatitis Instructions: DI for Pancreatitis Activity Restrictions/Additional Instructions: *You have been diagnosed with [abdominal pain due to mild pancreatitis] * As we discussed your history and physical exam as well as labs and imaging are very reassuring. There is no evidence of any severe diagnoses that would require a specific or immediate intervention. *What to do: *Please continue to take your regular medications as directed. [x ] New medication prescriptions sent to your pharmacy: [[facility] ] *Please follow up with your primary care provider in 2-3 days, call for an appointment. Let them know you were seen in the Emergency Department and that we ask that you be seen in follow up. We will electronically transmit a record of today's note if your PCP is in our system *Please consider a clear liquid diet for the next 24-48 hours and then slowly advance to regular as tolerated. Also, try to avoid alcohol, nicotine, caffeine, spicy, acidic or fatty foods as this may worsen your symptoms *If you do not have a primary care provider please contact the [facility] Resource line at [phone]. They will ask some questions about your medical history and help get you set up with a doctor in the community. *Return to Emergency Department if you should have any new, worsening or concerning symptoms, such as [fever greater than 101 F, shaking chills, worsening pain, persistent vomiting or other bothersome symptoms] You have been prescribed a short course of narcotic medications. These are potentially dangerous and addictive medications that should be used carefully. While on these medications you cannot drive or operate heavy machinery. Additionally, you cannot sign legal documents or perform any duties such as this. Many people get constipated on narcotic medications so it would be advisable to discuss stool softeners with the pharmacist when you grain picker your prescription. Please understand that we cannot provide further refills of narcotics or controlled substances through the ED and your pain management will need to be through your Primary Care Provider Prescriptions: New hydrocodone-acetaminophen 5-325 mg tablet 1 tab PO Q4-6H PRN (Reason: pain) Qty: 10 0RF ondansetron 4 mg tablet,disintegrating 4 mg PO TID-QID PRN (Reason: nausea and vomiting) Qty: 10 0RF No Action phenytoin sodium extended 100 mg capsule 400 mg PO BEDTIME haloperidol 5 mg Tablet 5 mg PO BID MDD BID clonazepam 1 mg tablet 1 mg PO TID Qty: 30 0RF sertraline 50 mg tablet 100 mg PO QAM chlorpromazine 50 mg tablet 50 mg PO TID Referrals: Sherri Lowe MD [Primary Care Provider] - Stand Alone Forms: Patient Portal/API
--- NOTE | 2023-01-11 18:28 | DI.CT.S_ITS ---
PROCEDURE: CT ABDOMEN PELVIS W CON INDICATIONS: severe abdominal pain, N/V, RUQ and LLQ TECHNIQUE: After the administration of intravenous contrast, axial sections acquired from the lung bases to the pubic symphysis. Coronal and sagittal reformats were performed. For radiation dose reduction, the following was used: automated exposure control, adjustment of mA and/or kV according to patient size. COMPARISON: None. FINDINGS: Image quality: Excellent. Lung bases: Dependent atelectasis in posterior aspect of bilateral lung bases are seen.. Heart: Heart size is normal, no pericardial effusion. ABDOMEN: Liver: Unremarkable. Gallbladder: Gallbladder is within normal limits. Biliary ducts: Unremarkable. Pancreas: Unremarkable. Spleen: Unremarkable. Adrenal Glands: Unremarkable. Kidneys and Ureters: Nonobstructing stone measures 3 mm in size is seen in midpole left kidney. No hydronephrosis or hydroureter.. Stomach and Bowel: There is no bowel obstruction. No gastric or small bowel wall thickening. Moderate colonic diverticulosis is seen without colonic wall thickening or mesenteric fat stranding. Appendix is visualized in right lower quadrant and is normal in size and appearance. No abscess collection. Peritoneum: No abnormal intraperitoneal fluid. No free air. Ventral Wall: No hernias. Abdominal Nodes: No retroperitoneal or mesenteric adenopathy by size criteria. Vessels: Aorta and inferior vena cava are normal in size. PELVIS: Pelvic Organs: Unremarkable. Bladder: There is suggestion of anterior bladder wall thickening concerning for low-grade cystitis. No discrete bladder wall mass is seen. No calcified bladder stones. Pelvic Nodes: No enlarged lymph nodes. Miscellaneous: No hernias are seen. Bones: No suspicious bony lesions. No acute vertebral body compression fracture. IMPRESSION: 1. Mild bladder wall thickening concerning for low-grade cystitis. Nonobstructing stone in midpole left kidney. No hydronephrosis or hydroureter. 2. No bowel obstruction or abnormal bowel wall thickening. No abscess collection. No free fluid or free air. Normal appendix. Colonic diverticulosis without CT evidence of acute diverticulitis. 3. No gross abnormality is seen in urinary bladder. No biliary ductal dilatation. Dictated by: Michael Boogie M.D. on 01/11/2023 at 19:11 Approved by: Michael Boogie M.D. on 01/11/2023 at 19:16
[2023-01-11] MEDS: HYDROMORPHONE 0.5 MG INJ IV (18:40)
[2023-01-11] MEDS: ONDANSETRON 4 MG/2 ML INJ IV (18:40)
[2023-01-11] MEDS: PANTOPRAZOLE 40 MG VIAL IV (18:42)
[2023-01-11] MEDS: SODIUM CHLORIDE 0.9% 1,000 ML 1000 ML IV (18:43)
[2023-01-11] MEDS: HYDROCODONE/ACET 5/325 PREPACK 1 BOTTLE MISC (20:17)
[2023-01-11] MEDS: ONDANSETRON 4 MG ODT PREPACK 1 BOTTLE MISC (20:17)
[2023-01-11 20:22] VITALS: BP 118/68; PULSE 78; RESP 16; TEMP 36.6; O2SAT 97
== END 2023-01-11 20:25 | disposition home or self-care (01) ==
PROVIDERS: Emergency Medicine; Emergency Provider Emergency Medicine; PCP Family Medicine
DX: K85.90 Acute pancreatitis without necrosis or infection, unspecified (principal); R11.2 Nausea with vomiting, unspecified
CPT/HCPCS: 36415; 74177; 76705; 80053; 81003; 83690; 85025; 96361; 96374; 96375; 99284; C9113; J1170; J2405; Q9967

== ENCOUNTER 2023-02-03 11:22 | Emergency (ER) | payer OTHER, MEDICAID, SELFPAY ==
[2023-02-03 11:47] VITALS: BP 122/70; PULSE 82; RESP 16; TEMP 36.9; O2SAT 95; BMI 24.4
[2023-02-03 12:18] LABS: Ur Creatinine Normal (Normal); Ur Specific Gravity Normal (Normal); Urine pH Normal (Normal)
[2023-02-03 12:18] LABS: Add Manual Diff / Slide Review NO; Basophils Absolute Auto 100 /uL (0-100); Basophils Percent Auto 1.3 % (0-2); Eosinophils Absolute Auto 200 /uL (0-450); Eosinophils Percent Auto 3.6 % (2-4); Hematocrit 36.6 % (41-53); Hemoglobin 12.9 g/dL (13.5-17.5); Lymphocytes Absolute Auto 1500 /uL (1100-4500); Lymphocytes Percent Auto 32.3 % (25-40); Mean Corpuscular HGB Conc 35.3 % (30-36); Mean Corpuscular Hemoglobin 33.2 PG (26-34); Monocytes Absolute Auto 300 /uL (0-900); Monocytes Percent Auto 5.8 % (3-14); Neutrophils Absolute Auto 2700 /uL (1500-7000); Platelet Count 234 X10^3/uL (150-400); Red Blood Cell Count 3.89 X10^6/uL (4.5-5.9); Red Cell Distribution Width 13.1 % (11.6-14.8); White Blood Cell Count 4.7 X10^3/uL (4.5-11.0)
[2023-02-03 12:18] LABS: Appearance Urine UA CLEAR; Bilirubin Urine UA NEGATIVE (NEGATIVE); Color Urine UA YELLOW; Glucose Urine UA NEGATIVE (Negative); Ketones Urine UA NEGATIVE (NEGATIVE); Leukocyte Esterase Urine UA NEGATIVE (NEGATIVE); Nitrite Urine UA NEGATIVE (Negative); Occult Blood Urine UA NEGATIVE (Negative); Protein Urine UA NEGATIVE (Negative); Specific Gravity Urine UA <=1.005 (1.000-1.035); Urobilinogen Urine UA 0.2 E.U./dL (0.2); pH Urine UA 6.5 (4.5-8.0)
[2023-02-03 12:20] LABS: UR Morphine/Opiate cutoff 300 Negative (Negative); Urine Amphetamines Negative (Negative); Urine Barbiturates Positive (Negative); Urine Benzodiazepines Negative (Negative); Urine Cocaine Negative (Negative); Urine MDMA Negative (Negative); Urine Methadone Negative (Negative); Urine Methamphetamines Negative (Negative); Urine Oxycodone Negative (Negative); Urine Phencyclidine Negative (Negative); Urine Tetrahydrocannabinol Negative (Negative); Urine Tricyclic Antidepressant Negative (Negative)
[2023-02-03 12:22] LABS: Bacteria Urine None Seen; Culture Indicated Urine Cult Not Indicated; RBC Urine None Seen (0-5/HPF); Squamous Epithelial Cell Urine None Seen (0-5/HPF); Urine Comments Microscopic Normal; WBC Urine None Seen (0-5/HPF)
[2023-02-03 12:32] LABS: Alanine Aminotransferase 23 IU/L (<50); Albumin 3.8 g/dL (3.5-5.0); Albumin Globulin Ratio 1.5 (1.0-2.8); Alkaline Phosphatase 86 U/L (38-126); Aspartate Aminotransferase 19 IU/L (17-59); BUN Creatinine Ratio 14.9 (6-22); Bilirubin Total 0.3 mg/dL (0.2-1.3); Blood Urea Nitrogen 14 mg/dL (9-20); Calcium 8.7 mg/dL (8.4-10.2); Carbon Dioxide 27 mmol/L (22-32); Chloride 103 mmol/L (98-107); Estimated Glomerular Filt Rate > 60 mL/min (>60); Globulin 2.6 g/dL (1.7-4.1); Glucose 91 mg/dL (70-100); HEMOLYSIS < 15 (0-50); Potassium 4.1 mmol/L (3.4-5.1); Sodium 137 mmol/L (137-145); Total Protein 6.4 g/dL (6.3-8.2)
[2023-02-03 12:44] LABS: Acetaminophen < 10 ug/mL (10-30); Ethanol (ETOH) < 10 mg/dL; Salicylate < 1.0 mg/dL (<20)
[2023-02-03 13:03] LABS: Thyroid Stimulating Hormone 1.51 uIU/mL (0.47-4.68)
--- NOTE | 2023-02-03 13:05 | ED_ITS ---
HPI - Psych General Chief Complaint: Psychiatric Symptoms Stated Complaint: mental health/light headed when standing up Time Seen by Provider: 02/03/23 12:17 Source: patient and other Mode of arrival: Family Vehicle History of Present Illness HPI Narrative: Patient is a 47-year-old male. Is here for evaluation of auditory hallucinations telling him to hurt himself. He states they started yesterday. He has had hallucinations like this in the past. He has tried to hurt himself in the past but nothing recently. He states he is also feeling somewhat lightheaded. Within the past couple weeks he did spend approximately 10 days in a mental health facility. He does live at home with a behavioral health case manager. He does manage his own medicines but he states that this is a very difficult process for him. He states he sometimes forgets that he is taken his medicines and takes more them and sometimes even misses medications. He states he was getting somewhat lightheaded with standing but denies chest pain or palpitations or shortness of breath. Related Data Home Medications Medication Instructions Recorded Confirmed phenytoin sodium extended 100 mg 400 mg PO BEDTIME 11/17/20 02/03/23 capsule haloperidol 5 mg tablet 5 mg PO BID 06/29/22 02/03/23 sertraline 50 mg tablet 100 mg PO QAM 10/27/22 02/03/23 chlorpromazine 50 mg tablet 50 mg PO TID 01/01/23 02/03/23 benztropine 1 mg tablet 1 mg PO TID PRN Anxiety 02/03/23 02/03/23 clonidine HCl 0.1 mg tablet 0.1 mg PO BID 02/03/23 02/03/23 dextroamphetamine-amphetamine 5 mg 1 tab PO BID 02/03/23 02/03/23 tablet (Adderall) trazodone 100 mg tablet 100 mg PO ONCE PM 02/03/23 02/03/23 Previous Rx's Medication Instructions Recorded clonazepam 1 mg tablet 1 mg PO TID #30 tabs 08/10/22 hydrocodone 5 mg-acetaminophen 325 1 tab PO Q4-6H PRN pain #10 tabs 01/11/23 mg tablet ondansetron 4 mg disintegrating 4 mg PO TID-QID PRN nausea and 01/11/23 tablet vomiting #10 tabs Allergies Allergy/AdvReac Type Severity Reaction Status Date / Time hydromorphone [HYDROMORPHONE] Allergy Mild severe Verified 02/03/23 13:23 itching WITH PILL FORM morphine Allergy Mild skin Verified 02/03/23 13:23 crawl/itchy Penicillins Allergy Mild hives Verified 02/03/23 13:23 ketorolac [From Toradol] Allergy Verified 02/03/23 13:23 Review of Systems Review of Systems ROS Unobtainable: All systems reviewed & are unremarkable except as noted in HPI and below Patient History Medical History Alcohol abuse Anxiety Chronic pain syndrome Depression Kidney stone on left side PTSD (post-traumatic stress disorder) Seizure Social History Smoking Status: Current every day smoker Smoking Status: Current every day smoker tobacco type: cigarettes alcohol intake frequency: holidays/special occasions only Substance Use Type: does not use, former substance user and methamphetamine Exam Initial Vital Signs Initial Vital Signs: Vital Signs Temperature 98.4 F 02/03/23 11:47 Pulse Rate 82 02/03/23 11:47 Respiratory Rate 16 02/03/23 11:47 Blood Pressure 122/70 02/03/23 11:47 Pulse Oximetry 95 02/03/23 11:47 Oxygen Delivery Method Room Air 02/03/23 11:47 Const General: cooperative and comfortable Resp Effort & Inspection: normal respiratory effort Cardio Rate: regular rate GI Inspection: non-distended Skin General: no rashes or lesions noted Extrem Other: No gross deformities Psych Other: Very flat affect. Does endorse auditory hallucinations. Course Orders Ordered: ED Orders 02/03/23 11:14 Urine Drug Screen, Rapid Stat 02/03/23 11:44 Urinalysis and Microscopic Stat 02/03/23 12:10 Acetaminophen Stat Complete Blood Count AUTO DIFF Stat Comprehensive Metabolic Panel Stat Ethanol (ETOH) Stat Free T4, Direct Thyroxine Stat Salicylate Stat Thyroid Stimulating Hormone Stat 02/03/23 12:33 Consult to [employer] EXECUTIVE DIRECTOR - Foot Setter Stat 02/03/23 13:23 COVID19 -Nasal RAPID Stat Discontinued Medications Dextroamphetamine Sulfate (Dextroamphetamine 5 Mg Tablet) 5 mg PO NOW ONE Stop: 02/03/23 16:01 Last Admin: 02/03/23 16:45 Dose: 5 mg Documented By: DKB Vital Signs Vital signs: Vital Signs - 8 hr 02/03/23 11:47 Temperature 98.4 F Pulse Rate 82 Respiratory Rate 16 Blood Pressure 122/70 Pulse Oximetry 95 Oxygen Delivery Method Room Air MDM - Psych Lab Data 02/03/23 12:10 02/03/23 12:10 Labs: Lab Results 02/03/23 02/03/23 02/03/23 Range/Units 11:14 11:44 12:10 WBC 4.7 (4.5-11.0) X10^3/uL RBC 3.89 L (4.5-5.9) X10^6/uL Hgb 12.9 L (13.5-17.5) g/dL Hct 36.6 L (41-53) % MCV 94.0 (80-100) fL MCH 33.2 (26-34) PG MCHC 35.3 (30-36) % RDW 13.1 (11.6-14.8) % Plt Count 234 (150-400) X10^3/uL Neut % (Auto) 57.0 (50-75) % Lymph % (Auto) 32.3 (25-40) % [place] % (Auto) 5.8 (3-14) % Eos % (Auto) 3.6 (2-4) % Baso % (Auto) 1.3 (0-2) % Neut # (Auto) 2700 (6690-9700) /uL Lymph # (Auto) 1500 (3072-9354) /uL [place] # (Auto) 300 (0-900) /uL Eos # (Auto) 200 (0-450) /uL Baso # (Auto) 100 (0-100) /uL Sodium (137-145) mmol/L Potassium (3.4-5.1) mmol/L Chloride (98-107) mmol/L Carbon Dioxide (22-32) mmol/L BUN (9-20) mg/dL Creatinine (0.66-1.25) mg/dL Estimated GFR (>60) mL/min BUN/Creatinine Ratio (6-22) Glucose (70-100) mg/dL Calcium (8.4-10.2) mg/dL Total Bilirubin (0.2-1.3) mg/dL AST (17-59) IU/L ALT (<50) IU/L Alkaline Phosphatase (38-126) U/L Total Protein (6.3-8.2) g/dL Albumin (3.5-5.0) g/dL Globulin (1.7-4.1) g/dL Albumin/Globulin Ratio (1.0-2.8) TSH (0.47-4.68) uIU/mL Free T4 (0.78-2.19) ng/dL Urine Color Yellow Urine Appearance Clear Urine pH 6.5 (4.5-8.0) Ur Specific [place] <=1.005 (1.000-1.035) Urine Protein Negative (Negative) Urine Glucose (UA) Negative (Negative) g/dL Urine Ketones Negative (NEGATIVE) Urine Occult Blood Negative (Negative) Urine Nitrate Negative (Negative) Urine Bilirubin Negative (NEGATIVE) Urine Urobilinogen 0.2 (0.2) E.U./dL Ur Leukocyte Esterase Negative (NEGATIVE) Urine RBC None seen (0-5/HPF) Urine WBC None seen (0-5/HPF) Ur Squamous Epith Cells None seen (0-5/HPF) Urine Bacteria None seen (None) Ur Culture Indicated? Cult not indicated Micro UA Comment Microscopic normal Salicylates (<20) mg/dL U Opiates 300ng/mL cut Negative (Negative) Ur Oxycodone Screen Negative (Negative) Urine Methadone Screen Negative (Negative) Acetaminophen (10-30) ug/mL Ur Barbiturates Screen Positive H (Negative) U Tricyclic Antidepress Negative (Negative) Ur Phencyclidine Scrn Negative (Negative) Ur Amphetamines Screen Negative (Negative) U Methamphetamines Scrn Negative (Negative) Ur MDMA Scrn (Ecstasy) Negative (Negative) U Benzodiazepines Scrn Negative (Negative) Urine Cocaine Screen Negative (Negative) U Marijuana (THC) Screen Negative (Negative) Ethyl Alcohol ( - 10) mg/dL SARS-CoV-2 (PCR) (Negative) 02/03/23 02/03/23 02/03/23 Range/Units 12:10 12:10 13:23 WBC (4.5-11.0) X10^3/uL RBC (4.5-5.9) X10^6/uL Hgb (13.5-17.5) g/dL Hct (41-53) % MCV (80-100) fL MCH (26-34) PG MCHC (30-36) % RDW (11.6-14.8) % Plt Count (150-400) X10^3/uL Neut % (Auto) (50-75) % Lymph % (Auto) (25-40) % [place] % (Auto) (3-14) % Eos % (Auto) (2-4) % Baso % (Auto) (0-2) % Neut # (Auto) (8343-5134) /uL Lymph # (Auto) (7147-0311) /uL [place] # (Auto) (0-900) /uL Eos # (Auto) (0-450) /uL Baso # (Auto) (0-100) /uL Sodium 137 (137-145) mmol/L Potassium 4.1 (3.4-5.1) mmol/L Chloride 103 (98-107) mmol/L Carbon Dioxide 27 (22-32) mmol/L BUN 14 (9-20) mg/dL Creatinine 0.94 (0.66-1.25) mg/dL Estimated GFR > 60 (>60) mL/min BUN/Creatinine Ratio 14.9 (6-22) Glucose 91 (70-100) mg/dL Calcium 8.7 (8.4-10.2) mg/dL Total Bilirubin 0.3 (0.2-1.3) mg/dL AST 19 (17-59) IU/L ALT 23 (<50) IU/L Alkaline Phosphatase 86 (38-126) U/L Total Protein 6.4 (6.3-8.2) g/dL Albumin 3.8 (3.5-5.0) g/dL Globulin 2.6 (1.7-4.1) g/dL Albumin/Globulin Ratio 1.5 (1.0-2.8) TSH 1.51 (0.47-4.68) uIU/mL Free T4 1.02 (0.78-2.19) ng/dL Urine Color Urine Appearance Urine pH (4.5-8.0) Ur Specific [place] (1.000-1.035) Urine Protein (Negative) Urine Glucose (UA) (Negative) g/dL Urine Ketones (NEGATIVE) Urine Occult Blood (Negative) Urine Nitrate (Negative) Urine Bilirubin (NEGATIVE) Urine Urobilinogen (0.2) E.U./dL Ur Leukocyte Esterase (NEGATIVE) Urine RBC (0-5/HPF) Urine WBC (0-5/HPF) Ur Squamous Epith Cells (0-5/HPF) Urine Bacteria (None) Ur Culture Indicated? Micro UA Comment Salicylates < 1.0 (<20) mg/dL U Opiates 300ng/mL cut (Negative) Ur Oxycodone Screen (Negative) Urine Methadone Screen (Negative) Acetaminophen < 10 (10-30) ug/mL Ur Barbiturates Screen (Negative) U Tricyclic Antidepress (Negative) Ur Phencyclidine Scrn (Negative) Ur Amphetamines Screen (Negative) U Methamphetamines Scrn (Negative) Ur MDMA Scrn (Ecstasy) (Negative) U Benzodiazepines Scrn (Negative) Urine Cocaine Screen (Negative) U Marijuana (THC) Screen (Negative) Ethyl Alcohol < 10 ( - 10) mg/dL SARS-CoV-2 (PCR) Negative (Negative) Discharge Plan Departure Patient Disposition: Xfer Psychiatric Hosp Clinical Impression: Auditory hallucination Prescriptions: No Action phenytoin sodium extended 100 mg capsule 400 mg PO BEDTIME haloperidol 5 mg Tablet 5 mg PO BID MDD BID trazodone 100 mg tablet 100 mg PO ONCE PM clonidine HCl 0.1 mg tablet 0.1 mg PO BID benztropine 1 mg tablet 1 mg PO TID PRN (Reason: Anxiety) dextroamphetamine-amphetamine [Adderall] 5 mg tablet 1 tab PO BID Patient Comments: bottle empty. filled on 01/27/23. [address] rowland aware clonazepam 1 mg tablet 1 mg PO TID Qty: 30 0RF sertraline 50 mg tablet 100 mg PO QAM chlorpromazine 50 mg tablet 50 mg PO TID hydrocodone-acetaminophen 5-325 mg tablet 1 tab PO Q4-6H PRN (Reason: pain) Qty: 10 0RF ondansetron 4 mg tablet,disintegrating 4 mg PO TID-QID PRN (Reason: nausea and vomiting) Qty: 10 0RF Referrals: Sherri Lowe MD [Primary Care Provider] -
[2023-02-03 13:10] LABS: Free T4, Direct Thyroxine 1.02 ng/dL (0.78-2.19)
--- NOTE | 2023-02-03 13:18 | CM.SWNOTE ---
Addendum entered by Jay Munoz 02/03/23 15:06: Patient screened and accepted for voluntary admission to [facility]. Accepting provider is Dimitry Ruff DNP. [facility] arranged for 1814 pickup for estimated 1930 arrival to facility. RN report requested at departure to [phone] Jay Munoz, HEAD OF DESIGN, [facility] Original Note: ED MHE HEAD OF DESIGN - Furniture Finisher Helper Assessment HEAD OF DESIGN - Furniture Finisher Helper Assessment Start: 02/03/23 12:58 Freq: Status: Active Protocol: Document 02/03/23 12:58 VR (Rec: 02/03/23 13:18 VR [id number]) HEAD OF DESIGN/Furniture Finisher Helper Assessment Time Spent with Patient Start date 02/03/23 Visit Start Time 12:30 End date 02/03/23 Visit End Time 13:00 Total time Care Management spent on 30 patient visit-in minutes Mental Health Screening Include Onset, Duration, Intensity Presenting Problem Pt is a 47yo male who presents to the ED accompanied by a caregiver for concern of increased AVH. Pt reports that for the past 2-3 days he has been seeing people who aren't there and hearing voices saying my name and telling me to kill myself. Pt notes this has been constant. He notes that voices are not telling him a way to harm himself. he denies SI or any desire to end his life. No HI. Precipitating Event(s) Pt reports poor sleep the past week, sleeping only 3-4 hours at best, when baseline is 7-8 . He was recently started on Adderall by psychiatrist one week ago although he does not indicate belief that this is impacting his symptoms. Patient Strengths Pt has in home caregivers through [facility]; typically M-F for 6-7 hours, at this time he has a caregiver on the weekends as well. Pt identifies desire to get this taken care of and feel better. Current Behavioral Health Provider(s) Pt has a psychiatrist, Dr. Valeria Sharma, Provider, Ph. # [place], with [facility] whom he sees monthly. he denies that he has a mental health counselor. Psych. Hx Mental Health and Chemical Pt reports a hx of Dependency Schizophrenia, Paranoid type, OCD, PTSD, and DID. Pt with hx of substance use, denies any recent use or concerns in this area. Family Hx of Behavioral Abuse Pt denies Psychiatric Hospitalizations (date(s)/ Pt notes hx of quite a few location) past hospitalizations. Pt and caregiver note he was admitted to [facility] earlier this month, around the , for one week. per chart review he was transferred to [facility] from this facility in 10/2022. Psychosocial information & Support Pt was b/r in [place]. He moved [place] to [place] to be nearer family 18 years ago. parents are . he has a brother and a sister in [place] he is not in contact with. he has never been and has one 17yo son in [place]. School/Work Pt is disabled and receives SSDI. 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 No hx of service in the [employer] . Legal Concerns Legal Matters - Outstanding Issues Pt denies all current pending charges. Denies any significant legal hx. he does report a hx of getting in fights. Mental Status Orientation (Person/Place/Time) Pt is able to correctly state the month, day of the week, year, and location. He states the date as the , it is the . Stated Mood pretty low. Affect (Congruent with Mood?) depressed. congruent with mood Thought Content - Specify/Describe Pt identifies AVH as above. Obsessions, Delusions, Hallucinations Thought Processes (Dnhbcdc-Focsifvf-Redk linear, slowed. Vexebjrg-Rkzhjsvq-Ktrxtalzst- Aushaxndpjrmjx-Voiztqx-Dwdcfrostnjh- Thought Blocking) Speech (Gfktrw-Afzk-Zqnzjsk-Rapid-Soft- slow. Loud-Pressured) Motor (Jkgtwj-Dyzwefnnu-Aatu-Other) slow. Insight (Qseh-Nxhg-Bggy/Limited) Fair Judgement (Rrhi-Paif-Zsbs/Limited) Limited Impulse Control (Adequate-Impaired) Adequate Memory (Hxjgosqaa-Rbxdra-Bvwnsv, Intact Impaired-Intact) Concentration (Intact-Impaired) Impaired Attention (Intact-Impaired) Impaired Behavior (Appropriate-Inappropriate) Appropriate. Risk Assessment Suicidal Ideation (Plan) No Homicidal Ideation (Plan) No Comment Pt identifies CAH to harm himself with no specific plan. He denies all SI and denies any hx of suicide attempts or self harm bx. Intervention Intervention SW met with pt at bedside in room 13. Caregiver Isak was present throughout the interview with pt permission. Pt reports that he has experienced an increase in AVH in the past 3-4 days which has followed poor sleep the past week. He denies changes to his appetite or PO intake but does identify that he has had less motivation to shower and has not in 3-4 days when baseline is daily. Pt caregiver notes that she can remind him to take his medications but does not manage them or give them to pt . Pt identifies that he forgets if he has taken his medications and may take too few or too many. Caregivers help with whatever pt needs and can include groceries, cooking, and reminding pt to clean up around the home. pt largely does his own cooking. caregiver denies any concerns in recent days for pt to maintain his own ADL's. Pt reports significant distress caused by AVH i want to feel better. he identifies concern that medication regimen may be ineffective. it does appear that pt mood and bx are impacting his ability to meet his basic needs of health and safety. Pt requests voluntary IP admission for medication review and stabilization, which appears appropriate at this time. Plan RA Plan Pt requesting and appropriate for voluntary IP admission. Discussed with MD Moody who is in agreement with dispo as above. Jay Munoz, HEAD OF DESIGN, EMT DISPATCHER
[2023-02-03 14:41] LABS: COVID19 -Nasal RAPID Negative (Negative)
--- NOTE | 2023-02-03 16:29 | PC.NURSE ---
informed patient that medication had been ordered and we are waiting for medications to be brought down from pharmacy. pt verbalized understanding.
[2023-02-03] MEDS: DEXTROAMPHETAMINE 5 MG TABLET PO (16:45)
[2023-02-03 19:01] VITALS: BP 107/63; PULSE 65; O2SAT 95
== END 2023-02-03 19:05 ==
PROVIDERS: Emergency Provider Emergency Medicine; PCP Family Medicine
DX: R44.0 Auditory hallucinations (principal); Z20.822 Contact with and (suspected) exposure to COVID-19
CPT/HCPCS: 36415; 80053; 80305; 80320; 80329; 81001; 84439; 84443; 85025; 87635; 99284; C9803; G0480

== ENCOUNTER 2023-02-09 14:57 | Emergency (ER) | payer OTHER, MEDICAID, SELFPAY ==
[2023-02-09] VITALS (56 sets, daily range): BP systolic 93–124; BP diastolic 54–79; PULSE 51–90; RESP 14–23; TEMP 36.6; O2SAT 94–100; BMI 24.6
--- NOTE | 2023-02-09 15:13 | DI.RAD.S_ITS ---
PROCEDURE: XR CHEST 1V INDICATIONS: chest pain TECHNIQUE: One view of the chest was acquired. COMPARISON: [facility], CR, XR CHEST 1 VIEW, 08/09/2018, 12:52. FINDINGS: Surgical changes and devices: None. Lungs and pleura: Lungs are clear. No pleural effusions or pneumothorax. Mediastinum: Mediastinal contours appear normal. Heart size is normal. Bones and chest wall: No suspicious bony lesions. Overlying soft tissues appear unremarkable. IMPRESSION: No acute cardiopulmonary disease process. Dictated by: Blanca Hernandez MD, PhD on 02/09/2023 at 15:50 Approved by: Blanca Hernandez MD, PhD on 02/09/2023 at 15:51
[2023-02-09 15:59] LABS: Add Manual Diff / Slide Review NO; Basophils Absolute Auto 100 /uL (0-100); Basophils Percent Auto 1.3 % (0-2); Eosinophils Absolute Auto 200 /uL (0-450); Eosinophils Percent Auto 3.6 % (2-4); Hematocrit 38.2 % (41-53); Hemoglobin 13.2 g/dL (13.5-17.5); Lymphocytes Absolute Auto 2000 /uL (1100-4500); Lymphocytes Percent Auto 36.8 % (25-40); Mean Corpuscular HGB Conc 34.4 % (30-36); Mean Corpuscular Hemoglobin 32.8 PG (26-34); Mean Corpuscular Volume 95.2 fL (80-100); Monocytes Absolute Auto 400 /uL (0-900); Monocytes Percent Auto 6.5 % (3-14); Neutrophils Absolute Auto 2800 /uL (1500-7000); Neutrophils Percent Auto 51.8 % (50-75); Platelet Count 224 X10^3/uL (150-400); Red Blood Cell Count 4.01 X10^6/uL (4.5-5.9); Red Cell Distribution Width 13.3 % (11.6-14.8); White Blood Cell Count 5.5 X10^3/uL (4.5-11.0)
[2023-02-09] MEDS: SODIUM CHLORIDE 0.9% 1,000 ML 1000 ML IV (16:00)
[2023-02-09 16:13] LABS: INR 0.9 (0.9-1.3); Prothrombin Time 10.2 SECONDS (10.1-12.7)
[2023-02-09 16:15] LABS: Alanine Aminotransferase 22 IU/L (<50); Albumin 4.1 g/dL (3.5-5.0); Albumin Globulin Ratio 1.7 (1.0-2.8); Alkaline Phosphatase 98 U/L (38-126); Aspartate Aminotransferase 20 IU/L (17-59); BUN Creatinine Ratio 15.6 (6-22); Bilirubin Total 0.2 mg/dL (0.2-1.3); Blood Urea Nitrogen 15 mg/dL (9-20); Calcium 8.8 mg/dL (8.4-10.2); Carbon Dioxide 23 mmol/L (22-32); Chloride 104 mmol/L (98-107); Creatine Kinase 68 U/L (55-170); Estimated Glomerular Filt Rate > 60 mL/min (>60); Globulin 2.4 g/dL (1.7-4.1); Glucose 136 mg/dL (70-100); HEMOLYSIS 17 (0-50); Lipase 90 U/L (23-300); Magnesium 2.2 mg/dL (1.6-2.3); Potassium 3.9 mmol/L (3.4-5.1); Sodium 133 mmol/L (137-145); Total Protein 6.5 g/dL (6.3-8.2)
[2023-02-09 16:16] LABS: PTT Partial Thromboplastin Tim 36 SECONDS (26-36)
[2023-02-09 16:25] LABS: Troponin I < 0.012 ng/mL (0.01-0.034)
--- NOTE | 2023-02-09 18:44 | ED.SYNCOPE ---
HPI - Syncope General Chief Complaint: Syncope Stated Complaint: Near syncope when standing Time Seen by Provider: 02/09/23 17:55 Source: patient Mode of arrival: Wheelchair Limitations: no limitations History of Present Illness HPI narrative: Patient is a 47-year-old male with w history of schizoaffective disorder, borderline personality, anxiety, depression, substance abuse, CAD, hypertension, type 2 diabetes, COPD and PAUL presenting today for the 2nd time with dizziness and near syncope. He has been seen at multiple ED for dizziness including this morning at [facility]. He reports that the dizziness is worse whenever he sits up or stands up but lying down he is okay. He is no numbness tingling or weakness. No chest pain or palpitations. Records have been received and reviewed both from [facility] and [facility]. Diagnosed with vertigo he has been on meclizine he reports that it is not getting any better that it is actually making things worse. He has no nausea or vomiting. Related Data Home Medications Medication Instructions Recorded Confirmed phenytoin sodium extended 100 mg 400 mg PO BEDTIME 11/17/20 02/03/23 capsule haloperidol 5 mg tablet 5 mg PO BID 06/29/22 02/03/23 sertraline 50 mg tablet 100 mg PO QAM 10/27/22 02/03/23 chlorpromazine 50 mg tablet 50 mg PO TID 01/01/23 02/03/23 benztropine 1 mg tablet 1 mg PO TID PRN Anxiety 02/03/23 02/03/23 clonidine HCl 0.1 mg tablet 0.1 mg PO BID 02/03/23 02/03/23 dextroamphetamine-amphetamine 5 mg 1 tab PO BID 02/03/23 02/03/23 tablet (Adderall) trazodone 100 mg tablet 100 mg PO ONCE PM 02/03/23 02/03/23 Previous Rx's Medication Instructions Recorded clonazepam 1 mg tablet 1 mg PO TID #30 tabs 08/10/22 hydrocodone 5 mg-acetaminophen 325 1 tab PO Q4-6H PRN pain #10 tabs 01/11/23 mg tablet ondansetron 4 mg disintegrating 4 mg PO TID-QID PRN nausea and 01/11/23 tablet vomiting #10 tabs Allergies Allergy/AdvReac Type Severity Reaction Status Date / Time hydromorphone [HYDROMORPHONE] Allergy Mild severe Verified 02/03/23 13:23 itching WITH PILL FORM morphine Allergy Mild skin Verified 02/03/23 13:23 crawl/itchy Penicillins Allergy Mild hives Verified 02/03/23 13:23 ketorolac [From Toradol] Allergy Verified 02/03/23 13:23 Review of Systems Review of Systems ROS Unobtainable: All systems reviewed & are unremarkable except as noted in HPI and below Patient History Medical History Alcohol abuse Anxiety Chronic pain syndrome Depression Kidney stone on left side PTSD (post-traumatic stress disorder) Seizure Social History Smoking Status: Current every day smoker Smoking Status: Current every day smoker tobacco type: cigarettes alcohol intake frequency: holidays/special occasions only Substance Use Type: does not use, former substance user and methamphetamine Exam Initial Vital Signs Initial Vital Signs: Vital Signs Temperature 97.8 F 02/09/23 15:08 Pulse Rate 76 02/09/23 15:08 Respiratory Rate 18 02/09/23 15:08 Blood Pressure 100/57 L 02/09/23 15:08 Pulse Oximetry 100 02/09/23 15:08 Oxygen Delivery Method Room Air 02/09/23 15:08 GENERAL: Alert well-appearing 47-year-old male and in no acute distress. HEENT: Head atraumatic,EOMI, pupils reactive, face symmetric, moist mucous membranes CARDIOVASCULAR: Regular rate and rhythm without murmurs, rubs or gallops. RESPIRATORY: Breath sounds equal bilaterally, no wheezes rales or rhonchi. ABDOMEN: Soft, nontender. Normoactive bowel sounds all 4 quadrants. No guarding or rebound. EXTREMITIES: Normal range of motion, no clubbing or edema. Neurovascularly intact NEUROLOGICAL: Alert and oriented x4.Normal gait and speech. Cranial nerves II through XII grossly intact. SKIN: Warm, dry, no laceration, no petechiae, no rashes or lesions. Course Orders Ordered: Discontinued Medications Sodium Chloride (Normal Saline 0.9%) 1,000 mls @ 1,000 mls/hr IV BOLUS ONE Stop: 02/09/23 16:59 Last Infusion: 02/09/23 17:00 Dose: 0 mls/hr Documented By: Admin: 02/09/23 16:00 Dose: 1,000 mls/hr Documented By: SHIRA Lorazepam (Lorazepam 2 Mg/Ml Inj) 0.5 mg IV NOW ONE Stop: 02/09/23 19:03 Last Admin: 02/09/23 19:14 Dose: 0.5 mg Documented By: Vital Signs Vital signs: Vital Signs - 8 hr 02/09/23 15:08 02/09/23 15:33 02/09/23 15:34 Temperature 97.8 F Pulse Rate 76 75 Pulse Rate [Orthostatic Lying] Pulse Rate [Orthostatic Sitting] Pulse Rate [Orthostatic Standing] Respiratory Rate 18 Blood Pressure 100/57 L 103/58 L Blood Pressure [Orthostatic Lying] Blood Pressure [Orthostatic Sitting] Blood Pressure [Orthostatic Standing] Pulse Oximetry 100 98 Oxygen Delivery Method Room Air 02/09/23 15:34 02/09/23 15:44 02/09/23 15:44 Temperature Pulse Rate 71 70 Pulse Rate [Orthostatic Lying] Pulse Rate [Orthostatic Sitting] Pulse Rate [Orthostatic Standing] Respiratory Rate Blood Pressure 95/61 Blood Pressure [Orthostatic Lying] Blood Pressure [Orthostatic Sitting] Blood Pressure [Orthostatic Standing] Pulse Oximetry 97 95 Oxygen Delivery Method 02/09/23 15:45 02/09/23 15:45 02/09/23 15:50 Temperature Pulse Rate 70 71 Pulse Rate [Orthostatic Lying] Pulse Rate [Orthostatic Sitting] Pulse Rate [Orthostatic Standing] Respiratory Rate Blood Pressure 95/61 Blood Pressure [Orthostatic Lying] Blood Pressure [Orthostatic Sitting] Blood Pressure [Orthostatic Standing] Pulse Oximetry 95 95 Oxygen Delivery Method 02/09/23 15:50 02/09/23 15:55 02/09/23 15:55 Temperature Pulse Rate 72 Pulse Rate [Orthostatic Lying] Pulse Rate [Orthostatic Sitting] Pulse Rate [Orthostatic Standing] Respiratory Rate Blood Pressure 94/54 L 95/57 L Blood Pressure [Orthostatic Lying] Blood Pressure [Orthostatic Sitting] Blood Pressure [Orthostatic Standing] Pulse Oximetry 95 Oxygen Delivery Method 02/09/23 16:00 02/09/23 16:00 02/09/23 16:05 Temperature Pulse Rate 69 61 Pulse Rate [Orthostatic Lying] Pulse Rate [Orthostatic Sitting] Pulse Rate [Orthostatic Standing] Respiratory Rate Blood Pressure 94/55 L Blood Pressure [Orthostatic Lying] Blood Pressure [Orthostatic Sitting] Blood Pressure [Orthostatic Standing] Pulse Oximetry 95 96 Oxygen Delivery Method 02/09/23 16:05 02/09/23 16:10 02/09/23 16:10 Temperature Pulse Rate 61 Pulse Rate [Orthostatic Lying] Pulse Rate [Orthostatic Sitting] Pulse Rate [Orthostatic Standing] Respiratory Rate Blood Pressure 96/56 L 94/58 L Blood Pressure [Orthostatic Lying] Blood Pressure [Orthostatic Sitting] Blood Pressure [Orthostatic Standing] Pulse Oximetry 96 Oxygen Delivery Method 02/09/23 16:15 02/09/23 16:15 02/09/23 16:20 Temperature Pulse Rate 61 59 L Pulse Rate [Orthostatic Lying] Pulse Rate [Orthostatic Sitting] Pulse Rate [Orthostatic Standing] Respiratory Rate Blood Pressure 93/56 L Blood Pressure [Orthostatic Lying] Blood Pressure [Orthostatic Sitting] Blood Pressure [Orthostatic Standing] Pulse Oximetry 96 96 Oxygen Delivery Method 02/09/23 16:20 02/09/23 16:25 02/09/23 16:25 Temperature Pulse Rate 58 L Pulse Rate [Orthostatic Lying] Pulse Rate [Orthostatic Sitting] Pulse Rate [Orthostatic Standing] Respiratory Rate Blood Pressure 93/58 L 94/57 L Blood Pressure [Orthostatic Lying] Blood Pressure [Orthostatic Sitting] Blood Pressure [Orthostatic Standing] Pulse Oximetry 96 Oxygen Delivery Method 02/09/23 16:30 02/09/23 16:30 02/09/23 16:35 Temperature Pulse Rate 56 L 59 L Pulse Rate [Orthostatic Lying] Pulse Rate [Orthostatic Sitting] Pulse Rate [Orthostatic Standing] Respiratory Rate Blood Pressure 100/61 Blood Pressure [Orthostatic Lying] Blood Pressure [Orthostatic Sitting] Blood Pressure [Orthostatic Standing] Pulse Oximetry 95 96 Oxygen Delivery Method 02/09/23 16:35 02/09/23 16:40 02/09/23 16:40 Temperature Pulse Rate 56 L Pulse Rate [Orthostatic Lying] Pulse Rate [Orthostatic Sitting] Pulse Rate [Orthostatic Standing] Respiratory Rate Blood Pressure 100/62 101/61 Blood Pressure [Orthostatic Lying] Blood Pressure [Orthostatic Sitting] Blood Pressure [Orthostatic Standing] Pulse Oximetry 94 Oxygen Delivery Method 02/09/23 16:45 02/09/23 16:45 02/09/23 16:50 Temperature Pulse Rate 58 L 53 L Pulse Rate [Orthostatic Lying] Pulse Rate [Orthostatic Sitting] Pulse Rate [Orthostatic Standing] Respiratory Rate Blood Pressure 105/66 Blood Pressure [Orthostatic Lying] Blood Pressure [Orthostatic Sitting] Blood Pressure [Orthostatic Standing] Pulse Oximetry 95 95 Oxygen Delivery Method 02/09/23 16:50 02/09/23 16:55 02/09/23 16:55 Temperature Pulse Rate 54 L Pulse Rate [Orthostatic Lying] Pulse Rate [Orthostatic Sitting] Pulse Rate [Orthostatic Standing] Respiratory Rate Blood Pressure 104/67 105/65 Blood Pressure [Orthostatic Lying] Blood Pressure [Orthostatic Sitting] Blood Pressure [Orthostatic Standing] Pulse Oximetry 94 Oxygen Delivery Method 02/09/23 17:00 02/09/23 17:00 02/09/23 17:05 Temperature Pulse Rate 52 L Pulse Rate [Orthostatic Lying] Pulse Rate [Orthostatic Sitting] Pulse Rate [Orthostatic Standing] Respiratory Rate Blood Pressure 104/66 109/69 Blood Pressure [Orthostatic Lying] Blood Pressure [Orthostatic Sitting] Blood Pressure [Orthostatic Standing] Pulse Oximetry 96 Oxygen Delivery Method 02/09/23 17:05 02/09/23 17:10 02/09/23 17:10 Temperature Pulse Rate 51 L 52 L Pulse Rate [Orthostatic Lying] Pulse Rate [Orthostatic Sitting] Pulse Rate [Orthostatic Standing] Respiratory Rate Blood Pressure 110/68 Blood Pressure [Orthostatic Lying] Blood Pressure [Orthostatic Sitting] Blood Pressure [Orthostatic Standing] Pulse Oximetry 96 97 Oxygen Delivery Method 02/09/23 17:15 02/09/23 17:15 02/09/23 17:20 Temperature Pulse Rate 51 L 52 L Pulse Rate [Orthostatic Lying] Pulse Rate [Orthostatic Sitting] Pulse Rate [Orthostatic Standing] Respiratory Rate Blood Pressure 114/72 Blood Pressure [Orthostatic Lying] Blood Pressure [Orthostatic Sitting] Blood Pressure [Orthostatic Standing] Pulse Oximetry 97 97 Oxygen Delivery Method 02/09/23 17:20 02/09/23 17:25 02/09/23 17:25 Temperature Pulse Rate 53 L Pulse Rate [Orthostatic Lying] Pulse Rate [Orthostatic Sitting] Pulse Rate [Orthostatic Standing] Respiratory Rate Blood Pressure 111/70 111/69 Blood Pressure [Orthostatic Lying] Blood Pressure [Orthostatic Sitting] Blood Pressure [Orthostatic Standing] Pulse Oximetry 98 Oxygen Delivery Method 02/09/23 17:30 02/09/23 17:30 02/09/23 17:35 Temperature Pulse Rate 52 L Pulse Rate [Orthostatic Lying] Pulse Rate [Orthostatic Sitting] Pulse Rate [Orthostatic Standing] Respiratory Rate Blood Pressure 108/66 108/66 Blood Pressure [Orthostatic Lying] Blood Pressure [Orthostatic Sitting] Blood Pressure [Orthostatic Standing] Pulse Oximetry 97 Oxygen Delivery Method 02/09/23 17:35 02/09/23 17:40 02/09/23 17:40 Temperature Pulse Rate 51 L 51 L Pulse Rate [Orthostatic Lying] Pulse Rate [Orthostatic Sitting] Pulse Rate [Orthostatic Standing] Respiratory Rate Blood Pressure 110/68 Blood Pressure [Orthostatic Lying] Blood Pressure [Orthostatic Sitting] Blood Pressure [Orthostatic Standing] Pulse Oximetry 97 97 Oxygen Delivery Method 02/09/23 17:45 02/09/23 17:45 02/09/23 17:50 Temperature Pulse Rate 52 L Pulse Rate [Orthostatic Lying] Pulse Rate [Orthostatic Sitting] Pulse Rate [Orthostatic Standing] Respiratory Rate Blood Pressure 108/66 109/68 Blood Pressure [Orthostatic Lying] Blood Pressure [Orthostatic Sitting] Blood Pressure [Orthostatic Standing] Pulse Oximetry 97 Oxygen Delivery Method 02/09/23 17:50 02/09/23 17:55 02/09/23 17:55 Temperature Pulse Rate 52 L 55 L Pulse Rate [Orthostatic Lying] Pulse Rate [Orthostatic Sitting] Pulse Rate [Orthostatic Standing] Respiratory Rate Blood Pressure 107/67 Blood Pressure [Orthostatic Lying] Blood Pressure [Orthostatic Sitting] Blood Pressure [Orthostatic Standing] Pulse Oximetry 97 96 Oxygen Delivery Method 02/09/23 18:00 02/09/23 18:00 02/09/23 18:05 Temperature Pulse Rate 52 L Pulse Rate [Orthostatic Lying] Pulse Rate [Orthostatic Sitting] Pulse Rate [Orthostatic Standing] Respiratory Rate Blood Pressure 114/71 114/71 Blood Pressure [Orthostatic Lying] Blood Pressure [Orthostatic Sitting] Blood Pressure [Orthostatic Standing] Pulse Oximetry 97 Oxygen Delivery Method 02/09/23 18:05 02/09/23 18:10 02/09/23 18:10 Temperature Pulse Rate 52 L 53 L Pulse Rate [Orthostatic Lying] Pulse Rate [Orthostatic Sitting] Pulse Rate [Orthostatic Standing] Respiratory Rate Blood Pressure 112/69 Blood Pressure [Orthostatic Lying] Blood Pressure [Orthostatic Sitting] Blood Pressure [Orthostatic Standing] Pulse Oximetry 98 98 Oxygen Delivery Method 02/09/23 18:15 02/09/23 18:15 02/09/23 18:20 Temperature Pulse Rate 54 L Pulse Rate [Orthostatic Lying] Pulse Rate [Orthostatic Sitting] Pulse Rate [Orthostatic Standing] Respiratory Rate Blood Pressure 111/69 110/68 Blood Pressure [Orthostatic Lying] Blood Pressure [Orthostatic Sitting] Blood Pressure [Orthostatic Standing] Pulse Oximetry 98 Oxygen Delivery Method 02/09/23 18:20 02/09/23 18:25 02/09/23 18:25 Temperature Pulse Rate 57 L 58 L Pulse Rate [Orthostatic Lying] Pulse Rate [Orthostatic Sitting] Pulse Rate [Orthostatic Standing] Respiratory Rate Blood Pressure 111/68 Blood Pressure [Orthostatic Lying] Blood Pressure [Orthostatic Sitting] Blood Pressure [Orthostatic Standing] Pulse Oximetry 97 97 Oxygen Delivery Method 02/09/23 18:30 02/09/23 18:30 02/09/23 18:35 Temperature Pulse Rate 58 L Pulse Rate [Orthostatic Lying] Pulse Rate [Orthostatic Sitting] Pulse Rate [Orthostatic Standing] Respiratory Rate Blood Pressure 110/67 109/68 Blood Pressure [Orthostatic Lying] Blood Pressure [Orthostatic Sitting] Blood Pressure [Orthostatic Standing] Pulse Oximetry 97 Oxygen Delivery Method 02/09/23 18:35 02/09/23 18:40 02/09/23 18:40 Temperature Pulse Rate 60 59 L Pulse Rate [Orthostatic Lying] Pulse Rate [Orthostatic Sitting] Pulse Rate [Orthostatic Standing] Respiratory Rate Blood Pressure 113/72 Blood Pressure [Orthostatic Lying] Blood Pressure [Orthostatic Sitting] Blood Pressure [Orthostatic Standing] Pulse Oximetry 96 97 Oxygen Delivery Method 02/09/23 18:45 02/09/23 18:45 02/09/23 18:50 Temperature Pulse Rate 59 L 58 L Pulse Rate [Orthostatic Lying] Pulse Rate [Orthostatic Sitting] Pulse Rate [Orthostatic Standing] Respiratory Rate Blood Pressure 113/69 Blood Pressure [Orthostatic Lying] Blood Pressure [Orthostatic Sitting] Blood Pressure [Orthostatic Standing] Pulse Oximetry 97 97 Oxygen Delivery Method 02/09/23 18:50 02/09/23 18:54 02/09/23 18:55 Temperature Pulse Rate 57 L Pulse Rate [Orthostatic Lying] Pulse Rate [Orthostatic Sitting] Pulse Rate [Orthostatic Standing] Respiratory Rate Blood Pressure 115/70 112/71 Blood Pressure [Orthostatic Lying] Blood Pressure [Orthostatic Sitting] Blood Pressure [Orthostatic Standing] Pulse Oximetry 96 Oxygen Delivery Method 02/09/23 18:55 02/09/23 19:00 02/09/23 19:00 Temperature Pulse Rate 59 L 58 L Pulse Rate [Orthostatic Lying] Pulse Rate [Orthostatic Sitting] Pulse Rate [Orthostatic Standing] Respiratory Rate Blood Pressure 119/76 Blood Pressure [Orthostatic Lying] Blood Pressure [Orthostatic Sitting] Blood Pressure [Orthostatic Standing] Pulse Oximetry 96 98 Oxygen Delivery Method 02/09/23 19:03 02/09/23 19:03 02/09/23 19:06 Temperature Pulse Rate 61 90 Pulse Rate [Orthostatic Lying] Pulse Rate [Orthostatic Sitting] Pulse Rate [Orthostatic Standing] Respiratory Rate Blood Pressure 115/75 Blood Pressure [Orthostatic Lying] Blood Pressure [Orthostatic Sitting] Blood Pressure [Orthostatic Standing] Pulse Oximetry 98 99 Oxygen Delivery Method 02/09/23 19:08 02/09/23 19:08 02/09/23 19:10 Temperature Pulse Rate 58 L Pulse Rate [Orthostatic Lying] Pulse Rate [Orthostatic Sitting] Pulse Rate [Orthostatic Standing] Respiratory Rate 21 Blood Pressure 123/75 122/75 Blood Pressure [Orthostatic Lying] Blood Pressure [Orthostatic Sitting] Blood Pressure [Orthostatic Standing] Pulse Oximetry 97 Oxygen Delivery Method 02/09/23 19:10 02/09/23 19:16 02/09/23 19:16 Temperature Pulse Rate 56 L 57 L Pulse Rate [Orthostatic Lying] Pulse Rate [Orthostatic Sitting] Pulse Rate [Orthostatic Standing] Respiratory Rate 14 Blood Pressure 118/72 Blood Pressure [Orthostatic Lying] Blood Pressure [Orthostatic Sitting] Blood Pressure [Orthostatic Standing] Pulse Oximetry 97 96 Oxygen Delivery Method 02/09/23 19:42 02/09/23 19:38 02/09/23 19:40 Temperature Pulse Rate 68 85 Pulse Rate [Orthostatic Lying] 67 Pulse Rate [Orthostatic Sitting] 69 Pulse Rate [Orthostatic Standing] 69 Respiratory Rate 19 23 Blood Pressure Blood Pressure [Orthostatic Lying] 115/71 Blood Pressure [Orthostatic Sitting] 112/72 Blood Pressure [Orthostatic Standing] 94/54 L Pulse Oximetry Oxygen Delivery Method 02/09/23 19:46 02/09/23 19:46 02/09/23 20:00 Temperature Pulse Rate 52 L 77 Pulse Rate [Orthostatic Lying] Pulse Rate [Orthostatic Sitting] Pulse Rate [Orthostatic Standing] Respiratory Rate 21 Blood Pressure 124/79 Blood Pressure [Orthostatic Lying] Blood Pressure [Orthostatic Sitting] Blood Pressure [Orthostatic Standing] Pulse Oximetry 98 99 Oxygen Delivery Method 02/09/23 20:01 Temperature Pulse Rate Pulse Rate [Orthostatic Lying] Pulse Rate [Orthostatic Sitting] Pulse Rate [Orthostatic Standing] Respiratory Rate Blood Pressure 112/73 Blood Pressure [Orthostatic Lying] Blood Pressure [Orthostatic Sitting] Blood Pressure [Orthostatic Standing] Pulse Oximetry Oxygen Delivery Method MDM - Syncope Lab Data 02/09/23 15:42 02/09/23 15:42 Labs: Lab Results 02/09/23 02/09/23 02/09/23 Range/Units 15:42 15:42 15:42 WBC 5.5 (4.5-11.0) X10^3/uL RBC 4.01 L (4.5-5.9) X10^6/uL Hgb 13.2 L (13.5-17.5) g/dL Hct 38.2 L (41-53) % MCV 95.2 (80-100) fL MCH 32.8 (26-34) PG MCHC 34.4 (30-36) % RDW 13.3 (11.6-14.8) % Plt Count 224 (150-400) X10^3/uL Neut % (Auto) 51.8 (50-75) % Lymph % (Auto) 36.8 (25-40) % Hinds % (Auto) 6.5 (3-14) % Eos % (Auto) 3.6 (2-4) % Baso % (Auto) 1.3 (0-2) % Neut # (Auto) 2800 (0106-0858) /uL Lymph # (Auto) 2000 (2519-3937) /uL Hinds # (Auto) 400 (0-900) /uL Eos # (Auto) 200 (0-450) /uL Baso # (Auto) 100 (0-100) /uL PT 10.2 (10.1-12.7) SECONDS INR 0.9 (0.9-1.3) APTT 36 (26-36) SECONDS Sodium 133 L (137-145) mmol/L Potassium 3.9 (3.4-5.1) mmol/L Chloride 104 (98-107) mmol/L Carbon Dioxide 23 (22-32) mmol/L BUN 15 (9-20) mg/dL Creatinine 0.96 (0.66-1.25) mg/dL Estimated GFR > 60 (>60) mL/min BUN/Creatinine Ratio 15.6 (6-22) Glucose 136 H (70-100) mg/dL Calcium 8.8 (8.4-10.2) mg/dL Magnesium 2.2 (1.6-2.3) mg/dL Total Bilirubin 0.2 (0.2-1.3) mg/dL AST 20 (17-59) IU/L ALT 22 (<50) IU/L Alkaline Phosphatase 98 (38-126) U/L Total Creatine Kinase 68 (55-170) U/L Troponin I < 0.012 (0.01-0.034) ng/mL Total Protein 6.5 (6.3-8.2) g/dL Albumin 4.1 (3.5-5.0) g/dL Globulin 2.4 (1.7-4.1) g/dL Albumin/Globulin Ratio 1.7 (1.0-2.8) Lipase 90 (23-300) U/L Point of Care Testing Glucose POC 158 Urine Dip Bedside Urine Glucose Negative Bedside Urine Bilirubin - Negative Bedside Urine Ketone - Negative Urine Specific [place] 1.005 Bedside Urine Occult Blood - Negative Bedside Urine pH 6.0 Bedside Urine Protein - Negative Bedside Urine Urobilinogen - Negative Bedside Urine Nitrite - Negative Bedside Urine Leukocytes - Negative Esterase Imaging Data CT scan - head: Radiologist's Impression: PROCEDURE:? CT HEAD/BRAIN WO CON ? INDICATIONS:? vertigo on going ? TECHNIQUE:? Noncontrast 4.5 mm thick angled axial sections acquired from the foramen magnum to the vertex, with coronal and sagittal reformats.? For radiation dose reduction, the following was used:? automated exposure control, adjustment of mA and/or kV according to patient size.? ? COMPARISON:? None. ? FINDINGS:? Image quality:? Excellent.? ? CSF spaces:? Basal cisterns are patent.? No extra-axial fluid collections.? Ventricles are normal in size and shape.? ? Brain:? No midline shift.? No intracranial masses or hemorrhage.? Crook-white matter interface is normal.? ? Skull and face:? Calvarium and visualized facial bones are intact, without suspicious lesions.? ? Sinuses:? Visualized sinuses and mastoids are clear.? ? IMPRESSION:? No CT evidence of acute intracranial process.? Chest x-ray: Radiologist's Impression: PROCEDURE:? XR CHEST 1V ? INDICATIONS:? chest pain ? TECHNIQUE:? One view of the chest was acquired.? ? COMPARISON:? [facility], CR, XR CHEST 1 VIEW, 08/09/2018, 12:52. ? FINDINGS:? ? Surgical changes and devices:? None.? ? Lungs and pleura:? Lungs are clear.? No pleural effusions or pneumothorax.? ? Mediastinum:? Mediastinal contours appear normal.? Heart size is normal.? ? Bones and chest wall:? No suspicious bony lesions.? Overlying soft tissues appear unremarkable.? ? ? IMPRESSION:? No acute cardiopulmonary disease process. ? ? Dictated by: Blanca Hernandez MD, PhD on 02/09/2023 at 15:50 ?? ECG Data Interpretation: Normal sinus rhythm rate 73 CA interval 154 QRS 96 QTC 405 MDM Narrative Medical decision making narrative: Patient is a 47-year-old male multiple comorbidities presenting today with ongoing vertigo. No head CT has been done that I can see. Noncontrast head CT is ordered. Patient being very agitated wanting to leave at least go smoke a cigarette. Talked about leaving against medical advice which he has done in the past. Caregiver at bedside trying to talk him into it will let him go smoke a cigarette and return for noncontrast head CT. Patient returned. Head CT is fortunately negative blood work is overall reassuring. Symptoms are definitely positional consistent with vertigo. They been ongoing for number of days he. He received Ativan he is meclizine at home which she reports not helping. Not sure that Ativan helped. Patient feels anxious and ready to go home. Discharge Plan Departure Patient Disposition: Home Clinical Impression: Vertigo Instructions: DI for Vertigo Activity Restrictions/Additional Instructions: *You have been diagnosed with vertigo *What to do: Your symptoms are most consistent with vertigo. Please get up slowly stay hydrated. Head CT and workup in the ED negative. May require ENT evaluation if you continue to have vertigo *Continue to take medications as directed *Follow up with your primary care provider in 2-3 days or call [phone] *Return to ER if you should have falling passing out not tolerating fluids numbness tingling weakness or any new, worsening or concerning symptoms Prescriptions: No Action phenytoin sodium extended 100 mg capsule 400 mg PO BEDTIME haloperidol 5 mg Tablet 5 mg PO BID MDD BID trazodone 100 mg tablet 100 mg PO ONCE PM clonidine HCl 0.1 mg tablet 0.1 mg PO BID benztropine 1 mg tablet 1 mg PO TID PRN (Reason: Anxiety) dextroamphetamine-amphetamine [Adderall] 5 mg tablet 1 tab PO BID Patient Comments: bottle empty. filled on 01/27/23. [address] styles aware clonazepam 1 mg tablet 1 mg PO TID Qty: 30 0RF sertraline 50 mg tablet 100 mg PO QAM chlorpromazine 50 mg tablet 50 mg PO TID hydrocodone-acetaminophen 5-325 mg tablet 1 tab PO Q4-6H PRN (Reason: pain) Qty: 10 0RF ondansetron 4 mg tablet,disintegrating 4 mg PO TID-QID PRN (Reason: nausea and vomiting) Qty: 10 0RF Referrals: Sherri Lowe MD [Primary Care Provider] - Stand Alone Forms: Patient Portal/API
--- NOTE | 2023-02-09 19:02 | DI.CT.S_ITS ---
PROCEDURE: CT HEAD/BRAIN WO CON INDICATIONS: vertigo on going TECHNIQUE: Noncontrast 4.5 mm thick angled axial sections acquired from the foramen magnum to the vertex, with coronal and sagittal reformats. For radiation dose reduction, the following was used: automated exposure control, adjustment of mA and/or kV according to patient size. COMPARISON: None. FINDINGS: Image quality: Excellent. CSF spaces: Basal cisterns are patent. No extra-axial fluid collections. Ventricles are normal in size and shape. Brain: No midline shift. No intracranial masses or hemorrhage. Crook-white matter interface is normal. Skull and face: Calvarium and visualized facial bones are intact, without suspicious lesions. Sinuses: Visualized sinuses and mastoids are clear. IMPRESSION: No CT evidence of acute intracranial process. Dictated by: Renee Beckford M.D. on 02/09/2023 at 20:02 Approved by: Renee Beckford M.D. on 02/09/2023 at 20:03
[2023-02-09] MEDS: LORazepam 2 MG/ML INJ 0.5 MG IV (19:14)
--- NOTE | 2023-02-09 19:42 | PC.NURSE ---
Orthostatic VS performed. Pt reports feeling slightly lightheaded with sitting, worst with standing, but with some improvement from previously after IV fluid administration. Noted BP drop with standing. see VS doc.
--- NOTE | 2023-02-09 20:01 | PC.NURSE ---
Pt sitting in chair. Continues to c/o wanting to go home and sleep. At this time pt is redirectable to stay. Caregiver remains at the bedside. Awaiting results of CT scan.
== END 2023-02-09 20:13 | disposition home or self-care (01) ==
PROVIDERS: Emergency Medicine; Emergency Provider Emergency Medicine; PCP Family Medicine
DX: R42 Dizziness and giddiness (principal); R07.9 Chest pain, unspecified
CPT/HCPCS: 36415; 70450; 71045; 80053; 81003; 82550; 83690; 83735; 84484; 85025; 85610; 85730; 93005; 93010; 96361; 96374; 99284; J2060

== ENCOUNTER 2023-02-10 08:25 | Emergency (ER) | payer OTHER, MEDICAID, SELFPAY ==
[2023-02-10] VITALS (20 sets, daily range): BP systolic 105–148; BP diastolic 58–89; PULSE 57–81; RESP 16–21; TEMP 36.7; O2SAT 94–100; BMI 26.6
--- NOTE | 2023-02-10 08:38 | PC.NURSE ---
Pt arrived via [facility] c/o depression and SI and suspected overdose. Pt resting in rm 7 attached to cardiac monitoring. Reports the desire to want to harm self at home by hanging self in apartment. contracted for safety while he is here. states I know ill be okay here i feel safe here and was thankful for our care. States he is going thorugh some life stressors however did not elaborate. States he was here yesterday for vertigo and was worked up and sent home. h/o TBI and multiple personality disorder. States that the other day i had about 10 [tabs] clonazepam in my bottle and 5 [tabs] hydrocodone and this morning i have none...sometimes my personalities dont talk to eachother so its possible i took the meds but i cannot recall AAOx3 at this time. NSR 66, RR easy and unlabored, ambulatory. Urine sent to lab. Lab in for blood draw. EKG in process.
[2023-02-10 08:47] LABS: Ur Creatinine Normal (Normal); Ur Specific Gravity Normal (Normal); Urine pH Normal (Normal)
[2023-02-10 08:48] LABS: UR Morphine/Opiate cutoff 300 Negative (Negative); Urine Amphetamines Negative (Negative); Urine Barbiturates Positive (Negative); Urine Benzodiazepines Positive (Negative); Urine Cocaine Negative (Negative); Urine MDMA Negative (Negative); Urine Methadone Negative (Negative); Urine Methamphetamines Negative (Negative); Urine Oxycodone Negative (Negative); Urine Phencyclidine Negative (Negative); Urine Tetrahydrocannabinol Negative (Negative); Urine Tricyclic Antidepressant Negative (Negative)
[2023-02-10 08:55] LABS: Add Manual Diff / Slide Review NO; Basophils Absolute Auto 0 /uL (0-100); Basophils Percent Auto 0.8 % (0-2); Eosinophils Absolute Auto 100 /uL (0-450); Hematocrit 38.5 % (41-53); Hemoglobin 13.4 g/dL (13.5-17.5); Lymphocytes Absolute Auto 1100 /uL (1100-4500); Lymphocytes Percent Auto 20.3 % (25-40); Mean Corpuscular HGB Conc 34.9 % (30-36); Mean Corpuscular Hemoglobin 33.2 PG (26-34); Mean Corpuscular Volume 95.3 fL (80-100); Monocytes Absolute Auto 300 /uL (0-900); Monocytes Percent Auto 4.9 % (3-14); Neutrophils Absolute Auto 4000 /uL (1500-7000); Platelet Count 197 X10^3/uL (150-400); Red Blood Cell Count 4.04 X10^6/uL (4.5-5.9); Red Cell Distribution Width 13.3 % (11.6-14.8); White Blood Cell Count 5.6 X10^3/uL (4.5-11.0)
[2023-02-10 09:07] LABS: COVID19 -Nasal RAPID Negative (Negative)
--- NOTE | 2023-02-10 09:10 | ED_ITS ---
HPI - Psych General Chief Complaint: Psychiatric Symptoms Stated Complaint: Depression Time Seen by Provider: 02/10/23 08:29 Source: patient Mode of arrival: Ambulatory Limitations: altered mental status (borderline personality disorder, anxiety, depression, polysubstance abuse, CAD, hypertension, type 2 diabetes, COPD, and PAUL.) History of Present Illness HPI Narrative: This 47-year-old male is a resident of [place], [place]. He arrives by EMS with possible overdose, suicidal ideation. He has a history of schizoaffective disorder,, borderline personality disorder, anxiety, depression, polysubstance abuse, CAD, hypertension, type 2 diabetes, COPD, and PAUL. He is apparently on CPAP at home. He was seen here yesterday with dizziness. He is under treatment for a skin cancer on his right forehead. He claims to have multiple personalities, a total of 3. His current personality would do no such things such as overdose. However want to his other personalities may have consumed all the pills, he is uncertain. He currently notes he has suicidal ideation, he would hang himself at his home. An overdose would not be his mode of suicide at this time. He denies recent illness. He denies headache, visual changes, chest pain or palpitations. He is no nausea. He is no abdominal pain. His appetite has been normal. He does not feel fatigued or confused. He has a med list is reviewed. He is uncertain which medications for possibly consumed. Related Data Home Medications Medication Instructions Recorded Confirmed phenytoin sodium extended 100 mg 400 mg PO BEDTIME 11/17/20 02/10/23 capsule haloperidol 5 mg tablet 5 mg PO TID 06/29/22 02/10/23 sertraline 50 mg tablet 100 mg PO QAM 10/27/22 02/10/23 chlorpromazine 50 mg tablet 50 mg PO TID 01/01/23 02/10/23 benztropine 1 mg tablet 1 mg PO TID PRN Anxiety 02/03/23 02/10/23 dextroamphetamine-amphetamine 5 mg 1 tab PO BID 02/03/23 02/10/23 tablet (Adderall) trazodone 100 mg tablet 100 mg PO ONCE PM 02/03/23 02/10/23 Previous Rx's Medication Instructions Recorded clonazepam 1 mg tablet 1 mg PO TID #30 tabs 08/10/22 hydrocodone 5 mg-acetaminophen 325 1 tab PO Q4-6H PRN pain #10 tabs 01/11/23 mg tablet Allergies Allergy/AdvReac Type Severity Reaction Status Date / Time hydromorphone [HYDROMORPHONE] Allergy Mild severe Verified 02/03/23 13:23 itching WITH PILL FORM morphine Allergy Mild skin Verified 02/03/23 13:23 crawl/itchy Penicillins Allergy Mild hives Verified 02/03/23 13:23 ketorolac [From Toradol] Allergy Verified 02/03/23 13:23 Review of Systems Review of Systems ROS Unobtainable: All systems reviewed & are unremarkable except as noted in HPI and below Constitutional Constitutional: Denies anorexia, Denies body ache(s), Denies chills, Denies fatigue and Denies fever(s) Eyes Eyes: Denies change in vision and Denies loss of vision ENT Ears, Nose, Mouth, and Throat: Denies vertigo, Denies dizziness, Denies sinus pain and Denies sore throat Cardiovascular Cardiovascular: Denies chest pain, Denies syncope, Denies rapid heart rate, Denies irregular heart rhythm and Denies dyspnea Respiratory Respiratory: Denies chest congestion, Denies cough and Denies dyspnea Gastrointestinal Gastrointestinal: Denies constipation, Denies heartburn and Denies nausea Genitourinary Genitourinary: Denies hematuria and Denies dysuria Musculoskeletal Musculoskeletal: Denies back pain and Denies myalgias Integumentary/Breasts Skin/Breast: Denies lesions and Denies rash Neurologic Neurologic: Denies vertigo, Denies dizziness, Denies syncope and Denies loss of vision Psychiatric Psychiatric: Denies anxiety, Denies change in appetite, Denies irritability, Denies panic attacks, Denies paranoia and Denies tactile hallucinations Comments: Claims to have multiple personalities. Current suicide ideation without attempt. Endocrine Endocrine: Denies fatigue Hematologic/Lymphatic On Anticoagulants: No Allergic/Immunologic Allergic/Immunologic: Denies GI upset with certain foods Patient History Medical History (Updated 02/10/23 @ 15:09 by Juno Nogueira MD) Alcohol abuse Anxiety Borderline personality disorder CAD in [place] artery Chronic pain syndrome Depression Kidney stone on left side PTSD (post-traumatic stress disorder) Seizure Social History Smoking Status: Current every day smoker Smoking Status: Current every day smoker tobacco type: cigarettes alcohol intake frequency: holidays/special occasions only Substance Use Type: does not use, former substance user and methamphetamine Exam Initial Vital Signs Initial Vital Signs: Vital Signs Pulse Rate 73 02/10/23 08:26 Pulse Oximetry 97 02/10/23 08:26 Const General: cooperative, comfortable and other (Calm. Appropriate behavior.) Nutritional Appearance: average body habitus and well nourished [facility] Head: normal to inspection, normocephalic and atraumatic Face and sinus: normal facial exam Mouth: oral mucosae normal Throat: posterior oropharynx normal Eyes General: Yes appearance normal, both eyes and all related structures Visual Tinajero: normal visual tinajero by confrontation EOM: EOM intact bilaterally Neck Neck: normal visual inspection, full ROM and No JVD Chest Chest: normal inspection of the chest Resp Effort & Inspection: normal respiratory effort Auscultation: clear to auscultation bilaterally Cardio Palpation: normal PMI Rate: bradycardic Rhythm: regular rhythm Heart Sounds: S1 normal, S2 normal and no murmurs Pulses: radial pulses present GI Inspection: normal to inspection and non-distended Palpation: soft and No tender Auscultation: normal bowel sounds Back/Spine/Pelvis Back: normal to inspection and No back tenderness Skin General: no rashes or lesions noted Neuro General: patient alert, patient awake, patient oriented x3, oriented, no meningeal signs and no focal motor deficits Extrem General: normal to inspection, full ROM and no calf tenderness Psych Appearance: disheveled Speech and Movement: speech and movement normal Mood: congruent mood Affect: normal affect Attitude: cooperative Thought Process: loose association Thought Content: no hallucinations and suicidality Judgment: limited Course Course Course Narrative: Patient's medications and potential overdose was reviewed. Poison control was contacted. She may have taken as many as 12 clonazepam. Initial EKG and monitor been normal. A repeat EKG at 6:00 a.m. so sinus bradycardia with normal HI intervals. There is no ectopy. Labs were reassuring. Due to suicide ideation [facility] was consulted. He has been interviewed. Amongst his regular medications are Haldol, hydrocodone for head pain at the site of melanoma, and Adderall. After been observed for several hours, and continue to be clinically stable, these medications were given. He states he is no longer suicidal, he would like to go home. The situation was discussed with FLIGHT OPERATIONS INSPECTOR. His clinical records reviewed. ICM and safe for discharge with outpatient follow-up. He has no medications. He also notes he has no money to buy the medications. FLIGHT OPERATIONS INSPECTOR did call his prescribing provider, could only leave a message. The patient continues to request discharge. He is medically cleared. He is discharged. Orders Ordered: ED Orders 02/10/23 10:41 Consult to FLIGHT OPERATIONS INSPECTOR - X Ray Consultant Stat 02/10/23 14:42 EKG-12 Lead Stat Discontinued Medications Hydrocodone Bitart/Acetaminophen (Hydrocodone/Acet 5/325 Tablet) 1 tab PO NOW ONE Stop: 02/10/23 12:14 Last Admin: 02/10/23 12:35 Dose: 1 tab Documented By: KENNEY Haloperidol (Haloperidol 5 Mg Tablet) 5 mg PO NOW ONE Stop: 02/10/23 12:14 Last Admin: 02/10/23 12:47 Dose: 5 mg Documented By: KENNEY Vital Signs Vital signs: Vital Signs - 8 hr 02/10/23 11:27 02/10/23 11:00 02/10/23 11:15 Pulse Rate 61 59 L 58 L Respiratory Rate 21 21 16 Blood Pressure 140/81 140/81 Pulse Oximetry 99 97 97 Oxygen Delivery Method Room Air Room Air Room Air 02/10/23 11:45 02/10/23 12:00 02/10/23 12:30 Pulse Rate 58 L 62 81 Respiratory Rate 16 17 20 Blood Pressure 126/76 124/88 Pulse Oximetry 98 96 100 Oxygen Delivery Method Room Air Room Air Room Air 02/10/23 13:00 02/10/23 13:30 02/10/23 14:00 Pulse Rate 66 74 60 Respiratory Rate 16 19 16 Blood Pressure 123/66 109/71 117/78 Pulse Oximetry 94 94 96 Oxygen Delivery Method Room Air Room Air Room Air 02/10/23 14:34 02/10/23 15:00 Pulse Rate 69 66 Respiratory Rate 17 18 Blood Pressure 119/73 105/58 L Pulse Oximetry 95 94 Oxygen Delivery Method Room Air Room Air MDM - Psych Lab Data 02/10/23 08:50 02/10/23 08:50 Labs: Lab Results 02/10/23 02/10/23 02/10/23 Range/Units 08:29 08:43 08:50 WBC 5.6 (4.5-11.0) X10^3/uL RBC 4.04 L (4.5-5.9) X10^6/uL Hgb 13.4 L (13.5-17.5) g/dL Hct 38.5 L (41-53) % MCV 95.3 (80-100) fL MCH 33.2 (26-34) PG MCHC 34.9 (30-36) % RDW 13.3 (11.6-14.8) % Plt Count 197 (150-400) X10^3/uL Neut % (Auto) 72.0 D (50-75) % Lymph % (Auto) 20.3 L (25-40) % [place] % (Auto) 4.9 (3-14) % Eos % (Auto) 2.0 (2-4) % Baso % (Auto) 0.8 (0-2) % Neut # (Auto) 4000 (4926-6773) /uL Lymph # (Auto) 1100 (3809-5093) /uL [place] # (Auto) 300 (0-900) /uL Eos # (Auto) 100 (0-450) /uL Baso # (Auto) 0 (0-100) /uL Sodium (137-145) mmol/L Potassium (3.4-5.1) mmol/L Chloride (98-107) mmol/L Carbon Dioxide (22-32) mmol/L BUN (9-20) mg/dL Creatinine (0.66-1.25) mg/dL Estimated GFR (>60) mL/min BUN/Creatinine Ratio (6-22) Glucose (70-100) mg/dL Calcium (8.4-10.2) mg/dL Total Bilirubin (0.2-1.3) mg/dL AST (17-59) IU/L ALT (<50) IU/L Alkaline Phosphatase (38-126) U/L Total Protein (6.3-8.2) g/dL Albumin (3.5-5.0) g/dL Globulin (1.7-4.1) g/dL Albumin/Globulin Ratio (1.0-2.8) TSH (0.47-4.68) uIU/mL Free T4 (0.78-2.19) ng/dL Salicylates (<20) mg/dL U Opiates 300ng/mL cut Negative (Negative) Ur Oxycodone Screen Negative (Negative) Urine Methadone Screen Negative (Negative) Acetaminophen (10-30) ug/mL Ur Barbiturates Screen Positive H (Negative) Phenytoin (10-20) ug/mL U Tricyclic Antidepress Negative (Negative) Ur Phencyclidine Scrn Negative (Negative) Ur Amphetamines Screen Negative (Negative) U Methamphetamines Scrn Negative (Negative) Ur MDMA Scrn (Ecstasy) Negative (Negative) U Benzodiazepines Scrn Positive H (Negative) Urine Cocaine Screen Negative (Negative) U Marijuana (THC) Screen Negative (Negative) Ethyl Alcohol ( - 10) mg/dL SARS-CoV-2 (PCR) Negative (Negative) 02/10/23 02/10/23 02/10/23 Range/Units 08:50 08:50 08:50 WBC (4.5-11.0) X10^3/uL RBC (4.5-5.9) X10^6/uL Hgb (13.5-17.5) g/dL Hct (41-53) % MCV (80-100) fL MCH (26-34) PG MCHC (30-36) % RDW (11.6-14.8) % Plt Count (150-400) X10^3/uL Neut % (Auto) (50-75) % Lymph % (Auto) (25-40) % [place] % (Auto) (3-14) % Eos % (Auto) (2-4) % Baso % (Auto) (0-2) % Neut # (Auto) (0361-0582) /uL Lymph # (Auto) (7013-4839) /uL [place] # (Auto) (0-900) /uL Eos # (Auto) (0-450) /uL Baso # (Auto) (0-100) /uL Sodium 133 L (137-145) mmol/L Potassium 4.2 (3.4-5.1) mmol/L Chloride 102 (98-107) mmol/L Carbon Dioxide 24 (22-32) mmol/L BUN 10 (9-20) mg/dL Creatinine 0.82 (0.66-1.25) mg/dL Estimated GFR > 60 (>60) mL/min BUN/Creatinine Ratio 12.2 (6-22) Glucose 95 (70-100) mg/dL Calcium 8.8 (8.4-10.2) mg/dL Total Bilirubin 0.4 (0.2-1.3) mg/dL AST 19 (17-59) IU/L ALT 22 (<50) IU/L Alkaline Phosphatase 94 (38-126) U/L Total Protein 6.6 (6.3-8.2) g/dL Albumin 4.1 (3.5-5.0) g/dL Globulin 2.5 (1.7-4.1) g/dL Albumin/Globulin Ratio 1.6 (1.0-2.8) TSH 1.12 D (0.47-4.68) uIU/mL Free T4 1.07 (0.78-2.19) ng/dL Salicylates < 1.0 (<20) mg/dL U Opiates 300ng/mL cut (Negative) Ur Oxycodone Screen (Negative) Urine Methadone Screen (Negative) Acetaminophen < 10 (10-30) ug/mL Ur Barbiturates Screen (Negative) Phenytoin 8.8 L (10-20) ug/mL U Tricyclic Antidepress (Negative) Ur Phencyclidine Scrn (Negative) Ur Amphetamines Screen (Negative) U Methamphetamines Scrn (Negative) Ur MDMA Scrn (Ecstasy) (Negative) U Benzodiazepines Scrn (Negative) Urine Cocaine Screen (Negative) U Marijuana (THC) Screen (Negative) Ethyl Alcohol < 10 ( - 10) mg/dL SARS-CoV-2 (PCR) (Negative) Urine Dip Bedside Urine Glucose Negative Bedside Urine Bilirubin - Negative Bedside Urine Ketone - Negative Urine Specific [place] 1.005 Bedside Urine Occult Blood - Negative Bedside Urine pH 7.0 Bedside Urine Protein - Negative Bedside Urine Urobilinogen - Negative Bedside Urine Nitrite - Negative Bedside Urine Leukocytes - Negative Esterase ECG Data Attestation: I personally reviewed and interpreted this ECG as follows: (NSR rate 60 beats per minute. Normal intervals. No ectopy. No acute ST T wave changes. Normal study. Repeat EKG: No change. Sinus Harpreet rate 59 beats per minute. Normal intervals. No ectopy. No acute ST T wave changes.) Discharge Plan Departure Patient Disposition: Home Clinical Impression: Schizoaffective disorder Qualifiers: Schizoaffective disorder type: depressive Qualified Code(s): F25.1 - Schizoaffective disorder, depressive type Instructions: DI for Schizoaffective Disorder Activity Restrictions/Additional Instructions: A call has been placed your doctor regarding your medications. I advise you to contact your doctor as soon as possible interleukin-2 means of having your medications renewed. Return here as necessary. Prescriptions: No Action phenytoin sodium extended 100 mg capsule 400 mg PO BEDTIME haloperidol 5 mg Tablet 5 mg PO TID MDD TID trazodone 100 mg tablet 100 mg PO ONCE PM benztropine 1 mg tablet 1 mg PO TID PRN (Reason: Anxiety) dextroamphetamine-amphetamine [Adderall] 5 mg tablet 1 tab PO BID Patient Comments: bottle empty. filled on 01/27/23. [address] styles aware clonazepam 1 mg tablet 1 mg PO TID Qty: 30 0RF sertraline 50 mg tablet 100 mg PO QAM chlorpromazine 50 mg tablet 50 mg PO TID hydrocodone-acetaminophen 5-325 mg tablet 1 tab PO Q4-6H PRN (Reason: pain) Qty: 10 0RF Referrals: Sherri Lowe MD [Primary Care Provider] - Stand Alone Forms: Patient Portal/API
[2023-02-10 09:19] LABS: Acetaminophen < 10 ug/mL (10-30); Alanine Aminotransferase 22 IU/L (<50); Albumin 4.1 g/dL (3.5-5.0); Albumin Globulin Ratio 1.6 (1.0-2.8); Alkaline Phosphatase 94 U/L (38-126); Aspartate Aminotransferase 19 IU/L (17-59); BUN Creatinine Ratio 12.2 (6-22); Bilirubin Total 0.4 mg/dL (0.2-1.3); Blood Urea Nitrogen 10 mg/dL (9-20); Calcium 8.8 mg/dL (8.4-10.2); Carbon Dioxide 24 mmol/L (22-32); Chloride 102 mmol/L (98-107); Estimated Glomerular Filt Rate > 60 mL/min (>60); Ethanol (ETOH) < 10 mg/dL; Globulin 2.5 g/dL (1.7-4.1); Glucose 95 mg/dL (70-100); HEMOLYSIS < 15 (0-50); Potassium 4.2 mmol/L (3.4-5.1); Salicylate < 1.0 mg/dL (<20); Sodium 133 mmol/L (137-145); Total Protein 6.6 g/dL (6.3-8.2)
--- NOTE | 2023-02-10 09:30 | PC.NURSE ---
Call placed to poison control. Advised of all lab levels and tox screen results. Given EKG results. Advised patient should be monitored x 6 hours. Chance of SECURITY TECHNICIAN depression. Advised pt is not symptomatic at this time. Poison control suggested a phenytoin level since its on his med list. Dr Nogueira made aware. No new orders at this time.
[2023-02-10 09:36] LABS: Free T4, Direct Thyroxine 1.07 ng/dL (0.78-2.19)
[2023-02-10 09:49] LABS: Thyroid Stimulating Hormone 1.12 uIU/mL (0.47-4.68)
[2023-02-10 10:50] LABS: Phenytoin / Dilantin 8.8 ug/mL (10-20)
[2023-02-10] MEDS: HYDROCODONE/ACET 5/325 TABLET 1 TAB PO (12:35)
[2023-02-10] MEDS: haloperidoL 5 MG TABLET PO (12:47)
--- NOTE | 2023-02-10 15:21 | CM.SWNOTE ---
ED ASSET MANAGEMENT ANALYST Assessment Patient is 47 y/o male who presents to ED via EMS due to concern that one of his personalities overdosed on medication. In triage patient reports he took 10 clonazapam and 5 hydrocodone. Patient endorses he has DID. Per EMR patient has hx of Borderline personality disorder, Auditory hallucinations, SI, & Schioaffective disorder Patient has hx of two presentations to the ED in the last week, ED ASSET MANAGEMENT ANALYST Jay placed patient at [facility] voluntarily on 02/03/23 and per [place] patient presented at another ED on 02/05/23. Patient has hx of 47 ED presentations in the last 12 months ASSET MANAGEMENT ANALYST enters room to meet with patient. Patient presents as A/Ox4, euthymic, full range, congruent with mood. Patient states that he ran out of medicine and got depressed. Patient states he ran out of his medication days ago, he states he is not sure what happened to his medication. Per RN patient has [facility]al [facility] STEEL CRANE OPERATOR in [facility] who prescribes medications Elena Winslow. Patient states he has f/u appt on 03/03/23. Patient states even if he gets new rx for medication he states he has no money and cannot afford it. Patient endorses somewhat, not so bad SI, denies plans but states earlier he thought of hanging himself in his apartment, then states but that would get me nowhere. Patient denies HI. Patient denies AH and VH. Patient states his mother 3 years ago this month. Patient endorses he has scheduled surgery for skin cancer to be removed on 02/15/23. Patient endorses he has [facility] continuous pillowcase cutter Miguel Garcia (Ph. # [phone]) and gives consent to call her. Patient gives consent for ASSET MANAGEMENT ANALYST to call prescriber. Patient has significant hx of voluntary hospitalization. Patient endorses he feels safe to d/c to home, patient endorses he does not have transportation and usually walks to [facility]. ASSET MANAGEMENT ANALYST calls patient's continuous pillowcase cutter and leaves . ASSET MANAGEMENT ANALYST calls patient's prescriber office and leaves . It is the opinion of this ASSET MANAGEMENT ANALYST that patient is safe to d/c to home upon medical clearance with outpatient f/u. Patient is evaluated frequently in ED and there is no safety concern at this time. ASSET MANAGEMENT ANALYST reviews patient with ED provider Dr. Nogueira who indicates agreement and understanding. ASSET MANAGEMENT ANALYST calls Medicaid taxi at [facility] and secures transport for patient, patient chooses to wait outside for transport. Roz Nino, MOVERS
== END 2023-02-10 15:25 | disposition home or self-care (01) ==
PROVIDERS: Emergency Provider Emergency Medicine; PCP Family Medicine
DX: F25.1 Schizoaffective disorder, depressive type (principal); R07.9 Chest pain, unspecified; Z20.822 Contact with and (suspected) exposure to COVID-19
CPT/HCPCS: 36415; 80053; 80185; 80305; 80320; 80329; 81003; 84439; 84443; 85025; 87635; 93005; 93010; 99284; C9803; G0480

== ENCOUNTER 2023-06-05 16:51 | Emergency (ER) | payer OTHER, MEDICAID, SELFPAY ==
[2023-06-05 16:57] VITALS: BP 125/76; PULSE 77; RESP 14; TEMP 36.8; O2SAT 99
--- NOTE | 2023-06-05 18:15 | ED_ITS ---
HPI - General Adult General Chief complaint: Psychiatric Symptoms Stated complaint: hallucinations Time Seen by Provider: 06/05/23 17:11 Source: patient and EMS Mode of arrival: EMS History of Present Illness HPI narrative: 47-year-old gentleman with a history of schizoaffective disorder currently living in a detention setting much more stable than with previous admits who presents with complaints of insomnia and concerns for increasing visual hallucinations. There was no evidence of suicidal or homicidal ideation at this time. He is calm and cooperative. Related Data Home Medications Medication Instructions Recorded Confirmed phenytoin sodium extended 100 mg 400 mg PO BEDTIME 11/17/20 02/10/23 capsule haloperidol 5 mg tablet 5 mg PO TID 06/29/22 02/10/23 sertraline 50 mg tablet 100 mg PO QAM 10/27/22 02/10/23 chlorpromazine 50 mg tablet 50 mg PO TID 01/01/23 02/10/23 benztropine 1 mg tablet 1 mg PO TID PRN Anxiety 02/03/23 02/10/23 dextroamphetamine-amphetamine 5 mg 1 tab PO BID 02/03/23 02/10/23 tablet (Adderall) trazodone 100 mg tablet 100 mg PO ONCE PM 02/03/23 02/10/23 Previous Rx's Medication Instructions Recorded clonazepam 1 mg tablet 1 mg PO TID #30 tabs 08/10/22 hydrocodone 5 mg-acetaminophen 325 1 tab PO Q4-6H PRN pain #10 tabs 01/11/23 mg tablet Allergies Allergy/AdvReac Type Severity Reaction Status Date / Time hydromorphone [HYDROMORPHONE] Allergy Mild severe Verified 06/05/23 16:59 itching WITH PILL FORM morphine Allergy Mild skin Verified 06/05/23 16:59 crawl/itchy Penicillins Allergy Mild hives Verified 06/05/23 16:59 ketorolac [From Toradol] Allergy Verified 06/05/23 16:59 Review of Systems Review of Systems Narrative: Pertinent positive and negative findings as per HPI Patient History Medical History CAD in y[place]k artery Borderline personality disorder Alcohol abuse Depression Anxiety PTSD (post-traumatic stress disorder) Seizure Chronic pain syndrome Kidney stone on left side Social History Smoking Status: Current every day smoker Smoking Status: Current every day smoker tobacco type: cigarettes alcohol intake frequency: holidays/special occasions only Substance Use Type: former substance user Exam Initial Vital Signs Initial Vital Signs: Vital Signs Temperature 98.2 F 06/05/23 16:57 Pulse Rate 77 06/05/23 16:57 Respiratory Rate 14 06/05/23 16:57 Blood Pressure 125/76 06/05/23 16:57 Pulse Oximetry 99 06/05/23 16:57 Oxygen Delivery Method Room Air 06/05/23 16:57 General: Alert appropriate in no acute distress Respiratory: Able to speak in full sentences, no obvious respiratory distress Skin: No obvious rashes, warm and dry Neurologic: Grossly intact no obvious asymmetries or abnormalities Psych: appropriate insight and affect, cooperative, good eye contact. fluent speech Course Vital Signs Vital signs: Vital Signs - 8 hr 06/05/23 16:57 Temperature 98.2 F Pulse Rate 77 Respiratory Rate 14 Blood Pressure 125/76 Pulse Oximetry 99 Oxygen Delivery Method Room Air Medical Decision Making [facility] Narrative Medical decision making narrative: CC: Schizoaffective disorder with increasing hallucination secondary to insomnia Complicating co-morbidities: Psychiatric diagnoses Data collected from: patient Social determinants of health that may influence the patients condition: Lives in a detention setting Medical records reviewed: Records from his detention or available including medications Adderall 5 mg 8:00 a.m. and noon Benztropine 1 mg 3 times a day Clonazepam 1 mg 3 times a day Clonidine 0.1 mg b.i.d. Haldol 5 mg 3 times a day Phenytoin 400 mg daily Quetiapine 600 mg at bedtime Sertraline 100 mg daily Trazodone 150 mg daily As needed Tylenol, hydroxyzine 50 mg daily q.6 hours It does look like there have been medication changes from quetiapine and chlorpromazine with current dose of quetiapine started on April 27. He states that melatonin gives him bad dreams Differential considered: Medication side effects, simple insomnia, Exam documented above, pertinent findings include: Patient is calm alert appropriate, not responding to internal stimuli Discussion: 47-year-old gentleman with schizoaffective disorder has complex list of psychiatric medications many of which are quite sedating and clearly not today enough. In looking at his list of medications would like to maximize current medications rather than adding additional ones. Will request that his afternoon Adderall dose be moved to 11:00 a.m. from 12:00 p.m. as he typically goes to bed around 7:30 p.m. Will increase his trazodone from 150 mg at night to 225 mg(1-1/2 pills) we will also ask that if he wakes up in the middle of the night he be given hydroxyzine tablet Discharge orders will indicate changes. He believes he can get in to see his psychiatric provider within a week have requested that he do that see how this medication changes taking effect. He is safe for discharge Discharge Plan Departure Patient Disposition: Home Clinical Impression: Insomnia Qualifiers: Insomnia type: unspecified Qualified Code(s): G47.00 - Insomnia, unspecified Schizoaffective disorder Qualifiers: Schizoaffective disorder type: unspecified Qualified Code(s): F25.9 - Schizoaffective disorder, unspecified Instructions: DI for Insomnia Activity Restrictions/Additional Instructions: Thank you for coming in today You are on a complex list of psychiatric medications many of which can cause s ignificant sleepiness. I am going to recommend two changes 1. Change the Adderall dosing schedule so that your 2nd pill is at 11:00 a.m. rather than noon 2. Increase your trazodone currently at 1 pill, 150 mg to a total of 225 mg which will be 1.5 pills Additionally, if you in the middle of the night you can have 1 of your hydroxyzine 50 mg tablets to see if this will help you get back to sleep Please schedule an appointment with your psychiatric medication provider in about a week to see how these changes are working If you find that you are getting worse or develop any new symptoms, please feel free to return to the emergency department for further evaluation. Prescriptions: No Action phenytoin sodium extended 100 mg capsule 400 mg PO BEDTIME haloperidol 5 mg Tablet 5 mg PO TID MDD TID trazodone 100 mg tablet 100 mg PO ONCE PM benztropine 1 mg tablet 1 mg PO TID PRN (Reason: Anxiety) dextroamphetamine-amphetamine [Adderall] 5 mg tablet 1 tab PO BID Patient Comments: bottle empty. filled on 01/27/23. [address] styles aware clonazepam 1 mg tablet 1 mg PO TID Qty: 30 0RF sertraline 50 mg tablet 100 mg PO QAM chlorpromazine 50 mg tablet 50 mg PO TID hydrocodone-acetaminophen 5-325 mg tablet 1 tab PO Q4-6H PRN (Reason: pain) Qty: 10 0RF Referrals: Sherri Lowe MD [Primary Care Provider] - Stand Alone Forms: Patient Portal/API
== END 2023-06-05 19:05 | disposition home or self-care (01) ==
PROVIDERS: Emergency Provider Emergency Medicine; PCP Family Medicine
DX: G47.00 Insomnia, unspecified (principal); F25.9 Schizoaffective disorder, unspecified
CPT/HCPCS: 99283

== ENCOUNTER 2023-08-04 09:38 | Emergency (ER) | payer OTHER, MEDICAID, SELFPAY ==
[2023-08-04 09:44] VITALS: BP 124/72; PULSE 88; RESP 16; TEMP 36.8; O2SAT 97; BMI 26.7
[2023-08-04 10:36] LABS: COVID19 -Nasal RAPID Negative (Negative)
[2023-08-04 10:54] LABS: Add Manual Diff / Slide Review NO; Basophils Absolute Auto 0 /uL (0-100); Basophils Percent Auto 1.1 % (0-2); Eosinophils Absolute Auto 100 /uL (0-450); Eosinophils Percent Auto 2.8 % (2-4); Hematocrit 36.8 % (41-53); Lymphocytes Absolute Auto 1500 /uL (1100-4500); Lymphocytes Percent Auto 33.1 % (25-40); Mean Corpuscular HGB Conc 35.4 % (30-36); Monocytes Absolute Auto 300 /uL (0-900); Monocytes Percent Auto 5.9 % (3-14); Neutrophils Absolute Auto 2600 /uL (1500-7000); Neutrophils Percent Auto 57.1 % (50-75); Platelet Count 202 X10^3/uL (150-400); Red Blood Cell Count 3.83 X10^6/uL (4.5-5.9); Red Cell Distribution Width 13.3 % (11.6-14.8); White Blood Cell Count 4.5 X10^3/uL (4.5-11.0)
[2023-08-04 10:54] LABS: Ur Creatinine Normal (Normal); Ur Specific Gravity Normal (Normal); Urine Tetrahydrocannabinol Negative (Negative); Urine pH Normal (Normal)
[2023-08-04 10:55] LABS: UR Morphine/Opiate cutoff 300 Negative (Negative); Urine Amphetamines Negative (Negative); Urine Barbiturates Positive (Negative); Urine Benzodiazepines Negative (Negative); Urine Cocaine Negative (Negative); Urine MDMA Negative (Negative); Urine Methadone Negative (Negative); Urine Methamphetamines Negative (Negative); Urine Oxycodone Negative (Negative); Urine Phencyclidine Negative (Negative); Urine Tricyclic Antidepressant Negative (Negative)
[2023-08-04 11:12] LABS: Acetaminophen < 10 ug/mL (10-30); Alanine Aminotransferase 14 IU/L (<50); Albumin Globulin Ratio 1.6 (1.0-2.8); Alkaline Phosphatase 121 U/L (38-126); Aspartate Aminotransferase 22 IU/L (17-59); BUN Creatinine Ratio 18.7 (6-22); Bilirubin Total 0.4 mg/dL (0.2-1.3); Blood Urea Nitrogen 14 mg/dL (9-20); Calcium 8.6 mg/dL (8.4-10.2); Carbon Dioxide 24 mmol/L (22-32); Chloride 105 mmol/L (98-107); Estimated Glomerular Filt Rate > 60 mL/min (>60); Ethanol (ETOH) < 10 mg/dL; Globulin 2.5 g/dL (1.7-4.1); Glucose 86 mg/dL (70-100); HEMOLYSIS < 15 (0-50); Potassium 3.9 mmol/L (3.4-5.1); Salicylate < 1.0 mg/dL (<20); Sodium 133 mmol/L (137-145); Total Protein 6.5 g/dL (6.3-8.2)
--- NOTE | 2023-08-04 11:12 | ED_ITS ---
HPI - Psych <Sheri Bernard MD - Last Filed: 08/10/23 04:00> General Chief Complaint: Psychiatric Symptoms Stated Complaint: Psych Time Seen by Provider: 08/04/23 09:49 History of Present Illness HPI Narrative: 48-year-old gentleman with a history of bipolar schizoaffective disorder currently living in a fdc concerned that he is exhibiting multiple ?red flags? with his safety plan. He notes that for the last month he has had decreasing sleep he has not bathing because of increasing paranoia and he is concerned that ?[place] is watching?. He has been taking all of his usual medications and his psychiatric provider is on [facility] Kathleen White. He feels that his schizophrenia/bipolar disorder is getting out of control and he is requesting voluntary admission to help with the normally for what sounds like increasing manic symptoms before they become uncontrolled. He currently is taking a mg of clonazepam 3 times a day, 5 mg of Haldol in the morning and 300 mg of Seroquel. He did take all of these this morning. I have given him an additional dose of clonazepam and he requests an additional dose of Haldol as well. We will talk with social work and begin working on voluntary admission. Related Data Home Medications Medication Instructions Recorded Confirmed haloperidol 5 mg tablet 5 mg PO BID 06/29/22 08/04/23 sertraline 50 mg tablet 100 mg PO QAM 10/27/22 08/04/23 chlorpromazine 50 mg tablet 50 mg PO TID 01/01/23 02/10/23 benztropine 1 mg tablet 1 mg PO TID PRN Anxiety 02/03/23 02/10/23 dextroamphetamine-amphetamine 5 mg 1 tab PO BID 02/03/23 08/04/23 tablet (Adderall) trazodone 100 mg tablet 150 mg PO ONCE PM 02/03/23 08/04/23 clonidine HCl 0.1 mg tablet 0.1 mg PO BID 08/04/23 08/04/23 haloperidol 10 mg tablet 10 mg PO BEDTIME 08/04/23 08/04/23 phenytoin sodium 100 mg capsule 400 mg PO BEDTIME 08/04/23 08/04/23 quetiapine 400 mg tablet 400 mg PO BEDTIME 02/28/24 02/28/24 quetiapine 400 mg tablet 800 mg PO DAILY 08/04/23 08/04/23 Previous Rx's Medication Instructions Recorded clonazepam 1 mg tablet 1 mg PO TID #30 tabs 08/10/22 Allergies Allergy/AdvReac Type Severity Reaction Status Date / Time hydromorphone [HYDROMORPHONE] Allergy Mild severe Verified 06/05/23 16:59 itching WITH PILL FORM morphine Allergy Mild skin Verified 06/05/23 16:59 crawl/itchy Penicillins Allergy Mild hives Verified 06/05/23 16:59 ketorolac [From Toradol] Allergy Verified 06/05/23 16:59 Review of Systems <Sheri Bernard MD - Last Filed: 08/10/23 04:00> Review of Systems Narrative: Increased insomnia, paranoia, decreased self-care including bathing as reported by the patient. No headaches, fevers, cough, chills. No chest pain or shortness a breath. Patient History <Sheri Bernard MD - Last Filed: 08/10/23 04:00> Medical History CAD in [place] artery Borderline personality disorder Alcohol abuse Depression Anxiety PTSD (post-traumatic stress disorder) Seizure Chronic pain syndrome Kidney stone on left side Social History Smoking Status: Current every day smoker Smoking Status: Current every day smoker tobacco type: cigarettes alcohol intake frequency: holidays/special occasions only Substance Use Type: former substance user Exam <Sheri Bernard MD - Last Filed: 08/10/23 04:00> Initial Vital Signs Initial Vital Signs: Vital Signs Temperature 98.2 F 08/04/23 09:44 Pulse Rate 88 08/04/23 09:44 Respiratory Rate 16 08/04/23 09:44 Blood Pressure 124/72 08/04/23 09:44 Pulse Oximetry 97 08/04/23 09:44 Oxygen Delivery Method Room Air 08/04/23 09:44 General: Healthy appearing, appears somewhat frightened and anxious, curled up in bed but Able to give a complete and coherent history. Well-nourished well- developed HEENT: Moist mucous membranes, normal sclera with reactive pupils, Respiratory: Lungs are clear to auscultation, no wheezing no rales no rhonchi. Full and symmetrical air movement Cardiac: Regular rate and rhythm no murmurs no bruits Abdomen: Soft, nontender, good bowel tones, no flank pain Skin: Warm and dry, no rashes Neurologic: Grossly neurologically intact with no obvious asymmetries or abnormalities Extremities: No trauma, well perfused Psych: Cooperative, no pressured speech but it is clear he is forcing himself to make eye contact and eye contact is uncomfortable. He is not having any evidence of responding to internal stimuli. His self-awareness and understanding of his disease is remarkable <Neftali Rowland DO - Last Filed: 08/05/23 05:24> Initial Vital Signs Initial Vital Signs: Vital Signs Temperature 98.2 F 08/04/23 09:44 Pulse Rate 88 08/04/23 09:44 Respiratory Rate 16 08/04/23 09:44 Blood Pressure 124/72 08/04/23 09:44 Pulse Oximetry 97 08/04/23 09:44 Oxygen Delivery Method Room Air 08/04/23 09:44 Course <Sheri Bernard MD - Last Filed: 08/10/23 04:00> Orders Ordered: Discontinued Medications Benztropine Mesylate (Benztropine 1 Mg Tablet) 1 mg PO 00, [facility] Last Admin: 08/05/23 07:27 Dose: 1 mg Documented By: Admin: 08/04/23 20:41 Dose: 1 mg Documented By: MARTHA Clonazepam (Clonazepam 0.5 Mg Tablet) 1 mg PO NOW ONE Stop: 08/04/23 11:14 Last Admin: 08/04/23 11:18 Dose: 1 mg Documented By: ASTRID Clonazepam (Clonazepam 0.5 Mg Tablet) 1 mg PO 00, [facility] Last Admin: 08/05/23 07:25 Dose: 1 mg Documented By: Admin: 08/04/23 20:38 Dose: 1 mg Documented By: MARTHA Clonidine HCl (Clonidine 0.1 Mg Tablet) 0.1 mg PO 699,1999 [facility] Last Admin: 08/05/23 07:26 Dose: 0.1 mg Documented By: Admin: 08/04/23 20:37 Dose: 0.1 mg Documented By: MARTHA Haloperidol (Haloperidol 5 Mg Tablet) 5 mg PO NOW ONE Stop: 08/04/23 11:44 Last Admin: 08/04/23 12:40 Dose: 5 mg Documented By: ASTRID Haloperidol (Haloperidol 5 Mg Tablet) 10 mg PO 1999 [facility] Last Admin: 08/04/23 20:38 Dose: 10 mg Documented By: MARTHA Haloperidol (Haloperidol 5 Mg Tablet) 5 mg PO 07,14 [facility] Last Admin: 08/05/23 07:25 Dose: 5 mg Documented By: CHIARA Phenytoin Sodium (Phenytoin Er 100 Mg Capsule) 400 mg PO 1999 [facility] Last Admin: 08/04/23 20:38 Dose: 400 mg Documented By: MARTHA Quetiapine Fumarate (Quetiapine 100 Mg Tablet) 800 mg PO 07 [facility] Last Admin: 08/05/23 07:26 Dose: 800 mg Documented By: CHIARA Quetiapine Fumarate (Quetiapine 100 Mg Tablet) 400 mg PO 1999 [facility] Last Admin: 08/04/23 20:38 Dose: 400 mg Documented By: MARTHA Sertraline HCl (Sertraline 50 Mg Tablet) 100 mg PO 07 [facility] Last Admin: 08/05/23 07:26 Dose: 100 mg Documented By: CHIARA Trazodone HCl (Trazodone 50 Mg Tablet) 150 mg PO 1999 [facility] Last Admin: 08/04/23 20:38 Dose: 150 mg Documented By: MARTHA Vital Signs Vital signs: Vital Signs - 8 hr 08/05/23 05:39 08/05/23 07:26 Temperature 97.9 F Pulse Rate 84 84 Respiratory Rate 15 Blood Pressure 133/88 133/88 Pulse Oximetry 94 Oxygen Delivery Method Room Air <Neftali Rowland DO - Last Filed: 08/05/23 05:24> Orders Ordered: Discontinued Medications Benztropine Mesylate (Benztropine 1 Mg Tablet) 1 mg PO 0700,1400,1999 [facility] Last Admin: 08/05/23 07:27 Dose: 1 mg Documented By: Admin: 08/04/23 20:41 Dose: 1 mg Documented By: MARTHA Clonazepam (Clonazepam 0.5 Mg Tablet) 1 mg PO NOW ONE Stop: 08/04/23 11:14 Last Admin: 08/04/23 11:18 Dose: 1 mg Documented By: ASTRID Clonazepam (Clonazepam 0.5 Mg Tablet) 1 mg PO 0700,1400,1999 [facility] Last Admin: 08/05/23 07:25 Dose: 1 mg Documented By: Admin: 08/04/23 20:38 Dose: 1 mg Documented By: MARTHA Clonidine HCl (Clonidine 0.1 Mg Tablet) 0.1 mg PO 699,1999 [facility] Last Admin: 08/05/23 07:26 Dose: 0.1 mg Documented By: Admin: 08/04/23 20:37 Dose: 0.1 mg Documented By: MARTHA Haloperidol (Haloperidol 5 Mg Tablet) 5 mg PO NOW ONE Stop: 08/04/23 11:44 Last Admin: 08/04/23 12:40 Dose: 5 mg Documented By: ASTRID Haloperidol (Haloperidol 5 Mg Tablet) 10 mg PO 1999 [facility] Last Admin: 08/04/23 20:38 Dose: 10 mg Documented By: MARTHA Haloperidol (Haloperidol 5 Mg Tablet) 5 mg PO [facility] Last Admin: 08/05/23 07:25 Dose: 5 mg Documented By: CHIARA Phenytoin Sodium (Phenytoin Er 100 Mg Capsule) 400 mg PO 1999 [facility] Last Admin: 08/04/23 20:38 Dose: 400 mg Documented By: MARTHA Quetiapine Fumarate (Quetiapine 100 Mg Tablet) 800 mg PO 07 [facility] Last Admin: 08/05/23 07:26 Dose: 800 mg Documented By: CHIARA Quetiapine Fumarate (Quetiapine 100 Mg Tablet) 400 mg PO 1999 [facility] Last Admin: 08/04/23 20:38 Dose: 400 mg Documented By: MARTHA Sertraline HCl (Sertraline 50 Mg Tablet) 100 mg PO 0700 [facility] Last Admin: 08/05/23 07:26 Dose: 100 mg Documented By: CHIARA Trazodone HCl (Trazodone 50 Mg Tablet) 150 mg PO 1999 [facility] Last Admin: 08/04/23 20:38 Dose: 150 mg Documented By: MARTHA Vital Signs Vital signs: Vital Signs - 8 hr 08/05/23 05:39 08/05/23 07:26 Temperature 97.9 F Pulse Rate 84 84 Respiratory Rate 15 Blood Pressure 133/88 133/88 Pulse Oximetry 94 Oxygen Delivery Method Room Air MDM - Psych <Sheri Bernard MD - Last Filed: 08/10/23 04:00> Lab Data 08/04/23 10:13 08/04/23 10:45 Labs: Lab Results 02/28/24 02/28/24 02/28/24 Range/Units 10:13 10:15 10:45 WBC 4.5 (4.5-11.0) X10^3/uL RBC 3.83 L (4.5-5.9) X10^6/uL Hgb 13.0 L (13.5-17.5) g/dL Hct 36.8 L (41-53) % MCV 96.0 (80-100) fL MCH 34.0 (26-34) PG MCHC 35.4 (30-36) % RDW 13.3 (11.6-14.8) % Plt Count 202 (150-400) X10^3/uL Neut % (Auto) 57.1 (50-75) % Lymph % (Auto) 33.1 (25-40) % [place] % (Auto) 5.9 (3-14) % Eos % (Auto) 2.8 (2-4) % Baso % (Auto) 1.1 (0-2) % Neut # (Auto) 2600 (4306-3473) /uL Lymph # (Auto) 1500 (1200-1037) /uL [place] # (Auto) 300 (0-900) /uL Eos # (Auto) 100 (0-450) /uL Baso # (Auto) 0 (0-100) /uL Sodium 133 L (137-145) mmol/L Potassium 3.9 (3.4-5.1) mmol/L Chloride 105 (98-107) mmol/L Carbon Dioxide 24 (22-32) mmol/L BUN 14 (9-20) mg/dL Creatinine 0.75 (0.66-1.25) mg/dL Estimated GFR > 60 (>60) mL/min BUN/Creatinine Ratio 18.7 (6-22) Glucose 86 (70-100) mg/dL Calcium 8.6 (8.4-10.2) mg/dL Magnesium 2.0 (1.6-2.3) mg/dL Total Bilirubin 0.4 (0.2-1.3) mg/dL AST 22 (17-59) IU/L ALT 14 (<50) IU/L Alkaline Phosphatase 121 (38-126) U/L Total Protein 6.5 (6.3-8.2) g/dL Albumin 4.0 (3.5-5.0) g/dL Globulin 2.5 (1.7-4.1) g/dL Albumin/Globulin Ratio 1.6 (1.0-2.8) TSH 1.06 (0.47-4.68) uIU/mL Free T4 0.96 (0.78-2.19) ng/dL Salicylates < 1.0 (<20) mg/dL U Opiates 300ng/mL cut Negative (Negative) Ur Oxycodone Screen Negative (Negative) Urine Methadone Screen Negative (Negative) Acetaminophen < 10 (10-30) ug/mL Ur Barbiturates Screen Positive H (Negative) Phenytoin 20.7 H (10-20) ug/mL U Tricyclic Antidepress Negative (Negative) Ur Phencyclidine Scrn Negative (Negative) Ur Amphetamines Screen Negative (Negative) U Methamphetamines Scrn Negative (Negative) Ur MDMA Scrn (Ecstasy) Negative (Negative) U Benzodiazepines Scrn Negative (Negative) Urine Cocaine Screen Negative (Negative) U Marijuana (THC) Screen Negative (Negative) Urine pH Normal (Normal) Urine Specific [place] Normal (Normal) Ethyl Alcohol < 10 ( - 10) mg/dL Ur Creatinine Normal (Normal) SARS-CoV-2 (PCR) Negative (Negative) Urine Dip Bedside Urine Glucose Negative Bedside Urine Bilirubin - Negative Bedside Urine Ketone - Negative Urine Specific [place] 1.010 Bedside Urine Occult Blood - Negative Bedside Urine pH 7.0 Bedside Urine Protein - Negative Bedside Urine Urobilinogen - Negative Bedside Urine Nitrite - Negative Bedside Urine Leukocytes - Negative Esterase MDM Narrative Medical decision making narrative: CC: Increasing paranoia, insomnia and decreasing self-care Complicating co-morbidities: Schizoaffective disorder, bipolar disorder lives in a fdc currently employed Data collected from: patient Medical records reviewed: I do not have access to psychiatric records, prior ER notes reviewed Differential considered: Increasing delilah, decompensating schizoaffective disorder, infection, Exam documented above, pertinent findings include: Unremarkable exam with good insight, he is anxious and recognizes his increasing paranoia Lab Test results independently reviewed as above. Pertinent findings: CBC is unremarkable Chemistries are unremarkable TSH is appropriate Alcohol level is undetected Urine tox screen is positive for barbiturates and he is on phenytoin. Phenytoin low is 20.7, normal range is 10-20. He did take his phenytoin this morning EKG: Unremarkable EKG, sinus rhythm, QTC is 433 Treatments: P.o. clonazepam, p.o. Haldol Discussion: 48-year-old gentleman with well-controlled schizoaffective disorder with bipolar tendencies. He is a care plan and at this point most of his red flags are ?flag?. He is concerned that he has not slept well for about a month despite current medications. He is requesting inpatient hospitalization to make sure that he does get worse. He does have great insight and understanding into his own disease process. We will begin making phone calls for voluntary beds. He has requested an additional dose of Haldol which has been given. 1145 patient is medically clear <Neftali Rowland, DO - Last Filed: 08/05/23 05:24> Lab Data Labs: Lab Results 08/04/23 08/04/23 08/04/23 Range/Units 10:13 10:15 10:45 WBC 4.5 (4.5-11.0) X10^3/uL RBC 3.83 L (4.5-5.9) X10^6/uL Hgb 13.0 L (13.5-17.5) g/dL Hct 36.8 L (41-53) % MCV 96.0 (80-100) fL MCH 34.0 (26-34) PG MCHC 35.4 (30-36) % RDW 13.3 (11.6-14.8) % Plt Count 202 (150-400) X10^3/uL Neut % (Auto) 57.1 (50-75) % Lymph % (Auto) 33.1 (25-40) % [place] % (Auto) 5.9 (3-14) % Eos % (Auto) 2.8 (2-4) % Baso % (Auto) 1.1 (0-2) % Neut # (Auto) 2600 (9017-3644) /uL Lymph # (Auto) 1500 (3601-8207) /uL [place] # (Auto) 300 (0-900) /uL Eos # (Auto) 100 (0-450) /uL Baso # (Auto) 0 (0-100) /uL Sodium 133 L (137-145) mmol/L Potassium 3.9 (3.4-5.1) mmol/L Chloride 105 (98-107) mmol/L Carbon Dioxide 24 (22-32) mmol/L BUN 14 (9-20) mg/dL Creatinine 0.75 (0.66-1.25) mg/dL Estimated GFR > 60 (>60) mL/min BUN/Creatinine Ratio 18.7 (6-22) Glucose 86 (70-100) mg/dL Calcium 8.6 (8.4-10.2) mg/dL Magnesium 2.0 (1.6-2.3) mg/dL Total Bilirubin 0.4 (0.2-1.3) mg/dL AST 22 (17-59) IU/L ALT 14 (<50) IU/L Alkaline Phosphatase 121 (38-126) U/L Total Protein 6.5 (6.3-8.2) g/dL Albumin 4.0 (3.5-5.0) g/dL Globulin 2.5 (1.7-4.1) g/dL Albumin/Globulin Ratio 1.6 (1.0-2.8) TSH 1.06 (0.47-4.68) uIU/mL Free T4 0.96 (0.78-2.19) ng/dL Salicylates < 1.0 (<20) mg/dL U Opiates 300ng/mL cut Negative (Negative) Ur Oxycodone Screen Negative (Negative) Urine Methadone Screen Negative (Negative) Acetaminophen < 10 (10-30) ug/mL Ur Barbiturates Screen Positive H (Negative) Phenytoin 20.7 H (10-20) ug/mL U Tricyclic Antidepress Negative (Negative) Ur Phencyclidine Scrn Negative (Negative) Ur Amphetamines Screen Negative (Negative) U Methamphetamines Scrn Negative (Negative) Ur MDMA Scrn (Ecstasy) Negative (Negative) U Benzodiazepines Scrn Negative (Negative) Urine Cocaine Screen Negative (Negative) U Marijuana (THC) Screen Negative (Negative) Urine pH Normal (Normal) Urine Specific [place] Normal (Normal) Ethyl Alcohol < 10 ( - 10) mg/dL Ur Creatinine Normal (Normal) SARS-CoV-2 (PCR) Negative (Negative) Urine Dip Bedside Urine Glucose Negative Bedside Urine Bilirubin - Negative Bedside Urine Ketone - Negative Urine Specific [place] 1.010 Bedside Urine Occult Blood - Negative Bedside Urine pH 7.0 Bedside Urine Protein - Negative Bedside Urine Urobilinogen - Negative Bedside Urine Nitrite - Negative Bedside Urine Leukocytes - Negative Esterase MDM Narrative Medical decision making narrative: CC: Increasing paranoia, insomnia and decreasing self-care Complicating co-morbidities: Schizoaffective disorder, bipolar disorder lives in a fdc currently employed Data collected from: patient Medical records reviewed: I do not have access to psychiatric records, prior ER notes reviewed Differential considered: Increasing delilah, decompensating schizoaffective disorder, infection, Exam documented above, pertinent findings include: Unremarkable exam with good insight, he is anxious and recognizes his increasing paranoia Lab Test results independently reviewed as above. Pertinent findings: CBC is unremarkable Chemistries are unremarkable TSH is appropriate Alcohol level is undetected Urine tox screen is positive for barbiturates and he is on phenytoin. Phenytoin low is 20.7, normal range is 10-20. He did take his phenytoin this morning EKG: Unremarkable EKG, sinus rhythm, QTC is 433 Treatments: P.o. clonazepam, p.o. Haldol Discussion: 48-year-old gentleman with well-controlled schizoaffective disorder with bipolar tendencies. He is a care plan and at this point most of his red flags are ?flag?. He is concerned that he has not slept well for about a month despite current medications. He is requesting inpatient hospitalization to make sure that he does get worse. He does have great insight and understanding into his own disease process. We will begin making phone calls for voluntary beds. He has requested an additional dose of Haldol which has been given. [address] rowland: Received turned over. Review patient's history and physical. It has been stable all night. He is slept well. He continues to be medically cleared. This morning when the patient woke up he stated that he felt much better. He was able to get some sleep both yesterday and last night. He states his mood was better. No suicidal ideation. He would like to be discharged home to continue to take his medicines and stated that he would return if any of his symptoms worsened. Patient has been voluntary. There was no indication for an involuntary admission. Will discharge patient home. Discharge Plan Departure Patient Disposition: Home Clinical Impression: Hypomania Schizoaffective disorder Qualifiers: Schizoaffective disorder type: bipolar Qualified Code(s): F25.0 - Schizoaffective disorder, bipolar type Activity Restrictions/Additional Instructions: I am happy that you got some sleep and are feeling much better. I do recommend that you continue to take all of your medications as directed. Contact your primary care doctor for follow-up. Return to the emergency department for new symptoms. Prescriptions: No Action haloperidol 5 mg Tablet 5 mg PO BID MDD TID trazodone 100 mg tablet 150 mg PO ONCE PM benztropine 1 mg tablet 1 mg PO TID PRN (Reason: Anxiety) dextroamphetamine-amphetamine [Adderall] 5 mg tablet 1 tab PO BID clonidine HCl 0.1 mg Tablet 0.1 mg PO BID phenytoin sodium 100 mg Capsule 400 mg PO BEDTIME haloperidol [Haldol] 10 mg Tablet 10 mg PO BEDTIME quetiapine 400 mg Tablet 400 mg PO BEDTIME quetiapine 400 mg Tablet 800 mg PO DAILY clonazepam 1 mg tablet 1 mg PO TID Qty: 30 0RF sertraline 50 mg tablet 100 mg PO QAM chlorpromazine 50 mg tablet 50 mg PO TID Referrals: Sherri Lowe MD [Primary Care Provider] - Stand Alone Forms: Patient Portal/API
[2023-08-04] MEDS: clonazePAM 0.5 MG TABLET 1 MG PO ×2 (11:18→20:38)
--- NOTE | 2023-08-04 11:20 | PC.NURSE ---
patient expressed an increase on anxiety symptoms. The provider was made aware and placed orders for medication.
[2023-08-04 11:28] LABS: Free T4, Direct Thyroxine 0.96 ng/dL (0.78-2.19)
[2023-08-04 11:42] LABS: Thyroid Stimulating Hormone 1.06 uIU/mL (0.47-4.68)
[2023-08-04 12:29] LABS: Phenytoin / Dilantin 20.7 ug/mL (10-20)
[2023-08-04] MEDS: haloperidoL 5 MG TABLET PO (12:40)
--- NOTE | 2023-08-04 13:31 | PC.NURSE ---
Bed Search: Called [facility]: They have had patient in the past and do not felel as if he would benefit from their treatment. Declined that he was disruptive/violent during stay there. Called [place]: No beds.
--- NOTE | 2023-08-04 14:15 | PC.NURSE ---
CLAY TEMPERER Note: 1/2 peanut butter and jelly sandwich and pepsi given per patient request.
--- NOTE | 2023-08-04 15:02 | CM.SWNOTE ---
STRIP FEEDER Assessment Note Reviewed EMR and met with ED staff/pt to obtain pt's status and concerns for ED presentation. Pt found to be drowsy, but appropriate in affect and behavior, wanting assistance with voluntary inpt admission. [facility] declined, [facility] declined. Called and spoke to his Sound Assistant, Juanita Rogers , updated her on the plan. She does request a confirmation call if pt is accepted at [facility]. Discharge Planning/Care Management ED Psychiatric Symptoms Assessment Start: 08/04/23 09:49 Freq: Status: Active Protocol: Document 08/04/23 12:43 ZGG (Rec: 08/04/23 12:45 ZGG [id number]) Psychiatric Symptoms Assessment Symptoms/Complaint increased paranoia Duration Intermittent History Of Same Yes Context Unknown Improves With Medication Worsens With Nothing Associated Psychiatric Symptoms Auditory Hallucinations Details of Plan hear voices that increase with the constructions noise. nothing specific and not voices about harm against self or others. Level of Observation Intermittent Level of Consciousness Alert,Appropriate,Awake, Follows Commands Patient Orientation Name,Age,Birthday,Month Ability to Follow Directions Excellent Patient Cognition Impaired No Affect Description Anxious Patient Appearance Well Groomed Hallucination Type Auditory Thought Process: Normal Nausea/Vomiting None STRIP FEEDER - Linen Manager Assessment Start: 08/04/23 14:24 Freq: Status: Active Protocol: Document 08/04/23 14:24 DPL (Rec: 08/04/23 15:02 DPL [id number]) STRIP FEEDER/Linen Manager Assessment Start date 08/04/23 Visit Start Time 01:45 End date 08/04/23 Visit End Time 03:30 Total time Care Management spent on 1.45 hours patient visit-in minutes Presenting Problem Pt presents to the ED via EMS from his Assisted Living Facility, [facility], at the urging of the staff nurse . Pt has a hx of multiple mental health diagnoses, notably bipolar schizoaffective disorder, borderline personality disorder, depression, ADHD, SI , and PTSD. Pt shares that he' s experiencing a recurrence of worsening psychiatric symptoms such as increased paranoia, minimal sleep for the last month, not bathing due to fear of [place] watching him. Precipitating Event(s) Worsening psych symptoms over the last month despite taking home medications. Pt was positive on his tox screen for barbituates, but nothing else . He has had multiple voluntary hospitalizations and ED presentations for the same concerns/issues. Patient Strengths Pt stated that he recognized his red flags that he was decompensating, and was fearful that he would become worse if he didn't seek immenent voluntary psych treatment. Current Behavioral Health Provider(s) [facility] Services: Include Facility, Provider, Ph. # Sound Assistant- Juanita Rogers [facility]: Psych. Hx Mental Health and Chemical Multiple hospitalizations over Dependency many years, including [facility] are the most recent. Family Hx of Behavioral Abuse Both parents are , but pt does have a hx of PTSD. Psychiatric Hospitalizations (date(s)/ Not available. location) Psychosocial information & Support Nursing staff at [facility], his case manager specialist, and his Behavioral Health nurse practitioner. School/Work Does not work, is disabled and on SSDI. Presenting Problem Long hx of substance abuse, however not present during this admission. Legal Matters - Outstanding Issues Not at this time. Orientation (Person/Place/Time) Pt is alert and oriented, but drowsy due to having had a dose of Haldol and a dose of Clonazapam in the ED due to anxiety. Stated Mood Calm, but guarded. Affect (Congruent with Mood?) Congruent with mood. It does not appear that he is responding to internal/ external stimuli at this time. Thought Content - Specify/Describe He shared that he's afraid Obsessions, Delusions, Hallucinations that people are watching him, so he hasn't bathed for some time. Thought Processes (Xqeyokh-Jmpahnod-Bury Appropriate, able to express Lmrwtxtu-Hxuorbyt-Xlljywuixi- needs and that he recognizes Yoomkjmfbqvqbq-Rkhpelc-Ylbqtflryvoj- that he is not doing well and Thought Blocking) beginning to deteriorate mentally/functionally. Speech (Twngbv-Wdcf-Dxiqxwu-Rapid-Soft- Normal Loud-Pressured) Motor (Tgbdcv-Vthbfdxcj-Psws-Other) Slow Insight (Mqrp-Htdr-Mnve/Limited) Fair Judgement (Nhtd-Yliz-Kvey/Limited) Fair Impulse Control (Adequate-Impaired) Impaired Memory (Jfxobgjcp-Rupnpo-Otpvao, Intact Impaired-Intact) Concentration (Intact-Impaired) Impaired Attention (Intact-Impaired) Impaired Behavior (Appropriate-Inappropriate) Appropriate Suicidal Ideation (Plan) No Homicidal Ideation (Plan) No Intervention This STRIP FEEDER called [facility] in [place], they have beds available and are willing to review for admission. RA Plan Voluntary inpatient behavioral health
[2023-08-04 20:25] VITALS: BP 107/67; PULSE 64; RESP 16; O2SAT 95
[2023-08-04 20:37] VITALS: BP 107/67; PULSE 69
[2023-08-04] MEDS: cloNIDine 0.1 MG TABLET PO (20:37)
[2023-08-04] MEDS: QUETIAPINE 100 MG TABLET 400 MG PO (20:38)
[2023-08-04] MEDS: haloperidoL 5 MG TABLET 10 MG PO (20:38)
[2023-08-04] MEDS: TRAZODONE 50 MG TABLET 150 MG PO (20:38)
[2023-08-04] MEDS: PHENYTOIN ER 100 MG CAPSULE 400 MG PO (20:38)
[2023-08-04] MEDS: BENZTROPINE 1 MG TABLET PO (20:41)
--- NOTE | 2023-08-05 04:23 | PC.NURSE ---
After reading the OILFIELD PLANT AND FIELD OPERATOR note and a previous nurse note, it states that [facility] will not take the pt due to previous behaviors at their facility. [facility] was called and said that they have no beds available. In the OILFIELD PLANT AND FIELD OPERATOR note, it states that [facility] has beds available and is willing to review information with possible admit/transfer. I called [facility] at 0400 on and talked with Alfred. She said to fax over a facesheet and any reports for the pt. Their providers are in at 0800 and will review the chart and give a call back with an update on a possible admit. All info was faxed over at [phone].
--- NOTE | 2023-08-05 05:36 | PC.NURSE ---
This nurse called [facility] at [phone]. There was no answer, attempted 2x. Patient is being discharged and has no ride to facility. [employer] called to see if they can take patient to facility, they will only be available after 10am. Patient notified.
[2023-08-05 05:39] VITALS: BP 133/88; PULSE 84; RESP 15; TEMP 36.6; O2SAT 94
[2023-08-05] MEDS: haloperidoL 5 MG TABLET PO (07:25)
[2023-08-05] MEDS: clonazePAM 0.5 MG TABLET 1 MG PO (07:25)
[2023-08-05 07:26] VITALS: BP 133/88; PULSE 84
[2023-08-05] MEDS: cloNIDine 0.1 MG TABLET PO (07:26)
[2023-08-05] MEDS: QUETIAPINE 100 MG TABLET 800 MG PO (07:26)
[2023-08-05] MEDS: SERTRALINE 50 MG TABLET 100 MG PO (07:26)
[2023-08-05] MEDS: BENZTROPINE 1 MG TABLET PO (07:27)
--- NOTE | 2023-08-05 07:38 | PC.NURSE ---
[facility] after-hours transportation assistance contacted. . They took patient information and stated they would return a call back to ER with information on their availability to give patient a ride back to his residence in [place].
--- NOTE | 2023-08-05 09:30 | CM.SWNOTE ---
PROTECTION OFFICER Note post discharge Received VM on P [phone] from Lo RN at [facility] psych unit P [phone] asking for additional information about [facility] to assist with screening process. Reviewed chart to find patient was discharged home. GRISELDA
== END 2023-08-05 08:30 | disposition home or self-care (01) ==
PROVIDERS: Emergency Medicine; Emergency Provider Emergency Medicine; PCP Family Medicine
DX: F25.0 Schizoaffective disorder, bipolar type (principal); F30.8 Other manic episodes; R07.9 Chest pain, unspecified; Z20.822 Contact with and (suspected) exposure to COVID-19
CPT/HCPCS: 80053; 80185; 80305; 80320; 80329; 81003; 83735; 84439; 84443; 85025; 87635; 93005; 99283; 99284; G0480

== ENCOUNTER 2023-08-06 10:12 | Emergency (ER) | payer OTHER, MEDICAID, SELFPAY ==
[2023-08-06 10:20] VITALS: BP 125/83; PULSE 86; RESP 14; TEMP 36.9; O2SAT 97; BMI 26.7
[2023-08-06 10:45] LABS: Appearance Urine UA CLEAR; Bilirubin Urine UA NEGATIVE (NEGATIVE); Color Urine UA YELLOW; Glucose Urine UA NEGATIVE (Negative); Ketones Urine UA NEGATIVE (NEGATIVE); Leukocyte Esterase Urine UA NEGATIVE (NEGATIVE); Nitrite Urine UA NEGATIVE (Negative); Occult Blood Urine UA NEGATIVE (Negative); Protein Urine UA NEGATIVE (Negative); Specific Gravity Urine UA <=1.005 (1.000-1.035); Urobilinogen Urine UA 0.2 E.U./dL (0.2); pH Urine UA 5.5 (4.5-8.0)
[2023-08-06 10:50] LABS: Ur Creatinine Normal (Normal); Ur Specific Gravity Normal (Normal); Urine Barbiturates Positive (Negative); Urine Tetrahydrocannabinol Negative (Negative); Urine pH Normal (Normal)
[2023-08-06 10:51] LABS: UR Morphine/Opiate cutoff 300 Negative (Negative); Urine Amphetamines Negative (Negative); Urine Benzodiazepines Negative (Negative); Urine Cocaine Negative (Negative); Urine MDMA Negative (Negative); Urine Methadone Negative (Negative); Urine Methamphetamines Negative (Negative); Urine Oxycodone Negative (Negative); Urine Phencyclidine Negative (Negative); Urine Tricyclic Antidepressant Negative (Negative)
[2023-08-06 10:58] LABS: Add Manual Diff / Slide Review NO; Basophils Absolute Auto 0 /uL (0-100); Basophils Percent Auto 0.9 % (0-2); Eosinophils Absolute Auto 100 /uL (0-450); Hematocrit 39.1 % (41-53); Hemoglobin 13.5 g/dL (13.5-17.5); Lymphocytes Absolute Auto 1600 /uL (1100-4500); Lymphocytes Percent Auto 31.3 % (25-40); Mean Corpuscular HGB Conc 34.5 % (30-36); Mean Corpuscular Hemoglobin 33.3 PG (26-34); Mean Corpuscular Volume 96.5 fL (80-100); Monocytes Absolute Auto 300 /uL (0-900); Monocytes Percent Auto 5.3 % (3-14); Neutrophils Absolute Auto 3000 /uL (1500-7000); Neutrophils Percent Auto 60.5 % (50-75); Platelet Count 207 X10^3/uL (150-400); Red Blood Cell Count 4.05 X10^6/uL (4.5-5.9); Red Cell Distribution Width 13.1 % (11.6-14.8)
[2023-08-06 10:59] LABS: Bacteria Urine None Seen; Culture Indicated Urine Cult Not Indicated; RBC Urine None Seen (0-5/HPF); Squamous Epithelial Cell Urine None Seen (0-5/HPF); Urine Volume 10mL (spun); WBC Urine None Seen (0-5/HPF)
--- NOTE | 2023-08-06 11:00 | ED.PSYCH ---
HPI - Psych General Chief Complaint: Psychiatric Symptoms Stated Complaint: Paranoia, Can't sleep Time Seen by Provider: 08/06/23 10:38 Source: patient Mode of arrival: EMS History of Present Illness HPI Narrative: 48-year-old male with history of schizoaffective, hypomania, CAD, borderline personality disorder, SI presents with insomnia and anxiety. He states he is feeling paranoid and having difficulty sleeping despite taking trazodone. He denies SI, HI, hallucinations. He states he is having similar symptoms to when he was seen here few days ago, not worsening overall on my assessment. No pain, fevers, chills, shortness of breath, or any other new concerns. Per chart review, he was seen here recently for similar symptoms. He lives at a [facility]. He had overall reassuring labs per note. Patient requested voluntary hospitalization, but this was unable to be arranged. Social work was involved. Patient was then stable, slept in the ER, ultimately appeared well and stable for discharge with no indication for involuntary admission. Related Data Home Medications Medication Instructions Recorded Confirmed haloperidol 5 mg tablet 5 mg PO BID 06/29/22 08/04/23 sertraline 50 mg tablet 100 mg PO QAM 10/27/22 08/04/23 chlorpromazine 50 mg tablet 50 mg PO TID 01/01/23 02/10/23 benztropine 1 mg tablet 1 mg PO TID PRN Anxiety 02/03/23 02/10/23 dextroamphetamine-amphetamine 5 mg 1 tab PO BID 02/03/23 08/04/23 tablet (Adderall) trazodone 100 mg tablet 150 mg PO ONCE PM 02/03/23 08/04/23 clonidine HCl 0.1 mg tablet 0.1 mg PO BID 08/04/23 08/04/23 haloperidol 10 mg tablet 10 mg PO BEDTIME 08/04/23 08/04/23 phenytoin sodium 100 mg capsule 400 mg PO BEDTIME 08/04/23 08/04/23 quetiapine 400 mg tablet 400 mg PO BEDTIME 08/04/23 08/04/23 quetiapine 400 mg tablet 800 mg PO DAILY 08/04/23 08/04/23 Previous Rx's Medication Instructions Recorded clonazepam 1 mg tablet 1 mg PO TID #30 tabs 08/10/22 Allergies Allergy/AdvReac Type Severity Reaction Status Date / Time hydromorphone [HYDROMORPHONE] Allergy Mild severe Verified 06/05/23 16:59 itching WITH PILL FORM morphine Allergy Mild skin Verified 06/05/23 16:59 crawl/itchy Penicillins Allergy Mild hives Verified 06/05/23 16:59 ketorolac [From Toradol] Allergy Verified 06/05/23 16:59 Review of Systems Review of Systems Narrative: Constitutional: no fever, no chills Eyes: no visual disturbance, no discharge Ears, Nose, Mouth, Throat: no rhinorrhea, no sore throat Cardiovascular: no chest pain, no palpitations Respiratory: no cough, no shortness of breath Gastrointestinal: no abdominal pain, no vomiting, no diarrhea Genitourinary: no dysuria, no hematuria Musculoskeletal: no back pain, no neck stiffness Skin: no rash, no wound Neurological: no focal weakness, no focal numbness Patient History Medical History CAD in [place] artery Borderline personality disorder Alcohol abuse Depression Anxiety PTSD (post-traumatic stress disorder) Seizure Chronic pain syndrome Kidney stone on left side Social History Smoking Status: Current every day smoker Smoking Status: Current every day smoker tobacco type: cigarettes and smokeless tobacco alcohol intake frequency: holidays/special occasions only Substance Use Type: former substance user Exam Narrative Exam Narrative: Const: no acute distress, non toxic appearing Eyes: PERRLA, EOMI ENT: mucous membranes moist Neck: supple, non-tender Resp: no respiratory distress, clear to auscultation bilaterally Card: regular rate and rhythm, no murmurs Abd: non tender diffusely, no rigidity or rebound or guarding Back: no T or L spine tenderness, no CVA tenderness bilaterally Extrem: no deformities, no swelling bilateral lower extremities Psych: non disheveled appearance. Cooperative behavior. Regular speech rate and rhythm. Appropriate eye contact. Thought content why in ED today. Thought process linear, goal oriented. Mood anxious. Affect anxious. Cognition within normal limits. No SI or HI. No AVH noted on exam. Neuro: ANOx4, accountant systems grossly intact, grossly intact sensation and strength all extremities Skin: no rash, warm and dry Initial Vital Signs Initial Vital Signs: Vital Signs Temperature 98.4 F 08/06/23 10:20 Pulse Rate 86 08/06/23 10:20 Respiratory Rate 14 08/06/23 10:20 Blood Pressure 125/83 08/06/23 10:20 Pulse Oximetry 97 08/06/23 10:20 Oxygen Delivery Method Room Air 08/06/23 10:20 Course Course Course Narrative: This patient returns with ongoing paranoia and insomnia in setting of recent workup as described above. He currently appears to demonstrate capacity to me. No SI. I am involving social work but do not clearly see indication for involuntary admission at this time. Patient appears stable, afebrile, well perfused, comfortable, anxious but interacting with me appropriately. He has outpatient follow-up care and ch[facility] as well. Social work has assessed and agrees patient is voluntary. We have not been able to find an accepting facility for him. He is remained stable, comfortable, conversant, demonstrating capacity to me over several hours here. No SI. In this setting, he appears stable for follow-up with return precautions. He understands and agrees with plan. Repeat exam and vital signs reassuring. Questions answered. Plan reviewed. Patient discharged in stable condition. Orders Ordered: ED Orders 08/06/23 12:07 COVID19 -Nasal RAPID Stat Discontinued Medications Benztropine Mesylate (Benztropine 1 Mg Tablet) 1 mg PO NOW ONE Stop: 08/06/23 14:12 Last Admin: 08/06/23 14:21 Dose: 1 mg Documented By: SHIRA Clonazepam (Clonazepam 0.5 Mg Tablet) 1 mg PO NOW ONE Stop: 08/06/23 14:11 Last Admin: 08/06/23 14:20 Dose: 1 mg Documented By: SHIRA Haloperidol (Haloperidol 5 Mg Tablet) 5 mg PO NOW ONE Stop: 08/06/23 14:11 Last Admin: 08/06/23 14:21 Dose: 5 mg Documented By: SHIRA Vital Signs Vital signs: Vital Signs - 8 hr 08/06/23 10:20 Temperature 98.4 F Pulse Rate 86 Respiratory Rate 14 Blood Pressure 125/83 Pulse Oximetry 97 Oxygen Delivery Method Room Air MDM - Psych Lab Data 08/06/23 10:50 08/06/23 10:50 Labs: Lab Results 08/06/23 08/06/23 08/06/23 Range/Units 10:37 10:37 10:50 WBC 5.0 (4.5-11.0) X10^3/uL RBC 4.05 L (4.5-5.9) X10^6/uL Hgb 13.5 (13.5-17.5) g/dL Hct 39.1 L (41-53) % MCV 96.5 (80-100) fL MCH 33.3 (26-34) PG MCHC 34.5 (30-36) % RDW 13.1 (11.6-14.8) % Plt Count 207 (150-400) X10^3/uL Neut % (Auto) 60.5 (50-75) % Lymph % (Auto) 31.3 (25-40) % [place] % (Auto) 5.3 (3-14) % Eos % (Auto) 2.0 (2-4) % Baso % (Auto) 0.9 (0-2) % Neut # (Auto) 3000 (3683-2507) /uL Lymph # (Auto) 1600 (5863-8751) /uL [place] # (Auto) 300 (0-900) /uL Eos # (Auto) 100 (0-450) /uL Baso # (Auto) 0 (0-100) /uL Sodium 136 L (137-145) mmol/L Potassium 4.0 (3.4-5.1) mmol/L Chloride 108 H (98-107) mmol/L Carbon Dioxide 24 (22-32) mmol/L BUN 15 (9-20) mg/dL Creatinine 0.84 (0.66-1.25) mg/dL Estimated GFR > 60 (>60) mL/min BUN/Creatinine Ratio 17.9 (6-22) Glucose 86 (70-100) mg/dL Calcium 9.1 (8.4-10.2) mg/dL Magnesium 1.9 (1.6-2.3) mg/dL Total Bilirubin 0.4 (0.2-1.3) mg/dL AST 20 (17-59) IU/L ALT 15 (<50) IU/L Alkaline Phosphatase 105 (38-126) U/L Total Protein 7.1 (6.3-8.2) g/dL Albumin 4.2 (3.5-5.0) g/dL Globulin 2.9 (1.7-4.1) g/dL Albumin/Globulin Ratio 1.4 (1.0-2.8) TSH 1.39 D (0.47-4.68) uIU/mL Free T4 0.91 (0.78-2.19) ng/dL Urine Color Yellow Urine Appearance Clear Urine pH 5.5 Normal (4.5-8.0) Ur Specific [place] <=1.005 (1.000-1.035) Urine Protein Negative (Negative) Urine Glucose (UA) Negative (Negative) g/dL Urine Ketones Negative (NEGATIVE) Urine Occult Blood Negative (Negative) Urine Nitrate Negative (Negative) Urine Bilirubin Negative (NEGATIVE) Urine Urobilinogen 0.2 (0.2) E.U./dL Ur Leukocyte Esterase Negative (NEGATIVE) Urine RBC None seen (0-5/HPF) Urine WBC None seen (0-5/HPF) Ur Squamous Epith Cells None seen (0-5/HPF) Urine Bacteria None seen (None) Ur Culture Indicated? Cult not indicated Vol Urine Centrifuged 10ml (spun) Salicylates < 1.0 (<20) mg/dL U Opiates 300ng/mL cut Negative (Negative) Ur Oxycodone Screen Negative (Negative) Urine Methadone Screen Negative (Negative) Acetaminophen < 10 (10-30) ug/mL Ur Barbiturates Screen Positive H (Negative) U Tricyclic Antidepress Negative (Negative) Ur Phencyclidine Scrn Negative (Negative) Ur Amphetamines Screen Negative (Negative) U Methamphetamines Scrn Negative (Negative) Ur MDMA Scrn (Ecstasy) Negative (Negative) U Benzodiazepines Scrn Negative (Negative) Urine Cocaine Screen Negative (Negative) U Marijuana (THC) Screen Negative (Negative) Urine Specific [place] Normal (Normal) Ethyl Alcohol < 10 ( - 10) mg/dL Ur Creatinine Normal (Normal) SARS-CoV-2 (PCR) (Negative) 08/06/23 Range/Units 12:07 WBC (4.5-11.0) X10^3/uL RBC (4.5-5.9) X10^6/uL Hgb (13.5-17.5) g/dL Hct (41-53) % MCV (80-100) fL MCH (26-34) PG MCHC (30-36) % RDW (11.6-14.8) % Plt Count (150-400) X10^3/uL Neut % (Auto) (50-75) % Lymph % (Auto) (25-40) % [place] % (Auto) (3-14) % Eos % (Auto) (2-4) % Baso % (Auto) (0-2) % Neut # (Auto) (7805-2989) /uL Lymph # (Auto) (4851-8873) /uL [place] # (Auto) (0-900) /uL Eos # (Auto) (0-450) /uL Baso # (Auto) (0-100) /uL Sodium (137-145) mmol/L Potassium (3.4-5.1) mmol/L Chloride (98-107) mmol/L Carbon Dioxide (22-32) mmol/L BUN (9-20) mg/dL Creatinine (0.66-1.25) mg/dL Estimated GFR (>60) mL/min BUN/Creatinine Ratio (6-22) Glucose (70-100) mg/dL Calcium (8.4-10.2) mg/dL Magnesium (1.6-2.3) mg/dL Total Bilirubin (0.2-1.3) mg/dL AST (17-59) IU/L ALT (<50) IU/L Alkaline Phosphatase (38-126) U/L Total Protein (6.3-8.2) g/dL Albumin (3.5-5.0) g/dL Globulin (1.7-4.1) g/dL Albumin/Globulin Ratio (1.0-2.8) TSH (0.47-4.68) uIU/mL Free T4 (0.78-2.19) ng/dL Urine Color Urine Appearance Urine pH (4.5-8.0) Ur Specific [place] (1.000-1.035) Urine Protein (Negative) Urine Glucose (UA) (Negative) g/dL Urine Ketones (NEGATIVE) Urine Occult Blood (Negative) Urine Nitrate (Negative) Urine Bilirubin (NEGATIVE) Urine Urobilinogen (0.2) E.U./dL Ur Leukocyte Esterase (NEGATIVE) Urine RBC (0-5/HPF) Urine WBC (0-5/HPF) Ur Squamous Epith Cells (0-5/HPF) Urine Bacteria (None) Ur Culture Indicated? Vol Urine Centrifuged Salicylates (<20) mg/dL U Opiates 300ng/mL cut (Negative) Ur Oxycodone Screen (Negative) Urine Methadone Screen (Negative) Acetaminophen (10-30) ug/mL Ur Barbiturates Screen (Negative) U Tricyclic Antidepress (Negative) Ur Phencyclidine Scrn (Negative) Ur Amphetamines Screen (Negative) U Methamphetamines Scrn (Negative) Ur MDMA Scrn (Ecstasy) (Negative) U Benzodiazepines Scrn (Negative) Urine Cocaine Screen (Negative) U Marijuana (THC) Screen (Negative) Urine Specific [place] (Normal) Ethyl Alcohol ( - 10) mg/dL Ur Creatinine (Normal) SARS-CoV-2 (PCR) Negative (Negative) Discharge Plan Departure Patient Disposition: Assisted Living Clinical Impression: Insomnia Instructions: DI for Insomnia Activity Restrictions/Additional Instructions: It was a pleasure taking care of you today. It is important to fully read and understand the below. Please ask us if you have any questions. Please see your primary care team within 3-5 days to be reassessed. No tests or assessments are perfect, and your condition could change booth attendant time. If your symptoms change or worsen, it is very important you immediately seek medical care. If you have any new or worsening pain, fever, shortness of breath, thoughts of hurting yourself, thoughts of hurting anyone else, lightheadedness, confusion, passing out, or anything else that concerns you, please immediately seek medical care. If you have been prescribed any medications: please read the drug package inserts on how to properly use the medication and any potential side effects. If you had labs (blood tests) or imaging (CT scan or x-rays) done during your visit: please follow up on the results of these with your primary care doctor, as discussed. In addition, please know the results we received today may be preliminary. Our usual practice is to follow up on tests within a few days of a patient's discharge from the Emergency Department and notify you of any changes. These may lead to changes to your treatment plan. However, the best way to obtain and interpret these test results is through your Primary Care Provider. If you need to update your contact information, please stop by the front desk auxiliary and alert the Registration personnel before you leave the Emergency Department. Thank you for the opportunity to participate in your healthcare. We are always here and happy to see you in the future. Prescriptions: No Action haloperidol 5 mg Tablet 5 mg PO BID MDD TID trazodone 100 mg tablet 150 mg PO ONCE PM benztropine 1 mg tablet 1 mg PO TID PRN (Reason: Anxiety) dextroamphetamine-amphetamine [Adderall] 5 mg tablet 1 tab PO BID clonidine HCl 0.1 mg Tablet 0.1 mg PO BID phenytoin sodium 100 mg Capsule 400 mg PO BEDTIME haloperidol [Haldol] 10 mg Tablet 10 mg PO BEDTIME quetiapine 400 mg Tablet 400 mg PO BEDTIME quetiapine 400 mg Tablet 800 mg PO DAILY clonazepam 1 mg tablet 1 mg PO TID Qty: 30 0RF sertraline 50 mg tablet 100 mg PO QAM chlorpromazine 50 mg tablet 50 mg PO TID Referrals: Sherri Lowe MD [Primary Care Provider] -
[2023-08-06 11:12] LABS: Acetaminophen < 10 ug/mL (10-30); Alanine Aminotransferase 15 IU/L (<50); Albumin 4.2 g/dL (3.5-5.0); Albumin Globulin Ratio 1.4 (1.0-2.8); Alkaline Phosphatase 105 U/L (38-126); Aspartate Aminotransferase 20 IU/L (17-59); BUN Creatinine Ratio 17.9 (6-22); Bilirubin Total 0.4 mg/dL (0.2-1.3); Blood Urea Nitrogen 15 mg/dL (9-20); Calcium 9.1 mg/dL (8.4-10.2); Carbon Dioxide 24 mmol/L (22-32); Chloride 108 mmol/L (98-107); Estimated Glomerular Filt Rate > 60 mL/min (>60); Ethanol (ETOH) < 10 mg/dL; Globulin 2.9 g/dL (1.7-4.1); Glucose 86 mg/dL (70-100); HEMOLYSIS < 15 (0-50); Salicylate < 1.0 mg/dL (<20); Sodium 136 mmol/L (137-145); Total Protein 7.1 g/dL (6.3-8.2)
[2023-08-06 11:35] LABS: Free T4, Direct Thyroxine 0.91 ng/dL (0.78-2.19)
[2023-08-06 12:12] LABS: Thyroid Stimulating Hormone 1.39 uIU/mL (0.47-4.68)
[2023-08-06 12:35] LABS: COVID19 -Nasal RAPID Negative (Negative)
--- NOTE | 2023-08-06 13:07 | CM.SWNOTE ---
ED HAT FINISHING MATERIALS PREPARER Assessment HAT FINISHING MATERIALS PREPARER - Supervisor Metal Furniture [employer]ation Assessment HAT FINISHING MATERIALS PREPARER - Supervisor Metal Furniture [employer] Assessment Start: 08/06/23 12:03 Freq: Status: Active Protocol: Document 08/06/23 12:04 BDL (Rec: 08/06/23 13:07 BDL [id number]) HAT FINISHING MATERIALS PREPARER/Supervisor Metal Furniture [employer] Assessment Time Spent with Patient Start date 08/06/23 Visit Start Time 11:30 End date 08/06/23 Visit End Time 11:45 Total time Care Management spent on 20 minutes patient visit-in minutes Mental Health Screening Include Onset, Duration, Intensity Presenting Problem Pt presents to the ED due to increased paranoia, increased anxiety, as well as trouble sleeping. Patient endorses he is seeking voluntary BH placement. Precipitating Event(s) Pt was recently seen in ED and d/c a day ago with similar presentation seeking BH placement. Pt reports that his anxiety and paranoia has been building for about a week. Pt reports that he usually has a big appetite and that he has not been able to eat as much. Pt reports that when he is not eating or sleeping those are his signs that something is not right. Patient Strengths Pt lives in assisted living facility, pt is insightful regarding his mental health challenges. Current Behavioral Health Provider(s) Patient sees prescriber and Include Facility, Provider, Ph. # psychiatric nurse SCOTTY Schrader (ph.# ) [facility] Psych. Hx Mental Health and Chemical Pt has a history of Dependency schizoaffective disorder, Hypomania, Borderline Personality Disorder, SI, and PTSD. Pt has hx of overdose suicide attempt two years ago. Family Hx of Behavioral Abuse Pt's brother has a history of obsessive compulsive disorder and pt's mom has a history of Bipolar disorder. His mother in the last year. Psychiatric Hospitalizations (date(s)/ Pt has been hospitalized location) several times over the past year. Pt has been seen most recently at [facility] in [place], [facility],and [facility] in [place]. Per EMR, patient has also been placed at [facility], [facility], [facility] and [facility][1] [employer]. Psychosocial information & Support Pt reports that he has no Systems family in the area. Pt reports that his assisted living facility is his main support system. 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 Legal Concerns Legal Matters - Outstanding Issues None disclosed. Mental Status Orientation (Person/Place/Time) A/O x4 Stated Mood Anxious, paranoid Affect (Congruent with Mood?) Dysphoric, blunted, congruent w/ mood. Thought Content - Specify/Describe Paranoid, It feels like Obsessions, Delusions, Hallucinations somebody is looking at me all the time. Thought Processes (Blasynn-Sgokxbrn-Jskc Logical, coherent, goal Ohhdzskt-Xevixikh-Oaaesidwen- directed. Kfpnkwmuzdwodh-Qptorqm-Baxvuomqzbht- Thought Blocking) Speech (Dfcupc-Ozgf-Zlpncun-Rapid-Soft- Soft & monotone. Loud-Pressured) Motor (Ihrlvz-Qdgxyqzri-Bwwe-Other) Normal. Insight (Fkvy-Lxav-Qzru/Limited) Good. Judgement (Fphm-Eark-Rvgy/Limited) Good. Impulse Control (Adequate-Impaired) Adequate. Memory (Bnfowqbht-Rgmack-Bnjyov, Intact. Impaired-Intact) Concentration (Intact-Impaired) Intact. Attention (Intact-Impaired) Intact. Behavior (Appropriate-Inappropriate) Appropriate. Risk Assessment Suicidal Ideation (Plan) No Homicidal Ideation (Plan) No Comment Pt has hx of SI and has been seen numerous times in ED for this reason. Pt reports acting on his SI once 4 years ago when his mother . Pt has hx of auditory hallucinations telling him to kill himself. Patient has hx of plans to overdose or jump out of car. Intervention Intervention Pt is 48 y/o male who lives at [facility] in [place]. 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 Pt presents to the ED due to his increased paranoia, anxiety, and inability to sleep. HAT FINISHING MATERIALS PREPARER entered the room to meet w / pt. Pt is lying in bed speaking softly but is overall calm and cooperative. Pt was recently seen in ED for theses same reasons. Pt was d /c one day ago. Pt has a notable mental health hx including Schizoaffective disorder, hypomania, Borderline Personality Disorder, SI, overdose around two years ago and PTSD. Pt is seen by SCOTTY Schrader at [facility] and has a piano case and bench assembler, Juanita Joseph, through [facility]. Pt reports that his symptoms have been worsening since a week ago and that he feels like somebody is looking at me all the time. Pt reports that w/ the increased paranoia and anxiety he is not getting enough sleep. PT reports he generally sleeps from 10 pm to midnight but cannot fall back asleep and has to go to work after. Pt reports that it is really hard to maintain energy levels at work most days. Pt reports that he is prescribed trazadone but it does not help the pt sleep. I have a psychiatrist and we can't get a hold of things, I need to be inpatient, I don't know how to control the situation. Pt reports that he would like meds for his anxiety. Pt disclosed a hx of auditory and visual Hallucinations. That's just part of being schizophrenic. Pt describes his hallucinations as troublesome and denied experiencing them at the time of this assessment. It is the opinion of this HAT FINISHING MATERIALS PREPARER that patient would benefit from and be appropriate for voluntary hospitalization for medication management and crisis stabilization. Patient reports concern that his paranoia, anxiety and lack of sleep are impacting his ability to function in daily living activities and work. HAT FINISHING MATERIALS PREPARER reviews this with ED provider Dr. Sauceda who indicates agreement and understanding. Plan RA Plan HAT FINISHING MATERIALS PREPARER to seek out voluntary behavioral health placement upon medical clearance. Attila Ruffin MSW, [facility]
[2023-08-06] MEDS: clonazePAM 0.5 MG TABLET 1 MG PO (14:20)
[2023-08-06] MEDS: haloperidoL 5 MG TABLET PO (14:21)
[2023-08-06] MEDS: BENZTROPINE 1 MG TABLET PO (14:21)
[2023-08-06 14:50] LABS: Magnesium 1.9 mg/dL (1.6-2.3)
--- NOTE | 2023-08-06 16:55 | CM.SWNOTE ---
ED HUMAN RESOURCES OPERATIONS DIRECTOR Note HUMAN RESOURCES OPERATIONS DIRECTOR calls patient's prescriber SCOTTY Schrader with [employer] [facility] and leaves VM requesting return call regarding patient. HUMAN RESOURCES OPERATIONS DIRECTOR calls patient's [facility] rifle case repairer and leaves VM regarding patient requesting return call. business services specialist sales call [facility] stabilization, it is reported that they do not accept MH crisis patients business services specialist sales call [facility] triage and crisis stabilization center and leave VM requesting return call, no response call received after several hours. business services specialist sales call [facility], it is reported they have beds. business services specialist sales fax clinicals for review. [facility] intake states that patient is declined due to hx of not following through with treatment plan and not engaging in group therapy. HUMAN RESOURCES OPERATIONS DIRECTOR calls [facility], it is reported they have beds, HUMAN RESOURCES OPERATIONS DIRECTOR faxes clinicals for review[facility] and reports that patient is declined by psychiatrist and states that patient does not meet criteria, psychiatrist recommends crisis center for patient. ED provider endorses that patient is safe to d/c to home. It is the opinion of this HUMAN RESOURCES OPERATIONS DIRECTOR that patient is safe to d/c to home, denying SI and HI. HUMAN RESOURCES OPERATIONS DIRECTOR reviews this with patient, patient endorses safety upon d/c to return home to [facility]. HUMAN RESOURCES OPERATIONS DIRECTOR encourages patient to f/u with outpatient team. HUMAN RESOURCES OPERATIONS DIRECTOR offers for a VOA f/u call with the crisis line and patient declines, patient states he has access to crisis contacts. HUMAN RESOURCES OPERATIONS DIRECTOR calls [facility] Medicaid taxi after hours line to request Medicaid taxi for patient upon d/c. It is reported that [employer] will pharmacy picking technician patient in 20 minutes. Plan: patient to d/c to home via Medicaid taxi upon medical clearance, patient to f/u with outpatient team. JENNYFER Soriano
== END 2023-08-06 17:13 ==
PROVIDERS: Emergency Provider Emergency Medicine; PCP Family Medicine
DX: G47.00 Insomnia, unspecified (principal); F41.9 Anxiety disorder, unspecified; Z20.822 Contact with and (suspected) exposure to COVID-19
CPT/HCPCS: 36415; 80053; 80305; 80320; 80329; 81001; 83735; 84439; 84443; 85025; 87635; 99283; G0480

== ENCOUNTER 2023-08-23 16:29 | Emergency (ER) | payer OTHER, MEDICAID, SELFPAY ==
[2023-08-23 16:57] VITALS: BP 122/69; PULSE 80; RESP 16; TEMP 36.8; O2SAT 96; BMI 26.7
--- NOTE | 2023-08-23 18:54 | ED_ITS ---
HPI - Anxiety <Neftali Rowland, DO - Last Filed: 08/24/23 17:58> General Chief Complaint: Anxiety Stated Complaint: anxiety, wants med check Time Seen by Provider: 08/23/23 18:05 Source: patient Mode of arrival: Ambulatory History of Present Illness HPI narrative: Patient is a 48-year-old male. Has a history of anxiety, trouble sleeping, paranoia. Is on multiple medications. He lives in assisted living. All of his medications are administered by the assisted living. He states he has been taking all the medications that he has been given. He did see his primary mental health provider about a week ago. He stated that they increased his trazodone to try to help him get some sleep at night. He has been having quite a bit issues with this. He states that yesterday and last evening he seemed like he was doing well. This morning at about 0500 hours his paranoia in his hallucinations increased dramatically. He stated that it actually caused him to run out of the house. He states he was yelling at a tree thinking that someone was standing there. Right now he does feel a little bit better than what he did this morning but still feels very anxious and paranoid and sometimes sees things. No suicidal ideation. He feels like that his issues with hallucinations and delilah have been increasing in his becoming increasing more distressed because of the thoughts. Related Data Home Medications Medication Instructions Recorded Confirmed haloperidol 5 mg tablet 5 mg PO BID 06/29/22 08/24/23 sertraline 50 mg tablet 100 mg PO QAM 10/27/22 08/24/23 benztropine 1 mg tablet 1 mg PO TID PRN Anxiety 02/03/23 08/24/23 dextroamphetamine-amphetamine 5 mg 1 tab PO BID 02/03/23 08/24/23 tablet (Adderall) trazodone 100 mg tablet 150 mg PO ONCE PM 02/03/23 08/24/23 clonidine HCl 0.1 mg tablet 0.1 mg PO BID 08/04/23 08/24/23 phenytoin sodium 100 mg capsule 400 mg PO BEDTIME 08/04/23 08/24/23 quetiapine 400 mg tablet,extended 400 mg PO QAM 08/24/23 08/24/23 release 24 hr Previous Rx's Medication Instructions Recorded clonazepam 1 mg tablet 1 mg PO TID #30 tabs 08/10/22 Allergies Allergy/AdvReac Type Severity Reaction Status Date / Time hydromorphone [HYDROMORPHONE] Allergy Mild severe Verified 08/23/23 18:26 itching WITH PILL FORM morphine Allergy Mild skin Verified 08/23/23 18:26 crawl/itchy Penicillins Allergy Mild hives Verified 08/23/23 18:26 ketorolac [From Toradol] Allergy Verified 08/23/23 18:26 Review of Systems <Neftali Rowland DO - Last Filed: 08/24/23 17:58> Review of Systems ROS Unobtainable: All systems reviewed & are unremarkable except as noted in HPI and below Patient History <DO Gardenia Palmer Last Filed: 08/24/23 17:58> Medical History CAD in [place] artery Borderline personality disorder Alcohol abuse Depression Anxiety PTSD (post-traumatic stress disorder) Seizure Chronic pain syndrome Kidney stone on left side Social History Smoking Status: Current every day smoker Smoking Status: Current every day smoker tobacco type: cigarettes and smokeless tobacco alcohol intake frequency: holidays/special occasions only Substance Use Type: former substance user Exam <DO Gardenia Palmer Last Filed: 08/24/23 17:58> Initial Vital Signs Initial Vital Signs: Vital Signs Temperature 98.2 F 08/23/23 16:57 Pulse Rate 80 08/23/23 16:57 Respiratory Rate 16 08/23/23 16:57 Blood Pressure 122/69 08/23/23 16:57 Pulse Oximetry 96 08/23/23 16:57 Oxygen Delivery Method Room Air 08/23/23 16:57 Const General: cooperative and comfortable Resp Effort & Inspection: normal respiratory effort Auscultation: clear to auscultation bilaterally Cardio Rate: regular rate Rhythm: regular rhythm Neuro General: patient alert, patient awake, patient oriented x3 and moves all extremities Speech: speech normal Extrem Other: No gross deformities Psych Other: Patient is calm, cooperative. Does state that he was feeling anxious. States he occasionally sees and hears things that are not there. <Sammi Jean Baptiste DO - Last Filed: 08/24/23 10:25> Initial Vital Signs Initial Vital Signs: Vital Signs Temperature 98.2 F 08/23/23 16:57 Pulse Rate 80 08/23/23 16:57 Respiratory Rate 16 08/23/23 16:57 Blood Pressure 122/69 08/23/23 16:57 Pulse Oximetry 96 08/23/23 16:57 Oxygen Delivery Method Room Air 08/23/23 16:57 Course <Neftali Rowland DO - Last Filed: 08/24/23 17:58> Orders Ordered: Discontinued Medications Clonidine HCl (Clonidine 0.1 Mg Tablet) 0.1 mg PO NOW ONE Stop: 08/24/23 08:01 Last Admin: 08/24/23 09:16 Dose: Not Given Documented By: SHIRA Haloperidol (Haloperidol 5 Mg Tablet) 5 mg PO Q8HR MILTON Last Admin: 08/24/23 08:39 Dose: 5 mg Documented By: SHIRA Lorazepam (Lorazepam 0.5 Mg Tablet) 1 mg PO NOW ONE Stop: 08/23/23 18:55 Last Admin: 08/23/23 19:46 Dose: 1 mg Documented By: MARTHA Lorazepam (Lorazepam 0.5 Mg Tablet) 1 mg PO NOW ONE Stop: 08/24/23 08:54 Last Admin: 08/24/23 09:02 Dose: 1 mg Documented By: SHIRA Nicotine (Nicotine 14 Patch) 14 mg TOP NOW ONE Stop: 08/24/23 07:35 Last Admin: 08/24/23 08:35 Dose: 14 mg Documented By: SHIRA Quetiapine Fumarate (Quetiapine 100 Mg Tablet) 400 mg PO BEDTIME ONE Stop: 08/24/23 08:01 Last Admin: 08/24/23 09:16 Dose: Not Given Documented By: SHIRA Sertraline HCl (Sertraline 50 Mg Tablet) 100 mg PO BEDTIME ONE Stop: 08/24/23 08:01 Last Admin: 08/24/23 08:40 Dose: 100 mg Documented By: SHIRA Vital Signs Vital signs: Vital Signs - 8 hr 08/24/23 05:02 08/24/23 08:58 Temperature 97.8 F Pulse Rate 74 Respiratory Rate 18 18 Blood Pressure 138/76 130/88 Pulse Oximetry 97 98 Oxygen Delivery Method Room Air Room Air <Sammi Jean Baptiste DO - Last Filed: 08/24/23 10:25> Orders Ordered: Discontinued Medications Clonidine HCl (Clonidine 0.1 Mg Tablet) 0.1 mg PO NOW ONE Stop: 08/24/23 08:01 Last Admin: 08/24/23 09:16 Dose: Not Given Documented By: SHIRA Haloperidol (Haloperidol 5 Mg Tablet) 5 mg PO Q8HR [place] Last Admin: 08/24/23 08:39 Dose: 5 mg Documented By: SHIRA Lorazepam (Lorazepam 0.5 Mg Tablet) 1 mg PO NOW ONE Stop: 08/23/23 18:55 Last Admin: 08/23/23 19:46 Dose: 1 mg Documented By: MARTHA Lorazepam (Lorazepam 0.5 Mg Tablet) 1 mg PO NOW ONE Stop: 08/24/23 08:54 Last Admin: 08/24/23 09:02 Dose: 1 mg Documented By: SHIRA Nicotine (Nicotine 14 Patch) 14 mg TOP NOW ONE Stop: 08/24/23 07:35 Last Admin: 08/24/23 08:35 Dose: 14 mg Documented By: SHIRA Quetiapine Fumarate (Quetiapine 100 Mg Tablet) 400 mg PO BEDTIME ONE Stop: 08/24/23 08:01 Last Admin: 08/24/23 09:16 Dose: Not Given Documented By: SHIRA Sertraline HCl (Sertraline 50 Mg Tablet) 100 mg PO BEDTIME ONE Stop: 08/24/23 08:01 Last Admin: 08/24/23 08:40 Dose: 100 mg Documented By: SHIRA Vital Signs Vital signs: Vital Signs - 8 hr 08/24/23 05:02 08/24/23 08:58 Temperature 97.8 F Pulse Rate 74 Respiratory Rate 18 18 Blood Pressure 138/76 130/88 Pulse Oximetry 97 98 Oxygen Delivery Method Room Air Room Air MDM - Anxiety <Neftali Rowland, DO - Last Filed: 08/24/23 17:58> Lab Data 08/23/23 18:42 08/23/23 18:42 Labs: Lab Results 08/23/23 08/23/23 08/23/23 Range/Units 18:42 19:35 19:40 WBC 5.3 (4.5-11.0) X10^3/uL RBC 3.95 L (4.5-5.9) X10^6/uL Hgb 13.3 L (13.5-17.5) g/dL Hct 38.3 L (41-53) % MCV 96.8 (80-100) fL MCH 33.6 (26-34) PG MCHC 34.7 (30-36) % RDW 13.3 (11.6-14.8) % Plt Count 204 (150-400) X10^3/uL Neut % (Auto) 49.2 L (50-75) % Lymph % (Auto) 40.5 H (25-40) % [place] % (Auto) 5.5 (3-14) % Eos % (Auto) 3.7 (2-4) % Baso % (Auto) 1.1 (0-2) % Neut # (Auto) 2600 (7294-5588) /uL Lymph # (Auto) 2100 (4289-3855) /uL [place] # (Auto) 300 (0-900) /uL Eos # (Auto) 200 (0-450) /uL Baso # (Auto) 100 (0-100) /uL Sodium 132 L (137-145) mmol/L Potassium 4.0 (3.4-5.1) mmol/L Chloride 103 (98-107) mmol/L Carbon Dioxide 23 (22-32) mmol/L BUN 14 (9-20) mg/dL Creatinine 0.80 (0.66-1.25) mg/dL Estimated GFR > 60 (>60) mL/min BUN/Creatinine Ratio 17.5 (6-22) Glucose 82 (70-100) mg/dL Calcium 8.9 (8.4-10.2) mg/dL Total Bilirubin 0.4 (0.2-1.3) mg/dL AST 21 (17-59) IU/L ALT 12 (<50) IU/L Alkaline Phosphatase 105 (38-126) U/L Total Protein 6.7 (6.3-8.2) g/dL Albumin 4.1 (3.5-5.0) g/dL Globulin 2.6 (1.7-4.1) g/dL Albumin/Globulin Ratio 1.6 (1.0-2.8) TSH 1.68 D (0.47-4.68) uIU/mL Free T4 0.90 (0.78-2.19) ng/dL Salicylates < 1.0 (<20) mg/dL U Opiates 300ng/mL cut Negative (Negative) Ur Oxycodone Screen Negative (Negative) Urine Methadone Screen Negative (Negative) Acetaminophen < 10 (10-30) ug/mL Ur Barbiturates Screen Positive H (Negative) Phenytoin 14.5 (10-20) ug/mL U Tricyclic Antidepress Negative (Negative) Ur Phencyclidine Scrn Negative (Negative) Ur Amphetamines Screen Negative (Negative) U Methamphetamines Scrn Negative (Negative) Ur MDMA Scrn (Ecstasy) Negative (Negative) U Benzodiazepines Scrn Negative (Negative) Urine Cocaine Screen Negative (Negative) U Marijuana (THC) Screen Negative (Negative) Urine pH Normal (Normal) Urine Specific [place] Normal (Normal) Ethyl Alcohol < 10 ( - 10) mg/dL Ur Creatinine Normal (Normal) SARS-CoV-2 (PCR) Negative (Negative) Influenza A (RT-PCR) Flu a negative (NEGATIVE) Influenza B (RT-PCR) Flu b negative (NEGATIVE) RSV (PCR) Negative (Negative) Urine Dip Bedside Urine Glucose Negative Bedside Urine Bilirubin - Negative Bedside Urine Ketone - Negative Urine Specific [place] 1.105 Bedside Urine Occult Blood - Negative Bedside Urine pH 6.0 Bedside Urine Protein - Negative Bedside Urine Urobilinogen - Negative Bedside Urine Nitrite - Negative Bedside Urine Leukocytes - Negative Esterase MDM Narrative Medical decision making narrative: Patient is medically cleared. Denies drugs or alcohol. States he is taking all his medications. Has had increasing issues with sleeping over the past several weeks despite changes in medications by his mental health provider. He arrives in the emergency department voluntarily. He is asking/seeking inpatient treatment because of his increasing paranoia and hallucinations. He did agree to take Ativan for anxiety. Patient has been seen by social work. He has been medically cleared. Patient has been calm overnight. Has been accepted at [facility] with a arrival time late afternoon. Transport has been set up. Care turned over to day provider to continue to observe until patient is dispositioned. <Sammi Jean Baptiste, DO - Last Filed: 08/24/23 10:25> Lab Data Labs: Lab Results 08/23/23 08/23/23 08/23/23 Range/Units 18:42 19:35 19:40 WBC 5.3 (4.5-11.0) X10^3/uL RBC 3.95 L (4.5-5.9) X10^6/uL Hgb 13.3 L (13.5-17.5) g/dL Hct 38.3 L (41-53) % MCV 96.8 (80-100) fL MCH 33.6 (26-34) PG MCHC 34.7 (30-36) % RDW 13.3 (11.6-14.8) % Plt Count 204 (150-400) X10^3/uL Neut % (Auto) 49.2 L (50-75) % Lymph % (Auto) 40.5 H (25-40) % [place] % (Auto) 5.5 (3-14) % Eos % (Auto) 3.7 (2-4) % Baso % (Auto) 1.1 (0-2) % Neut # (Auto) 2600 (5931-2249) /uL Lymph # (Auto) 2100 (4145-3679) /uL [place] # (Auto) 300 (0-900) /uL Eos # (Auto) 200 (0-450) /uL Baso # (Auto) 100 (0-100) /uL Sodium 132 L (137-145) mmol/L Potassium 4.0 (3.4-5.1) mmol/L Chloride 103 (98-107) mmol/L Carbon Dioxide 23 (22-32) mmol/L BUN 14 (9-20) mg/dL Creatinine 0.80 (0.66-1.25) mg/dL Estimated GFR > 60 (>60) mL/min BUN/Creatinine Ratio 17.5 (6-22) Glucose 82 (70-100) mg/dL Calcium 8.9 (8.4-10.2) mg/dL Total Bilirubin 0.4 (0.2-1.3) mg/dL AST 21 (17-59) IU/L ALT 12 (<50) IU/L Alkaline Phosphatase 105 (38-126) U/L Total Protein 6.7 (6.3-8.2) g/dL Albumin 4.1 (3.5-5.0) g/dL Globulin 2.6 (1.7-4.1) g/dL Albumin/Globulin Ratio 1.6 (1.0-2.8) TSH 1.68 D (0.47-4.68) uIU/mL Free T4 0.90 (0.78-2.19) ng/dL Salicylates < 1.0 (<20) mg/dL U Opiates 300ng/mL cut Negative (Negative) Ur Oxycodone Screen Negative (Negative) Urine Methadone Screen Negative (Negative) Acetaminophen < 10 (10-30) ug/mL Ur Barbiturates Screen Positive H (Negative) Phenytoin 14.5 (10-20) ug/mL U Tricyclic Antidepress Negative (Negative) Ur Phencyclidine Scrn Negative (Negative) Ur Amphetamines Screen Negative (Negative) U Methamphetamines Scrn Negative (Negative) Ur MDMA Scrn (Ecstasy) Negative (Negative) U Benzodiazepines Scrn Negative (Negative) Urine Cocaine Screen Negative (Negative) U Marijuana (THC) Screen Negative (Negative) Urine pH Normal (Normal) Urine Specific [place] Normal (Normal) Ethyl Alcohol < 10 ( - 10) mg/dL Ur Creatinine Normal (Normal) SARS-CoV-2 (PCR) Negative (Negative) Influenza A (RT-PCR) Flu a negative (NEGATIVE) Influenza B (RT-PCR) Flu b negative (NEGATIVE) RSV (PCR) Negative (Negative) Urine Dip Bedside Urine Glucose Negative Bedside Urine Bilirubin - Negative Bedside Urine Ketone - Negative Urine Specific [place] 1.105 Bedside Urine Occult Blood - Negative Bedside Urine pH 6.0 Bedside Urine Protein - Negative Bedside Urine Urobilinogen - Negative Bedside Urine Nitrite - Negative Bedside Urine Leukocytes - Negative Esterase MDM Narrative Medical decision making narrative: Patient is medically cleared. Denies drugs or alcohol. States he is taking all his medications. Has had increasing issues with sleeping over the past several weeks despite changes in medications by his mental health provider. He arrives in the emergency department voluntarily. He is asking/seeking inpatient treatment because of his increasing paranoia and hallucinations. He did agree to take Ativan for anxiety. Patient has been seen by social work. He has been medically cleared. Patient has been calm overnight. Has been accepted at [facility] with a arrival time late afternoon. Transport has been set up. Care turned over to day provider to continue to observe until patient is dispositioned. 08/24/2023 Dr. Jean Baptiste: Patient signed out to myself by Dr. Rowland. He is voluntary. He has been accepted at [facility] transport has been set up for 1330. Patient did request a nicotine patch. Patient was seen evaluated by myself. Labs workup reviewed patient has been medically cleared. Home medications has been ordered. Patient is requesting to return home. He states he is feeling much improved after some sleep. He does not feel like he is having any auditory hallucinations. He has not had any SI or HI last night or today. He is calm, appropriate and would like to return home. He lives in a group/assisted living and has a lot of support. He does follow someone regularly for his medications. He had missed a primary care appointment to establish so he is still trying to reestablish with a new primary care. He states he has not SECRET SERVICE AGENT that helps him navigate the system set up a follow-up. Discharge Plan Departure Patient Disposition: Home Clinical Impression: Acute anxiety Activity Restrictions/Additional Instructions: Follow-up your medical team to see if they need to adjust your medications. Included is a card with primary care providers currently taking new patients. If you're feeling suicidal or having suicidal thoughts, contact the suicide hotline: . Please return if you have thoughts of harming yourself or others, if you are having worsening hallucinations or other new or concerning changes. Prescriptions: No Action haloperidol 5 mg Tablet 5 mg PO BID MDD TID trazodone 100 mg tablet 150 mg PO ONCE PM benztropine 1 mg tablet 1 mg PO TID PRN (Reason: Anxiety) dextroamphetamine-amphetamine [Adderall] 5 mg tablet 1 tab PO BID clonidine HCl 0.1 mg Tablet 0.1 mg PO BID phenytoin sodium 100 mg Capsule 400 mg PO BEDTIME quetiapine 400 mg tablet extended release 24 hr 400 mg PO QAM clonazepam 1 mg tablet 1 mg PO TID Qty: 30 0RF sertraline 50 mg tablet 100 mg PO QAM Referrals: Sherri Lowe MD [Primary Care Provider] - Stand Alone Forms: Patient Portal/API
[2023-08-23 19:01] LABS: Add Manual Diff / Slide Review NO; Basophils Absolute Auto 100 /uL (0-100); Basophils Percent Auto 1.1 % (0-2); Eosinophils Absolute Auto 200 /uL (0-450); Eosinophils Percent Auto 3.7 % (2-4); Hematocrit 38.3 % (41-53); Hemoglobin 13.3 g/dL (13.5-17.5); Lymphocytes Absolute Auto 2100 /uL (1100-4500); Lymphocytes Percent Auto 40.5 % (25-40); Mean Corpuscular HGB Conc 34.7 % (30-36); Mean Corpuscular Hemoglobin 33.6 PG (26-34); Mean Corpuscular Volume 96.8 fL (80-100); Monocytes Absolute Auto 300 /uL (0-900); Monocytes Percent Auto 5.5 % (3-14); Neutrophils Absolute Auto 2600 /uL (1500-7000); Neutrophils Percent Auto 49.2 % (50-75); Platelet Count 204 X10^3/uL (150-400); Red Blood Cell Count 3.95 X10^6/uL (4.5-5.9); Red Cell Distribution Width 13.3 % (11.6-14.8); White Blood Cell Count 5.3 X10^3/uL (4.5-11.0)
--- NOTE | 2023-08-23 19:04 | CM.SWNOTE ---
ED POSITION DESCRIPTION MANAGER Assessment POSITION DESCRIPTION MANAGER - Division Operations Manager Assessment POSITION DESCRIPTION MANAGER/Division Operations Manager Assessment Time Spent with Patient Start date 08/23/23 Visit Start Time 17:55 End date 08/23/23 Visit End Time 18:10 Total time Care Management spent on 15 minutes patient visit-in minutes Mental Health Screening Include Onset, Duration, Intensity Presenting Problem Patient is 48 y/o male who presents to ED for the 3rd time in a month due to concern for increased hallucinations, anxiety and paranoia. Patient endorses concern for limited sleep and his paranoia hitting him like a ton of bricks since 5 am this morning. Patient presents to ED seeking inpatient hospitalization. Precipitating Event(s) Patient endorses his relations coordinator increased his trazadone to 300mg a week ago but he still hasn't been getting sleep and patient's symptoms continue to increase. Patient endorses that paranoia and hallucinations are getting worse and worse...I'm at the end of my rope. Patient has been trying to manage his symptoms on an outpatient basis but patient states he believes he needs inpatient . Patient's last hospitalization was in January 2023. Patient Strengths Patient is seeking help, patient has support from [facility] and lime kiln operator. Patient endorses that he is currently living at Assisted Living and they have been supportive with medication management. Current Behavioral Health Provider(s) Patient's relations coordinator Include Facility, Provider, Ph. # Elena Aguilar (Ph. # [phone]), Patient endorses he had appt last week. Patient has field nurse case manager through [facility] Maricel Lopez (Ph. # [phone] ) Patient gives consent for POSITION DESCRIPTION MANAGER to contact this provider. Psych. Hx Mental Health and Chemical Patient has hx of Dependency Schizoaffective Disorder, Hypomania, Borderline Personality Disorder, SI, PTSD and hx of suicide attempts. Patient denies any current substance use. Family Hx of Behavioral Abuse Patient's mother in recent years and patient reports that his mother had hx of Bipolar Disorder and patient's brother has hx of OCD. Psychiatric Hospitalizations (date(s)/ Patient has hx of several location) hospitalizations. Most recently at [facility] in January 2023. Patient has hx of placement at [facility], [facility], [place], [facility] and [facility]. Psychosocial information & Support Patient is 48 y/o male who Systems resides in [place] at [facility], they are currently his main support. 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 Patient states he works 4 days a week, patient states he likes his job and does not like missing work. Legal Concerns Legal Matters - Outstanding Issues None reported Mental Status Orientation (Person/Place/Time) A/Ox4 Stated Mood a lot of anxiety Affect (Congruent with Mood?) anxious, euthymic, full range, congruent with mood. Thought Content - Specify/Describe Patient states he thought he Obsessions, Delusions, Hallucinations saw someone staring at him through the window at home and he ran out of the house yelling and cussing at them. Patient states that this scared him and does not want to scare anyone else. Patient states he thinks someone who used to live near him is out to get him and is survelancing him. Patient endorses that he is currently seeing a big city and colors and refers to the city evolving in front of him boom , boom, boom. Patient endorses he hears voices in his room and he tries to turn off everything to identify the noise but he still hears it, and states he hears foot steps going upstairs. Patient endorses he sometimes feels safe but all of the time he feels like he is being watched through a window. Thought Processes (Jnqcvgd-Aawnjraw-Uzty goal directed, coherent Rgwsseud-Aobshfim-Mjrpvugdce- Wtnfnsjvazbbsh-Euugqly-Azfnpiivzjnn- Thought Blocking) Speech (Gzegrz-Fiow-Jjzbftd-Rapid-Soft- normal Loud-Pressured) Motor (Yyymos-Vmfgfacab-Infa-Other) normal Insight (Xwyh-Rgco-Ckwe/Limited) fair Judgement (Coqb-Cofg-Rujw/Limited) fair/limited due to hallucinations and paranoia. Impulse Control (Adequate-Impaired) adequate Memory (Sagscoxtq-Fkgdiv-Yfaxnh, intact, not formally assessed Impaired-Intact) Concentration (Intact-Impaired) intact Attention (Intact-Impaired) intact Behavior (Appropriate-Inappropriate) appropriate Additional Comment patient presents as calm, cooperative and communicative Risk Assessment Suicidal Ideation (Plan) No Homicidal Ideation (Plan) No Comment Patient denies current SI or self harm and states not really. When asked about HI, patient states he has thoughts of getting his hands on [place] a man who used to live near him who he believes is surveylancing him and out to get him. Patient denies intent or plan. Intervention Intervention assistant professor surgical technology enter room to meet with patient. Patient endorses increased concern in recent weeks for lack of sleep, lack of caring for basic needs and increase in hallucinations and paranoia . This is patient's third presentation in the last few weeks regarding this concern. Patient presents with concern that his symptoms are worsening and he is at the end of my rope. Patient endorses that he recently went to prescriber and his trazadone was increased to 300mg a week ago but states it has not helped him in any way. Patient states that he hasn't been sleeping, has not been showering lately and he recently went 3 weeks without a shower. Patient states he has been afraid that someone will sneak in on him while taking a shower. Patient endorses that he has been worried that someone is always watching him and it is impacting his daily living. Patient endorses concern that issues are not being addressed by outpatient providers. POSITION DESCRIPTION MANAGER calls patient's [facility] outreach Navigator and leaves . It is the opinion of this POSITION DESCRIPTION MANAGER that patient is appropriate for and will benefit from voluntary inpatient hospitalization for medication management and crisis stabilization. POSITION DESCRIPTION MANAGER reviews this with ED provider Dr. Rowland who indicates agreement and understanding. Plan RA Plan ED team to seek voluntary inpatient bed for patient upon medical clearance. Roz Nino, JENNYFER
[2023-08-23 19:24] LABS: Acetaminophen < 10 ug/mL (10-30); Alanine Aminotransferase 12 IU/L (<50); Albumin 4.1 g/dL (3.5-5.0); Albumin Globulin Ratio 1.6 (1.0-2.8); Alkaline Phosphatase 105 U/L (38-126); Aspartate Aminotransferase 21 IU/L (17-59); BUN Creatinine Ratio 17.5 (6-22); Bilirubin Total 0.4 mg/dL (0.2-1.3); Blood Urea Nitrogen 14 mg/dL (9-20); Calcium 8.9 mg/dL (8.4-10.2); Carbon Dioxide 23 mmol/L (22-32); Chloride 103 mmol/L (98-107); Estimated Glomerular Filt Rate > 60 mL/min (>60); Ethanol (ETOH) < 10 mg/dL; Globulin 2.6 g/dL (1.7-4.1); Glucose 82 mg/dL (70-100); HEMOLYSIS < 15 (0-50); Salicylate < 1.0 mg/dL (<20); Sodium 132 mmol/L (137-145); Total Protein 6.7 g/dL (6.3-8.2)
--- NOTE | 2023-08-23 19:24 | CM.SWNOTE ---
ED JEWEL SETTER Note JEWEL SETTER calls [facility] intake, it is reported that they are reviewing patients for tomorrow, ED to fax packet for review upon medical clearance. JEWEL SETTER calls [facility], it is reported that they do not have beds today. JEWEL SETTER calls [facility], it is reported that they have beds and can review patient, ED to fax packet for review upon medical clearance. Plan: ED team to seek voluntary inpatient placement for patient upon medical clearance. Roz Nino, SENIOR TAX ANALYST
[2023-08-23 19:44] VITALS: BP 130/72; PULSE 61; RESP 17; O2SAT 97
[2023-08-23] MEDS: LORazepam 0.5 MG TABLET 1 MG PO (19:46)
[2023-08-23 19:50] LABS: Ur Creatinine Normal (Normal); Ur Specific Gravity Normal (Normal); Urine Tetrahydrocannabinol Negative (Negative); Urine pH Normal (Normal)
[2023-08-23 19:52] LABS: UR Morphine/Opiate cutoff 300 Negative (Negative); Urine Amphetamines Negative (Negative); Urine Barbiturates Positive (Negative); Urine Benzodiazepines Negative (Negative); Urine Cocaine Negative (Negative); Urine MDMA Negative (Negative); Urine Methadone Negative (Negative); Urine Methamphetamines Negative (Negative); Urine Oxycodone Negative (Negative); Urine Phencyclidine Negative (Negative); Urine Tricyclic Antidepressant Negative (Negative)
[2023-08-23 19:54] LABS: Thyroid Stimulating Hormone 1.68 uIU/mL (0.47-4.68)
[2023-08-23 20:17] LABS: Influenza A - CEPHEID Flu A NEGATIVE (NEGATIVE); Influenza B - CEPHEID Flu B NEGATIVE (NEGATIVE); Respiratory Syncytial Virus Negative (Negative)
[2023-08-23 20:18] LABS: COVID-19 CEPHEID 4-PLEX PCR Negative (Negative)
[2023-08-23 21:10] LABS: Phenytoin / Dilantin 14.5 ug/mL (10-20)
--- NOTE | 2023-08-23 21:49 | PC.NURSE ---
Addendum entered by Donis Quiroz 08/24/23 03:02: nurse to nurse at [facility] Addendum entered by Donis Quiroz 08/24/23 02:59: Pt accepted at [facility], by Treasure FAJARDO. Pt to arrive at facility at 1600 08/24/23. NWA ETA for car pick up driver at 1330 08/24/23 Addendum entered by Donis Quiroz 08/23/23 22:39: [id number] called back ([facility], intake) Pt has been declined for having to many visits, winding up the noguera and not participating in his care Original Note: Intake paper work sent to [facility], [place] all are reviewing at this time
[2023-08-24 05:02] VITALS: BP 138/76; RESP 18; TEMP 36.6; O2SAT 97
[2023-08-24] MEDS: NICOTINE 14 PATCH 14 MG TOP (08:35)
[2023-08-24] MEDS: haloperidoL 5 MG TABLET PO (08:39)
[2023-08-24] MEDS: SERTRALINE 50 MG TABLET 100 MG PO (08:40)
[2023-08-24 08:58] VITALS: BP 130/88; PULSE 74; RESP 18; O2SAT 98
[2023-08-24] MEDS: LORazepam 0.5 MG TABLET 1 MG PO (09:02)
--- NOTE | 2023-08-24 09:13 | PC.NURSE ---
Addendum entered by Bharti De Jesus R.N. 08/24/23 09:15: ... living arrangement. Original Note: Received call from rn case manager hospice, [facility] @ [phone]. She spoke directly with patient. Patient stated he does not want to go to facility. Pt is voluntary, to be d/c when [facility] arrives for transport back to his living arrange
== END 2023-08-24 09:10 | disposition home or self-care (01) ==
PROVIDERS: Emergency Medicine; Emergency Provider Emergency Medicine; PCP Family Medicine
DX: F41.9 Anxiety disorder, unspecified (principal); R44.3 Hallucinations, unspecified; Z20.822 Contact with and (suspected) exposure to COVID-19
CPT/HCPCS: 0241U; 36415; 80053; 80185; 80305; 80320; 80329; 81003; 84439; 84443; 85025; 99283; G0480

== ENCOUNTER 2023-10-06 11:57 | Emergency (ER) | payer OTHER, MEDICAID, SELFPAY ==
[2023-10-06 12:07] VITALS: BP 123/84; PULSE 86; O2SAT 93
[2023-10-06 12:14] VITALS: BP 123/84; PULSE 86; RESP 18; TEMP 37.1; O2SAT 92; BMI 28.8
[2023-10-06 12:30] VITALS: PULSE 86; O2SAT 94
[2023-10-06 12:31] VITALS: BP 119/87; PULSE 87; O2SAT 94
[2023-10-06 12:59] LABS: Appearance Urine UA CLEAR; Bilirubin Urine UA NEGATIVE (NEGATIVE); Color Urine UA YELLOW; Glucose Urine UA NEGATIVE (Negative); Ketones Urine UA NEGATIVE (NEGATIVE); Leukocyte Esterase Urine UA NEGATIVE (NEGATIVE); Nitrite Urine UA NEGATIVE (Negative); Occult Blood Urine UA NEGATIVE (Negative); Protein Urine UA NEGATIVE (Negative); Specific Gravity Urine UA <=1.005 (1.000-1.035); Urobilinogen Urine UA 0.2 E.U./dL (0.2); pH Urine UA 5.5 (4.5-8.0)
[2023-10-06 13:05] LABS: Bacteria Urine None Seen; RBC Urine None Seen (0-5/HPF); Squamous Epithelial Cell Urine None Seen (0-5/HPF); Urine Volume 10mL (spun); WBC Urine None Seen (0-5/HPF)
[2023-10-06 13:06] LABS: Culture Indicated Urine Cult Not Indicated
[2023-10-06 13:22] LABS: Add Manual Diff / Slide Review NO; Basophils Absolute Auto 100 /uL (0-100); Basophils Percent Auto 0.8 % (0-2); Eosinophils Absolute Auto 200 /uL (0-450); Eosinophils Percent Auto 2.4 % (2-4); Hematocrit 41.4 % (41-53); Hemoglobin 14.4 g/dL (13.5-17.5); Lymphocytes Absolute Auto 1600 /uL (1100-4500); Lymphocytes Percent Auto 17.8 % (25-40); Mean Corpuscular HGB Conc 34.8 % (30-36); Mean Corpuscular Hemoglobin 33.6 PG (26-34); Mean Corpuscular Volume 96.7 fL (80-100); Monocytes Absolute Auto 500 /uL (0-900); Neutrophils Absolute Auto 6800 /uL (1500-7000); Platelet Count 239 X10^3/uL (150-400); Red Blood Cell Count 4.28 X10^6/uL (4.5-5.9); Red Cell Distribution Width 13.2 % (11.6-14.8); White Blood Cell Count 9.3 X10^3/uL (4.5-11.0)
[2023-10-06 13:29] LABS: COVID19 -Nasal RAPID Negative (Negative)
[2023-10-06 13:35] LABS: Acetaminophen < 10 ug/mL (10-30); Alanine Aminotransferase 17 IU/L (<50); Albumin 4.6 g/dL (3.5-5.0); Albumin Globulin Ratio 1.8 (1.0-2.8); Alkaline Phosphatase 111 U/L (38-126); Aspartate Aminotransferase 21 IU/L (17-59); BUN Creatinine Ratio 16.7 (6-22); Bilirubin Total 0.4 mg/dL (0.2-1.3); Blood Urea Nitrogen 16 mg/dL (9-20); Carbon Dioxide 25 mmol/L (22-32); Chloride 103 mmol/L (98-107); Estimated Glomerular Filt Rate > 60 mL/min (>60); Ethanol (ETOH) < 10 mg/dL; Globulin 2.5 g/dL (1.7-4.1); Glucose 119 mg/dL (70-100); HEMOLYSIS < 15 (0-50); Potassium 4.5 mmol/L (3.4-5.1); Salicylate < 1.0 mg/dL (<20); Sodium 132 mmol/L (137-145); Total Protein 7.1 g/dL (6.3-8.2)
--- NOTE | 2023-10-06 13:49 | CM.SWNOTE ---
Addendum entered by CAMDEN Cox 10/06/23 14:01: PHQ-9 Score: 16 JOVANNY-7 Score: 20 Original Note: ED COMMUNICATION ENGINEER Assessment COMMUNICATION ENGINEER - Hand Rigger Assessment COMMUNICATION ENGINEER/Hand Rigger Assessment Time Spent with Patient Start date 10/06/23 Visit Start Time 12:50 End date 10/06/23 Visit End Time 13:10 Total time Care Management spent on 20 minutes patient visit-in minutes Mental Health Screening Include Onset, Duration, Intensity Presenting Problem Pt presents to the ED via EMS due to concern for increased auditory hallucinations, severe anxiety and paranoia. Pt explains he has not slept in a week and has spent the past 3 days with extreme paranoia causing pt to stay in the corner of my room, staring at the wall. The nurse at the Assisted Living Facility he resides at called EMS for pt. Precipitating Event(s) Pt presents to the ED seeking inpatient hospitalization for psychiatric symptoms. Pt endorses his aerospace medicine physician has attempted to switch his medications to triazalam about two weeks ago which provided relief for about 10 days until he was unable to refill his medication due to insurance authorization barriers. Patient Strengths Pt has been medication compliant and collaborates consistently with his aerospace medicine physician at [facility]. Pt also has support from [facility] through a Rib Cutter. 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 Current Behavioral Health Provider(s) Patient's aerospace medicine physician, Include Facility, Provider, Ph. # Elena Aguilar ( ) at [facility], pt reports he saw her about two weeks ago. Pt has a immigration case manager through [facility], Maricel Lopez ( ), pt states he called his CM during this episode. Psych. Hx Mental Health and Chemical Pt has a hx of Schizoaffective Dependency disorder, hypomania, Borderline Personality Disorder, SI, PTSD and hx of Suicide attempts. Pt denies any current substance use. Family Hx of Behavioral Abuse Per EMR, pt reports his mother had a hx of Bipolar disorder and brother has hx of OCD. Psychiatric Hospitalizations (date(s)/ Pt has a hx of several location) inpatient admissions. Most recently, pt was admitted at [facility] in January 2023. Pt has had previous placement at [facility], [place], [facility] and [facility]. Psychosocial information & Support Pt is a 48yo male who resides Systems in [place] at [facility]. Pt denies having any family in the area; the care providers at [facility] and his immigration case manager at [facility] are his main sources of support. 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. Pt states he works 4 days a week and apart from recent psychiatric symptoms, he does not miss work as he enjoys what he does. Legal Concerns Legal Matters - Outstanding Issues None reported. Mental Status Orientation (Person/Place/Time) A/Ox4 Stated Mood paranoid, anxious and really tired. Affect (Congruent with Mood?) anxious, cooperative, congruent with mood Thought Content - Specify/Describe Pt reports having auditory Obsessions, Delusions, Hallucinations hallucinations to include voices that tell him to get the f out of here and constantly hearing people who are not there speaking outside of his room. Pt reports lack of sleep causes his paranoia to run rampant. When I'm like that, I don't think I'm being watched, I KNOW I'm being watched. Pt reports his anxiety and paranoia to be so severe during this episode that he could not even lay in his bed, so he has been staying in the corner of his room, staring at the wall. Pt endorses having visual hallucinations which are exacerbated by no sleep, It's like [facility], I see layers of different colors. It's hard to explain but it's all I see at some points. Thought Processes (Jazfxaf-Txzdbkwx-Solq Goal directed, coherent Ftzsbdhc-Vhlrpgsa-Idxolnfbbu- Evxylmuddldubl-Ncdorir-Znrxbpzvjgee- Thought Blocking) Speech (Gjxjtb-Erzh-Gdoyjlk-Rapid-Soft- Normal, monotone Loud-Pressured) Motor (Bqeucs-Clnfgyneg-Egav-Other) Normal Insight (Hdjt-Tpme-Cjwj/Limited) Fair Judgement (Qbvz-Evnt-Zhte/Limited) Fair/limited due to hallucinations and paranoia Impulse Control (Adequate-Impaired) Adequate Memory (Nmohqmbpz-Lgykrt-Nyfqqt, Intact, not formally assessed Impaired-Intact) Concentration (Intact-Impaired) Intact Attention (Intact-Impaired) Intact Behavior (Appropriate-Inappropriate) Appropriate Additional Comment Patient presents as calm, cooperative and communicative during this assessment. Risk Assessment Suicidal Ideation (Plan) No Homicidal Ideation (Plan) No Comment Pt denies any thoughts/plans to harm or kill self or others. Intervention Intervention COMMUNICATION ENGINEER enters room to meet with patient, introduced self and role. Pt endorses having no sleep in a week which has been causing severe paranoia and auditory and visual hallucinations. Pt explains he had a medication trial/ change in the last two weeks ( medication: triazalam) and stopped having restful sleep in the last week. In the last three days, pt explains paranoia to be so severe that he has been in his room, holed up in the corner, staring at the wall. Pt explains he has attempted to utilize all of his supports available by calling his PCP office, speaking with his [facility] CM, before presenting to the nurse at [facility] who ultimately called EMS on pt's behalf due to severe paranoia and not being able to care for himself during this episode. COMMUNICATION ENGINEER utilized motivational interviewing to assess pt's preferences and goals for presentation today. Pt reported he wishes to be referred for inpatient admission for crisis stabilization and hope for learning coping skills and/or possibly revision of medication management for psychiatric symptoms. COMMUNICATION ENGINEER reviews this with ED provider Dr. Vasquez who indicates agreement and understanding. Plan RA Plan ED team to seek voluntary inpatient admission for pt upon medical clearance. RADHA Peters
--- NOTE | 2023-10-06 13:53 | ED_ITS ---
HPI - Psych General Chief Complaint: Psychiatric Symptoms Stated Complaint: Paranoia,denies SI/HI,wants inpatient tx Time Seen by Provider: 10/06/23 12:48 Source: patient and EMS Mode of arrival: EMS History of Present Illness HPI Narrative: Patient brought in by ambulance from home. For complaints of anxiety and auditory and visual hallucinations and insomnia. Patient has history of paranoid schizophrenia/anxiety/insomnia. He is on clonazepam as well as Haldol and Seroquel. He has been taking his medications. He desires inpatient care. He was seen here last month for the same. Denies denies any SI or HI. Patient is cooperative. Denies any recent inpatient hospitalization Related Data Home Medications Medication Instructions Recorded Confirmed haloperidol 5 mg tablet 5 mg PO BID 06/29/22 08/24/23 sertraline 50 mg tablet 100 mg PO QAM 10/27/22 08/24/23 benztropine 1 mg tablet 1 mg PO TID PRN Anxiety 02/03/23 08/24/23 dextroamphetamine-amphetamine 5 mg 1 tab PO BID 02/03/23 08/24/23 tablet (Adderall) trazodone 100 mg tablet 150 mg PO ONCE PM 02/03/23 08/24/23 clonidine HCl 0.1 mg tablet 0.1 mg PO BID 08/04/23 08/24/23 phenytoin sodium 100 mg capsule 400 mg PO BEDTIME 08/04/23 08/24/23 quetiapine 400 mg tablet,extended 400 mg PO QAM 08/24/23 08/24/23 release 24 hr Previous Rx's Medication Instructions Recorded clonazepam 1 mg tablet 1 mg PO TID #30 tabs 08/10/22 Allergies Allergy/AdvReac Type Severity Reaction Status Date / Time hydromorphone [HYDROMORPHONE] Allergy Mild severe Verified 08/23/23 18:26 itching WITH PILL FORM morphine Allergy Mild skin Verified 08/23/23 18:26 crawl/itchy Penicillins Allergy Mild hives Verified 08/23/23 18:26 ketorolac [From Toradol] Allergy Verified 08/23/23 18:26 Review of Systems Review of Systems Narrative: GENERAL: negative chills, fatigue, malaise, fever, sweats. HEENT: negative sinus pain, ear pain, sore throat RESPIRATORY: negative dyspnea, cough CARDIOVASCULAR: negative chest pain, palpitations GASTROINTESTINAL: negative nausea, vomiting, abdominal pain : negative dysuria, frequency, hematuria MUSCULOSKELETAL: negative muscle or bony pain SKIN: negative rash, skin lesions NEUROLOGIC: negative weakness, numbness PSYCH: Positive auditory visual hallucinations positive anxiety positive insomnia negative SI negative HI ROS Unobtainable: All systems reviewed & are unremarkable except as noted in HPI and below Patient History Medical History CAD in [place] artery Borderline personality disorder Alcohol abuse Depression Anxiety PTSD (post-traumatic stress disorder) Seizure Chronic pain syndrome Kidney stone on left side Social History Smoking Status: Current every day smoker Smoking Status: Current every day smoker tobacco type: cigarettes and smokeless tobacco alcohol intake frequency: holidays/special occasions only Substance Use Type: former substance user Exam Narrative Exam Narrative: GENERAL: in no distress, not toxic not dyspneic HEAD: Normocephalic. EYES: Pupils equal round ENT: Mucous membranes moist. NECK: Trachea midline. CARDIOVASCULAR: Regular rate and rhythm RESPIRATORY: Clear to auscultation. Breath sounds equal bilaterally. No wheezes, rales, or rhonchi. GASTROINTESTINAL: Abdomen soft, non-tender EXTREMITIES: No gross deformities. BACK: No flank tenderness. NEURO: AOx4. SKIN: Warm and dry PSYCH: Slightly anxious, is cooperative, negative SI negative HI no pressured speech no rapid speech no flight of ideas Initial Vital Signs Initial Vital Signs: Vital Signs Pulse Rate 86 10/06/23 12:07 Blood Pressure 123/84 10/06/23 12:07 Pulse Oximetry 93 10/06/23 12:07 Course Orders Ordered: Discontinued Medications Alprazolam (Alprazolam 0.25 Mg Tablet) 0.25 mg PO NOW ONE Stop: 10/06/23 13:46 Last Admin: 10/06/23 14:10 Dose: 0.25 mg Documented By: REGINA Vital Signs Vital signs: Vital Signs - 8 hr 10/06/23 12:07 10/06/23 12:07 10/06/23 12:14 Temperature 98.7 F Pulse Rate 86 86 Respiratory Rate 18 Blood Pressure 123/84 123/84 Pulse Oximetry 93 92 Oxygen Delivery Method Room Air 10/06/23 12:30 10/06/23 12:31 10/06/23 12:31 Temperature Pulse Rate 86 87 Respiratory Rate Blood Pressure 119/87 Pulse Oximetry 94 94 Oxygen Delivery Method 10/06/23 16:41 Temperature Pulse Rate 77 Respiratory Rate 16 Blood Pressure 120/62 Pulse Oximetry 96 Oxygen Delivery Method Room Air MDM - Psych Lab Data 10/06/23 13:14 10/06/23 13:14 Labs: Lab Results 10/06/23 10/06/23 10/06/23 Range/Units 12:48 12:48 12:50 WBC (4.5-11.0) X10^3/uL RBC (4.5-5.9) X10^6/uL Hgb (13.5-17.5) g/dL Hct (41-53) % MCV (80-100) fL MCH (26-34) PG MCHC (30-36) % RDW (11.6-14.8) % Plt Count (150-400) X10^3/uL Neut % (Auto) (50-75) % Lymph % (Auto) (25-40) % [place] % (Auto) (3-14) % Eos % (Auto) (2-4) % Baso % (Auto) (0-2) % Neut # (Auto) (8559-6225) /uL Lymph # (Auto) (9065-8992) /uL [place] # (Auto) (0-900) /uL Eos # (Auto) (0-450) /uL Baso # (Auto) (0-100) /uL Sodium (137-145) mmol/L Potassium (3.4-5.1) mmol/L Chloride (98-107) mmol/L Carbon Dioxide (22-32) mmol/L BUN (9-20) mg/dL Creatinine (0.66-1.25) mg/dL Estimated GFR (>60) mL/min BUN/Creatinine Ratio (6-22) Glucose (70-100) mg/dL Calcium (8.4-10.2) mg/dL Total Bilirubin (0.2-1.3) mg/dL AST (17-59) IU/L ALT (<50) IU/L Alkaline Phosphatase (38-126) U/L Total Protein (6.3-8.2) g/dL Albumin (3.5-5.0) g/dL Globulin (1.7-4.1) g/dL Albumin/Globulin Ratio (1.0-2.8) TSH (0.47-4.68) uIU/mL Free T4 (0.78-2.19) ng/dL Urine Color Yellow Urine Appearance Clear Urine pH 5.5 Normal (4.5-8.0) Ur Specific [place] <=1.005 (1.000-1.035) Urine Protein Negative (Negative) Urine Glucose (UA) Negative (Negative) g/dL Urine Ketones Negative (NEGATIVE) Urine Occult Blood Negative (Negative) Urine Nitrate Negative (Negative) Urine Bilirubin Negative (NEGATIVE) Urine Urobilinogen 0.2 (0.2) E.U./dL Ur Leukocyte Esterase Negative (NEGATIVE) Urine RBC None seen (0-5/HPF) Urine WBC None seen (0-5/HPF) Ur Squamous Epith Cells None seen (0-5/HPF) Urine Bacteria None seen (None) Ur Culture Indicated? Cult not indicated Vol Urine Centrifuged 10ml (spun) Salicylates (<20) mg/dL U Opiates 300ng/mL cut Negative (Negative) Ur Oxycodone Screen Negative (Negative) Urine Methadone Screen Negative (Negative) Acetaminophen (10-30) ug/mL Ur Barbiturates Screen Positive H (Negative) U Tricyclic Antidepress Negative (Negative) Ur Phencyclidine Scrn Negative (Negative) Ur Amphetamines Screen Positive H (Negative) U Methamphetamines Scrn Negative (Negative) Ur MDMA Scrn (Ecstasy) Negative (Negative) U Benzodiazepines Scrn Negative (Negative) Urine Cocaine Screen Negative (Negative) U Marijuana (THC) Screen Negative (Negative) Urine Specific [place] Normal (Normal) Ethyl Alcohol ( - 10) mg/dL Ur Creatinine Normal (Normal) SARS-CoV-2 (PCR) Negative (Negative) 10/06/23 Range/Units 13:14 WBC 9.3 (4.5-11.0) X10^3/uL RBC 4.28 L (4.5-5.9) X10^6/uL Hgb 14.4 (13.5-17.5) g/dL Hct 41.4 (41-53) % MCV 96.7 (80-100) fL MCH 33.6 (26-34) PG MCHC 34.8 (30-36) % RDW 13.2 (11.6-14.8) % Plt Count 239 (150-400) X10^3/uL Neut % (Auto) 74.0 (50-75) % Lymph % (Auto) 17.8 L (25-40) % [place] % (Auto) 5.0 (3-14) % Eos % (Auto) 2.4 (2-4) % Baso % (Auto) 0.8 (0-2) % Neut # (Auto) 6800 (0226-0431) /uL Lymph # (Auto) 1600 (3569-6277) /uL [place] # (Auto) 500 (0-900) /uL Eos # (Auto) 200 (0-450) /uL Baso # (Auto) 100 (0-100) /uL Sodium 132 L (137-145) mmol/L Potassium 4.5 (3.4-5.1) mmol/L Chloride 103 (98-107) mmol/L Carbon Dioxide 25 (22-32) mmol/L BUN 16 (9-20) mg/dL Creatinine 0.96 (0.66-1.25) mg/dL Estimated GFR > 60 (>60) mL/min BUN/Creatinine Ratio 16.7 (6-22) Glucose 119 H (70-100) mg/dL Calcium 9.0 (8.4-10.2) mg/dL Total Bilirubin 0.4 (0.2-1.3) mg/dL AST 21 (17-59) IU/L ALT 17 (<50) IU/L Alkaline Phosphatase 111 (38-126) U/L Total Protein 7.1 (6.3-8.2) g/dL Albumin 4.6 (3.5-5.0) g/dL Globulin 2.5 (1.7-4.1) g/dL Albumin/Globulin Ratio 1.8 (1.0-2.8) TSH 1.78 (0.47-4.68) uIU/mL Free T4 0.88 (0.78-2.19) ng/dL Urine Color Urine Appearance Urine pH (4.5-8.0) Ur Specific [place] (1.000-1.035) Urine Protein (Negative) Urine Glucose (UA) (Negative) g/dL Urine Ketones (NEGATIVE) Urine Occult Blood (Negative) Urine Nitrate (Negative) Urine Bilirubin (NEGATIVE) Urine Urobilinogen (0.2) E.U./dL Ur Leukocyte Esterase (NEGATIVE) Urine RBC (0-5/HPF) Urine WBC (0-5/HPF) Ur Squamous Epith Cells (0-5/HPF) Urine Bacteria (None) Ur Culture Indicated? Vol Urine Centrifuged Salicylates < 1.0 (<20) mg/dL U Opiates 300ng/mL cut (Negative) Ur Oxycodone Screen (Negative) Urine Methadone Screen (Negative) Acetaminophen < 10 (10-30) ug/mL Ur Barbiturates Screen (Negative) U Tricyclic Antidepress (Negative) Ur Phencyclidine Scrn (Negative) Ur Amphetamines Screen (Negative) U Methamphetamines Scrn (Negative) Ur MDMA Scrn (Ecstasy) (Negative) U Benzodiazepines Scrn (Negative) Urine Cocaine Screen (Negative) U Marijuana (THC) Screen (Negative) Urine Specific [place] (Normal) Ethyl Alcohol < 10 ( - 10) mg/dL Ur Creatinine (Normal) SARS-CoV-2 (PCR) (Negative) Urine Dip Bedside Urine Glucose Negative Bedside Urine Bilirubin - Negative Bedside Urine Ketone - Negative Urine Specific [place] 1.010 Bedside Urine Occult Blood - Negative Bedside Urine pH 6.0 Bedside Urine Protein - Negative Bedside Urine Urobilinogen - Negative Bedside Urine Nitrite - Negative Bedside Urine Leukocytes - Negative Esterase MDM Narrative Medical decision making narrative: Patient brought in by ambulance from home. For complaints of anxiety and auditory and visual hallucinations and insomnia. Patient has history of paranoid schizophrenia/anxiety/insomnia. He is on clonazepam as well as Haldol and Seroquel. He has been taking his medications. He desires inpatient care. He was seen here last month for the same. Denies denies any SI or HI. Patient is cooperative. Denies any recent inpatient hospitalization After history and exam social work consult CBC CMP TSH drug screen MDM Medical records reviewed: ER visit last month for the same Differential considered: Includes but not limited to acute psychosis schizophrenia anxiety Lab Test results independently reviewed as above. Pertinent findings: WBC 9.3 hemoglobin 14.4 sodium 132 potassium 4.5 AST 21 ALT 17 aspirin negative Tylenol negative COVID negative Drug screen positive barbiturates positive amphetamines TSH 1.78 Consultations: 6:00 p.m.. Marium, executive secretary social welfare, has been working with patient and transfer. She has been able to get patient accepted to [facility] psychiatric care with Dr. Sanchez. Treatments: Xanax Re-evaluations: 6:00 p.m.. Patient agrees and understands and is voluntary and desires transfer/admission to [facility]. Discussion: Appropriate for transfer. We do not have Behavioral Health here. Patient is voluntary. He meets criteria for inpatient care. No medications other than Xanax here was required Diagnosis: Paranoid schizophrenia/anxiety Discharge Plan Departure Patient Disposition: [facility] Clinical Impression: Anxiety Schizophrenia Qualifiers: Schizophrenia type: paranoid schizophrenia Qualified Code(s): F20.0 - Paranoid schizophrenia Psychosis Qualifiers: Psychosis type: schizophrenia Schizophrenia type: paranoid schizophrenia Q ualified Code(s): F20.0 - Paranoid schizophrenia Prescriptions: No Action haloperidol 5 mg Tablet 5 mg PO BID MDD TID trazodone 100 mg tablet 150 mg PO ONCE PM benztropine 1 mg tablet 1 mg PO TID PRN (Reason: Anxiety) dextroamphetamine-amphetamine [Adderall] 5 mg tablet 1 tab PO BID clonidine HCl 0.1 mg Tablet 0.1 mg PO BID phenytoin sodium 100 mg Capsule 400 mg PO BEDTIME quetiapine 400 mg tablet extended release 24 hr 400 mg PO QAM clonazepam 1 mg tablet 1 mg PO TID Qty: 30 0RF sertraline 50 mg tablet 100 mg PO QAM Referrals: Sherri Lowe MD [Primary Care Provider] -
--- NOTE | 2023-10-06 13:53 | CM.SWNOTE ---
Addendum entered by CAMDEN Cox 10/06/23 17:13: Per Andre at [facility], pt is still under review. asw specialist reported that during last admission at [facility], pt left against medical advice because provider would not continue Adderall prescription during admission. [facility] is requesting this be discussed with pt before continuing with review. Per Ranulfo at intake, pt is accepted at [facility]. Accepted by Dr. Steven Sanchez MD. RN to RN report after transport, ph#[phone]. Pt updated of both facilities, pt requested to move forward with [facility] admission. Pt declined this director media offer to update [facility] AMY or bottle caser. UNISHEAR OPERATOR called [facility] to request transport at 1999 to [facility]. Original Note: ED UNISHEAR OPERATOR Note UNISHEAR OPERATOR calls [facility] intake, it is reported that they have 2 beds available. ED to fax packet for review upon medical clearance. UNISHEAR OPERATOR calls [facility] intake, it is reported that they have 1 male bed available. ED to fax packet for medical review upon medical clearance. Pt stated preference for referral to [facility]. Per [place] guidelines, pt is no longer being accepted for review at [facility] due to pt's hx of previous history of lack of follow through with treatment plan and lack of engagement in group therapy. Plan: ED team to seek voluntary inpatient placement for pt upon medical clearance. Following closely for evolving plan of care. RADHA Peters
[2023-10-06 13:57] LABS: Free T4, Direct Thyroxine 0.88 ng/dL (0.78-2.19)
[2023-10-06] MEDS: ALPRAZolam 0.25 MG TABLET PO (14:10)
[2023-10-06 14:11] LABS: Thyroid Stimulating Hormone 1.78 uIU/mL (0.47-4.68)
[2023-10-06 14:31] LABS: UR Morphine/Opiate cutoff 300 Negative (Negative); Ur Creatinine Normal (Normal); Ur Specific Gravity Normal (Normal); Urine Amphetamines Positive (Negative); Urine Barbiturates Positive (Negative); Urine Benzodiazepines Negative (Negative); Urine Cocaine Negative (Negative); Urine MDMA Negative (Negative); Urine Methadone Negative (Negative); Urine Methamphetamines Negative (Negative); Urine Oxycodone Negative (Negative); Urine Phencyclidine Negative (Negative); Urine Tetrahydrocannabinol Negative (Negative); Urine Tricyclic Antidepressant Negative (Negative); Urine pH Normal (Normal)
[2023-10-06 16:41] VITALS: BP 120/62; PULSE 77; RESP 16; O2SAT 96
== END 2023-10-06 19:56 | disposition short-term general hospital (02) ==
PROVIDERS: Emergency Provider Emergency Medicine; PCP Family Medicine
DX: F20.0 Paranoid schizophrenia (principal); F41.9 Anxiety disorder, unspecified; Z20.822 Contact with and (suspected) exposure to COVID-19
CPT/HCPCS: 36415; 80053; 80305; 80320; 80329; 81001; 81003; 84439; 84443; 85025; 87635; 99284; G0480

== ENCOUNTER 2024-01-02 18:48 | Emergency (ER) | payer OTHER, MEDICAID, SELFPAY ==
[2024-01-02 19:05] VITALS: BP 130/70; PULSE 86; RESP 13; TEMP 36.8; O2SAT 95
--- NOTE | 2024-01-02 19:15 | PC.NURSE ---
Pt moves all extremities. Pt is non-verbal. Has good tongue control and appears in no acute distress. VSS.
--- NOTE | 2024-01-02 19:42 | ED.PSYCH ---
HPI - Psych General Chief Complaint: Altered Mental Status Stated Complaint: Paranoia/Anxiety Time Seen by Provider: 01/02/24 19:20 Source: EMS Mode of arrival: EMS History of Present Illness HPI Narrative: 48-year-old male presents for psychiatric evaluation. History somewhat limited as patient is only responding verbally to yes/no questions and is writing on paper to communicate. Requesting psychiatric hospitalization. Believes people are after him. Has been seen for psychiatric evaluations in the past. PMH schizophrenia and anxiety. Related Data Home Medications Medication Instructions Recorded Confirmed haloperidol 5 mg tablet 5 mg PO BID 06/29/22 08/24/23 sertraline 50 mg tablet 100 mg PO QAM 10/27/22 08/24/23 benztropine 1 mg tablet 1 mg PO TID PRN Anxiety 02/03/23 08/24/23 dextroamphetamine-amphetamine 5 mg 1 tab PO BID 02/03/23 08/24/23 tablet (Adderall) trazodone 100 mg tablet 150 mg PO ONCE PM 02/03/23 08/24/23 clonidine HCl 0.1 mg tablet 0.1 mg PO BID 08/04/23 08/24/23 phenytoin sodium 100 mg capsule 400 mg PO BEDTIME 08/04/23 08/24/23 quetiapine 400 mg tablet,extended 400 mg PO QAM 08/24/23 08/24/23 release 24 hr Previous Rx's Medication Instructions Recorded clonazepam 1 mg tablet 1 mg PO TID #30 tabs 08/10/22 Allergies Allergy/AdvReac Type Severity Reaction Status Date / Time hydromorphone [HYDROMORPHONE] Allergy Mild severe Verified 08/23/23 18:26 itching WITH PILL FORM morphine Allergy Mild skin Verified 08/23/23 18:26 crawl/itchy Penicillins Allergy Mild hives Verified 08/23/23 18:26 ketorolac [From Toradol] Allergy Verified 08/23/23 18:26 Patient History Medical History CAD in [place] artery Borderline personality disorder Alcohol abuse Depression Anxiety PTSD (post-traumatic stress disorder) Seizure Chronic pain syndrome Kidney stone on left side Social History Smoking Status: Current every day smoker Smoking Status: Current every day smoker tobacco type: cigarettes and smokeless tobacco alcohol intake frequency: holidays/special occasions only Substance Use Type: former substance user Exam Initial Vital Signs Initial Vital Signs: Vital Signs Temperature 98.2 F 01/02/24 19:05 Pulse Rate 86 01/02/24 19:05 Respiratory Rate 13 01/02/24 19:05 Blood Pressure 130/70 01/02/24 19:05 Pulse Oximetry 95 01/02/24 19:05 Oxygen Delivery Method Room Air 01/02/24 19:05 Const: Awake, alert, no acute distress Cardiac: regular rate, regular rhythm RESP: unlabored, clear bilaterally, no wheezing Skin: Warm, Dry, intact, no rashes Neuro: AO x3, CN II-XII grossly intact, moves all extremities Psych: Flat affect, paranoid delusions Course Orders Ordered: ED Orders 01/02/24 20:10 Urine Drug Screen, Rapid Stat 01/02/24 20:16 COVID19 -Nasal RAPID Stat 01/02/24 20:20 Acetaminophen Stat CBC Auto Diff [Complete Blood Count AUTO DIFF] Stat CMP [Comprehensive Metabolic Panel] Stat Ethanol (ETOH) Stat Discontinued Medications Acetaminophen (Acetaminophen 325 Mg Tablet) 975 mg PO NOW ONE Stop: 01/03/24 02:34 Last Admin: 01/03/24 02:43 Dose: 975 mg Documented By: SAKINA Lorazepam (Lorazepam 0.5 Mg Tablet) 1 mg PO NOW ONE Stop: 01/03/24 02:34 Last Admin: 01/03/24 02:43 Dose: 1 mg Documented By: SAKINA Vital Signs Vital signs: Vital Signs - 8 hr 01/03/24 03:03 Pulse Rate 85 Respiratory Rate 16 Blood Pressure 105/65 Pulse Oximetry 98 Oxygen Delivery Method Room Air MDM - Psych Lab Data 01/02/24 20:20 01/02/24 20:20 Labs: Lab Results 01/02/24 01/02/24 01/02/24 Range/Units 20:10 20:16 20:20 WBC 4.7 (4.5-11.0) X10^3/uL RBC 3.91 L (4.5-5.9) X10^6/uL Hgb 13.3 L (13.5-17.5) g/dL Hct 38.0 L (41-53) % MCV 97.1 (80-100) fL MCH 34.1 H (26-34) PG MCHC 35.1 (30-36) % RDW 13.8 (11.6-14.8) % Plt Count 212 (150-400) X10^3/uL Neut % (Auto) 52.1 (50-75) % Lymph % (Auto) 35.3 (25-40) % [place] % (Auto) 6.4 (3-14) % Eos % (Auto) 4.8 H (2-4) % Baso % (Auto) 1.4 (0-2) % Neut # (Auto) 2400 (4921-1158) /uL Lymph # (Auto) 1700 (0385-3302) /uL [place] # (Auto) 300 (0-900) /uL Eos # (Auto) 200 (0-450) /uL Baso # (Auto) 100 (0-100) /uL Sodium 138 (137-145) mmol/L Potassium 4.2 (3.4-5.1) mmol/L Chloride 108 H (98-107) mmol/L Carbon Dioxide 24 (22-32) mmol/L BUN 17 (9-20) mg/dL Creatinine 0.96 (0.66-1.25) mg/dL Estimated GFR > 60 (>60) mL/min BUN/Creatinine Ratio 17.7 (6-22) Glucose 113 H (70-100) mg/dL Calcium 8.5 (8.4-10.2) mg/dL Total Bilirubin 0.3 (0.2-1.3) mg/dL AST 19 (17-59) IU/L ALT 20 (<50) IU/L Alkaline Phosphatase 120 (38-126) U/L Total Protein 6.3 (6.3-8.2) g/dL Albumin 4.0 (3.5-5.0) g/dL Globulin 2.3 (1.7-4.1) g/dL Albumin/Globulin Ratio 1.7 (1.0-2.8) U Opiates 300ng/mL cut Negative (Negative) Ur Oxycodone Screen Negative (Negative) Urine Methadone Screen Negative (Negative) Acetaminophen < 10 (10-30) ug/mL Ur Barbiturates Screen Positive H (Negative) U Tricyclic Antidepress Negative (Negative) Ur Phencyclidine Scrn Negative (Negative) Ur Amphetamines Screen Negative (Negative) U Methamphetamines Scrn Negative (Negative) Ur MDMA Scrn (Ecstasy) Negative (Negative) U Benzodiazepines Scrn Negative (Negative) Urine Cocaine Screen Negative (Negative) U Marijuana (THC) Screen Negative (Negative) Urine pH Normal (Normal) Urine Specific [place] Normal (Normal) Ethyl Alcohol < 10 ( - 10) mg/dL Ur Creatinine Normal (Normal) SARS-CoV-2 (PCR) Negative (Negative) Urine Dip Bedside Urine Glucose Negative Bedside Urine Bilirubin - Negative Bedside Urine Ketone - Negative Urine Specific [place] 1.015 Bedside Urine Occult Blood - Negative Bedside Urine pH 6.5 Bedside Urine Protein - Negative Bedside Urine Urobilinogen - Negative Bedside Urine Nitrite - Negative Bedside Urine Leukocytes - Negative Esterase MDM Narrative Medical decision making narrative: Paranoia and anxiety. Currently calm and cooperative. Medically cleared. Seen by ENTRY ENGINEER. 0320 -patient now stating that he feels much better and would like to go home. He feels safe at home, he does not want to harm himself. Patient counseled to follow up with his psychiatric provider this week Discharge Plan Departure Patient Disposition: Home Clinical Impression: Acute paranoia Instructions: DI for Anxiety -- Adult Activity Restrictions/Additional Instructions: Your laboratory work today is normal. I am glad that you were feeling better. Please follow up with your psychiatrist or psychiatric practitioner this week. Please return to the emergency department if you feel worse Prescriptions: No Action haloperidol 5 mg Tablet 5 mg PO BID MDD TID trazodone 100 mg tablet 150 mg PO ONCE PM benztropine 1 mg tablet 1 mg PO TID PRN (Reason: Anxiety) dextroamphetamine-amphetamine [Adderall] 5 mg tablet 1 tab PO BID clonidine HCl 0.1 mg Tablet 0.1 mg PO BID phenytoin sodium 100 mg Capsule 400 mg PO BEDTIME quetiapine 400 mg tablet extended release 24 hr 400 mg PO QAM clonazepam 1 mg tablet 1 mg PO TID Qty: 30 0RF sertraline 50 mg tablet 100 mg PO QAM Referrals: Sherri Lowe MD [Primary Care Provider] - Stand Alone Forms: Patient Portal/API
--- NOTE | 2024-01-02 19:50 | CM.SWNOTE ---
ED LOGISTICS PLANNING MANAGER Assessment Note: LOGISTICS PLANNING MANAGER - Motion Picture Printer Assessment LOGISTICS PLANNING MANAGER/Motion Picture Printer Assessment Time Spent with Patient Start date 01/02/24 Visit Start Time 19:10 End date 01/02/24 Visit End Time 19:29 Total time Care Management spent on 19 minutes patient visit-in minutes Mental Health Screening Include Onset, Duration, Intensity Presenting Problem Patient presents to the ED via EMS due to concern for severe anxiety and paranoia. Pt is able to verbalized that he has not been able to sleep for 4 nights due to the paranoia. Patient is also exhibiting selective mutism, verbalizing needs via writing it on paper or answering yes or no answers. Patient presents to the ED seeking inpatient hospitalization for psychiatric symptoms. Precipitating Event(s) Patient was able to verbalize via writing that he feels extremely anxious because There are people after me and I can't stop thinking about them. Patient explains he believes people are after him because I turned him in because he is a drug dealer. Patient did not explain his relation to his person; reported that this person is not in police custody and is not out on merino. 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 Patient Strengths Pt has been medication compliant and collaborates consistently with his home theater expert at [facility]. Patient lives in an Assisted living facility in [place] called [facility]. Current Behavioral Health Provider(s) Patient's home theater expert, Include Facility, Provider, Ph. # Elena Aguilar ( ). Patient has a medical case manager through [facility], Maricel Lopez ( ). Psych. Hx Mental Health and Chemical Pt has a hx of Schizoaffective Dependency disorder, hypomania, Borderline Personality Disorder, SI, PTSD and hx of Suicide attempts. Pt denies any current substance use. Family Hx of Behavioral Abuse Per EMR, pt reports his mother had a hx of Bipolar disorder and brother has hx of OCD. Psychiatric Hospitalizations (date(s)/ Pt has a hx of several location) inpatient admissions. Most recently, pt was admitted at [facility] in October 2023. Pt has had previous placement at [facility], [facility], [facility] and [facility]. Patient explains that he will need to go to a facility that can continue his previously prescribed Adderall. Psychosocial information & Support Pt is a 48yo male who resides Systems in [place] at [facility]. Pt denies having any family in the area; the care providers at [facility] and his medical case manager at [facility] are his main sources of support. School/Work Patient recently lost his job at [employer] due to attendance and sleep issues. Legal Concerns Legal Matters - Outstanding Issues None reported. Mental Status Orientation (Person/Place/Time) AOx3 Stated Mood Paranoid Affect (Congruent with Mood?) anxious, cooperative, congruent with mood Thought Content - Specify/Describe Patient explained his recent Obsessions, Delusions, Hallucinations paranoia/delusions of people after me, patient confirmed that he is having similar auditory hallucinations as the past to include hearing people talk about him outside of his bedroom window, exacerbating his paranoia. Patient confirmed that he is having similar visual hallucinations as the past such as layers of different colors. Thought Processes (Fpoxjic-Tnxfbyaf-Euuk Logical, coherent Ixgpmiim-Eocbjpuz-Yoxxueimpi- Cmswudbvvlklbz-Dqrmgwd-Rfnmfnkgwbtw- Thought Blocking) Speech (Hpynea-Qojx-Puiwybb-Rapid-Soft- Selective mutism, this is a Loud-Pressured) new presentation compared to previous presentations at this ED. Motor (Exzeyk-Duexzhvkq-Yebv-Other) Normal Insight (Ytdl-Yodc-Mkzf/Limited) Fair/limited Judgement (Srhl-Aons-Qlam/Limited) Fair/limited Impulse Control (Adequate-Impaired) Adequate Memory (Kzbuibflt-Fphdft-Ucltfl, Intact, not formally assessed Impaired-Intact) Concentration (Intact-Impaired) Intact Attention (Intact-Impaired) Intact Behavior (Appropriate-Inappropriate) Appropriate Additional Comment Patient presents as calm, cooperative and communicative during this assessment. Risk Assessment Suicidal Ideation (Plan) No Homicidal Ideation (Plan) No Comment Pt denies any thoughts/plans to harm or kill self or others . Intervention Intervention LOGISTICS PLANNING MANAGER meets with patient. Patient confirmed the events of the past several days to include no sleep for the past 4 days and paranoia that people are after me. Patient confirms that he is seeking inpatient hospitalization for severe paranoia. LOGISTICS PLANNING MANAGER discusses bed availablity during initial bed search. Patient explained he has no preferences but is hopeful to be admitted where he can continue his Aderall prescription as he was admitted somewhere before who could not continue his attention medications and it made me sick. At this time, it is the opinion of this LOGISTICS PLANNING MANAGER that patient would benefit from inpatient psychiatric hospitalization for severe paranoia and crisis stabilization. LOGISTICS PLANNING MANAGER informs ED provider, Dr. Mosqueda who indicates agreement . LOGISTICS PLANNING MANAGER informs MAHOGANY Ring. Plan RA Plan Once patient is medically clear, ED staff will attempt to find inpatient placement for patient. RADHA Peters
--- NOTE | 2024-01-02 19:51 | CM.SWNOTE ---
ED PRIMARY COUNSELOR Note: ED PRIMARY COUNSELOR initiated bed search for availability. PRIMARY COUNSELOR called [facility], it was reported there are no beds available. PRIMARY COUNSELOR called [facility], it was reported that there is 1 bed available. Pt prefers not to be referred to this hospital due to not being prescribed his attention medication (hospital policy). PRIMARY COUNSELOR called [facility], it was reported that there are no beds available. PRIMARY COUNSELOR called [facility], it was reported that there are beds available. PRIMARY COUNSELOR called [facility], it was reported that there are beds available. PRIMARY COUNSELOR completed initial phone screening with pt demographics, they are awaiting packet to review. Per [facility], pt is no longer being accepted for review at [facility] due to pt's hx of being admitted and not completing inpatient program. Per chart review, pt was previously admitted at [facility] in October 2023. Plan: Pt pending medical clearance, ED staff will send clinical packet for review when cleared. RADHA Peters
[2024-01-02 20:28] LABS: Add Manual Diff / Slide Review NO; Basophils Absolute Auto 100 /uL (0-100); Basophils Percent Auto 1.4 % (0-2); Eosinophils Absolute Auto 200 /uL (0-450); Eosinophils Percent Auto 4.8 % (2-4); Hemoglobin 13.3 g/dL (13.5-17.5); Lymphocytes Absolute Auto 1700 /uL (1100-4500); Lymphocytes Percent Auto 35.3 % (25-40); Mean Corpuscular HGB Conc 35.1 % (30-36); Mean Corpuscular Hemoglobin 34.1 PG (26-34); Mean Corpuscular Volume 97.1 fL (80-100); Monocytes Absolute Auto 300 /uL (0-900); Monocytes Percent Auto 6.4 % (3-14); Neutrophils Absolute Auto 2400 /uL (1500-7000); Neutrophils Percent Auto 52.1 % (50-75); Platelet Count 212 X10^3/uL (150-400); Red Blood Cell Count 3.91 X10^6/uL (4.5-5.9); Red Cell Distribution Width 13.8 % (11.6-14.8); White Blood Cell Count 4.7 X10^3/uL (4.5-11.0)
[2024-01-02 20:46] LABS: Acetaminophen < 10 ug/mL (10-30); Alanine Aminotransferase 20 IU/L (<50); Albumin Globulin Ratio 1.7 (1.0-2.8); Alkaline Phosphatase 120 U/L (38-126); Aspartate Aminotransferase 19 IU/L (17-59); BUN Creatinine Ratio 17.7 (6-22); Bilirubin Total 0.3 mg/dL (0.2-1.3); Blood Urea Nitrogen 17 mg/dL (9-20); Calcium 8.5 mg/dL (8.4-10.2); Carbon Dioxide 24 mmol/L (22-32); Chloride 108 mmol/L (98-107); Estimated Glomerular Filt Rate > 60 mL/min (>60); Ethanol (ETOH) < 10 mg/dL; Globulin 2.3 g/dL (1.7-4.1); Glucose 113 mg/dL (70-100); HEMOLYSIS < 15 (0-50); Potassium 4.2 mmol/L (3.4-5.1); Sodium 138 mmol/L (137-145); Total Protein 6.3 g/dL (6.3-8.2)
[2024-01-02 20:48] LABS: COVID19 -Nasal RAPID Negative (Negative)
[2024-01-02 20:49] LABS: Ur Creatinine Normal (Normal); Ur Specific Gravity Normal (Normal); Urine Tetrahydrocannabinol Negative (Negative); Urine pH Normal (Normal)
[2024-01-02 20:50] LABS: UR Morphine/Opiate cutoff 300 Negative (Negative); Urine Amphetamines Negative (Negative); Urine Barbiturates Positive (Negative); Urine Benzodiazepines Negative (Negative); Urine Cocaine Negative (Negative); Urine MDMA Negative (Negative); Urine Methadone Negative (Negative); Urine Methamphetamines Negative (Negative); Urine Oxycodone Negative (Negative); Urine Phencyclidine Negative (Negative); Urine Tricyclic Antidepressant Negative (Negative)
[2024-01-03] MEDS: LORazepam 0.5 MG TABLET 1 MG PO (02:43)
[2024-01-03] MEDS: ACETAMINOPHEN 325 MG TABLET 975 MG PO (02:43)
[2024-01-03 03:03] VITALS: BP 105/65; PULSE 85; RESP 16; O2SAT 98
[2024-01-03 04:08] VITALS: BP 135/87; PULSE 85; RESP 18; TEMP 36.9; O2SAT 98
== END 2024-01-03 04:09 | disposition home or self-care (01) ==
PROVIDERS: Emergency Provider Emergency Medicine; PCP Family Medicine
DX: F22 Delusional disorders (principal); F41.9 Anxiety disorder, unspecified
CPT/HCPCS: 36415; 80053; 80305; 80320; 80329; 81003; 85025; 87635; 99283; G0480

== ENCOUNTER 2024-01-14 11:56 | Emergency (ER) | payer OTHER, MEDICAID, SELFPAY ==
[2024-01-14 11:58] VITALS: BP 130/80; PULSE 85; RESP 20; TEMP 37.1; O2SAT 97; BMI 28.3
--- NOTE | 2024-01-14 11:59 | DI.RAD.S_ITS ---
PROCEDURE: XR HIP W PEL IF DONE RT 2V INDICATIONS: right hip pain TECHNIQUE: AP pelvis with lateral view(s) of the right hip(s). COMPARISON: None. FINDINGS: Bones: No fractures or dislocations. Mild bilateral hip joint degeneration. Pelvic ring appears intact. No suspicious bony lesions. Soft tissues: The visualized bowel gas pattern is normal. No suspicious soft tissue calcifications. IMPRESSION: No acute osseous abnormalities. Mild degenerative changes of the bilateral hips. Dictated by: Miguel Govea M.D. on 01/14/2024 at 12:41 Approved by: Miguel Govea M.D. on 01/14/2024 at 12:41
--- NOTE | 2024-01-14 12:32 | ED_ITS ---
HPI - Extremity Injury (Lower) General Chief Complaint: Extremity Injury, Lower Stated Complaint: R Hip D/L Time Seen by Provider: 01/14/24 11:58 Source: patient Mode of arrival: EMS Limitations: no limitations History of Present Illness HPI Narrative: Patient is a 48-year-old male who arrived by EMS for evaluation of a right hip injury. He was concerned about potential fracture or dislocation. He states he was in his normal state of health this morning. He sat down on the couch. When he went to get up from the couch she had a sudden discomfort in the front of his right hip. This is happened to him 1 time prior where he stated that he was able to ?walk it off? but today's discomfort has been more than normal. No abdominal pain. No change in any right knee symptoms. His right ankle is unremarkable. Related Data Home Medications Medication Instructions Recorded Confirmed haloperidol 5 mg tablet 5 mg PO BID 06/29/22 08/24/23 sertraline 50 mg tablet 100 mg PO QAM 10/27/22 08/24/23 benztropine 1 mg tablet 1 mg PO TID PRN Anxiety 02/03/23 08/24/23 dextroamphetamine-amphetamine 5 mg 1 tab PO BID 02/03/23 08/24/23 tablet (Adderall) trazodone 100 mg tablet 150 mg PO ONCE PM 02/03/23 08/24/23 clonidine HCl 0.1 mg tablet 0.1 mg PO BID 08/04/23 08/24/23 phenytoin sodium 100 mg capsule 400 mg PO BEDTIME 08/04/23 08/24/23 quetiapine 400 mg tablet,extended 400 mg PO QAM 08/24/23 08/24/23 release 24 hr Previous Rx's Medication Instructions Recorded clonazepam 1 mg tablet 1 mg PO TID #30 tabs 08/10/22 cyclobenzaprine 10 mg tablet 10 mg PO TID PRN muscle spasm #14 01/14/24 tabs hydrocodone 5 mg-acetaminophen 325 1 tab PO Q8H PRN pain #6 tabs 01/14/24 mg tablet Allergies Allergy/AdvReac Type Severity Reaction Status Date / Time hydromorphone [HYDROMORPHONE] Allergy Mild severe Verified 08/23/23 18:26 itching WITH PILL FORM morphine Allergy Mild skin Verified 08/23/23 18:26 crawl/itchy Penicillins Allergy Mild hives Verified 08/23/23 18:26 ketorolac [From Toradol] Allergy Verified 08/23/23 18:26 Review of Systems Constitutional Constitutional: Reports system reviewed and no additional complaints, except as documented Musculoskeletal Musculoskeletal: Reports system reviewed and no additional complaints, except as documented Integumentary/Breasts Skin/Breast: Reports system reviewed and no additional complaints, except as documented Neurologic Neurologic: Reports system reviewed and no additional complaints, except as documented Patient History Medical History CAD in makah artery Borderline personality disorder Alcohol abuse Depression Anxiety PTSD (post-traumatic stress disorder) Seizure Chronic pain syndrome Kidney stone on left side Social History Smoking Status: Current every day smoker Smoking Status: Current every day smoker tobacco type: cigarettes and smokeless tobacco alcohol intake frequency: holidays/special occasions only Substance Use Type: former substance user Exam Initial Vital Signs Initial Vital Signs: Vital Signs Temperature 98.7 F 01/14/24 11:58 Pulse Rate 85 01/14/24 11:58 Respiratory Rate 20 01/14/24 11:58 Blood Pressure 130/80 01/14/24 11:58 Pulse Oximetry 97 01/14/24 11:58 Oxygen Delivery Method Room Air 01/14/24 11:58 Const General: cooperative GI Inspection: normal to inspection and non-distended Palpation: soft and No tender Skin General: no rashes or lesions noted Extrem Other: Patient with reproducible discomfort to palpation along the lateral and anterior portion of the right thigh. No gross abnormalities. Course Orders Ordered: ED Orders 01/14/24 11:59 XR hip w pel if done RT 2V Stat Discontinued Medications Hydrocodone Bitart/Acetaminophen (Hydrocodone/Acet 5/325 Tablet) 1 tab PO NOW ONE Stop: 01/14/24 12:32 Last Admin: 01/14/24 12:37 Dose: 1 tab Documented By: CTS Cyclobenzaprine HCl (Cyclobenzaprine 10 Mg Tablet) 10 mg PO NOW ONE Stop: 01/14/24 12:55 Last Admin: 01/14/24 13:08 Dose: 10 mg Documented By: MPO Vital Signs Vital signs: Vital Signs - 8 hr 01/14/24 11:58 Temperature 98.7 F Pulse Rate 85 Respiratory Rate 20 Blood Pressure 130/80 Pulse Oximetry 97 Oxygen Delivery Method Room Air [facility] - Extremity Injury (Lower) Imaging Data Extremity x-ray #1: Radiologist's Impression: PROCEDURE: XR HIP W PEL IF DONE RT 2V INDICATIONS: right hip pain TECHNIQUE: AP pelvis with lateral view(s) of the right hip(s). COMPARISON: None. FINDINGS: Bones: No fractures or dislocations. Mild bilateral hip joint degeneration. Pelvic ring appears intact. No suspicious bony lesions. Soft tissues: The visualized bowel gas pattern is normal. No suspicious soft tissue calcifications. IMPRESSION: No acute osseous abnormalities. Mild degenerative changes of the bilateral hips. [facility] Narrative Medical decision making narrative: X-ray shows no fractures nor dislocation. His discomfort is located both anterior and lateral in the right thigh and I suspect that this is muscle strain. Low suspicion for muscle tear. Will send home with symptom treatment for now. Crutches for comfort. Discussed all this with him. He was given return precautions. He expressed understanding and agreement. Discharge Plan Departure Patient Disposition: Home Clinical Impression: Strain of right quadriceps muscle Instructions: How to Use Crutches, DI for Muscle Strain Activity Restrictions/Additional Instructions: There were no fractures noted on the x-ray so you can walk on your right leg as tolerated. Use the medications as needed. Also recommend light stretching. I suspect that your symptoms will improve over the next couple days. Contact your primary doctor for a follow-up. Prescriptions: New cyclobenzaprine 10 mg tablet 10 mg PO TID PRN (Reason: muscle spasm) Qty: 14 0RF hydrocodone-acetaminophen 5-325 mg tablet 1 tab PO Q8H PRN (Reason: pain) Qty: 6 0RF No Action haloperidol 5 mg Tablet 5 mg PO BID MDD TID trazodone 100 mg tablet 150 mg PO ONCE PM benztropine 1 mg tablet 1 mg PO TID PRN (Reason: Anxiety) dextroamphetamine-amphetamine [Adderall] 5 mg tablet 1 tab PO BID clonidine HCl 0.1 mg Tablet 0.1 mg PO BID phenytoin sodium 100 mg Capsule 400 mg PO BEDTIME quetiapine 400 mg tablet extended release 24 hr 400 mg PO QAM clonazepam 1 mg tablet 1 mg PO TID Qty: 30 0RF sertraline 50 mg tablet 100 mg PO QAM Referrals: Sherri Lowe MD [Primary Care Provider] - Stand Alone Forms: Patient Portal/API
[2024-01-14] MEDS: HYDROCODONE/ACET 5/325 TABLET 1 TAB PO (12:37)
[2024-01-14 12:38] VITALS: PULSE 80; O2SAT 96
[2024-01-14 13:00] VITALS: BP 134/83; PULSE 71; RESP 14; O2SAT 96
[2024-01-14] MEDS: CYCLOBENZAPRINE 10 MG TABLET PO (13:08)
[2024-01-14 13:45] VITALS: BP 130/74; PULSE 77; RESP 20; TEMP 36.6; O2SAT 99
== END 2024-01-14 13:50 | disposition home or self-care (01) ==
PROVIDERS: Emergency Provider Emergency Medicine; PCP Family Medicine
DX: S76.111A Strain of right quadriceps muscle, fascia and tendon, initial encounter (principal)
CPT/HCPCS: 73502; 99283; 99284